=== PATIENT | female | born 1955 | race Caucasian/White ===

== ENCOUNTER 2021-02-08 14:10 | Inpatient (IN) | payer OTHER ==
--- NOTE | 2021-02-08 16:19 | RAD REPORT ---
EXAM DESCRIPTION: US - Extremity Nonvascular Limited - 02/08/2021 3:05 pm CLINICAL HISTORY: umbilical mass Pain and swelling COMPARISON: No comparisons TECHNIQUE: Real-time sonographic evaluation of the area of interest was performed. FINDINGS: There is a rounded sac-like structure in the area of interest umbilical region. The sac-li ke structure appears to contain echogenic material. Most likely, this represents an umbilical hernia containing fat.
[2021-02-08 16:59] LABS: Absolute Lymphocytes (CBC) 2.7 K/uL (0.7-4.9); Basophils % 0.7 % (0-1.3); Hematocrit 39.3 % (36.0-45.0); Lymphocytes % 17.7 % (15.3-44.8); MPV 7.6 fL (7.6-11.3); RBC Red Blood Cell Count 4.52 M/uL (3.86-4.86)
[2021-02-08 17:11] LABS: Potassium 3.7 mmol/L (3.5-5.1)
--- NOTE | 2021-02-08 17:56 | RAD REPORT ---
EXAM DESCRIPTION: CTAbdomen Pelvis W Contrast - 02/08/2021 5:47 pm CLINICAL HISTORY: Abdominal pain. ABD PAIN COMPARISON: No comparisons TECHNIQUE: Biphasic CT imaging of the abdomen and pelvis was performed with 100 ml non-ionic IV cont rast. All CT scans are performed using dose optimization technique as appropriate and may include automated exposure control or mA/KV adjustment according to patient size. FINDINGS: The lung bases are clear.Cholecystectomy. The liver, spleen, pancreas, adrenal glands and kidneys are within normal limits. No bowel obstruction, free air, free fluid or abscess. Sigmoid diverticulosis coli is present without diverticulitis. The appendix is normal. Moderate inflamed fat containing umbilical hernia is present . This may be an incarcerated hernia. No evidence of significant lymphadenopathy. No suspicious bony findings. IMPRESSION: Incarcerated fat containing umbilical hernia suspected. Sigmoid diverticulosis coli without diverticulitis.
[2021-02-08] MEDS ORDERED: DIAZEPAM 10 MG/2 ML INJ SYRINGE ONE (18:04)
[2021-02-08] MEDS ORDERED: PIPERACIL/TAZO 3.375 GM VIAL IV ONE (18:04)
[2021-02-08] MEDS ORDERED: NA CHLORIDE 0.9% 100 ML ONE (18:05)
[2021-02-08] MEDS ORDERED: NA CHLORIDE 0.9% 250 ML ONE (18:08)
[2021-02-08] MEDS ORDERED: FENTANYL CITR 100 MCG/2 ML ONE (18:13)
--- NOTE | 2021-02-08 18:55 | ER ---
Nurse's Notes [facility] Name: Marija Henry Age: 65 yrs Sex: Female : 1955 Arrival Date: 02/08/2021 Time: 14:16 Bed 13 Private MD: Rebecca Hernandes Diagnosis: Incarcerated Hernia Presentation: 02/08 14:24 Chief complaint: Patient states: pain and redness to umbilical area since yesterday. aa5 Coronavirus screen: At this time, the client does not indicate any symptoms associated with coronavirus-19. Ebola Screen: No symptoms or risks identified at this time. Initial Sepsis Screen: Does the patient meet any 2 criteria? No. Patient's initial sepsis screen is negative. Does the patient have a suspected source of infection? No. Patient's initial sepsis screen is negative. Risk Assessment: Do you want to hurt yourself or someone else? Patient reports no desire to harm self or others. Onset of symptoms was February 2021. 14:24 Method Of Arrival: Ambulatory aa5 14:24 Acuity: UDAY 4 aa5 Historical: - Allergies: 14:25 No Known Allergies; aa5 - Home Meds: 14:25 Wellbutrin Oral [Active]; aa5 - PMHx: 14:25 None; aa5 - PSHx: 14:25 Cholecystectomy; Bladder lift; partial hysterectomy; kidney stone; skin cancer removed; aa5 - Immunization history:: Client reports receiving the 2nd dose of the Covid vaccine. - Social history:: Smoking status: Patient reports the use of cigarette tobacco products, smokes one-half pack cigarettes per day. Screenin:37 Abuse screen: Denies threats or abuse. Denies injuries from another. Nutritional jt3 screening: No deficits noted. Tuberculosis screening: No symptoms or risk factors identified. Fall Risk None identified. Assessment: 14:37 General: Appears in no apparent distress. Behavior is calm, cooperative. Pain: jt3 Complains of pain in abdomen Pain does not radiate. Pain currently is 5 out of 10 on a pain scale. Quality of pain is described as burning, Pain began 1 day ago. GI: Reports Pt. reports redness to umbilical area that started yesterday. 2 inch [place] around umbilical area. Area is red, warm, and swollen. Denies fevers. No bleeding or fluid coming out. 19:10 Reassessment: Pt up to use bathroom, states while getting up to walk she can feel the dc2 hernia attempting to come out. Pt denies pain, states she had plenty of pain meds earlier. at side, gown given for pt to change into. Voices no other needs, updated on POC regarding IV antibiotics. Voices understanding . 23:00 Reassessment: Pt swabbed for COVID at this time. dc2 Vital Signs: 14:24 BP 131 / 60; Pulse 90; Resp 18 S; Temp 97.7(TE); Pulse Ox 98% on R/A; Weight 114.76 kg aa5 (R); Height 5 ft. 5 in. (165.10 cm) (R); 18:01 BP 158 / 83; Pulse 83; Resp 17; Pulse Ox 97% on R/A; jt3 14:24 Body Mass Index 42.10 (114.76 kg, 165.10 cm) aa5 ED Course: 14:16 Patient arrived in ED. am2 14:16 Rebecca Hernandes MD is Private Physician. am2 14:24 Arm band placed on. aa5 14:25 Triage completed. aa5 14:28 Kenney Flores, RN is Primary Nurse. jt3 14:29 Juni Celaya PA is PHCP. jr8 14:29 Cammy Shell MD is Attending Physician. jr8 14:37 Patient has correct armband on for positive identification. Bed in low position. Call jt3 light in reach. Side rails up X2. 14:37 No provider procedures requiring assistance completed. jt3 15:05 US Extrmty Nonvasular Limited In Process Unspecified. EDMS 17:00 Inserted saline lock: 20 gauge in left antecubital area, using aseptic technique. Blood jt3 collected. 17:18 PHCP role handed off by Juni Celaya PA [facility] 17:18 Glenn Aparicio PA is PHCP. jmm 17:47 CT Abd/Pelvis - IV Contrast Only In Process Unspecified. EDMS 18:54 Michele Berkowitz DO is Hospitalizing Provider. jmm 19:10 Hospitalizing Provider role handed off by Michele Berkowitz DO [facility] 19:10 Ronny Garcia MD is Hospitalizing Provider. jmm 20:26 Resting quietly. Awaiting bed assignment, Awaiting lab results, Awaiting: Voices no dc2 needs at this time. Call light within reach. Continue to monitor. 21: IV Converted IV to saline lock on antecubital area dc2 21:20 No apparent distress. Resting quietly. Awaiting bed assignment. dc2 22:30 No apparent distress. Appears to be sleeping. Awaiting bed assignment. dc2 02/09 00:02 CBC with Automated Diff Sent. dc2 Administered Medications: 02/08 18:26 Drug: Valium (diazepam) 5 mg Route: IVP; Site: left antecubital; jt3 18:51 Follow up: Response: No adverse reaction; Pain is decreased jt3 18:26 Drug: fentaNYL (PF) 25 mcg Route: IVP; Site: left antecubital; jt3 18:51 Follow up: Response: No adverse reaction; Pain is decreased jt3 19:21 Follow up: Response: Pain is decreased dc2 18:32 Drug: Zosyn (piperacillin-tazobactam) 3.375 grams Route: IVPB; Infused Over: 60 mins; jt3 Site: left antecubital; 19:30 Follow up: IV Status: Completed infusion; IV Intake: 100ml dc2 Intake: 19:30 IV: 100ml; Total: 100ml. dc2 Outcome: 18:55 Decision to Hospitalize by Provider. romy 02/09 00:40 Admitted to Tele accompanied by tech, via stretcher, room 225, with chart, Report dc2 called to FRANCESCO Hernandez Condition: stable 01:13 Patient left the ED. dc2 Signatures: Dispatcher [employer] EDMS Glenn Aparicio PA PA jmm Calderon, Audri, RN RN aa5 Juni Celaya PA PA jr8 Altagracia Mcconnell am2 Kathryn Lyle RN RN dc2 Kenney Flores RN RN jt3
--- NOTE | 2021-02-08 18:56 | EDPHYS ---
Physician Documentation [facility] Name: Marija Henry Age: 65 yrs Sex: Female : 1955 Arrival Date: 02/08/2021 Time: 14:16 Bed 13 Private MD: Rebecca Hernandes ED Physician Cammy Shell HPI: 02/08 14:57 This 65 yrs old Female presents to ER via Ambulatory with complaints of navel jr8 infection. 14:57 This is a 65-year-old female that presented to the emergency room with complaints of jr8 umbilical pain. Patient stated that she has had a cystlike structure to the superior portion of her umbilicus for some time but that now it has become inflamed and tender to palpation and also noted mild erythema surrounding the mass.. Historical: - Allergies: 14:25 No Known Allergies; aa5 - Home Meds: 14:25 Wellbutrin Oral [Active]; aa5 - PMHx: 14:25 None; aa5 - PSHx: 14:25 Cholecystectomy; Bladder lift; partial hysterectomy; kidney stone; skin cancer removed; aa5 - Immunization history:: Client reports receiving the 2nd dose of the Covid vaccine. - Social history:: Smoking status: Patient reports the use of cigarette tobacco products, smokes one-half pack cigarettes per day. ROS: 14:57 Eyes: Negative for injury, pain, redness, and discharge, ENT: Negative for injury, jr8 pain, and discharge, Neck: Negative for injury, pain, and swelling, Cardiovascular: Negative for chest pain, palpitations, and edema, Respiratory: Negative for shortness of breath, cough, wheezing, and pleuritic chest pain, Abdomen/GI: Negative for abdominal pain, nausea, vomiting, diarrhea, and constipation, Back: Negative for injury and pain, MS/Extremity: Negative for injury and deformity, Neuro: Negative for headache, weakness, numbness, tingling, and seizure. 14:57 Skin: Positive for erythema, swelling, of the Umbilical. Exam: 14:57 Constitutional: This is a well developed, well nourished patient who is awake, alert, jr8 and in no acute distress. Cardiovascular: Regular rate and rhythm with a normal S1 and S2. No gallops, murmurs, or rubs. Normal PMI, no JVD. No pulse deficits. Respiratory: Lungs have equal breath sounds bilaterally, clear to auscultation and percussion. No rales, rhonchi or wheezes noted. No increased work of breathing, no retractions or nasal flaring. Skin: Warm, dry with normal turgor. Normal color with no rashes, no lesions, and no evidence of cellulitis. MS/ Extremity: Pulses equal, no cyanosis. Neurovascular intact. Full, normal range of motion. Neuro: Awake and alert, GCS 15, oriented to person, place, time, and situation. Motor strength 5/5 in all extremities. Sensory grossly intact. 14:57 Abdomen/GI: Inspection: abdomen appears normal, Bowel sounds: active, all quadrants, Palpation: soft, in all quadrants, Patient has approximately 2.5 x 2.5 cm solid slightly movable mass to the supra umbilical region. Tender to palpation present with erythema. No drainage noted from region.. Vital Signs: 14:24 BP 131 / 60; Pulse 90; Resp 18 S; Temp 97.7(TE); Pulse Ox 98% on R/A; Weight 114.76 kg aa5 (R); Height 5 ft. 5 in. (165.10 cm) (R); 18:01 BP 158 / 83; Pulse 83; Resp 17; Pulse Ox 97% on R/A; jt3 14:24 Body Mass Index 42.10 (114.76 kg, 165.10 cm) aa5 MDM: 14:29 Patient medically screened. [facility] 14:57 Data reviewed: vital signs, nurses notes, radiologic studies, ultrasound. Data 8 interpreted: Pulse oximetry: on room air is 98 %. Interpretation: normal. Plan:. 16:28 ED course: Ultrasound of the umbilical structure indicates that it may be a jr8 fat-containing hernia. Given the physical exam noted we are doing a CT scan to see if there is incarceration. 18:47 Counseling: I had a detailed discussion with the patient and/or guardian regarding: the [facility] historical points, exam findings, and any diagnostic results supporting the discharge/admit diagnosis. 02/08 16:21 Order name: CBC with Diff; Complete Time: 17:17 8 02/08 16:21 Order name: Basic Metabolic Panel; Complete Time: 17:17 8 02/08 19:57 Order name: COVID-19 SARS RT PCR (Document "Date of Onset" if Symptomatic); Complete jmm Time: 00:09 02/08 14:41 Order name: US Extrmty Nonvasular Limited; Complete Time: 16:20 8 02/08 16:21 Order name: CT Abd/Pelvis - IV Contrast Only; Complete Time: 17:59 8 02/08 20:01 Order name: NPO; Complete Time: 00:02 EDMS Administered Medications: 18:26 Drug: Valium (diazepam) 5 mg Route: IVP; Site: left antecubital; jt3 18:51 Follow up: Response: No adverse reaction; Pain is decreased jt3 18:26 Drug: fentaNYL (PF) 25 mcg Route: IVP; Site: left antecubital; jt3 18:51 Follow up: Response: No adverse reaction; Pain is decreased jt3 19:21 Follow up: Response: Pain is decreased dc2 18:32 Drug: Zosyn (piperacillin-tazobactam) 3.375 grams Route: IVPB; Infused Over: 60 mins; jt3 Site: left antecubital; 19:30 Follow up: IV Status: Completed infusion; IV Intake: 100ml dc2 Disposition: 02/09 09:08 Co-signature as Attending Physician, Cammy Shell MD I agree with the assessment and sp3 plan of care. Disposition Summary: 02/08/21 18:55 Hospitalization [facility] jmm Condition: Stable jmm Problem: new jmm Symptoms: have improved jmm Bed/Room Type: Standard [facility] Hospitalization Status: Observation(02/08/21 19:10) jmm Provider: Ronny Garcia(02/08/21 19:10) jmm Room Assignment: 225(02/09/21 00:24) bb Diagnosis - Incarcerated Hernia jmm Forms: - Medication Reconciliation Form jmm - SBAR form jmm Signatures: Dispatcher [employer] EDMS Glenn Aparicio PA PA jmm Ballard, Brenda, RN RN bb Mira Ventura RN RN aa5 Juni Celaya PA PA jr8 Cammy Shell MD MD sp3 Kenney Flores RN RN jt3 Kathryn Lyle RN dc2 Corrections: (The following items were deleted from the chart) 02/08 19: 18:55 Inpatient Admission romy [place] 18:55 Michele Berkowitz 02/09 00:24 02/08 18:55 romy
[2021-02-08] MEDS: D5 0.45 NS 1,000 ML IV SCH (20:00)
[2021-02-08] MEDS ORDERED: ONDANSETRON 4 MG/2 ML VIAL IV PRN (20:00)
[2021-02-08] MEDS ORDERED: MORPHINE 4 MG/ML SYR IV PRN (20:00)
[2021-02-08] MEDS ORDERED: ACETAMINOPHEN 500 MG TAB PO PRN (20:00)
[2021-02-09 01:56] VITALS: BMI 5879.6
[2021-02-09] MEDS: D5 0.45 NS 1,000 ML IV SCH ×3 (03:12→14:01)
[2021-02-09] MEDS: PIPER TAZO 3.375 GM in NA CHLORIDE 0.9% 100 ML IV SCH ×3 (03:12→20:17)
[2021-02-09] MEDS ORDERED: LIDOCAINE 2% MPF 5 ML VIAL ONE (09:02)
[2021-02-09] MEDS ORDERED: FENTANYL CITR 100 MCG/2 ML ONE (09:02)
[2021-02-09] MEDS ORDERED: ONDANSETRON 4 MG/2 ML VIAL ONE (09:02)
[2021-02-09] MEDS ORDERED: dexAMETHasone 10 MG/ML VIAL ONE ×2 (09:02→09:59)
[2021-02-09] MEDS ORDERED: propofoL 200 MG/20 ML VIAL IV ONE (09:02)
[2021-02-09] MEDS ORDERED: MIDAZOLAM HCL 2 MG/2 ML INJ ONE (09:02)
[2021-02-09] MEDS ORDERED: ROCURONIUM 50 MG/5 ML VIAL IV ONE (09:02)
[2021-02-09] MEDS ORDERED: Ringers Lactate 1,000 ML IV ONE (09:19)
[2021-02-09] MEDS ORDERED: BUPIVACAINE 0.25% PF 30 ML VIAL ONE (09:59)
--- NOTE | 2021-02-09 11:10 | P.OP ---
Scraper Hand: Leslye DAVIS Preoperative diagnosis: Incarcerated Umbilical Hernia Postoperative diagnosis: same Primary procedure: Laparoscopic Repair Incarcerated Umbilical Hernia Anesthesia: General Estimated blood loss: min Specimen: Hernia sac and contents Findings: as above Complications: None Transferred to: Recovery Room Condition: Good
[2021-02-09] MEDS ORDERED: HYDROMORPHONE HCL 1 MG/ML INJ IV PRN (11:15)
[2021-02-09] MEDS ORDERED: HYDROCODONE/APAP 7.5/325 MG TAB PO PRN (11:15)
[2021-02-09] MEDS ORDERED: ONDANSETRON 4 MG/2 ML VIAL IV PRN (11:15)
[2021-02-09] MEDS ORDERED: GLYCOPYRROLATE 0.2 MG/ML SYR ONE (11:26)
[2021-02-09] MEDS ORDERED: NEOSTIGMINE 1 MG/ML -5 ML ONE (11:29)
[2021-02-09] MEDS ORDERED: KETOROLAC 30 MG/ML INJ ONE (11:36)
--- NOTE | 2021-02-09 12:57 | PREOPHP ---
Date of Admission: 02/08/2021 Chief Complaint: Abdominal pain. History Of Present Illness: The patient is a 65-year-old female comes in to the emergency room with 2-day history of periumbilical pain associated with redness and was attempted to be reduced in the em ergency room and was unsuccessful. She continues to have pain. Denies any nausea, vomiting, diarrhe a, or constipation. No blood in her stool. No dysuria or hematuria. No sore throat, runny nose, co ugh, headaches, or dizziness. No chest pain. No fever or chills. Review of Systems: Otherwise unremarkable. The area of the umbilicus is red and tender. Past Medical History: Negative. Past Surgical History: Cholecystectomy, bladder lift, partial hysterectomy, kidney stones, skin canc er. Allergies: NONE. Social History: The patient does smoke, is on Wellbutrin, trying to quit. Does not drink. Family History: Significant for high blood pressure. Physical Examination: Vital Signs: Stable. She is afebrile. General: She is awake, alert, and oriented x3. Head and Neck: Cranial nerves 2 through 12 are grossly within normal limits. No neck masses. No JV D. Throat clear. Neck is supple. Chest: Clear. Heart: S1 and S2. Abdomen: Soft and nondistended. Positive bowel sounds. Positive periumbilical redness with tender approximately 3 x 3 cm mass, nonreducible. Extremities: Adequately perfused. Nontender. Neuro: Nonfocal. Laboratory Data: White count is 15,000 with a left shift. Chemistry reviewed unremarkable. CT of t he abdomen and pelvis reviewed with the radiologist. Essentially, the patient has incarcerated umbil ical hernia containing fat. Assessment: Incarcerated umbilical hernia. Plan: Admit n.p.o., IV fluid, IV antibiotic, to the OR for laparoscopic assisted repair of incarcera yrn umbilical hernia. The patient understands the risks, benefits, and alternatives and agrees to pr ocedure. /MODL Voice ID: [id number]
--- NOTE | 2021-02-09 16:27 | OP ---
Date of Procedure: 02/09/2021 Surgeon: Ronny Garcia MD Diesel Powerplant Mechanic: RYAN Simmons. Preoperative Diagnosis: Incarcerated umbilical hernia. Postoperative Diagnosis: Incarcerated umbilical hernia. Procedure: Laparoscopic repair of incarcerated umbilical hernia. Estimated Blood Loss: Minimal. Specimen: Hernia sac and contents. Findings: Incarcerated omentum. Anesthesia: General. Complications: None. Disposition: The patient tolerated the procedure in stable condition and taken to Recovery in good g eneral condition. Procedure In Detail: The patient was brought to the OR and placed in supine position. General anest hesia begun. The patient was prepped and draped in usual sterile fashion. Marcaine 0.5% was infiltr ated locally. A 15-blade was used to make a 1 cm left upper quadrant incision. Subcutaneous tissues were divided. Fascia was identified and divided. A #1 Vicryl stay suture was placed. Peritoneal c avity entered with sharp and blunt dissection. A 12 mm trocar was placed into the peritoneal cavity under direct vision and then, a 12 mm trocar was placed into the peritoneal cavity under direct visio n and a 5 mm trocar placed in the left lower quadrant. Laparoscopy revealed incarcerated omentum int o the small umbilical hernia. The omentum was divided with LigaSure and then marked 3 cm incision on the hernia on the umbilicus. Subcutaneous tissue divided. Hernia sac and contents were identified. They were incarcerated and they were sent to Pathology as specimen. Wound irrigated. Bleeding con trolled with cautery and then approximately 1.5 cm defect remained. Ventralex small placed in the pe ritoneal cavity. A #1 PDS [id number] suture was used to close the defect. Wound irrigated. Bl eeding controlled with cautery and then 3-0 chromic used to approximate the subcutaneous tissue and c lose the skin. Pneumoperitoneum reestablished and the mesh had complete coverage. ProTack was used to secure the mesh to the peritoneal surface and then all trocars were removed under direct vision. Stay sutures were tied to each other to approximate the fascial defect. Subcutaneous wounds were irr igated. Bleeding controlled with cautery. A 3-0 chromic used to reapproximate the subcutaneous tiss ue and close the skin. Sterile dressing applied. The patient was awakened and taken to the Recovery in good general condition. The patient did have abdominal block by Anesthesia for postop pain contr ol. /LUIS FELIPE Voice ID: [id number] Report ID: [id number]
[2021-02-10] MEDS: PIPER TAZO 3.375 GM in NA CHLORIDE 0.9% 100 ML IV SCH (03:20)
[2021-02-10 05:53] LABS: Absolute Lymphocytes (CBC) 1.1 K/uL (0.7-4.9); Basophils % 0.3 % (0-1.3); Hematocrit 35.6 % (36.0-45.0); MPV 7.5 fL (7.6-11.3); RBC Red Blood Cell Count 4.14 M/uL (3.86-4.86)
[2021-02-10] MEDS: D5 0.45 NS 1,000 ML IV SCH (05:55)
[2021-02-10 06:30] LABS: Blood Morphology Comment NOT SEEN (NOT SEEN); Platelet Estimate ADEQ
[2021-02-10 09:53] VITALS: BP 144/77; TEMP 98.4
[2021-02-10 10:20] VITALS: O2SAT 93
--- NOTE | 2021-02-10 21:16 | DS ---
Date of Discharge: 02/10/2021 Admitting Diagnoses: Incarcerated umbilical hernia. Discharge Diagnosis: Incarcerated umbilical hernia. Procedure: Laparoscopic repair of incarcerated umbilical hernia. Hospital Course: The patient is a 65-year-old female, who underwent the aforementioned procedure. P ostoperatively she is tolerating diet, ambulating, pain controlled on p.o. pain medication, afebrile therefore patient will be discharged to home. Disposition: Home. Condition: Stable. Discharge Instructions: Resume home medications and diet. Activity as tolerated. No heavy lifting. Remove outer dressing in a.m. shower. Keep Steri-Strips on at all times. Abdominal binder is orde red Tylenol No. 3, one tablet p.o. q.4 p.r.n. pain, Augmentin 875 p.o. b.i.d. probiotics and yogurt a s well. /MODL Voice ID: [id number] Report ID: [id number]
== END 2021-02-10 10:00 | disposition home or self-care (01) | DRG 355 ==
LOC: ER 14:10 → ERHOLD 20:06 → 2ND 02-09 00:36
PROVIDERS: ADMIT Surgery; ATTEND Surgery
PROC: 0WQF4ZZ Repair Abdominal Wall, Percutaneous Endoscopic Approach (ICD-10-PCS; principal; 2021-02-09 11:00)
DX: K42.0 Umbilical hernia with obstruction, without gangrene (principal); F17.210 Nicotine dependence, cigarettes, uncomplicated; Z79.899 Other long term (current) drug therapy; Z90.49 Acquired absence of other specified parts of digestive tract; Z90.711 Acquired absence of uterus with remaining cervical stump; Z85.828 Personal history of other malignant neoplasm of skin; Z20.822 Contact with and (suspected) exposure to COVID-19
CPT/HCPCS: 36415; 74177; 76882; 80048; 85025; 88302; 94010; 96365; 96375; 99285; J1100; J2250; J2405; J2543; J2704; J2710; J3010; J3360; J7050; J7120; J7799; Q9967; U0003

== ENCOUNTER 2022-11-24 01:45 | Emergency (ER) | payer OTHER ==
--- OUTSIDE RECORDS SUMMARY | 2022-11-24 01:50 | XMS REPORT | Continuity of Care Document ---
:1955 Author Organization [facility] t Address [address] [place] [address] [place] [id number] Care Team Providers Name Role Phone HernandesRebecca Primary Care Physician Juanjose Callahan Attending Clinician Unavailable Rebecca Hernandes Attending Clinician Unavailable Doctor Unassigned, [place] Attending Clinician Unavailable Team, [facility] Attending Clinician UnavailLORY Aiken Attending Clinician Unavailable Lory Peres MD Attending Clinician JOSE JAUREGUI Attending Clinician Unavailable JOSE JAUREGUI Attending Clinician Unavailable SHANEKA HOWARD Attending Clinician Unavailable SOPHIA TOVAR Attending Clinician Unavailable Sophia Tovar DO Attending Clinician MARIANNA HADDAD Attending Clinician Unavailable SOPHIA TOVAR Admitting Clinician Unavailable Payers Payer Name Policy Type Policy Number Effective Date Expiration Date S ource [employer] MEDICARE [id number] 2019 Common Sp [place] 00:00:00 - [facility] HUMANA MEDICARE [id number] 2019 Common Sp [place] 00:00:00 - [facility] HU[employer]NA MEDICARE [id number] 2019 Common Sp [place] [id number] Common Sp [place] 00:00:00 - [facility] HUMANA MEDICARE [id number] 2019 Common Sp [place] 00:00:00 - [facility] [id number] 2019 Common Sp [place] 00:00:00 - [facility] MEDICARE [id number] 2019 Common Sp [place] 00:00:00 - [facility] HUMANA MEDICARE C1 [id number] 2019 Common Sp [place] 00:00:00 - [facility] HUMANA MEDICARE C1 [id number] 2019 Common Sp [place] 00:00:00 - [facility] Problems Condition Condition Condition Status Onset Resolution Last Treating Co mments Source Name Details Category Date Date Treatment Clinician Date Pain Pain Disease Active Univers pelvic pelvic 10-29 ity of 00:00: [place] [facility] Branch Localized, Localized, Disease Active U nivers primary primary 10-27 ity of oste[place] it[place] [facility] shoulder shoulder Branch region region Pain in Pain in Disease Active Univers limb limb 10-27 ity of 00:00: [place] [facility] Branch Shoulder Shoulder Disease Active Unive rs joint pain joint pain 10-27 it y of 00:00: [place] [facility] Branch Tobacco Tobacco Disease Active Univers user user 7 ity of 00:00: [place] [facility] Branch Varicose Varicose Disease Active Unive rs veins of veins of 10-27 [place]y of both lower both [place] extremitie 00 Me dical s s Branch BMI BMI Disease Active Univers 40.0-44.9, 40.0-44.9, 7- it y of adult adult 00:00: [place] [facility] Vaginal Vaginal Disease Active Univers irritation irritation - it y of 00:00: [place] 00 [facility] Recurrent Recurrent Disease Active Uni vers candidiasi candidiasi 10-24 it y of s of s of 00:00: [place] vagina vagina 00 [facility] 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 10-24 ity of of female of [place] 00 [facility] Postmenopa Postmenopa Disease Active 2020-04 U nivers usal usal 0- ity of atrophic atrophic 00:00: [place] vaginitis vaginitis 00 [facility] [id number] Leukocytos Problem Co mmon is, Spirit unspecifie - CHI d type [facility] [id number] History of Problem Co mmon skin Spirit cancer in - CHI adulthood [facility] [id number] Gallstones Problem Co mmon Spirit - CHI [facility] [id number] Depression Problem Co mmon with Spirit anxiety - CHI [facility] [id number] Pain of Problem Commo n right Spirit great toe - CHI [facility] [id number] Varicose Problem Commo n veins of Spirit both legs - [facility] with edema [facility] [id number] Primary Problem Comm on osteoarthr Spirit itis of - CHI left [facility] [id number] Asthma, Problem Commo n mild Spirit intermitte - CHI nt, [facility] [id number] Cigarette Problem Comm on nicotine Spirit dependence - [facility] [id number] [place] Problem C ommon [id number] racic Spirit bursitis - CHI of right [facility] [id number] Acute pain Problem Com mon of right Spirit shoulder [facility] [id number] Primary Problem Comm on osteoarthr Spirit itis of - CHI right [facility] Allergies, Adverse Reactions, Alerts Allergy Allergy Status Severity Reaction(s) Onset Inactive Treating Comm ents Source Name Type Date Date Clinician LATEX DRUG Active High Unknown-Cmnt 2020-04 Univ ers INGREDI 05-10 ity of 00:00: [address] Latex Propensi Active Unknown - 2020-04 It turns Uni vers ty to See comments 2-07 skin ity of adverse 00:00: 'raw' per [place] reaction 00 pt Medical s Branch No Known DA Active U 2018- [facility] Allergie 6-20 [place] 00:00: d 00 [facility] Latex Latex Active Unknown [facility] Spirit - [facility] Social History Social Habit Start Date Stop Date Quantity Comments Source History of Tobacco Current Smoker Co mmon Spirit - Use [facility] Sex Assigned At Common Sp garrett - [facility] Exposure to 2021-12-21 2021-12-31 Not sure [place] [facility]-CoV-2 (event) 00:00:00 09:25:00 [facility] Alcohol intake 2021-12-31 2021-12-31 Ex-drinker [facility] 00:00:00 00:00:00 (finding) [facility] Cigarettes smoked 2021-10-13 2021-10-13 Univers ity of current (pack per 00:00:00 00:00:00 ) - Reported Branch Tobacco use and 2021-10-13 2021-10-13 Smokeless Universit y of exposure 00:00:00 00:00:00 tobacco non-user [facility] Comment 2021-10-13 2021-10-13 trying to quit Unive rsity of 00:00:00 00:00:00 [facility] Smoking Status Start Date Stop Date Source Current Smoker 2022-08-11 00:00:00 [facility] Spiri t - [facility] Medications Ordered Filled Start Stop Current Ordering Indication Dosage Frequency Signature Comments Components Source Medication Medication Date Date Medication? Clinician (SIG) Name Name clobetasoL 2021-04 Yes Apply to Uni vers 0.05 % 0-04 area(s) ity of ointment 00:00: daily. [place] [facility] clobetasoL 2021-04 Yes Apply to Uni vers 0.05 % 0-04 area(s) ity of ointment 00:00: daily. [place] [facility] clobetasoL 2021-04 Yes Apply to Uni vers 0.05 % 0-04 area(s) ity of ointment 00:00: daily. [place] [facility] Branch clobetasoL 2021-04 Yes Apply to Uni vers 0.05 % 0-04 area(s) ity of ointment 00:00: daily. [place] [facility] clobetasoL 2021-04 Yes Apply to Uni vers 0.05 % 0-04 area(s) ity of ointment 00:00: daily. [address] Branch valACYclovi 2021-0 Yes [id number] 1g Take 1 Univers r (VALTREX) 9-30 tablet by ity of 1 gram 00:00: mouth in [place] tablet 00 the Medical morning Branch and 1 tablet in the evening. valACYclovi 2021-0 Yes [id number] 1g Take 1 Univers r (VALTREX) 9-30 tablet by ity of 1 gram 00:00: mouth in [place] tablet 00 the Medical morning Branch and 1 tablet in the evening. valACYclovi 0 Yes [id number] 1g Take 1 Univers r (VALTREX) 9-30 tablet by ity of 1 gram 00:00: mouth in [place] tablet 00 the Medical morning Branch and 1 tablet in the evening. valACYclovi 0 Yes [id number] 1g Take 1 Univers r (VALTREX) 9-30 tablet by ity of 1 gram 00:00: mouth in [place] tablet 00 the Medical morning Branch and 1 tablet in the evening. valACYclovi 0 Yes [id number] 1g Take 1 Univers r (VALTREX) 9-30 tablet by ity of 1 gram 00:00: mouth in [place] tablet 00 the Medical morning Branch and 1 tablet in the evening. valACYclovi 0 Yes [id number] 1g Take 1 Univers r (VALTREX) 9-30 tablet by ity of 1 gram 00:00: mouth in [place] tablet 00 the Medical morning Branch and 1 tablet in the evening. valACYclovi 0 Yes [id number] 1g Take 1 Univers r (VALTREX) 9-30 tablet by ity of 1 gram 00:00: mouth in [place] tablet 00 the Medical morning Branch and 1 tablet in the evening. valACYclovi 2021-0 Yes [id number] 1g Take 1 Univers r (VALTREX) 9-30 tablet by ity of 1 gram 00:00: mouth in [place] tablet 00 the Medical morning Branch and 1 tablet in the evening. estradioL 0 Yes [id number] 1g Insert 1 g Univers 0.01 % (0.1 8-26 into ity of mg/gram) 00:00: vagina [place] vaginal 00 weekly. Medical cream Insert Branch every night for 2 weeks and then 3 times a week M/W/F estradioL 2021-0 Yes [id number] 1g Insert 1 g Univers 0.01 % (0.1 8-26 into ity of mg/gram) 00:00: vagina [place] vaginal 00 weekly. Medical cream Insert Branch every night for 2 weeks and then 3 times a week M/W/F estradioL 2021-0 Yes [id number] 1g Insert 1 g Univers 0.01 % (0.1 8-26 into ity of mg/gram) 00:00: vagina [place] vaginal 00 weekly. Medical cream Insert Branch every night for 2 weeks and then 3 times a week M/W/F estradioL 2021-0 Yes [id number] 1g Insert 1 g Univers 0.01 % (0.1 8-26 into ity of mg/gram) 00:00: vagina [place] vaginal 00 weekly. Medical cream Insert Branch every night for 2 weeks and then 3 times a week M/W/F estradioL 2021-0 Yes [id number] 1g Insert 1 g Univers 0.01 % (0.1 8-26 into ity of mg/gram) 00:00: vagina [place] vaginal 00 weekly. Medical cream Insert Branch every night for 2 weeks and then 3 times a week M/W/F estradioL 2021-0 Yes [id number] 1g Insert 1 g Univers 0.01 % (0.1 8-26 into ity of mg/gram) 00:00: vagina [place] vaginal 00 weekly. Medical cream Insert Branch every night for 2 weeks and then 3 times a week M/W/F estradioL 2021-0 Yes [id number] 1g Insert 1 g Univers 0.01 % (0.1 8-26 into ity of mg/gram) 00:00: vagina [place] vaginal 00 weekly. Medical cream Insert Branch every night for 2 weeks and then 3 times a week M/W/F estradioL 2021-0 Yes [id number] 1g Insert 1 g Univers 0.01 % (0.1 8-26 into ity of mg/gram) 00:00: vagina [place] vaginal 00 weekly. Medical cream Insert Branch every night for 2 weeks and then 3 times a week M/W/F estradioL 2021-0 Yes [id number] 1g Insert 1 g Univers 0.01 % (0.1 8-26 into ity of mg/gram) 00:00: vagina [place] vaginal 00 weekly. Medical cream Insert Branch every night for 2 weeks and then 3 times a week M/W/F glycerin-mi 2021- No [id number] 1{appli Insert 1 Univers n 10-27 cator} Applicator ity of oil-polycar 00:00: 00:00 into [facility] 00 :00 vagina Medical (REPLENS) every 3 Branch Gel (three) days. clobetasoL 2021- No [id number] Apply to Univers 0.05 % 10-27 area(s) 2 ity of ointment 00:00: 00:00 (two) [place] 00 :00 times Medical daily. Branch Clobetasol Yes [id number] Apply to Univers Propionate- 7-13 area(s) ity o f Emolnt 0.05 00:00: [place]. [place] % [place] 00 Medical Branch Clobetasol Yes [id number] Apply to Univers Propionate- 7-13 area(s) ity o f Emolnt 0.05 00:00: [place]. [place] % Cre[place] 00 Medical Branch Clobetasol Yes [id number] Apply to Univers Propionate- 7-13 area(s) ity o f Emolnt 0.05 00:00: [place]. [place] % Cre[place] 00 Medical Branch Clobetasol 2021- No [id number] Apply to Univers Propionate- 7-13 10-04 area(s) ity of Emolnt 0.05 00:00: 00:00 daily. [place] as % Crea 00 :00 Medical Branch fluconazole 2021- No [id number] 200mg Take 1 Univers 200 mg 10-13 tablet by ity of tablet 00:00: 00:00 mouth in [place] 00 :00 the Medical morning. Branch permethrin Yes APPLY TO Uni vers 5 % cream -27 THE ity of 00:00: AFFECTED 00 AREA AND Medical LEAVE ON Branch FOR 8 TO 14 HOURS BEFORE WASHING OFF DAILY FOR 7 DAYS permethrin Yes APPLY TO Uni vers 5 % cream -27 THE ity of 00:00: AFFECTED 00 AREA AND Medical LEAVE ON Branch FOR 8 TO 14 HOURS BEFORE WASHING OFF DAILY FOR 7 DAYS permethrin 2022-0 Yes APPLY TO Uni vers 5 % cream 4-27 THE ity of 00:00: AFFECTED [place] 00 AREA AND Medical LEAVE ON Branch FOR 8 TO 14 HOURS BEFORE WASHING OFF DAILY FOR 7 DAYS permethrin 2022-0 Yes APPLY TO Uni vers 5 % cream 4-27 THE ity of 00:00: AFFECTED [place] 00 AREA AND Medical LEAVE ON Branch FOR 8 TO 14 HOURS BEFORE WASHING OFF DAILY FOR 7 DAYS permethrin 2022-0 Yes APPLY TO Uni vers 5 % cream 4-27 THE ity of 00:00: AFFECTED [place] 00 AREA AND Medical LEAVE ON Branch FOR 8 TO 14 HOURS BEFORE WASHING OFF DAILY FOR 7 DAYS permethrin 2022-0 Yes APPLY TO Uni vers 5 % cream 4-27 THE ity of 00:00: AFFECTED 00 AREA AND Medical LEAVE ON Branch FOR 8 TO 14 HOURS BEFORE WASHING OFF DAILY FOR 7 DAYS permethrin 2022-0 Yes APPLY TO Uni vers 5 % cream 4-27 THE ity of 00:00: AFFECTED 00 AREA AND Medical LEAVE ON Branch FOR 8 TO 14 HOURS BEFORE WASHING OFF DAILY FOR 7 DAYS permethrin 2022-0 Yes APPLY TO Uni vers 5 % cream 4-27 THE ity of 00:00: AFFECTED [place] 00 AREA AND Medical LEAVE ON Branch FOR 8 TO 14 HOURS BEFORE WASHING OFF DAILY FOR 7 DAYS permethrin 2-0 Yes APPLY TO Uni vers 5 % cream 4-27 THE ity of 00:00: AFFECTED 00 AREA AND Medical LEAVE ON Branch FOR 8 TO 14 HOURS BEFORE WASHING OFF DAILY FOR 7 DAYS Cipro 500 Cipro 500 2021- No 1{table BID Cipro 500 MG MG 06-14 t} MG 00:00: 00:00 00 :00 Cipro 500 Cipro 500 2021-0 202- No 1{table BID Cipro 500 MG MG 06-14 t} MG 00:00: 00:00 00 :00 Fluconazole Fluconazole 2021-0 2021- No 1{table Fluconazol 150 MG 150 MG 06-1415 t} e 150 MG 00:00: 00:00 00 :00 Kenalog Kenalog 2020-1 No 40mg Common (Triamcinol (Triamcinol 2-21 S pirit one) one) 00:00: - CHI 00 [facility] Bupivicaine Bupivicaine 2020-04 No Common [place] Toulon 2-21 Spirit 00:00: - CHI 00 [facility] Su Kenalog 2020-04 No 40mg Common (Triamcinol (Triamcinol 2-21 S pirit one) one) 00:00: - CHI 00 [facility] Bupivicaine Bupivicaine 2020-04 No Common [place] Toulon 2-21 Spirit 00:00: - CHI 00 [facility] Su Kenalog 2020-04 No 40mg Common (Triamcinol (Triamcinol 2-21 S pirit one) one) 00:00: - CHI 00 [facility] Bupivicaine Bupivicaine 2020-04 No Common [place] Toulon 2-21 Spirit 00:00: - CHI 00 [facility] Su Blue 2020-04 No 40mg Common (Triamcinol (Triamcinol 2-21 S pirit one) one) 00:00: - CHI 00 [facility] Bupivicaine Bupivicaine 2020-04 No 2.5mg Common [place] Toulon 2-21 Spirit 00:00: - CHI 00 [facility] Su Blue 2020-04 No 40mg Common (Triamcinol (Triamcinol 2-21 S pirit one) one) 00:00: - CHI 00 [facility] Bupivicaine Bupivicaine 2020-04 No 2.5mg Common [place] Toulon 2-21 Spirit 00:00: - CHI 00 [facility] Su Kenalog 2020-04 No 40mg Common (Triamcinol (Triamcinol 2-21 S pirit one) one) 00:00: - CHI 00 [facility] Bupivicaine Bupivicaine 2020-04 No 2.5mg Common [place] Toulon 2-21 Spirit 00:00: - CHI 00 [facility] Su Kenalog 2020-04 No 40mg Common (Triamcinol (Triamcinol 2-21 S pirit one) one) 00:00: - CHI 00 [facility] Bupivicaine Bupivicaine 2020-04 No 2.5mg Common [place] Toulon 2-21 Spirit 00:00: - CHI 00 [facility] Kenalog Kenalog 2020-04 No 40mg Common (Triamcinol (Triamcinol 2-21 S pirit one) one) 00:00: - CHI 00 [facility] Bupivicaine Bupivicaine 2020-04 No 2.5mg Common [place] Toulon 2-21 Spirit 00:00: - CHI 00 [facility] Kenalog Kenalog 2020-04 No 40mg Common (Triamcinol (Triamcinol 2-21 S pirit one) one) 00:00: - CHI 00 [facility] Bupivicaine Bupivicaine 2020-04 No 2.5mg Common [place] Toulon 2-21 Spirit 00:00: [facility] No 40mg Common (Triamcinol (Triamcinol 2-21 S pirit one) one) 00:00: - CHI [facility] Bupivicaine Bupivicaine 2020-04 No 2.5mg Common [place] Toulon 2-21 Spirit 00:00: - CHI [facility] buPROPion 2020-04 Yes Univers SR 100 mg 0-19 ity of SR tablet 00:00: [address] buPROPion 2020-04 Yes Univers SR 100 mg 0-19 ity of SR tablet 00:00: [place] [facility] buPROPion 2020-04 Yes Univers SR 100 mg 0-19 ity of SR tablet 00:00: [address] buPROPion 2020-04 Yes Univers SR 100 mg 0-19 ity of SR tablet 00:00: [place] [facility] buPROPion 2020-04 Yes Univers SR 100 mg 0-19 ity of SR tablet 00:00: [place] [facility] buPROPion 2020-04 Yes Univers SR 100 mg 0-19 ity of SR tablet 00:00: [place] [facility] buPROPion 2020-04 Yes Univers SR 100 mg 0-19 ity of SR tablet 00:00: [place] [facility] buPROPion 2020-04 Yes Univers SR 100 mg 0-19 ity of SR tablet 00:00: [address] buPROPion 2020-04 Yes Univers SR 100 mg 0-19 ity of SR tablet 00:00: [place] [address] [place] [address] Kenalog Kenalog 2020-0 No 40mg Common (Triamcinol (Triamcinol 7-22 S pirit one) one) 00:00: - CHI 00 [facility] Bupivicaine Bupivicaine 2020-0 No Common [place] Toulon 7-22 Spirit 00:00: - CHI 00 [facility] Kenalog Kenalog 2020-0 No 40mg Common (Triamcinol (Triamcinol 7-22 S pirit one) one) 00:00: - CHI 00 [facility] Bupivicaine Bupivicaine 2020-0 No Common [place] Toulon 7-22 Spirit 00:00: - CHI 00 [facility] Kenalog Kenalog 2020-0 No 40mg Common (Triamcinol (Triamcinol 7-22 S pirit one) one) 00:00: - CHI 00 [facility] Bupivicaine Bupivicaine 2020-0 No Common [place] Toulon 7-22 Spirit 00:00: - CHI 00 [facility] Kenalog Kenalog 2020-0 No 40mg Common (Triamcinol (Triamcinol 7-22 S pirit one) one) 00:00: - CHI 00 [facility] Bupivicaine Bupivicaine 2020-0 No 2.5mg Common [place] Toulon 7-22 Spirit 00:00: - CHI 00 [facility] Kenalog Kenalog 2020-0 No 40mg Common (Triamcinol (Triamcinol 7-22 S pirit one) one) 00:00: - CHI 00 [facility] Bupivicaine Bupivicaine 2020-0 No 2.5mg Common [place] Toulon 7-22 Spirit 00:00: - CHI 00 [facility] Kenalog Kenalog 2020-0 No 40mg Common (Triamcinol (Triamcinol 7-22 S pirit one) one) 00:00: - CHI 00 [facility] Bupivicaine Bupivicaine 2020-0 No 2.5mg Common [place] Toulon 7-22 Spirit 00:00: - CHI 00 [facility] Kenalog Kenalog 2020-0 No 40mg Common (Triamcinol (Triamcinol 7-22 S pirit one) one) 00:00: - CHI 00 [facility] Bupivicaine Bupivicaine 1-0 No 2.5mg Common [place] Toulon 7-22 Spirit 00:00: - CHI 00 [facility] Kenalog Kenalog 2020-0 No 40mg Common (Triamcinol (Triamcinol 7-22 S pirit one) one) 00:00: - CHI 00 [facility] Bupivicaine Bupivicaine 1-0 No 2.5mg Common [place] Toulon 7-22 Spirit 00:00: - CHI 00 [facility] Kenalog Kenalog 2020-0 No 40mg Common (Triamcinol (Triamcinol 7-22 S pirit one) one) 00:00: - CHI 00 [facility] Bupivicaine Bupivicaine 1-0 No 2.5mg Common [place] Toulon 7-22 Spirit 00:00: - CHI 00 [facility] Kenalog Kenalog 2020-0 No 40mg Common (Triamcinol (Triamcinol 7-22 S pirit one) one) 00:00: - CHI 00 [facility] Bupivicaine Bupivicaine 2020-0 No 2.5mg Common [place] Toulon 7-22 Spirit 00:00: - CHI 00 [facility] Keflex 500 Keflex 500 2020-0 No 1{capsu BID Keflex 500 MG MG 3-09 le} MG 00:00: 00 Keflex 500 Keflex 500 2020-0 No 1{capsu BID Keflex 500 MG MG 3-09 le} MG 00:00: 00 Keflex 500 Keflex 500 2020-0 No 1{capsu BID Keflex 500 MG MG 3-09 le} MG 00:00: 00 Keflex 500 Keflex 500 2020-0 No 1{capsu BID Keflex 500 MG MG 3-09 le} MG 00:00: 00 Keflex 500 Keflex 500 1-0 No 1{capsu BID Keflex 500 MG MG 3-09 le} MG 00:00: 00 Keflex 500 Keflex 500 1-0 No 1{capsu BID Keflex 500 MG MG 3-09 le} MG 00:00: 00 Keflex 500 Keflex 500 1-0 No 1{capsu BID Keflex 500 MG MG 3 le} MG 00:00: 00 Keflex 500 Keflex 500 2021-0 No 1{capsu BID Keflex 500 MG MG 3- le} MG 00:00: 00 Keflex 500 Keflex 500 2021-0 No 1{capsu BID Keflex 500 MG MG 3- le} MG 00:00: 00 Keflex 500 Keflex 500 2021-0 No 1{capsu BID Keflex 500 MG MG 3 le} MG 00:00: 00 Keflex 500 Keflex 500 2021-0 No 1{capsu BID Keflex 500 MG MG 3 le} MG 00:00: 00 Keflex 500 Keflex 500 1-0 No 1{capsu BID Keflex 500 MG MG 3 le} MG 00:00: 00 Keflex 500 Keflex 500 1-0 No 1{capsu BID Keflex 500 MG MG 3 le} MG 00:00: 00 Keflex 500 Keflex 500 1-0 No 1{capsu BID Keflex 500 MG MG 06-09 le} MG 00:00: 00 Keflex 500 Keflex 500 2021-0 No 1{capsu BID Keflex 500 MG MG 3 le} MG 00:00: 00 Keflex 500 Keflex 500 1-0 No 1{capsu BID Keflex 500 MG MG 06-09 le} MG 00:00: 00 Keflex 500 Keflex 500 1-0 No 1{capsu BID Keflex 500 MG MG 3- le} MG 00:00: 00 Keflex 500 Keflex 500 1-0 No 1{capsu BID Keflex 500 MG MG 3 le} MG 00:00: 00 predniSONE predniSONE 2019- No predniSONE 10 MG 10 MG 1-30 10 MG 00:00: 00 predniSONE predniSONE 2019- No predniSONE 10 MG 10 MG 1-30 10 MG 00:00: 00 predniSONE predniSONE 2019- No predniSONE 10 MG 10 MG 1-30 10 MG 00:00: 00 predniSONE predniSONE 2019- No predniSONE 10 MG 10 MG 1-30 10 MG 00:00: 00 predniSONE predniSONE 2019- No predniSONE 10 MG 10 MG 1-30 10 MG 00:00: 00 predniSONE predniSONE 2019- No predniSONE 10 MG 10 MG 1-30 10 MG 00:00: 00 predniSONE predniSONE 2019- No predniSONE 10 MG 10 MG 1-30 10 MG 00:00: 00 predniSONE predniSONE 2019- No predniSONE 10 MG 10 MG 1-30 10 MG 00:00: 00 predniSONE predniSONE 2019- No predniSONE 10 MG 10 MG 1-30 10 MG 00:00: 00 predniSONE predniSONE 2019- No predniSONE 10 MG 10 MG 1-30 10 MG 00:00: 00 predniSONE predniSONE 2019- No predniSONE 10 MG 10 MG 1-30 10 MG 00:00: 00 predniSONE predniSONE 2019- No predniSONE 10 MG 10 MG 1-30 10 MG 00:00: 00 predniSONE predniSONE 2019- No predniSONE 10 MG 10 MG 1-30 10 MG 00:00: 00 predniSONE predniSONE 2019- No predniSONE 10 MG 10 MG 1-30 10 MG 00:00: 00 predniSONE predniSONE 2019- No predniSONE 10 MG 10 MG 1-30 10 MG 00:00: 00 predniSONE predniSONE 2019- No predniSONE 10 MG 10 MG 1-30 10 MG 00:00: 00 predniSONE predniSONE 2019- No predniSONE 10 MG 10 MG 1-30 10 MG 00:00: 00 predniSONE predniSONE 2019- No predniSONE 10 MG 10 MG 1-30 10 MG 00:00: 00 tiZANidine tiZANidine 2019-04 No tiZANidine HCl 2 MG HCl 2 MG 1-19 HCl 2 MG 00:00: 00 tiZANidine tiZANidine 2019-04 No tiZANidine HCl 2 MG HCl 2 MG 1-19 HCl 2 MG 00:00: 00 tiZANidine tiZANidine 2019-04 No tiZANidine HCl 2 MG HCl 2 MG 1-19 HCl 2 MG 00:00: 00 tiZANidine tiZANidine 2019-04 No tiZANidine HCl 2 MG HCl 2 MG 1-19 HCl 2 MG 00:00: 00 tiZANidine tiZANidine 2019-04 No tiZANidine HCl 2 MG HCl 2 MG 1-19 HCl 2 MG 00:00: 00 tiZANidine tiZANidine 2019-04 No tiZANidine HCl 2 MG HCl 2 MG 1-19 HCl 2 MG 00:00: 00 tiZANidine tiZANidine 2019-04 No tiZANidine HCl 2 MG HCl 2 MG 1-19 HCl 2 MG 00:00: 00 tiZANidine tiZANidine 2019-04 No tiZANidine HCl 2 MG HCl 2 MG 1-19 HCl 2 MG 00:00: 00 tiZANidine tiZANidine 2019- No tiZANidine HCl 2 MG HCl 2 MG 1-19 HCl 2 MG 00:00: 00 tiZANidine tiZANidine 2019- No tiZANidine HCl 2 MG HCl 2 MG 1-19 HCl 2 MG 00:00: 00 tiZANidine tiZANidine 2019- No tiZANidine HCl 2 MG HCl 2 MG 1-19 HCl 2 MG 00:00: 00 tiZANidine tiZANidine 2019- No tiZANidine HCl 2 MG HCl 2 MG 1-19 HCl 2 MG 00:00: 00 tiZANidine tiZANidine 2019- No tiZANidine HCl 2 MG HCl 2 MG 1-19 HCl 2 MG 00:00: 00 tiZANidine tiZANidine 2019- No tiZANidine HCl 2 MG HCl 2 MG 1-19 HCl 2 MG 00:00: 00 tiZANidine tiZANidine 2019- No tiZANidine HCl 2 MG HCl 2 MG 1-19 HCl 2 MG 00:00: 00 tiZANidine tiZANidine 2019-04 No tiZANidine HCl 2 MG HCl 2 MG 1-19 HCl 2 MG 00:00: 00 tiZANidine tiZANidine 2019- No tiZANidine HCl 2 MG HCl 2 MG 1-19 HCl 2 MG 00:00: 00 tiZANidine tiZANidine 2019- No tiZANidine HCl 2 MG HCl 2 MG 1-19 HCl 2 MG 00:00: 00 Bupivicaine Bupivicaine 2019- No 5mg Common [place] T[place]on 0-05 Spirit 00:00: - CHI [facility] Kenalog Kenalog 2019- No 40mg Common (Triamcinol (Triamcinol 0-05 S pirit one) one) 00:00: - CHI [facility] Bupivicaine Bupivicaine 2019- No 5mg Common [place] Toulon 0-05 Spirit 00:00: - CHI [facility] Kenalog Kenalog 2019- No 40mg Common (Triamcinol (Triamcinol 0-05 S pirit one) one) 00:00: - [facility] Bupivicaine Bupivicaine 2020-1 No 5mg Common [place] 0-05 Spirit 00:00: - [facility] 00 [facility] Kenalog Kenalog 2020-1 No 40mg Common (Triamcinol (Triamcinol 0-05 S pirit one) one) 00:00: - [facility] 00 [facility] Bupivicaine Bupivicaine 2020-1 No 5mg Common [place] 0-05 Spirit 00:00: - [facility] 00 [facility] Kenalog Kenalog 2020-1 No 40mg Common (Triamcinol (Triamcinol 0-05 S pirit one) one) 00:00: - [facility] 00 [facility] Bupivicaine Bupivicaine 2020-1 No 5mg Common [place] 0-05 Spirit 00:00: - [facility] 00 [facility] Kenalog Kenalog 2020-1 No 40mg Common (Triamcinol (Triamcinol 0-05 S pirit one) one) 00:00: - [facility] 00 [facility] Bupivicaine Bupivicaine 2020-1 No 5mg Common [place] 0-05 Spirit 00:00: - [facility] 00 [facility] Kenalog Kenalog 2020-1 No 40mg Common (Triamcinol (Triamcinol 0-05 S pirit one) one) 00:00: - [facility] 00 [facility] Bupivicaine Bupivicaine 2020-1 No 5mg Common [place] 0-05 Spirit 00:00: - [facility] 00 [facility] Kenalog Kenalog 2020-1 No 40mg Common (Triamcinol (Triamcinol 0-05 S pirit one) one) 00:00: - [facility] 00 [facility] Bupivicaine Bupivicaine 2020-1 No 5mg Common [place] 0-05 Spirit 00:00: - [facility] 00 [facility] Kenalog Kenalog 2020-1 No 40mg Common (Triamcinol (Triamcinol 0-05 S pirit one) one) 00:00: - [facility] 00 [facility] Bupivicaine Bupivicaine 2020-1 No 5mg Common [place] 0-05 Spirit 00:00: - [facility] 00 [facility] Kenalog Kenalog 2020-1 No 40mg Common (Triamcinol (Triamcinol 0-05 S pirit one) one) 00:00: - [facility] 00 [facility] Bupivicaine Bupivicaine 2019-1 No 5mg Common [place] 0-05 Spirit 00:00: - [facility] 00 [facility] Kenalog Kenalog 2020-1 No 40mg Common (Triamcinol (Triamcinol 0-05 S pirit one) one) 00:00: - [facility] 00 [facility] Kenalog Kenalog 2020-0 No 40mg Common (Triamcinol (Triamcinol 8-10 S pirit one) one) 00:00: - [facility] 00 [facility] Kenalog Kenalog 2020-0 No 40mg Common (Triamcinol (Triamcinol 8-10 S pirit one) one) 00:00: - [facility] 00 [facility] Kenalog Kenalog 2020-0 No 40mg Common (Triamcinol (Triamcinol 8-10 S pirit one) one) 00:00: - [facility] 00 [facility] Kenalog Kenalog 2020-0 No 40mg Common (Triamcinol (Triamcinol 8-10 S pirit one) one) 00:00: - [facility] 00 [facility] Kenalog Kenalog 2020-0 No 40mg Common (Triamcinol (Triamcinol 8-10 S pirit one) one) 00:00: - [facility] 00 [facility] Kenalog Kenalog 2020-0 No 40mg Common (Triamcinol (Triamcinol 8-10 S pirit one) one) 00:00: - [facility] 00 [facility] Kenalog Kenalog 2020-0 No 40mg Common (Triamcinol (Triamcinol 8-10 S pirit one) one) 00:00: - [facility] 00 [facility] Kenalog Kenalog 2020-0 No 40mg Common (Triamcinol (Triamcinol 8-10 S pirit one) one) 00:00: - [facility] 00 [facility] Kenalog Kenalog 2020-0 No 40mg Common (Triamcinol (Triamcinol 8-10 S pirit one) one) 00:00: - [facility] 00 [facility] Kenalog Kenalog 2020-0 No 40mg Common (Triamcinol (Triamcinol 8-10 S pirit one) one) 00:00: - [facility] 00 [facility] Tizanidine Tizanidine 2019- No Na Hernandes 1 capsule Common HCl HCl 8-01 08-20 as needed Spirit 00:00: 00:00 - [facility] 00 :00 [facility] PredniSONE PredniSONE 2019- No Na Hernandes 2 tablets Common 8 08-20 dailyx 5 Spirit 00:00: 00:00 days then - [facility] 00 :[address] daily x 5 [facility] tiZANidine tiZANidine No 1{capsu tiZANidine HCl 2 MG HCl 2 MG le_as_n HCl 2 MG eeded} Nystop Nystop No Nystop buPROPion buPROPion No buPROPion HCl ER (SR) HCl ER (SR) HCl ER 100 MG 100 MG (SR) 100 MG Prevnar 13 Prevnar 13 No Prevnar 13 Nitrofurant Nitrofurant No Nitrofuran oin oin toin Macrocrysta Macrocrysta Macrocryst l l al Xyzal 5 MG Xyzal 5 MG No 1{table QD Xyzal 5 MG t_in_th e_eveni ng} Macrobid Macrobid No QD Macrobid 100 MG 100 MG 100 MG valACYclovi valACYclovi No 1{table BID valACYclov r HCl 1 GM r HCl 1 GM t} ir HCl 1 GM Sulfamethox Sulfamethox No Sulfametho azole-Trime azole-Trime xazole-Tri thoprim thoprim methoprim Clobetasol Clobetasol No Clobetasol Propionate Propionate Propionate Amoxicillin Amoxicillin No Amoxicilli -Pot -Pot n-Pot Clavulanate Clavulanate Clavulanat e Ciprofloxac Ciprofloxac No Ciprofloxa in HCl in HCl chrissy HCl Trimethopri Trimethopri No Trimethopr m m im Nitrofurant Nitrofurant No Nitrofuran oin Monohyd oin Monohyd toin Macro Macro Monohyd Macro tiZANidine tiZANidine No 1{capsu tiZANidine HCl 2 MG HCl 2 MG le_as_n HCl 2 MG eeded} Nystop Nystop No Nystop buPROPion buPROPion No buPROPion HCl ER (SR) HCl ER (SR) HCl ER 100 MG 100 MG (SR) 100 MG Prevnar 13 Prevnar 13 No Prevnar 13 Nitrofurant Nitrofurant No Nitrofuran oin oin toin Macrocrysta Macrocrysta Macrocryst l l al Xyzal 5 MG Xyzal 5 MG No 1{table QD Xyzal 5 MG t_in_ e_eveni ng} Macrobid Macrobid No QD Macrobid 100 MG 100 MG 100 MG valACYclovi valACYclovi No 1{table BID valACYclov r HCl 1 GM r HCl 1 GM t} ir HCl 1 GM Sulfamethox Sulfamethox No Sulfametho azole-Trime azole-Trime xazole-Tri thoprim thoprim methoprim Clobetasol Clobetasol No Clobetasol Propionate Propionate Propionate Amoxicillin Amoxicillin No Amoxicilli -Pot -Pot n-Pot Clavulanate Clavulanate Clavulanat e Ciprofloxac Ciprofloxac No Ciprofloxa in HCl in HCl chrissy HCl Trimethopri Trimethopri No Trimethopr m m im Nitrofurant Nitrofurant No Nitrofuran oin Monohyd oin Monohyd toin Macro Macro Monohyd Macro Prevnar 13 Prevnar 13 No Prevnar 13 Xyzal 5 MG Xyzal 5 MG No 1{table QD Xyzal 5 MG t_in_ e_eveni ng} Trimethopri Trimethopri No Trimethopr m m im Ciprofloxac Ciprofloxac No Ciprofloxa in HCl in HCl chrissy HCl Nitrofurant Nitrofurant No Nitrofuran oin Monohyd oin Monohyd toin Macro Macro Monohyd Macro Clobetasol Clobetasol No Clobetasol Propionate Propionate Propionate Macrobid Macrobid No QD Macrobid 100 MG 100 MG 100 MG Amoxicillin Amoxicillin No Amoxicilli -Pot -Pot n-Pot Clavulanate Clavulanate Clavulanat e Nystop Nystop No Nystop valACYclovi valACYclovi No 1{table BID valACYclov r HCl 1 GM r HCl 1 GM t} ir HCl 1 GM Nitrofurant Nitrofurant No Nitrofuran oin oin toin Macrocrysta Macrocrysta Macrocryst l l al buPROPion buPROPion No buPROPion HCl ER (SR) HCl ER (SR) HCl ER 100 MG 100 MG (SR) 100 MG tiZANidine tiZANidine No 1{capsu tiZANidine HCl 2 MG HCl 2 MG le_as_n HCl 2 MG eeded} Sulfamethox Sulfamethox No Sulfametho azole-Trime azole-Trime xazole-Tri thoprim thoprim methoprim Prevnar 13 Prevnar 13 No Prevnar 13 Xyzal 5 MG Xyzal 5 MG No 1{table QD Xyzal 5 MG t_in_ e_eveni ng} Trimethopri Trimethopri No Trimethopr m m im Ciprofloxac Ciprofloxac No Ciprofloxa in HCl in HCl chrissy HCl Nitrofurant Nitrofurant No Nitrofuran oin Monohyd oin Monohyd toin Macro Macro Monohyd Macro Clobetasol Clobetasol No Clobetasol Propionate Propionate Propionate Macrobid Macrobid No QD Macrobid 100 MG 100 MG 100 MG Amoxicillin Amoxicillin No Amoxicilli -Pot -Pot n-Pot Clavulanate Clavulanate Clavulanat e Nystop Nystop No Nystop valACYclovi valACYclovi No 1{table BID valACYclov r HCl 1 GM r HCl 1 GM t} ir HCl 1 GM Nitrofurant Nitrofurant No Nitrofuran oin oin toin Macrocrysta Macrocrysta Macrocryst l l al buPROPion buPROPion No buPROPion HCl ER (SR) HCl ER (SR) HCl ER 100 MG 100 MG (SR) 100 MG tiZANidine tiZANidine No 1{capsu tiZANidine HCl 2 MG HCl 2 MG le_as_n HCl 2 MG eeded} Sulfamethox Sulfamethox No Sulfametho azole-Trime azole-Trime xazole-Tri thoprim thoprim methoprim tiZANidine tiZANidine No 1{capsu tiZANidine HCl 2 MG HCl 2 MG le_as_n HCl 2 MG eeded} Xyzal 5 MG Xyzal 5 MG No 1{table QD Xyzal 5 MG t_in_th e_eveni ng} Nitrofurant Nitrofurant No Nitrofuran oin Monohyd oin Monohyd toin Macro Macro Monohyd Macro Sulfamethox Sulfamethox No Sulfametho azole-Trime azole-Trime xazole-Tri thoprim thoprim methoprim valACYclovi valACYclovi No 1{table BID valACYclov r HCl 1 GM r HCl 1 GM t} ir HCl 1 GM Clobetasol Clobetasol No Clobetasol Propionate Propionate Propionate Macrobid Macrobid No QD Macrobid 100 MG 100 MG 100 MG Prevnar 13 Prevnar 13 No Prevnar 13 Trimethopri Trimethopri No Trimethopr m m im Ciprofloxac Ciprofloxac No Ciprofloxa in HCl in HCl chrissy HCl Nitrofurant Nitrofurant No Nitrofuran oin oin toin Macrocrysta Macrocrysta Macrocryst l l al Nystop Nystop No Nystop buPROPion buPROPion No buPROPion HCl ER (SR) HCl ER (SR) HCl ER 100 MG 100 MG (SR) 100 MG Amoxicillin Amoxicillin No Amoxicilli -Pot -Pot n-Pot Clavulanate Clavulanate Clavulanat e tiZANidine tiZANidine No 1{capsu tiZANidine HCl 2 MG HCl 2 MG le_as_n HCl 2 MG eeded} Xyzal 5 MG Xyzal 5 MG No 1{table QD Xyzal 5 MG t_in_th e_eveni ng} Nitrofurant Nitrofurant No Nitrofuran oin Monohyd oin Monohyd toin Macro Macro Monohyd Macro Sulfamethox Sulfamethox No Sulfametho azole-Trime azole-Trime xazole-Tri thoprim thoprim methoprim valACYclovi valACYclovi No 1{table BID valACYclov r HCl 1 GM r HCl 1 GM t} ir HCl 1 GM Clobetasol Clobetasol No Clobetasol Propionate Propionate Propionate Macrobid Macrobid No QD Macrobid 100 MG 100 MG 100 MG Prevnar 13 Prevnar 13 No Prevnar 13 Trimethopri Trimethopri No Trimethopr m m im Ciprofloxac Ciprofloxac No Ciprofloxa in HCl in HCl chrissy HCl Nitrofurant Nitrofurant No Nitrofuran oin oin toin Macrocrysta Macrocrysta Macrocryst l l al Nystop Nystop No Nystop buPROPion buPROPion No buPROPion HCl ER (SR) HCl ER (SR) HCl ER 100 MG 100 MG (SR) 100 MG Amoxicillin Amoxicillin No Amoxicilli -Pot -Pot n-Pot Clavulanate Clavulanate Clavulanat e tiZANidine tiZANidine No 1{capsu tiZANidine HCl 2 MG HCl 2 MG le_as_n HCl 2 MG eeded} Xyzal 5 MG Xyzal 5 MG No 1{table QD Xyzal 5 MG t_in_th e_eveni ng} Nitrofurant Nitrofurant No Nitrofuran oin Monohyd oin Monohyd toin Macro Macro Monohyd Macro Sulfamethox Sulfamethox No Sulfametho azole-Trime azole-Trime xazole-Tri thoprim thoprim methoprim valACYclovi valACYclovi No 1{table BID valACYclov r HCl 1 GM r HCl 1 GM t} ir HCl 1 GM Clobetasol Clobetasol No Clobetasol Propionate Propionate Propionate Macrobid Macrobid No QD Macrobid 100 MG 100 MG 100 MG Prevnar 13 Prevnar 13 No Prevnar 13 Trimethopri Trimethopri No Trimethopr m m im Ciprofloxac Ciprofloxac No Ciprofloxa in HCl in HCl chrissy HCl Nitrofurant Nitrofurant No Nitrofuran oin oin toin Macrocrysta Macrocrysta Macrocryst l l al Nystop Nystop No Nystop buPROPion buPROPion No buPROPion HCl ER (SR) HCl ER (SR) HCl ER 100 MG 100 MG (SR) 100 MG Amoxicillin Amoxicillin No Amoxicilli -Pot -Pot n-Pot Clavulanate Clavulanate Clavulanat e Amoxicillin Amoxicillin No Amoxicilli n Macrobid Macrobid No QD Macrobid 100 MG 100 MG 100 MG Nystop Nystop No Nystop valACYclovi valACYclovi No 1{table BID valACYclov r HCl 1 GM r HCl 1 GM t} ir HCl 1 GM Clobetasol Clobetasol No Clobetasol Propionate Propionate Propionate Ciprofloxac Ciprofloxac No Ciprofloxa in HCl in HCl chrissy HCl Prevnar 13 Prevnar 13 No Prevnar 13 Trimethopri Trimethopri No Trimethopr m m im Sulfamethox Sulfamethox No Sulfametho azole-Trime azole-Trime xazole-Tri thoprim thoprim methoprim Nitrofurant Nitrofurant No Nitrofuran oin Monohyd oin Monohyd toin Macro Macro Monohyd Macro Nitrofurant Nitrofurant No Nitrofuran oin oin toin Macrocrysta Macrocrysta Macrocryst l l al tiZANidine tiZANidine No 1{capsu tiZANidine HCl 2 MG HCl 2 MG le_as_n HCl 2 MG eeded} Amoxicillin Amoxicillin No Amoxicilli -Pot -Pot n-Pot Clavulanate Clavulanate Clavulanat e Xyzal 5 MG Xyzal 5 MG No 1{table QD Xyzal 5 MG t_in_th e_eveni ng} buPROPion buPROPion No buPROPion HCl ER (SR) HCl ER (SR) HCl ER 100 MG 100 MG (SR) 100 MG Tylenol # 3 Tylenol # 3 No Tylenol # 3 Clobetasol Clobetasol No Clobetasol Propionate Propionate Propionate Nystop Nystop No Nystop Xyzal 5 MG Xyzal 5 MG No 1{table QD Xyzal 5 MG t_in_ e_eveni ng} Ciprofloxac Ciprofloxac No Ciprofloxa in HCl in HCl chrissy HCl Nitrofurant Nitrofurant No Nitrofuran oin Monohyd oin Monohyd toin Macro Macro Monohyd Macro Amoxicillin Amoxicillin No Amoxicilli n Sulfamethox Sulfamethox No Sulfametho azole-Trime azole-Trime xazole-Tri thoprim thoprim methoprim Trimethopri Trimethopri No Trimethopr m m im Prevnar 13 Prevnar 13 No Prevnar 13 Amoxicillin Amoxicillin No Amoxicilli -Pot -Pot n-Pot Clavulanate Clavulanate Clavulanat e tiZANidine tiZANidine No 1{capsu tiZANidine HCl 2 MG HCl 2 MG le_as_n HCl 2 MG eeded} Nitrofurant Nitrofurant No Nitrofuran oin oin toin Macrocrysta Macrocrysta Macrocryst l l al buPROPion buPROPion No buPROPion HCl ER (SR) HCl ER (SR) HCl ER 100 MG 100 MG (SR) 100 MG valACYclovi valACYclovi No 1{table BID valACYclov r HCl 1 GM r HCl 1 GM t} ir HCl 1 GM Macrobid Macrobid No QD Macrobid 100 MG 100 MG 100 MG Tylenol # 3 Tylenol # 3 No Tylenol # 3 valACYclovi valACYclovi No 1{table BID valACYclov r HCl 1 GM r HCl 1 GM t} ir HCl 1 GM Wellbutrin Wellbutrin No 1{table QD Wellbutrin SR 200 MG SR 200 MG t_in_th SR 200 MG e_morni ng} Trimethopri Trimethopri No Trimethopr m m im tiZANidine tiZANidine No 1{capsu tiZANidine HCl 2 MG HCl 2 MG le_as_n HCl 2 MG eeded} Sulfamethox Sulfamethox No Sulfametho azole-Trime azole-Trime xazole-Tri thoprim thoprim methoprim Ciprofloxac Ciprofloxac No Ciprofloxa in HCl in HCl chrissy HCl Amoxicillin Amoxicillin No Amoxicilli -Pot -Pot n-Pot Clavulanate Clavulanate Clavulanat e Clobetasol Clobetasol No Clobetasol Propionate Propionate Propionate Prevnar 13 Prevnar 13 No Prevnar 13 Amoxicillin Amoxicillin No Amoxicilli n Nystop Nystop No Nystop Nitrofurant Nitrofurant No Nitrofuran oin oin toin Macrocrysta Macrocrysta Macrocryst l l al Tylenol # 3 Tylenol # 3 No Tylenol # 3 buPROPion buPROPion No buPROPion HCl ER (SR) HCl ER (SR) HCl ER 100 MG 100 MG (SR) 100 MG Macrobid Macrobid No QD Macrobid 100 MG 100 MG 100 MG Xyzal 5 MG Xyzal 5 MG No 1{table QD Xyzal 5 MG t_in_th e_eveni ng} Nitrofurant Nitrofurant No Nitrofuran oin Monohyd oin Monohyd toin Macro Macro Monohyd Macro Sulfamethox Sulfamethox No Sulfametho azole-Trime azole-Trime xazole-Tri thoprim thoprim methoprim valACYclovi valACYclovi No 1{table BID valACYclov r HCl 1 GM r HCl 1 GM t} ir HCl 1 GM Amoxicillin Amoxicillin No Amoxicilli -Pot -Pot n-Pot Clavulanate Clavulanate Clavulanat e Amoxicillin Amoxicillin No Amoxicilli n Trimethopri Trimethopri No Trimethopr m m im Nystop Nystop No Nystop Macrobid Macrobid No QD Macrobid 100 MG 100 MG 100 MG Clobetasol Clobetasol No Clobetasol Propionate Propionate Propionate Ciprofloxac Ciprofloxac No Ciprofloxa in HCl in HCl chrissy HCl Prevnar 13 Prevnar 13 No Prev 13 buPROPion buPROPion No buPROPion HCl ER (SR) HCl ER (SR) HCl ER 100 MG 100 MG (SR) 100 MG Nitrofurant Nitrofurant No Nitrofuran oin Monohyd oin Monohyd toin Macro Macro Monohyd Macro tiZANidine tiZANidine No 1{capsu tiZANidine HCl 2 MG HCl 2 MG le_as_n HCl 2 MG eeded} Nitrofurant Nitrofurant No Nitrofuran oin oin toin Macrocrysta Macrocrysta Macrocryst l l al Xyzal 5 MG Xyzal 5 MG No 1{table QD Xyzal 5 MG t_in_th e_eveni ng} Tylenol # 3 Tylenol # 3 No Tylenol # 3 Wellbutrin Wellbutrin No 1{table QD Wellbutrin SR 200 MG SR 200 MG t_in_th SR 200 MG e_morni ng} Trimethopri Trimethopri No Trimethopr m m im Ciprofloxac Ciprofloxac No Ciprofloxa in HCl in HCl chrissy HCl Sulfamethox Sulfamethox No Sulfametho azole-Trime azole-Trime xazole-Tri thoprim thoprim methoprim Clobetasol Clobetasol No Clobetasol Propionate Propionate Propionate Triamcinolo Triamcinolo No 1{appli Triamcinol ne ne cation} one Acetonide Acetonide Acetonide 0.1 % 0.1 % 0.1 % Wellbutrin Wellbutrin No 1{table QD Wellbutrin SR 200 MG SR 200 MG t_in_th SR 200 MG e_morni ng} Permethrin Permethrin No QD Permethrin 5 % 5 % 5 % Amoxicillin Amoxicillin No Amoxicilli n Xyzal 5 MG Xyzal 5 MG No 1{table QD Xyzal 5 MG t_in_th e_eveni ng} Prevnar 13 Prevnar 13 No Prevnar 13 valACYclovi valACYclovi No 1{table BID valACYclov r HCl 1 GM r HCl 1 GM t} ir HCl 1 GM tiZANidine tiZANidine No 1{capsu tiZANidine HCl 2 MG HCl 2 MG le_as_n HCl 2 MG eeded} Macrobid Macrobid No QD Macrobid 100 MG 100 MG 100 MG Tylenol # 3 Tylenol # 3 No Tylenol # 3 Nitrofurant Nitrofurant No Nitrofuran oin oin toin Macrocrysta Macrocrysta Macrocryst l l al Amoxicillin Amoxicillin No Amoxicilli -Pot -Pot n-Pot Clavulanate Clavulanate Clavulanat e buPROPion buPROPion No buPROPion HCl ER (SR) HCl ER (SR) HCl ER 100 MG 100 MG (SR) 100 MG Nitrofurant Nitrofurant No Nitrofuran oin Monohyd oin Monohyd toin Macro Macro Monohyd Macro Nystop Nystop No Nystop Trimethopri Trimethopri No Trimethopr m m im Ciprofloxac Ciprofloxac No Ciprofloxa in HCl in HCl chrissy HCl Sulfamethox Sulfamethox No Sulfametho azole-Trime azole-Trime xazole-Tri thoprim thoprim methoprim Clobetasol Clobetasol No Clobetasol Propionate Propionate Propionate Triamcinolo Triamcinolo No 1{appli Triamcinol ne ne cation} one Acetonide Acetonide Acetonide 0.1 % 0.1 % 0.1 % Wellbutrin Wellbutrin No 1{table QD Wellbutrin SR 200 MG SR 200 MG t_in_th SR 200 MG e_morni ng} Permethrin Permethrin No QD Permethrin 5 % 5 % 5 % Amoxicillin Amoxicillin No Amoxicilli n Xyzal 5 MG Xyzal 5 MG No 1{table QD Xyzal 5 MG t_in_th e_eveni ng} Prevnar 13 Prevnar 13 No Prevnar 13 valACYclovi valACYclovi No 1{table BID valACYclov r HCl 1 GM r HCl 1 GM t} ir HCl 1 GM tiZANidine tiZANidine No 1{capsu tiZANidine HCl 2 MG HCl 2 MG le_as_n HCl 2 MG eeded} Macrobid Macrobid No QD Macrobid 100 MG 100 MG 100 MG Tylenol # 3 Tylenol # 3 No Tylenol # 3 Nitrofurant Nitrofurant No Nitrofuran oin oin toin Macrocrysta Macrocrysta Macrocryst l l al Amoxicillin Amoxicillin No Amoxicilli -Pot -Pot n-Pot Clavulanate Clavulanate Clavulanat e buPROPion buPROPion No buPROPion HCl ER (SR) HCl ER (SR) HCl ER 100 MG 100 MG (SR) 100 MG Nitrofurant Nitrofurant No Nitrofuran oin Monohyd oin Monohyd toin Macro Macro Monohyd Macro Nystop Nystop No Nystop Trimethopri Trimethopri No Trimethopr m m im Ciprofloxac Ciprofloxac No Ciprofloxa in HCl in HCl chrissy HCl Sulfamethox Sulfamethox No Sulfametho azole-Trime azole-Trime xazole-Tri thoprim thoprim methoprim Clobetasol Clobetasol No Clobetasol Propionate Propionate Propionate Triamcinolo Triamcinolo No 1{appli Triamcinol ne ne cation} one Acetonide Acetonide Acetonide 0.1 % 0.1 % 0.1 % Wellbutrin Wellbutrin No 1{table QD Wellbutrin SR 200 MG SR 200 MG t_in_th SR 200 MG e_morni ng} Permethrin Permethrin No QD Permethrin 5 % 5 % 5 % Amoxicillin Amoxicillin No Amoxicilli n Xyzal 5 MG Xyzal 5 MG No 1{table QD Xyzal 5 MG t_in_th e_eveni ng} Prevnar 13 Prevnar 13 No Prevnar 13 valACYclovi valACYclovi No 1{table BID valACYclov r HCl 1 GM r HCl 1 GM t} ir HCl 1 GM tiZANidine tiZANidine No 1{capsu tiZANidine HCl 2 MG HCl 2 MG le_as_n HCl 2 MG eeded} Macrobid Macrobid No QD Macrobid 100 MG 100 MG 100 MG Tylenol # 3 Tylenol # 3 No Tylenol # 3 Nitrofurant Nitrofurant No Nitrofuran oin oin toin Macrocrysta Macrocrysta Macrocryst l l al Amoxicillin Amoxicillin No Amoxicilli -Pot -Pot n-Pot Clavulanate Clavulanate Clavulanat e buPROPion buPROPion No buPROPion HCl ER (SR) HCl ER (SR) HCl ER 100 MG 100 MG (SR) 100 MG Nitrofurant Nitrofurant No Nitrofuran oin Monohyd oin Monohyd toin Macro Macro Monohyd Macro Nystop Nystop No Nystop Trimethopri Trimethopri No Trimethopr m m im Ciprofloxac Ciprofloxac No Ciprofloxa in HCl in HCl chrissy HCl Sulfamethox Sulfamethox No Sulfametho azole-Trime azole-Trime xazole-Tri thoprim thoprim methoprim Clobetasol Clobetasol No Clobetasol Propionate Propionate Propionate Triamcinolo Triamcinolo No 1{appli Triamcinol ne ne cation} one Acetonide Acetonide Acetonide 0.1 % 0.1 % 0.1 % Wellbutrin Wellbutrin No 1{table QD Wellbutrin SR 200 MG SR 200 MG t_in_th SR 200 MG e_morni ng} Permethrin Permethrin No QD Permethrin 5 % 5 % 5 % Amoxicillin Amoxicillin No Amoxicilli n Xyzal 5 MG Xyzal 5 MG No 1{table QD Xyzal 5 MG t_in_ e_eveni ng} Prevnar 13 Prevnar 13 No Prevnar 13 valACYclovi valACYclovi No 1{table BID valACYclov r HCl 1 GM r HCl 1 GM t} ir HCl 1 GM tiZANidine tiZANidine No 1{capsu tiZANidine HCl 2 MG HCl 2 MG le_as_n HCl 2 MG eeded} Macrobid Macrobid No QD Macrobid 100 MG 100 MG 100 MG Tylenol # 3 Tylenol # 3 No Tylenol # 3 Nitrofurant Nitrofurant No Nitrofuran oin oin toin Macrocrysta Macrocrysta Macrocryst l l al Amoxicillin Amoxicillin No Amoxicilli -Pot -Pot n-Pot Clavulanate Clavulanate Clavulanat e buPROPion buPROPion No buPROPion HCl ER (SR) HCl ER (SR) HCl ER 100 MG 100 MG (SR) 100 MG Nitrofurant Nitrofurant No Nitrofuran oin Monohyd oin Monohyd toin Macro Macro Monohyd Macro Nystop Nystop No Nystop Amoxicillin Amoxicillin No Amoxicilli -Pot -Pot n-Pot Clavulanate Clavulanate Clavulanat e Macrobid Macrobid No QD Macrobid 100 MG 100 MG 100 MG Sulfamethox Sulfamethox No Sulfametho azole-Trime azole-Trime xazole-Tri thoprim thoprim methoprim Xyzal 5 MG Xyzal 5 MG No 1{table QD Xyzal 5 MG t_in_th e_eveni ng} Amoxicillin Amoxicillin No Amoxicilli n Benzonatate Benzonatate No 1{capsu TID Benzonatat 200 MG 200 MG le} e 200 MG Nitrofurant Nitrofurant No Nitrofuran oin Monohyd oin Monohyd toin Macro Macro Monohyd Macro Nitrofurant Nitrofurant No Nitrofuran oin oin toin Macrocrysta Macrocrysta Macrocryst l l al buPROPion buPROPion No buPROPion HCl ER (SR) HCl ER (SR) HCl ER 100 MG 100 MG (SR) 100 MG Trimethopri Trimethopri No Trimethopr m m im Clobetasol Clobetasol No Clobetasol Propionate Propionate Propionate Nystop Nystop No Nystop Wellbutrin Wellbutrin No 1{table QD Wellbutrin SR 200 MG SR 200 MG t_in_th SR 200 MG e_morni ng} tiZANidine tiZANidine No 1{capsu tiZANidine HCl 2 MG HCl 2 MG le_as_n HCl 2 MG eeded} Prevnar 13 Prevnar 13 No Prevnar 13 Permethrin Permethrin No QD Permethrin 5 % 5 % 5 % valACYclovi valACYclovi No 1{table BID valACYclov r HCl 1 GM r HCl 1 GM t} ir HCl 1 GM Triamcinolo Triamcinolo No 1{appli Triamcinol ne ne cation} one Acetonide Acetonide Acetonide 0.1 % 0.1 % 0.1 % Tylenol # 3 Tylenol # 3 No Tylenol # 3 Ciprofloxac Ciprofloxac No Ciprofloxa in HCl in HCl chrissy HCl Amoxicillin Amoxicillin No Amoxicilli -Pot -Pot n-Pot Clavulanate Clavulanate Clavulanat e Macrobid Macrobid No QD Macrobid 100 MG 100 MG 100 MG Sulfamethox Sulfamethox No Sulfametho azole-Trime azole-Trime xazole-Tri thoprim thoprim methoprim Xyzal 5 MG Xyzal 5 MG No 1{table QD Xyzal 5 MG t_in_ e_eveni ng} Amoxicillin Amoxicillin No Amoxicilli n Benzonatate Benzonatate No 1{capsu TID Benzonatat 200 MG 200 MG le} e 200 MG Nitrofurant Nitrofurant No Nitrofuran oin Monohyd oin Monohyd toin Macro Macro Monohyd Macro Nitrofurant Nitrofurant No Nitrofuran oin oin toin Macrocrysta Macrocrysta Macrocryst l l al buPROPion buPROPion No buPROPion HCl ER (SR) HCl ER (SR) HCl ER 100 MG 100 MG (SR) 100 MG Trimethopri Trimethopri No Trimethopr m m im Clobetasol Clobetasol No Clobetasol Propionate Propionate Propionate Nystop Nystop No Nystop Wellbutrin Wellbutrin No 1{table QD Wellbutrin SR 200 MG SR 200 MG t_in_ SR 200 MG e_morni ng} tiZANidine tiZANidine No 1{capsu tiZANidine HCl 2 MG HCl 2 MG le_as_n HCl 2 MG eeded} Prevnar 13 Prevnar 13 No Prevnar 13 Permethrin Permethrin No QD Permethrin 5 % 5 % 5 % valACYclovi valACYclovi No 1{table BID valACYclov r HCl 1 GM r HCl 1 GM t} ir HCl 1 GM Triamcinolo Triamcinolo No 1{appli Triamcinol ne ne cation} one Acetonide Acetonide Acetonide 0.1 % 0.1 % 0.1 % Tylenol # 3 Tylenol # 3 No Tylenol # 3 Ciprofloxac Ciprofloxac No Ciprofloxa in HCl in HCl chrissy HCl tiZANidine tiZANidine No 1{capsu tiZANidine HCl 2 MG HCl 2 MG le_as_n HCl 2 MG eeded} Nystop Nystop No Nystop buPROPion buPROPion No buPROPion HCl ER (SR) HCl ER (SR) HCl ER 100 MG 100 MG (SR) 100 MG Prevnar 13 Prevnar 13 No Prevnar 13 Nitrofurant Nitrofurant No Nitrofuran oin oin toin Macrocrysta Macrocrysta Macrocryst l l al Xyzal 5 MG Xyzal 5 MG No 1{table QD Xyzal 5 MG t_in_th e_eveni ng} Macrobid Macrobid No QD Macrobid 100 MG 100 MG 100 MG valACYclovi valACYclovi No 1{table BID valACYclov r HCl 1 GM r HCl 1 GM t} ir HCl 1 GM Sulfamethox Sulfamethox No Sulfametho azole-Trime azole-Trime xazole-Tri thoprim thoprim methoprim Clobetasol Clobetasol No Clobetasol Propionate Propionate Propionate Amoxicillin Amoxicillin No Amoxicilli -Pot -Pot n-Pot Clavulanate Clavulanate Clavulanat e Ciprofloxac Ciprofloxac No Ciprofloxa in HCl in HCl chrissy HCl Trimethopri Trimethopri No Trimethopr m m im Nitrofurant Nitrofurant No Nitrofuran oin Monohyd oin Monohyd toin Macro Macro Monohyd Macro Immunizations Ordered Filled Immunization Date Status Comments Sourc e Immunization Name Name SARS-COV-2 COVID-19 2021-01-22 Completed Unive rsity of PFIZER VACCINE 00:00:00 [facility] SARS-COV-2 COVID-19 2021-01-22 Completed Unive rsity of PFIZER VACCINE 00:00:00 [facility] SARS-COV-2 COVID-19 2021-01-22 Completed Unive rsity of PFIZER VACCINE 00:00:00 [facility] SARS-COV-2 COVID-19 2021-01-22 Completed Unive rsity of PFIZER VACCINE 00:00:00 [facility] SARS-COV-2 COVID-19 2021-01-22 Completed Unive rsity of PFIZER VACCINE 00:00:00 [facility] SARS-COV-2 COVID-19 2021-01-22 Completed Unive rsity of PFIZER VACCINE 00:00:00 [facility] SARS-COV-2 COVID-19 2021-01-22 Completed Unive rsity of PFIZER VACCINE 00:00:00 [facility] SARS-COV-2 COVID-19 2021-01-22 Completed Unive rsity of PFIZER VACCINE 00:00:00 [facility] SARS-COV-2 COVID-19 2021-01-22 Completed Unive rsity of PFIZER VACCINE 00:00:00 [facility] SARS-COV-2 COVID-19 2020-12-31 Completed Unive rsity of PFIZER VACCINE 00:00:00 [facility] SARS-COV-2 COVID-19 2020-12-31 Completed Unive rsity of PFIZER VACCINE 00:00:00 [facility] SARS-COV-2 COVID-19 2020-12-31 Completed Unive rsity of PFIZER VACCINE 00:00:00 [facility] SARS-COV-2 COVID-19 2020-12-31 Completed Unive rsity of PFIZER VACCINE 00:00:00 [facility] SARS-COV-2 COVID-19 2020-12-31 Completed Unive rsity of PFIZER VACCINE 00:00:00 [facility] SARS-COV-2 COVID-19 2020-12-31 Completed Unive rsity of PFIZER VACCINE 00:00:00 [facility] SARS-COV-2 COVID-19 2020-12-31 Completed Unive rsity of PFIZER VACCINE 00:00:00 [facility] SARS-COV-2 COVID-19 2020-12-31 Completed Unive rsity of PFIZER VACCINE 00:00:00 [facility] SARS-COV-2 COVID-19 2020-12-31 Completed Unive rsity of PFIZER VACCINE 00:00:00 [facility] Bupivicaine [place]on Bupivicaine [place]on 2020-10-22 [facility]pleted [facility] 11:48[facility]00 [facility] Kenalog Kenalog 2020-10-22 Completed [facility] - (Triamcinolone) (Triamcinolone) 11:48:00 [facility] Bupivicaine [place] Bupivicaine [place] 2020-10-22 Completed [facility] 11:48:00 [facility] Kenalog Kenalog 2020-10-22 Completed [facility] - (Triamcinolone) (Triamcinolone) 11:48:00 [facility] Bupivicaine [place] Bupivicaine [place] 2020-10-22 Completed [facility] - 11:48:00 [facility] Kenalog Kenalog 2020-10-22 Completed [facility] - (Triamcinolone) (Triamcinolone) 11:48:00 [facility] Bupivicaine [place] Bupivicaine [place] 2020-10-22 Completed [facility] - 11:48:00 [facility] Kenalog Kenalog 2020-10-22 Completed [facility] - (Triamcinolone) (Triamcinolone) 11:48:00 [facility] Bupivicaine [place] Bupivicaine [place] 2020-10-22 Completed [facility] - 11:48:00 [facility] Kenalog Kenalog 2020-10-22 Completed [facility] - (Triamcinolone) (Triamcinolone) 11:48:00 [facility] Bupivicaine [place] Bupivicaine [place] 2020-01-06 Completed [facility] - 09:31:00 [facility] Bupivicaine [place] Bupivicaine [place] 2020-01-06 Completed [facility] - 09:31:00 [facility] Bupivicaine [place] Bupivicaine [place] 2020-01-06 Completed [facility] - 09:31:00 [facility] Bupivicaine [place] Bupivicaine [place] 2020-01-06 Completed [facility] - 09:31:00 [facility] Bupivicaine [place] Bupivicaine [place] 2020-01-06 Completed [facility] - 09:31:00 [facility] Kenalog Kenalog 2020-01-06 Completed [facility] - (Triamcinolone) (Triamcinolone) 09:30:00 [facility] Kenalog Kenalog 2020-01-06 Completed [facility] - (Triamcinolone) (Triamcinolone) 09:30:00 [facility] Kenalog Kenalog 2020-01-06 Completed [facility] - (Triamcinolone) (Triamcinolone) 09:30:00 [facility] Kenalog Kenalog 2020-01-06 Completed [facility] - (Triamcinolone) (Triamcinolone) 09:30:00 [facility] Kenalog Kenalog 2020-01-06 Completed [facility] - (Triamcinolone) (Triamcinolone) 09:30:00 [facility] Kenalog Kenalog 2019-11-11 Completed [facility] - (Triamcinolone) (Triamcinolone) 17:06:00 [facility] Su Meltonalog 2019-11-11 Completed [facility] - (Triamcinolone) (Triamcinolone) 17:06:00 [facility] Su Meltonalog 2019-11-11 Completed [facility] (Triamcinolone) (Triamcinolone) 17:06:00 [facility] Su Meltonalog 2019-11-11 Completed [facility] - (Triamcinolone) (Triamcinolone) 17:06:00 [facility] Su Meltonalog 2019-11-11 Completed [facility] - (Triamcinolone) (Triamcinolone) 17:06:00 [facility] Vital Signs Vital Name Observation Time Observation Value Comments Source Systolic blood 2021-12-31 14:29:00 138 mm[Hg] Univer sity of pressure [facility] Diastolic blood 2021-12-31 14:29:00 81 mm[Hg] Unive rsity of [facility] Heart rate 2021-12-31 14:29:00 86 /min Universi ty of [facility] Body temperature 2021-12-31 14:29:00 37.17 Abril [facility] ersity of [facility] Respiratory rate 2021-12-31 14:29:00 18 /min Univ ersity [facility] Body height 2021-12-31 14:29:00 165.1 cm Universi ty [facility] Body weight 2021-12-31 14:29:00 114.76 kg Universi ty [facility] BMI 2021-12-31 14:29:00 42.10 kg/m2 Universi ty [facility] Systolic blood 2021-11-26 13:36:00 142 mm[Hg] Univer sity of pressure [facility] Diastolic blood 2021-11-26 13:36:00 84 mm[Hg] Unive rsity of pressure [facility] Heart rate 2021-11-26 13:36:00 86 /min Universi ty of [facility] Body height 2021-11-26 13:36:00 165.1 cm Universi ty [facility] Body weight 2021-11-26 13:36:00 114.306 kg Universi ty of [facility] BMI 2021-11-26 13:36:00 41.93 kg/m2 [facility] [place] [facility] Oxygen saturation in 2021-11-26 13:36:00 95 /min University Arterial blood by [facility] Pulse oximetry Branch height 2021-10-06 11:40:00 65.00 [in_i] [facility] weight 2021-10-06 11:40:00 250 [lb_av] [facility] temperature 2021-10-06 11:40:00 98.0 [degF] [facility] bmi 2021-10-06 11:40:00 41.6 kg/m2 [facility] height 2021-07-13 10:00:00 65.00 [in_i] [facility] weight 2021-07-13 10:00:00 252.8 [lb_av] [facility] temperature 2021-07-13 10:00:00 97.7 [degF] [facility] bmi 2021-07-13 10:00:00 42.06 kg/m2 [facility] oximetry 2021-07-13 10:00:00 96 % [facility] respiratory rate 2021-07-13 10:00:00 18 /min Comm on [facility] blood pressure 2021-07-13 10:00:00 128 mm[Hg] [facility] [place] systolic [facility] blood pressure 2021-07-13 10:00:00 80 mm[Hg] [facility] diastolic [facility] height 2021-06-10 13:00:00 65.00 [in_i] [facility] weight 2021-06-10 13:00:00 252.2 [lb_av] [facility] temperature 2021-06-10 13:00:00 97.3 [degF] [facility] bmi 2021-06-10 13:00:00 41.96 kg/m2 [facility] oximetry 2021-06-10 13:00:00 97 % [facility] respiratory rate 2021-06-10 13:00:00 18 /min Comm on [facility] blood pressure 2021-06-10 13:00:00 132 mm[Hg] Common [facility] - systolic [facility] blood pressure 2021-06-10 13:00:00 80 mm[Hg] [facility] - diastolic [facility] height 2021-02-18 09:00:00 65.00 [in_i] [facility] weight 2021-02-18 09:00:00 256 [lb_av] Common [facility] temperature 2021-02-18 09:00:00 97.3 [degF] Common [facility] bmi 2021-02-18 09:00:00 42.6 kg/m2 [facility] blood pressure 2021-02-18 09:00:00 126 mm[Hg] [facility] - systolic [facility] blood pressure 2021-02-18 09:00:00 84 mm[Hg] [facility] - diastolic [facility] height 2021-02-08 10:20:00 65.00 [in_i] Common [facility] weight 2021-02-08 10:20:00 253.0 [lb_av] Common [facility] temperature 2021-02-08 10:20:00 98.0 [degF] Common [facility] bmi 2021-02-08 10:20:00 42.1 kg/m2 Common [facility] oximetry 2021-02-08 10:20:00 79 % Common [facility] respiratory rate 2021-02-08 10:20:00 16 /min Comm on [facility] blood pressure 2021-02-08 10:20:00 192 mm[Hg] Common [facility] - systolic [facility] blood pressure 2021-02-08 10:20:00 87 mm[Hg] Common [facility] - diastolic [facility] height 2020-10-22 09:30:00 65.00 [in_i] [facility] weight 2020-10-22 09:30:00 254.3 [lb_av] [facility] bmi 2020-10-22 09:30:00 42.31 kg/m2 Common [facility]irit - [facility] blood pressure 2020-10-22 09:30:00 164 mm[Hg] Common [facility] - systolic [facility] blood pressure 2020-10-22 09:30:00 88 mm[Hg] Common [facility] - diastolic [facility] Procedures Procedure Date / Time Performed Performing Clinician [facility] e REFERRAL- 2022-07-05 05:01:00 Doctor Unassigned, No [facility] [place] REQUEST/RESPONSE Name [facility] DISCLOSURE AND 2021-12-31 05:01:00 Doctor Unassigned, No [facility] [place] CONSENT, MEDICAL AND Name Medical [facility] SURGICAL PROCEDURES EXTERNAL MAMMOGRAM 2020-07-24 15:39:00 Doctor Unassigned, No Uni versity of [facility] EXTERNAL FIT DNA 2020-07-22 21:15:00 Doctor Unassigned, No Unive rsity of [facility] Encounters Start End Encounter Admission Attending Care Care Encounter Source Date/Time Date/Time Type Type Clinicians Facility Department ID 2022-09-05 Outpatient Callahan, STLMLC STLC [id number] Common 16:44:00 Avnee [id number] [facility] 2022-07-07 Outpatient Acllahan, STLMLC STLC [id number] Common 15:31:00 Avnee [id number] [facility] 2021-10-06 Outpatient Hernandes, Na STLMLC STLMLC [id number] 2 Common 11:14:01 [facility] 2021-06-10 Outpatient Hernandes, Na STLMLC STLMLC [id number] 2 Common 13:07:01 [facility] 2021-06-08 Outpatient Hernandes, Na STLMLC STLC [id number] 2 Common 11:25:01 [facility] 2021-04-28 Outpatient Hernandes, Na STLMLC STLMLC [id number] 2 Common 13:53:21 [id number] [facility] 2021-04-28 Outpatient Hernandes, Na STLMLC STLMLC [id number] 2 Common 13:29:08 [id number] [facility] 2021-04-28 Outpatient Hernandes, Na STLMLC STLMLC [id number] 2 Common 12:37:42 [id number] [facility] 2021-04-28 Outpatient Hernandes, Na STLMLC STLMLC [id number] 2 Common 12:37:27 [id number] [facility] 2021-04-28 Outpatient Hernandes, Na STLMLC STLMLC [id number] 2 Common 12:22:12 [id number] [facility] 2021-04-28 Outpatient Hernandes, Na STLMLC STLMLC [id number] 2 Common 12:15:13 [id number] [facility] 2021-04-28 Outpatient Hernandes, Na STLMLC STLMLC [id number] 2 Common 12:13:59 [id number] [facility] 2021-04-28 Outpatient Hernandes, Na STLMLC STLMLC [id number] 2 Common 11:48:08 [id number] [facility] 2021-04-28 Outpatient Hernandes, Na STLMLC STLMLC [id number] 2 Common 11:47:05 [id number] [facility] 2021-04-28 Outpatient Hernandes, Na STLMLC STLMLC [id number] 2 Common 11:46:30 [id number] [facility] 2021-04-28 Outpatient Hernandes, Na STLMLC STLMLC [id number] 2 Common 11:42:00 [id number] [facility] 2021-04-28 Outpatient STLMLC STLMLC [id number] Common 11:20:46 [id number] [facility] 2022-07-05 2022-07-05 Chichi DAVIDSON [id number] Univers 00:00:00 00:00:00 Only Unassigned, [place]A [id number] ity of [place] [facility] [id number] Amari as [phone] [facility] 009 [place] 2022-05-19 2022-05-19 Telephone Team, [facility] LETY 1.2.840.114 [id number] Univers 00:00:00 00:00:00 Health NYA [id number] it y of [facility] [id number] [place] [phone] [facility] 082 [place] 2022-02-08 2022-02-08 Outpatient R ADUM, [facility] [id number] Univers 10:00:00 10:00:00 LORY itpierre [facility] 2022-02-01 2022-02-01 Telephone Team, [facility] LETY 1.2.840.114 [id number] Univers 00:00:00 00:00:00 Health NYA [id number] it y of [facility] [id number] [place] [id number] [place] [id number] [place] 2022-01-10 2022-01-10 Telephone Adum, [facility] [id number] Univers 00:00:00 00:00:00 Lory Tubbs [place] [id number] ity of [id number] [phone] Dc dic[address] 2022-01-03 2022-01-03 Telephone Adum, [facility] [id number] Univers 00:00:00 00:00:00 Lory Tubbs [place] [id number] ity of [id number] [phone] Dc dic[address] 2021-12-31 2021-12-31 Outpatient R ADUM, [facility] [id number] Univers 09:30:00 11:07:48 LORY cortes [facility] 2021-12-31 2021-12-31 Office Adum, [facility] 1.2.840.114 [id number] Univers 09:30:00 11:07:48 Visit Lory Tubbs DEMETRI [id number] ity of [id number] [phone] Dc dical NAL 134 [facility] 2021-12-31 2021-12-31 Orders Doctor LETY 1.2.840.114 [id number] Univers 00:00:00 00:00:00 Only Unassigned, [place] [id number] [place] [id number] Amari as [phone] [address] 2021-11-26 2021-11-26 [facility] [id number] Univers 08:30:00 09:31:06 LORY ity [facility] 2021-11-26 2021-11-26 Office [facility] 1.2.840.114 [id number] Univers 08:30:00 09:31:06 Visit Lory MOSQUERA [id number] ity of [id number] [phone] [address] 2021-11-26 2021-11-26 Outpatient R [facility] [id number] Univers 08:30:00 09:31:06 LORY itpierre [facility] 2021-10-27 2021-10-27 Outpatient R JOSE JAUREGUI [facility] B [id number] Univers 11:15:00 14:18:05 JOSE JAUREGUI [facility] 2021-10-27 2021-10-27 Office [facility] [id number] [id number] Univers 11:15:00 14:18:05 Visit Jose PUENTES [id number] it y of [id number] [phone] [address] 2021-10-27 2021-10-27 Outpatient R JOSE JAUREGUI [facility] B [id number] Univers 11:15:00 11:15:00 JOSE JAUREGUI [facility] 2021-10-22 2021-10-22 [facility] [id number] Univers 00:00:00 00:00:00 Lory MOSQUERA [id number] ity of [facility] [id number] [id number] [address] 2021-10-13 2021-10-13 Out[facility] [id number] Univers 14:45:00 15:33:02 HODANJOSE EGAN [facility] 2021-10-13 2021-10-13 Office [facility] 1.2.840.114 [id number] [facility] 14:45:00 15:33:02 Visit Alanataya DELORIS [id number] it y [id number] [phone] [address] 2021-10-13 2021-10-13 Outpatient R [facility] [id number] Univers 14:45:00 15:33:02 RICHARDJOSE MAZARIEGOS [facility] 2021-10-08 2021-10-08 [facility] [id number] Univers 00:00:00 00:00:00 Lory MOSQUERA [id number] ity of [facility] [id number] [phone] [address] 2021-10-06 2021-10-06 OFFICE STLMLC STLMLC [id number] Co mmon 00:00:00 00:00:00 VISIT EST Spir it PT LEVEL 3 - [facility] 2021-09-30 2021-09-30 (TEL) STLMLC STLMLC [id number] Co mmon 00:00:00 00:00:00 Spirit [facility] 2021-09-30 2021-09-30 (TEL) STLMLC STLMLC [id number] Co mmon 00:00:00 00:00:00 [facility] 2021-07-26 2021-07-26 (TEL) STLMLC STLMLC [id number] Co mmon 00:00:00 00:00:00 [facility] 2021-07-14 2021-07-14 (TEL) STLMLC STLMLC [id number] Co mmon 00:00:00 00:00:00 [facility] 2021-07-13 2021-07-13 OFFICE STLMLC STLMLC [id number] Co mmon 00:00:00 00:00:00 VISIT EST Spir it PT LEVEL [address] [place] [address] 2021-06-14 2021-06-14 (TEL) STLMLC STLMLC [id number] Co mmon 00:00:00 00:00:00 [facility] 2021-06-10 2021-06-10 OFFICE STLMLC STLMLC [id number] Co mmon 00:00:00 00:00:00 VISIT EST Spir it PT LEVEL 3 [facility] 2021-06-08 2021-06-08 Outpatient R SHANEKA HOWARD [facility] [id number] Univers 15:00:00 15:00:00 ity [facility] 2021-05-31 2021-05-31 (TEL) STLMLC STLMLC [id number] Co mmon 00:00:00 00:00:00 [facility] 2021-04-02 2021-04-03 Emergency [facility] [id number] Univers 22:27:00 00:07:00 [facility] 2021-04-02 2021-04-03 [facility] 1.2.840.114 [id number] Univers 22:27:00 00:07:00 Sophia MOSQUERA [id number] [facility] [id number] [facility] [phone] [place] [address] [place] 2021-03-11 2021-03-11 [facility] 1.2.840.114 [id number] Univers 00:00:00 00:00:00 Lory MOSQUERA [id number] ity of [id number] [phone] Dc dical NAL [address] [place] [address] 2021-03-09 2021-03-09 Office Ad, [facility] 1.2.840.114 [id number] Univers 10:32:16 11:42:20 Visit Lory MOSUQERA [id number] ity of [facility] [id number] [phone] Dc dical [address] 2021-03-09 2021-03-09 Outpatient R ADUM, [facility] [id number] Univers 10:30:00 11:42:20 LORY ity [facility] 2021-03-09 2021-03-09 Outpatient R CATIE, [facility] [id number] Univers 09:30:00 09:30:00 MARIANNA ity [facility] 2021-03-01 2021-03-01 [facility] [id number] Univers 00:00:00 00:00:00 Lory MOSQUERA [id number] ity [facility] [id number] [phone] Dc dical NAL [address] [place] [address] 2021-02-22 2021-02-22 [facility]phone [facility] [id number] Univers 00:00:00 00:00:00 Lory MOSQUERA [id number] ity [id number] [phone] Dc dical NAL [address] [place] [address] 2021-02-18 2021-02-18 OFFICE STLMLC STLMLC [id number] Co mmon 00:00:00 00:00:00 VISIT EST Spir it PT LEVEL 3 - [facility] 2021-02-10 2021-02-10 (TEL) STLMLC STLMLC [id number] Co mmon 00:00:00 00:00:00 Spirit - [facility] 2021-02-08 2021-02-08 OFFICE STLMLC STLMLC [id number] Co mmon 00:00:00 00:00:00 VISIT [facility] LEVEL 2 [facility] 2021-02-08 2021-02-08 (TEL) STLMLC STLMLC [id number] Co mmon 00:00:00 00:00:00 [facility] 2021-02-04 2021-02-04 (TEL) STLMLC STLMLC [id number] Co mmon 00:00:00 00:00:00 [facility] 2021-01-20 2021-01-20 Office Adum, [facility] 1.2.840.114 [id number] Univers 13:08:33 14:37:23 Visit Lory Mosquera [id number] ity of [id number] [phone] Dc dical nal [address] [place] [address] 2021-01-20 2021-01-20 [facility] [id number] Univers 13:00:00 13:00:00 LORY cortes of [facility] 2021-01-20 2021-01-20 Orders Doctor LETY 1.2.840.114 [id number] Univers 00:00:00 00:00:00 Only Unassigned, [place] 350.1.13.10 ity of [place] [facility] [id number] Amari as [phone] [address] 2021-01-19 2021-01-19 [facility]phone [facility] [id number] Univers 00:00:00 00:00:00 Lory Mosquera 350.1.13.10 it[place] of [id number] [phone] Dc dical nal 134 [facility] 2020-12-24 2020-12-24 (TEL) STLMLC STLMLC [id number] Co mmon 00:00:00 00:00:00 [facility] 2020-12-01 2020-12-01 OL DIG E/M STLMLC STLMLC [id number] Common 00:00:00 00:00:00 SVC 5-10 Spiri t [facility] 2020-11-24 2020-11-24 (TEL) STLMLC STLMLC [id number] Co mmon 00:00:00 00:00:00 [facility] 2020-11-04 2020-11-04 (TEL) STLMLC STLMLC [id number] Co mmon 00:00:00 00:00:00 [facility] 2020-10-22 2020-10-22 OFFICE STLMLC STLMLC [id number] Co mmon 00:00:00 00:00:00 VISIT [facility] 4 [facility] 2020-07-29 2020-07-29 Outpatient STLMLC STLMLC [id number] Common 00:00:00 00:00:00 [facility] 2020-07-29 2020-07-29 Outpatient STLMLC STLMLC [id number] Common 00:00:00 00:00:00 [facility] 2020-06-10 2020-06-10 Outpatient STLMLC STLMLC [id number] Common 00:00:00 00:00:00 [facility] 2020-06-09 2020-06-09 Outpatient STLMLC STLMLC [id number] Common 00:00:00 00:00:00 [facility] 2020-04-21 2020-04-21 Outpatient STLMLC STLMLC [id number] Common 00:00:00 00:00:00 [facility] 2020-03-19 2020-03-19 Outpatient STLMLC STLMLC [id number] Common 00:00:00 00:00:00 [facility] 2020-03-18 2020-03-18 Outpatient STLMLC STLMLC [id number] Common 00:00:00 00:00:00 [facility] 2020-03-10 2020-03-10 Outpatient STLMLC STLMLC [id number] Common 00:00:00 00:00:00 [facility] 2020-03-02 2020-03-02 Outpatient STLMLC STLMLC [id number] Common 00:00:00 00:00:00 [facility] 2020-03-02 2020-03-02 Outpatient STLMLC STLMLC [id number] Common 00:00:00 00:00:00 [facility] 2020-02-20 2020-02-20 Outpatient STLMLC STLMLC [id number] Common 00:00:00 00:00:00 [facility] 2020-02-20 2020-02-20 Outpatient STLMLC STLMLC [id number] Common 00:00:00 00:00:00 [facility] 2020-02-04 2020-02-04 Outpatient STLMLC STLMLC [id number] Common 00:00:00 00:00:00 [facility] 2020-01-06 2020-01-06 Outpatient STLMLC STLMLC [id number] Common 00:00:00 00:00:00 [facility] 2019-12-19 2019-12-19 Outpatient STLMLC STLMLC [id number] Common 00:00:00 00:00:00 [facility] 2019-12-02 2019-12-02 [id number] Common 10:05:00 10:05:[address] [facility] 2019-11-11 2019-11-11 [facility] [id number] Common 16:20:00 16:20:[address] [facility] 2019-10-30 2019-10-30 [facility] [id number] Common 09:44:00 09:44:[address] [facility] 2019-10-15 2019-10-15 [facility] [id number] Common 14:39:00 14:39:[address] [facility] 2019-09-04 2019-09-04 [facility] [id number] Common 10:40:00 10:40:[address] [facility] 2019-08-07 2019-08-07 [facility] [id number] Common 14:28:00 14:28:00 t [employer] [address] [facility] 2019-08-07 2019-08-07 Outpatient Gamaliel Yañez [id number] Common 11:20:00 11:20:00 t [place] [employer] [address] [facility] Results Test Description Test Time Test Comments Results Result Comments Source Urine Culture,Comprehensive 2021-06-10 00:00:00 Test Item Value Reference Range Interpretation Comme nts Urine Culture,Comprehensive (test code = 630-4) Final report EXTERNAL FIT [id number] 21:40:00 Test Item Value Reference Range Interpretation Comments SKY (test code = SKY) Please find results in Care Everywhere. Specimen: ?Stool - Rectum structure (body structure) Test Result Negative Comments A negative result indicates a low likelihood that a colorectal cancer (CRC) or an advanced adenoma (adenomatous polyps with more advanced pre-malignant features) is present. The chance that a person with a negative Cologuard test has a colorectal cancer is less than 1 in 1500 (negative predictive value >99.9%) or has an advanced adenoma is less than 5.3% (negative predictive value 94.7%). These data are based on a prospective cross-sectional screening study of 10,000 individuals at average risk for colorectal cancer who were screened with both Cologuard and colonoscopy. (Enmanuel Wang al, N Engl J Med 2014;370(14):4271-8865) The normal value (reference range) for this assay is negative. COLOGUARD RE-SCREENING RECOMMENDATION: Periodic routine colorectal cancer screening is an important part of preventive healthcare for asymptomatic persons at average risk for colorectal cancer. Following a negative Cologuard result, the [place] Cancer Society and U.S. Multi-Society Task Force screening guidelines recommend a Cologuard re-screening interval of 3 years. References: [place] [employer] Society (ACS). Colorectal cancer prevention and early detection. [place], [place]: [place] [employer]; [updated 2015Jul 25]. https://www.cancer.org/ cancer/tjgzo-mqgswr-xfh cer/detection-diagnosis -staging/acs-recommenda tions.html. Accessed December 01, 2017; Chirag MARCIAL, Dimitri HOPKINS, Cristobal KATZ, Colorectal Cancer Screening: Recommendations for Physicians and Patients from the U.S. Multi-Society Task Force on Colorectal Cancer Screening, Am J Gastroenterology 2017; 112:5754-5604. TEST TYPE: Composite algorithmic analysis of stool DNA-biomarkers with hemoglobin immunoassay. ?Quantitative values of individual biomarkers are not reportable and are not associated with individual biomarker result reference ranges. PRECAUTIONS AND LIMITATIONS: Cologuard is intended for colorectal cancer screening of adults of either sex, 45 years or older, who are at average-risk for colorectal cancer (CRC). Cologuard has been approved for use by the U.S. FDA. Cologuard may produce a false negative or false positive result. A negative Cologuard test result does not guarantee the absence of CRC or advanced adenoma (pre-cancer). Patients with a negative Cologuard test result should be advised to continue participating in a colorectal cancer screening program. The screening interval for Cologuard is currently recommended at an interval of every 3 years by the [place] Cancer Society and U.S. Multi-Society Task Force. A false positive result occurs when Cologuard produces a positive result, even though a colonoscopy may not find colorectal cancer or precancerous polyps. The performance of Cologuard has been established in a cross sectional study (i.e., single point in time) of average-risk adults aged 50-84. Cologuard performance in patients ages 45 to 49 years was estimated by sub-group analysis of near-age groups. Cologuard performance data in a 10,000 patient pivotal study using colonoscopy ?as the reference method can be accessed at the following location: www.IMT/resul ts. Additional description of the Cologuard test process, warnings and precautions can be found at www.cologuardtest.com. Rx only. Resulting Agency [employer] (CLIA #:[id number]) Specimen Collected: 07/22/20 16:15 Last Resulted: 07/28/20 16:40 Received From: [facility] Result Received: 01/20/21 13:08 Lab Interpretation Normal (test code = 44891-7) [id number]:08:00 Test Item Value Reference Range Interpretation Comments Radiology Study observation (narrative) (test code = 80416-9) SKY (test code = SKY) Please find results in Care Everywhere. 3D SCR EMERSON BILAT W/CAD 2020-07-27 13:08:00 [facility] Name: KATERINE NEUMANN : 1955 Sex: F [address] [address] RADIOLOGY SERVICES REPORT Name: KATERINE NEUMANN Acct Number: [id number] :1955 Age:64 Sex:F Ord Phys: Hernandes,Rebecca Ly DO Unit Number: [id number] [facility] [address]: Status: REG REF RAD Exam Date: 07/24/20 EXAM DESCRIPTION: EMERSON - 3D SCR EMERSON BILAT W/CAD - 07/27/2020 10:39 am COMPARISON: No comparisons TECHNIQUE: CC and MLO views of each breast were obtained utilizing digital breast 3D tomosynthesis and 2D imaging. Computer-aided detection was utilized. FINDINGS: Scattered fibroglandular densities are seen. Small dystrophic calcifications seen outer right breast. No suspicious finding for developing malignancy is seen. IMPRESSION: 1. No mammographic evidence for malignancy. 2. BI-RAD: 2, benign findings. 3. Annual mammography is the recommendation for the patient. ResultCode: B*A negative x-ray report should not delay biopsy if a dominant or clinically suspicious mass is present. 4.8% of cancers are not identified by x-ray.*A negative report may reinforce clinical impression.*Adenosis and dense breasts may obscure an underlying neoplasm.*False positive reports average 6-10%. Signed By: Ernesto Chance MD Signed AT: 07/27/20 1308 Lab Interpretation Normal (test code = 75012-2) [facility] 15:54:00 Test Item Value Reference Range Interpretation Comments CREATINE KINASE (CK) (test code = 171 Unit/L 26-192 N CK) NT PRO-BRAIN NATRIURETIC [id number] 15:54:00 Test Item Value Reference Range Interpretation Comments NT PRO-BRAIN NATRIURETIC PEPTI 141 PG/ML 0-100 H (test code = PROBNP) - XR CHEST 1 [id number] 15:51:00 Name: KATERINE NEUMANN [place] : 1955 Age/S: 63 / F [id number] [address] Unit #: [id number] Loc: [place] [address] Phys: Donald Williamson MD Acct: [id number] Dis Date: Status: PRE ER PHONE #: [phone] Exam Date: 09/20/2018 1540 FAX #: Reason: SOB EXAMS: CPT: [id number] XR CHEST 1 V 90409 Fluoro Time: DAP (Gy m2): Air Kerma (mGy): EXAM: CHEST ONE VIEW INDICATION: Shortness of breath LOCATION: B2 COMPARISON: None available TECHNIQUE: AP view of the chest FINDINGS: The heart size is normal. The lungs are clear bilaterally. The pulmonary vasculature is normal. No pneumothorax or pleuraleffusion is identified. The osseous structures are normal. IMPRESSION: No acute cardiopulmonary process. at 4883 Reported and signed by: Joleen Collazo M.D. CC: Donald Williamson MD PAGE 1 Signed Report Name: KATERINE NEUMANN [place] : 1955 Age/S: 63 / F [address] [address] Unit #: [id number] Loc: Steve [facility] [address] Phys: Donald Williamson MD Acct: [id number] Dis Date: Status: PRE ER PHONE #: [phone] Exam Date: 019 1540 FAX #: Reason: SOB EXAMS: CPT: [id number] XR CHEST 1 V 19514 Fluoro Time: DAP (Gy m2): Air Kerma (mGy): (Continued) Technologist: Laci Cantu, RT(R)(CT) Trnscb Date/Time: 09/20/2018 (0459)16 Orig Print D/T: S: 09/20/2018 (8934) PAGE 2 Signed ReportCBC W/O [id number] 15:41:00 Test Item Value Reference Range Interpretation Comments WHITE BLOOD CELL (test code = 11.4 K/mm3 3.5-11.0 H WBC) RED BLOOD CELL (test code = RBC) 4.53 M/mm3 4.70-6.10 L HEMOGLOBIN (test code = HGB) 13.0 G/DL 10.4-14.9 N HEMATOCRIT (test code = HCT) 39.8 % 31.5-44.1 N MEAN CELL VOLUME (test code = 87.9 Fl 84.5-98.6 N MCV) MEAN CELL HGB (test code = MCH) 28.7 pg 27.0-34.2 N MEAN CELL HGB CONCETRATION (test 32.7 G/DL 31.5-34.0 N code = MCHC) RED CELL DISTRIBUTION WIDTH (test 14.6 SD 11.5-14.5 H code = RDW) PLATELET COUNT (test code = PLT) 375.0 K/mm3 150-450 N MEAN PLATELET VOLUME (test code = 10.00 fL 7.0-10.5 N MPV) TROPONIN I [id number] 15:40:00 Test Item Value Reference Range Interpretation Comments TROPONIN I RAPID 0.00 ng/mL 0.00-0.08 N - The use o f serial (test code = sampling and te sting TROPIRAP) protocol is a recommended pra ctice- An elevated tro ponin level alone is often not sufficient for diagnosis of my ocardial infarction. URINALYSIS [id number] 15:36:00 Test Item Value Reference Range Interpretation Comments UA GLUCOSE DIPSTICK (test NEGATIVE mg/dL NEG code = DGLUU) UA BILIRUBIN DIPSTICK (test NEGATIVE mg/dL NEG code = BILU) UA KETONE DIPSTICK (test code NEGATIVE mg/dL NEG = KETU) UA SPECIFIC GRAVITY (test 1.020 SG 1.005-1.030 code = SGU) UA BLOOD DIPSTICK (test code NEGATIVE mg/DL NEG = KITTY) UA PH DIPSTICK (test code = 6.5 pH UNITS 5.0-7.0 KAREN) UA PROTEIN DIPSTICK (test NEGATIVE mg/dL NEG code = PROU) UA UROBILINIOGEN DIPSTICK 0.2 mg/dL <2.0 (test code = URO) UA NITRITE DIPSTICK (test NEGATIVE SCREEN NEG code = CHUCHO) UA LEUKOCYTE ESTERASE TRACE Leuk/mcL NEGATIVE A DIPSTICK (test code = LEUU) Urine Specimen Type: Clean CatchCHEMISTRY 8 [id number] 15:34:00 Test Item Value Reference Range Interpretation Comments ISTAT-SODIUM (test code = NAP) mmol/L 135-146 ISTAT-POTASSIUM (test code = KP) mmol/L 3.5-4.9 ISTAT-CHLORIDE (test code = CLP) mmol/L 98-109 ISTAT-CARBON DIOXIDE (test code = mmol/L 24-29 N ISTAT-CO2) ISTAT CALCIUM IONIZED (test code = mmol/L 1.12-1.32 ISTAT-SIRI) ISTAT-GLUCOSE (test code = GLUP) mg/dL 70-105 H ISTAT-BUN (test code = BUNP) mg/dL 8-26 N BEDSIDE CREATININE (test code = mg/dL 0.6-1.3 N CREATBED) GLOMERULAR FILTRATION RATE POC (test 90 45-104 N code = GFRBED) CHEMISTRY 8 [id number] 15:34:00 Test Item Value Reference Range Interpretation Comments ISTAT-SODIUM (test code = NAP) 143 mmol/L 135-146 N ISTAT-POTASSIUM (test code = KP) 3.5 mmol/L 3.5-4.9 N ISTAT-CHLORIDE (test code = CLP) 106 mmol/L 98-109 N ISTAT-CARBON DIOXIDE (test code = 24 mmol/L 24-29 N ISTAT-CO2) ISTAT CALCIUM IONIZED (test code 1.18 mmol/L 1.12-1.32 N = ISTAT-SIRI) ISTAT-GLUCOSE (test code = GLUP) 119 mg/dL 70-105 H ISTAT-BUN (test code = BUNP) 15 mg/dL 8-26 N BEDSIDE CREATININE (test code = 0.7 mg/dL 0.6-1.3 N CREATBED) GLOMERULAR FILTRATION RATE POC 90 45-104 N (test code = GFRBED) Notes Date/Time Note Provider Source 2018-09-20 16:03:00-00:00 [id number] [address] PATIENT NAME: KATERINE NEUMANN ADMIT DATE: 09/20/18 ACCOUNT NO: [id number] ROOM NO: AGE: 63 REPORT TYPE: eELECTROCARDIOGRAM SEX: F ADMITTING PHYSICIAN: ATTENDING PHYSICIAN: Order: [id number] Test Reason : Test Date/Time Stamp: MonSep 20 2018 16:03:13 Blood Pressure : / mmHG Vent. Rate : 077 BPM Atrial Rate : 077 BPM P-R Int : 120 ms QRS Dur : 076 ms QT Int : 398 ms P-R-T Axes : 014 030 070 degree s QTc Int : 450 ms Normal sinus rhythm Normal ECG No previous ECGs available Confirmed by HUSEYIN RODRIGUEZ MD ([id number]) on 019 1:53:53 PM Referred By: Self Referred Confirmed by:HUSEYIN CRANE MD PATIENT NAME: KATERINE NEUMANN 78 2018-09-20 14:49:00-00:00 [facility] ([facility]) EMERGENCY PROVIDER REPORT REPORT#:[id number] REPORT STATUS: Signed DATE:09/20/18 TIME:1449 PATIENT: KATERINE NEUMANN UNIT #: [id number] ROOM/BED: : 54 AGE: 63 SEX: F PCP PHYS: No Primar y or Family Physician SERVICE AUTHOR: Donald Williamson MD * ALL edits or amendments must be made on the [employer]/computer document * HPI-Extremity Prob Lower General Confirmed Patient Yes Patient Type New patient Initial Greet Date/Time 09/20/18 1413 Presentation Chief Complaint Foot problem R, Foot problem L Hx Obtained From Patient Onset Occurred Weeks ago (2) Symptom Duration Since onset Progression since Onset Unchanged Caused by No trauma by history Associated with Reports: Swelling. Denies: Abdominal pain, Chest pain, Difficulty breathing, Fever, Loss of consciousness, Nausea, Vomiting, Weakness. Exacerbated by Nothing Relieved by Nothing Context Similar Sx Previous Yes Free Text HPI Notes Free Text HPI Notes 63 y/o F with PSHx cholecystectomy p/w bilateral foot swelling x2 weeks with associated mild swelling of her hands. There are no exacerbating factors and her sxs are only mildly improved by soaking them in ice water. Of note the pt had similar sxs 1 year ago that resolved by soaking her feet in ice water. Denies fever, chills, abd pain, N/V/D, numbness, tingli ng, CP, SOB, syncope or LOC. Portions of this section were scribed by Bell Parker on 09/20/18 at 1645 Review of Systems ROS Statements All systems rev neg except as marked. Focused Review of Systems Constitutional Denies: Chills, Fever. Musculoskeletal Reports: Extremity swelling, Joint swelling. Den ies: Back pain. Skin Denies: Laceration, Rash. Neurologic Denies: Change LOC, Numbness , Syncope, Tingling, Unable to speak, Vision change. Additional Review of Systems Eyes Denies: Blurred bilat, Visual loss bilat. Ears/Nose/Throat Denies: Ear ringing bilat, Earache bilat, Hearin g loss bilat. Respiratory Denies: Cough, non-productive, Cough, productive , Shortness of breath. Cardiovascular Denies: Chest pain, Syncope. GI Denies: Abdominal pain, Diarrhea, Nausea, Vomiti ng. Female Denies: Dysuria, Hematuria. Portions of this section were scribed by Bell Parker on 09/20/18 at 1542 Past Medical History - Adult Stated Complaint HAND AND FOOT SWELLING X2WKS Allergies Coded Allergies: No Known Allergies (09/20/18) Home Medications Reported Medications No Known Home Medications Review of Nursing Notes Rev avail, and agree Pt reports no significant: Past medical history Past Surgical History: Reports: Cholecystectomy. Smoking status for patients 13 years old or olde r: Unknown,if ever smoked Other Social History Local resident Ambulatory Status Independent Portions of this section were scribed by Bell Parker on 09/20/18 at 1550 Physical Exam Vital Signs Vital Signs First Documented: Result Date Time Pulse Ox 97 09/20 1409 B/P 165/97 09/20 1409 B/P Mean 119 09/20 1409 Temp 98.0 09/20 1409 Pulse 93 09/20 1409 Resp 15 09/20 1409 O2 Delivery Room air 09/20 170 Last Documented: Result Date Time Pulse Ox 98 09/20 1702 B/P 158/82 09/20 170 B/P Mean 107 09/20 170 O2 Delivery Room air 09/20 170 Temp 98.1 09/20 1702 Pulse 89 09/20 1702 Resp 20 09/20 170 Review of Vital Signs Reviewed Focused PE General/Const General/Const Awake, Alert, No acute distress Resp/Chest Respiratory/Chest Atraumatic, Breath sounds NL, Breath sounds = bilat, No respiratory distress, No rales, No rhonchi, No w heezing Cardiovascular Cardiovascular Heart rate NL, Regular rhythm, H eart sounds NL, No gallop, No murmurs, No rubs MS Lower Extrem Lower Ext/Pelvis/MS Full range of motion, No de formity, Neurologic intact, Vascular intact Text/Dict Notes 4+ pitting edema proximal tibia bilaterally MS Ankle/Foot Ankle/Foot Full range of motion, No deformity, Neurologic intact, Vascular intact Skin Skin Atraumatic, Color NL, No rash, Warm, Dry, Intact Neurologic Neurologic Oriented X3, Speech NL Additional PE MS Wrist/Hand Wrist/Hand Full range of motion, No deformity, Neurologic intact, Vascular intact Text/Dict Note Mild swelling to hands bilaterally Portions of this section were scribed by Bell Parker on 09/20/18 at 1550 Interpretation Diagnostics Lab Results Interpretation Results Laboratory Tests 09/20/18 1529: [Embedded Image Not Available] 09/20/18 1528: [Embedded Image Not Available] Laboratory Tests: 09/20 09/20 09/20 1529 1528 1528 Chemistry POC Sodium (135 - 146 mmol/L) 143 POC Potassium (3.5 - 4.9 mmol/L) 3.5 POC Chloride (98 - 109 mmol/L) 106 Carbon Dioxide (24 - 29 mmol/L) 24 POC BUN (8 - 26 mg/dL) 15 POC Creatinine (0.6 - 1.3 mg/dL) 0.7 Estimated GFR (MDRD) (45 - 104) 90 POC Glucose (70 - 105 mg/dL) 119 H Ionized Calcium [place] (1.12 - 1.32 mmol/L) 1.18 Total Creatine Kinase (26 - 192 Unit/L) 171 Rapid Troponin I (0.00 - 0.08 ng/mL) 0.00 NT-Pro-B Natriuret Pep (0 - 100 PG/ML) 141 H Hematology WBC (3.5 - 11.0 K/mm3) 11.4 H RBC (4.70 - 6.10 M/mm3) 4.53 L Hgb (10.4 - 14.9 G/DL) 13.0 Hct (31.5 - 44.1 %) 39.8 MCV (84.5 - 98.6 Fl) 87.9 MCH (27.0 - 34.2 pg) 28.7 MCHC (31.5 - 34.0 G/DL) 32.7 RDW (11.5 - 14.5 SD) 14.6 H Plt Count (150 - 450 K/mm3) 375.0 MPV (7.0 - 10.5 fL) 10.00 Urines Urine pH (5.0 - 7.0 pH UNITS) 6.5 Ur Specific [place] (1.005 - 1.030 SG) 1.020 Urine Protein (NEG mg/dL) NEGATIVE Urine Glucose (UA) (NEG mg/dL) NEGATIVE Urine Ketones (NEG mg/dL) NEGATIVE Urine Blood (NEG mg/DL) NEGATIVE Urine Nitrite (NEG SCREEN) NEGATIVE Urine Bilirubin (NEG mg/dL) NEGATIVE Urine Urobilinogen (<2.0 mg/dL) 0.2 Ur Leukocyte Esterase (NEGATIVE Leuk/mcL) TRACE H Recent Impressions: RADIOLOGY - XR CHEST 1 V 09/20 1535 Report Impression - Status: SIGNED Entered: 09/20/2018 1555 IMPRESSION: No acute cardiopulmonary process. Impression By: Lena - Joleen Collazo M.D. Lab Imaging Statement Laboratory radiographic studies reviewed and con sidered in the medical decision-making. Point of Care Testing Pulse Oximetry Pulse Ox % 97 On: Room air Interpretation Interpreted by me, Pulse oximetr y normal Time 1409 ECG #1 Interpretation ECG Documented in MUSE Yes Date 09/20/18 Time 1604 Interpreted by ED physician NL ECG Interpretation Normal rate, Normal sinus rhythm, No STEMI Rate 77 Portions of this section were scribed by Bell Parker on 09/20/18 at 1645 Re-Evaluation MDM Free Text MDM Notes Additional Text Patient with peripheral swelling of hand and fee t. ED workup neg for CHF or renal disease. Unclear cause for edema [place]; no serious cause found. Reassured and d/c home with PCP f/u. Differential Diagnosis Differential Diagnosis CHF Volume overload Nephr otic syndrome Portions of this section were scribed by Bell Parker on 09/20/18 at 1542 Patient Discharge Departure Vital Signs/Condition Vital Signs First Documented: Result Date Time Pulse Ox 97 09/20 1409 B/P 165/97 09/20 1409 B/P Mean 119 09/20 1409 Temp 98.0 09/20 1409 Pulse 93 09/20 1409 Resp 15 09/20 1409 O2 Delivery Room air 09/20 170 Last Documented: Result Date Time Pulse Ox 98 09/20 170 B/P 158/82 09/20 1702 B/P Mean 107 09/20 1702 O2 Delivery Room air 09/20 170 Temp 98.1 09/20 170 Pulse 89 09/20 1702 Resp 20 09/20 170 All vital signs available at the time of this en try have been reviewed. Condition Stable Clinical Impression Clinical Impression Primary Impression: Peripheral edema Disposition Decision Discharge )( Discharged to Home Yes )( Time 1645 )( Date 09/20/18 Discharge/Care Plan Counseled Regarding Diagnosi s, Lab results, Imaging studies, Need for follow-up, When to return to ED Discharge Note I have spoken with the patie nt and/or caregivers. I have explained the patient's condition, diagnoses and jessica atment plan based on the information available to me at this time. I have answered the patient's and/ or caregiver's questions and addressed any concerns. The patient and/or careg hal have as good an understanding of the patient 's diagnosis, condition and treatment plan as can be expected at this point. The vital signs have bee n stable. The patient's condition is stable and appr opriate for discharge from the emergency department. The patient will pursue further outpatient evalu ation with the primary care physician or other designated or consulting phys ician as outlined in the discharge instructions. The patient and/or caregivers are agreeable to this plan of care and follow-up instructions have been exp lained in detail. The patient and/or caregivers have received these instructio ns in written format and have expressed an understanding of the discharge inst ructions. The patient and/or caregivers are aware that any significant change in condition or worsening of symptoms should prompt an immediate return to [facility] or the closest emergency department or a call to 911. Supervising Physician Note Scribe Statement Bell Parker, 09/20/18 7306, scribing for and in the presence of Dr. Williamson. Signed By: Bell Parker, 09/20/18 0020 Provider Scribed Statement I personally performed the s ervices described in this documentation and reviewed the documentation that was dictated to the scrib e(s) in my presence, and it accurately records my words and actions. Karrie Williamson, 09/23/18 Portions of this section were scribed by Bell Parker on 09/20/18 at 1645 Electronically Signed by Donald Williamson MD on at 1238 RPT #: [id number] END OF REPORT
[2022-11-24] MEDS ORDERED: ONDANSETRON 4 MG/2 ML VIAL ONE (02:20)
[2022-11-24] MEDS ORDERED: MORPHINE 2 MG/ML SYR ONE (02:20)
[2022-11-24] MEDS ORDERED: NA CHLORIDE 0.9% 1,000 ML ONE (02:20)
[2022-11-24 02:42] LABS: Absolute Lymphocytes (CBC) 3.5 K/uL (0.7-4.9); Hematocrit 41.6 % (36.0-45.0); Lymphocytes % 28.6 % (15.3-44.8); MCV 85.3 fL (80-100); Platelets 361 thou/uL (152-406); RBC Red Blood Cell Count 4.87 M/uL (3.86-4.86)
[2022-11-24 02:48] LABS: Albumin 3.2 g/dL (3.4-5.0); Bilirubin Total 0.2 mg/dL (0.2-1.0); Potassium 3.8 mEq/L (3.5-5.1); Protein, Total 7.1 g/dL (6.4-8.2)
[2022-11-24 05:29] LABS: Urine Bacteria 20-50 /HPF (<20); Urine Bilirubin NEGATIVE (Negative); Urine Blood 3+ (OVER) (Negative); Urine Clarity Clear (Clear); Urine Color Light-Yellow (Yellow); Urine Glucose NEGATIVE (Negative); Urine Mucus 4+ /HPF (None Seen); Urine Protein NEGATIVE (Negative); Urine RBC >50 /HPF (None Seen); Urine Urobilinogen Normal (Normal)
[2022-11-24 05:37] LABS: Specific Gravity > 1.035 (1.005-1.030)
--- NOTE | 2022-11-24 05:41 | ER ---
Nurse's Notes [facility] Name: Marija Henry Age: 67 yrs Sex: Female : 1955 Arrival Date: 11/24/2022 Time: 01:45 Bed 5 Private MD: Diagnosis: UTI/ Urinary tract infection, site not specified Presentation: 11/24 01:59 Chief complaint: Patient states: LLQ stabbing pain that started 3 days ago and has as6 increasingly gotten worse. Coronavirus screen: At this time, the client does not indicate any symptoms associated with coronavirus-19. Ebola Screen: No symptoms or risks identified at this time. Initial Sepsis Screen: Does the patient meet any 2 criteria? No. Patient's initial sepsis screen is negative. Does the patient have a suspected source of infection? No. Patient's initial sepsis screen is negative. Risk Assessment: Do you want to hurt yourself or someone else? Patient reports no desire to harm self or others. Onset of symptoms was November 21, 2022. 01:59 Method Of Arrival: Ambulatory as6 01:59 Acuity: UDAY 3 as6 Triage Assessment: 02:00 General: Appears uncomfortable, Behavior is calm, cooperative. Pain: Complains of pain as6 in left lower quadrant Quality of pain is described as stabbing. GI: Reports lower abdominal pain, nausea. Historical: - Allergies: 02:00 latex; as6 - Home Meds: 02:00 None [Active]; as6 - PMHx: 02:00 None; as6 - PSHx: 02:00 Bladder lift; Cholecystectomy; hernia repair; kidney stone; partial hysterectomy; skin as6 cancer removed; - Immunization history:: Client reports receiving the 2nd dose of the Covid vaccine, pfizer Pneumococcal vaccine is not up to date, Flu vaccine is not up to date. - Social history:: Smoking status: Patient reports the use of cigarette tobacco products, smokes one pack cigarettes per day. - Family history:: not pertinent. - Hospitalizations: : No recent hospitalization is reported. Screenin:50 [facility] ED Fall Risk Assessment (Adult) History of falling in the last 3 months, vc1 including since admission No falls in past 3 months (0 pts) Confusion or Disorientation No (0 pts) Intoxicated or Sedated No (0 pts) Impaired Gait No (0 pts) Mobility Assist Device Used No (0 pt) Altered Elimination No (0 pt) Score/Fall Risk Level 0 - 2 = Low Risk Oriented to surroundings, Maintained a safe environment, Educated pt \T\ family on fall prevention, incl call for assistance when getting out of bed. Abuse screen: Denies threats or abuse. Nutritional screening: No deficits noted. Tuberculosis screening: No symptoms or risk factors identified. Assessment: 03:00 Reassessment: Patient and/or family updated on plan of care and expected duration. Pain vc1 level reassessed. Patient is alert, oriented x 3, equal unlabored respirations, skin warm/dry/pink. Patient states symptoms have improved. 03:55 Reassessment: No changes from previously documented assessment. Patient and/or family vc1 updated on plan of care and expected duration. Pain level reassessed. Patient is alert, oriented x 3, equal unlabored respirations, skin warm/dry/pink. Patient states feeling better. Patient states symptoms have improved. 05:45 Reassessment: Patient and/or family updated on plan of care and expected duration. Pain vc1 level reassessed. Patient is alert, oriented x 3, equal unlabored respirations, skin warm/dry/pink. Patient states feeling better. Patient states symptoms have improved. Vital Signs: 02:01 BP 188 / 102; Pulse 82; Resp 20 S; Temp 97.9(O); Pulse Ox 96% on R/A; Weight 113.4 kg as6 (R); Height 5 ft. 6 in. (R); Pain 8/10; 03:00 BP 160 / 76; Pulse 70; Resp 20; Pulse Ox 92% on R/A; vc1 03:56 BP 163 / 86; Pulse 72; Pulse Ox 94% on R/A; vc1 05:45 BP 144 / 72; Pulse 78; Resp 18; Pulse Ox 98% ; vc1 02:01 Body Mass Index 40.35 (113.40 kg, 167.64 cm) as6 02:01 Pain Scale: Adult as6 ED Course: 01:46 Patient arrived in ED. ag3 01:48 Sukhwinder Shea MD is Attending Physician. rn 01:56 Daniel Roy RN is Primary Nurse. rv 02:00 Triage completed. as6 02:01 Arm band placed on. as6 02:01 Patient has correct armband on for positive identification. Bed in low position. Call vc1 light in reach. Pulse ox on. NIBP on. 02:14 Inserted saline lock: 20 gauge in left forearm, using aseptic technique. Blood rv1 collected. 02:29 CBC with Diff Sent. rv1 02:29 CMP Sent. rv1 02:29 Lipase Sent. rv1 03:38 CT Abd/Pelvis - IV Contrast Only In Process Unspecified. EDMS 06:12 No provider procedures requiring assistance completed. IV discontinued, intact, vc1 bleeding controlled, No redness/swelling at site. Pressure dressing applied. Administered Medications: 02:16 Drug: NS 0.9% IV 1000 ml Route: IV; Rate: 1 bolus; Site: left forearm; vc1 03:16 Follow up: IV Status: Completed infusion; IV Intake: 1000ml vc1 02:16 Drug: Ondansetron IVP 4 mg Route: IVP; Site: left forearm; vc1 05:50 Follow up: Response: No adverse reaction; Marked relief of symptoms vc1 02:16 Drug: morphine IVP or IV 2 mg Route: IVP; Infused Over: 4 mins; Site: left forearm; vc1 05:50 Follow up: Response: No adverse reaction; Marked relief of symptoms vc1 05:45 Drug: Rocephin IV 1 grams Route: IV; Rate: calculated rate; Site: left antecubital; vc1 Medication: 03:51 VIS not applicable for this client. vc1 Intake: 03:16 IV: 1000ml; Total: 1000ml. vc1 Outcome: 05:41 Discharge ordered by . rn 06:12 Discharged to home ambulatory. vc1 06:12 Condition: good 06:12 Discharge instructions given to patient, Instructed on discharge instructions, follow up and referral plans. medication usage, Demonstrated understanding of instructions, follow-up care, medications, Prescriptions given X 3. 06:12 Patient left the ED. vc1 Signatures: Dispatcher [employer] EDMS Sukhwinder Shea MD MD rn Vicente, Ronaldo RN RN Nika Bunch ag3 Gennaro Alvarado RN RN as6 Irma Barakat RN RN vc1 Elina Sánchez rv1 Corrections: (The following items were deleted from the chart) 02:29 02:14 Inserted saline lock: 22 gauge in left forearm, using aseptic technique. Blood rv1 collected. rv1
--- NOTE | 2022-11-24 05:41 | EDPHYS ---
Physician Documentation [facility] Name: Marija Henry Age: 67 yrs Sex: Female : 1955 Arrival Date: 11/24/2022 Time: 01:45 Bed 5 Private MD: ED Physician Sukhwinder Shea HPI: 11/24 01:58 This 67 yrs old Female presents to ER via Unassigned with complaints of Abdominal Pain. rn 01:58 The patient presents with abdominal pain in the left lower quadrant. Onset: The rn symptoms/episode began/occurred 3 day(s) ago. The symptoms do not radiate. Associated signs and symptoms: Pertinent positives: nausea, Pertinent negatives: anorexia, blood in stools, chest pain, constipation, diarrhea, fever, hematuria, shortness of breath, vomiting, vomiting blood. The symptoms are described as sharp, stabbing. Modifying factors: The symptoms are alleviated by nothing, the symptoms are aggravated by touching the area. Severity of pain: At its worst the pain was moderate in the emergency department the pain is unchanged. The patient has not experienced similar symptoms in the past. The patient has not recently seen a physician. Pt reports LLQ abd pain, began 3 days ago, no fever, no trauma, has had kidney stones before but this feels different and not as bad. No vomiting/diarrhea. NO hx of diverticulitis. No headache/congestion/sore throat/cough/chest pain.. Historical: - Allergies: 02:00 latex; as6 - Home Meds: 02:00 None [Active]; as6 - PMHx: 02:00 None; as6 - PSHx: 02:00 Bladder lift; Cholecystectomy; hernia repair; kidney stone; partial hysterectomy; skin as6 cancer removed; - Immunization history:: Client reports receiving the 2nd dose of the Covid vaccine, pfizer Pneumococcal vaccine is not up to date, Flu vaccine is not up to date. - Social history:: Smoking status: Patient reports the use of cigarette tobacco products, smokes one pack cigarettes per day. - Family history:: not pertinent. - Hospitalizations: : No recent hospitalization is reported. ROS: 01:58 Constitutional: Negative for fever, chills, and weight loss, Cardiovascular: Negative rn for chest pain, palpitations, and edema, Respiratory: Negative for shortness of breath, cough, wheezing, and pleuritic chest pain, Abdomen/GI: + LLQ abd pain Back: Negative for injury and pain, : Negative for injury, bleeding, discharge, and swelling, MS/Extremity: Negative for injury and deformity, Skin: Negative for injury, rash, and discoloration, Neuro: Negative for headache, weakness, numbness, tingling, and seizure. Exam: 01:58 Constitutional: This is a well developed, well nourished patient who is awake, alert, rn appears uncomfortable, but ambulatory to room without assistance. Head/Face: Normocephalic, atraumatic. Cardiovascular: Regular rate and rhythm. No pulse deficits. Respiratory: No increased work of breathing, no retractions or nasal flaring. Abdomen/GI: soft, + mild LLQ tenderness, no rebound, no pulsatile masses, no distension Skin: Warm, dry MS/ Extremity: Pulses equal, no cyanosis. Neuro: Awake and alert, GCS 15 Vital Signs: 02:01 BP 188 / 102; Pulse 82; Resp 20 S; Temp 97.9(O); Pulse Ox 96% on R/A; Weight 113.4 kg as6 (R); Height 5 ft. 6 in. (R); Pain 8/10; 03:00 BP 160 / 76; Pulse 70; Resp 20; Pulse Ox 92% on R/A; vc1 03:56 BP 163 / 86; Pulse 72; Pulse Ox 94% on R/A; vc1 05:45 BP 144 / 72; Pulse 78; Resp 18; Pulse Ox 98% ; vc1 02:01 Body Mass Index 40.35 (113.40 kg, 167.64 cm) as6 02:01 Pain Scale: Adult as6 MDM: 01:48 Patient medically screened. rn 05:38 Differential diagnosis: diverticulitis, non-specific abd pain, Pyelonephritis, rn Ureterolithiasis, urinary tract infection. Data reviewed: vital signs, nurses notes, radiologic studies, CT scan, and as a result, I will discharge patient. Counseling: I had a detailed discussion with the patient and/or guardian regarding the historical points, exam findings, and any diagnostic results supporting the discharge/admit diagnosis, lab results, radiology results, the need for outpatient follow up, to return to the emergency department if symptoms worsen or persist or if there are any questions or concerns that arise at home. Response to treatment: the patient's symptoms have markedly improved after treatment, and as a result, I will discharge patient. Special discussion: Based on the patient's Hx, exam, and Dx evaluation, there is no indication for emergent surgery or inpatient Tx. It is understood by the patient/guardian that if the Sx's persist or worsen they need to return immediately for re-evaluation. I discussed with the patient/guardian in detail that at this point there is no indication for admission to the hospital. It is understood, however, that if the symptoms persist or worsen the patient needs to return immediately for re-evaluation. Based on the history and exam findings, there is no indication for further emergent testing or inpatient evaluation. I discussed with the patient/guardian the need to see the primary care provider for further evaluation of the symptoms. ED course: NO acute findings on imaging, elevated WBC and UTI on UA, will given abx and return precautions. . 11/24 01:58 Order name: CBC with Diff; Complete Time: 02:59 rn 11/24 01:58 Order name: CMP; Complete Time: 02:59 rn 11/24 01:58 Order name: Lipase; Complete Time: 02:59 rn 11/24 01:58 Order name: Urinalysis w/ reflexes; Complete Time: 05:38 rn 11/24 01:58 Order name: CT Abd/Pelvis - IV Contrast Only rn 11/24 01:58 Order name: IV Saline Lock; Complete Time: 02:29 rn 11/24 01:58 Order name: Labs collected and sent; Complete Time: 02:29 rn Administered Medications: 02:16 Drug: NS 0.9% IV 1000 ml Route: IV; Rate: 1 bolus; Site: left forearm; vc1 03:16 Follow up: IV Status: Completed infusion; IV Intake: 1000ml vc1 02:16 Drug: Ondansetron IVP 4 mg Route: IVP; Site: left forearm; vc1 05:50 Follow up: Response: No adverse reaction; Marked relief of symptoms vc1 02:16 Drug: morphine IVP or IV 2 mg Route: IVP; Infused Over: 4 mins; Site: left forearm; vc1 05:50 Follow up: Response: No adverse reaction; Marked relief of symptoms vc1 05:45 Drug: Rocephin IV 1 grams Route: IV; Rate: calculated rate; Site: left antecubital; vc1 Disposition Summary: 11/24/22 05:41 Discharge Ordered Location: Home rn Problem: new rn Symptoms: have improved rn Condition: Stable rn Diagnosis - UTI/ Urinary tract infection, site not specified rn Followup: rn - With: Private Physician - When: As needed - Reason: Recheck today's complaints, Re-evaluation by your physician Discharge Instructions: - Discharge Summary Sheet rn - Urinary Tract Infection, Adult rn Forms: - Medication Reconciliation Form rn - Thank You Letter rn - 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 - Prescription Opioid Use rn - Patient Portal Instructions rn - Leadership Thank You Letter rn Prescriptions: - ondansetron 4 mg Oral Tablet,disintegrating - take 1 tablet by ORAL route every 8 hours As needed; 10 tablet; Refills: 0, rn Product Selection Permitted - Tramadol 50 mg Oral Tablet - take 1 tablet by ORAL route every 8 hours as needed; 12 tablet; Refills: 0, rn Product Selection Permitted - cefpodoxime 100 mg Oral Tablet - take 2 tablets by ORAL route every 12 hours for 10 days take with food; 40 rn tablet; Refills: 0, Product Selection Permitted Signatures: Dispatcher [employer] EDSukhwinder Graves MD MD rn Slawson, Ashby RN RN as6 Irma Barakat RN RN vc1
[2022-11-24] MEDS ORDERED: CEFTRIAXONE 1000 MG/VIAL ONE (05:53)
[2022-11-24 06:36] VITALS: TEMP 97.9
[2022-11-24 06:39] VITALS: BP 144/72; O2SAT 98
--- NOTE | 2022-11-24 10:22 | RAD REPORT ---
EXAM DESCRIPTION: CT Abdomen and Pelvis With Intravenous Contrast CLINICAL HISTORY: The patient is 67 years old and is Female; LLQ abd pain TECHNIQUE: Axial computed tomography images of the abdomen and pelvis with intravenous contrast. S agittal and coronal reformatted images were created and reviewed. This CT exam was performed using one or more of the following dose reduction techniques: automated exposure control, adjustment of t he mA and/or kV according to patient size, and/or use of iterative reconstruction technique. COMPARISON: No relevant prior studies available. FINDINGS: Lung bases: Unremarkable. No mass. No consolidation. ABDOMEN: Liver: 4.3 cm cyst in the left liver. Hepatomegaly. Gallbladder and bile ducts: Gallbladder is surgically absent. No ductal dilation. Pancreas: Unremarkable. No mass. No ductal dilation. Spleen: Nonspecific 1.7 cm low-density lesion in the spleen. Adrenals: Unremarkable. No mass. Kidneys and ureters: There are a couple small stones measuring up to 3 mm in the left renal pelvi s. No evidence of obstructing stone. Simple cyst in left kidney. No follow-up imaging is recommended. Stomach and bowel: Sigmoid diverticulosis. No evidence of diverticulitis. Scattered colonic diverticula. No obstruction. PELVIS: Appendix: The appendix is normal. Bladder: Unremarkable. Reproductive: Uterus is not seen. ABDOMEN and PELVIS: Intraperitoneal space: Unremarkable. No free air. No significant fluid collection. Bones/joints: Disc space narrowing with degenerative endplate changes at L4-5. No acute fracture. No dislocation. Soft tissues: Suggestion of prior periumbilical hernia repair. Vasculature: Unremarkable. No abdominal aortic aneurysm. Lymph nodes: Unremarkable. No enlarged lymph nodes. IMPRESSION: No acute finding in the abdomen/pelvis. Electronically signed by: Tone Echols MD 11/24/2022 4:18 AM CDT Due to temporary technical issues with the PACS/Fluency reporting system, reports are being signed by the in house radiologist without review as a courtesy to ensure prompt reporting. The interpreting r adiologist is fully responsible for the content of the report.
== END 2022-11-24 06:12 | disposition home or self-care (01) ==
LOC: ER 01:45
DX: N39.0 Urinary tract infection, site not specified (principal); F17.210 Nicotine dependence, cigarettes, uncomplicated; Z91.040 Latex allergy status
CPT/HCPCS: 85025; 81001; 36415; 83690; 80053; 74177; 99284; Q9967; J2270; J2405; J7030; J0696

== ENCOUNTER 2022-11-28 08:35 | Emergency (ER) | payer OTHER ==
--- OUTSIDE RECORDS SUMMARY | 2022-11-28 08:42 | XMS REPORT | Continuity of Care Document ---
:1955 Author Organization [facility] t Address [address] [place] [address] [place] [id number] Care Team Providers Name Role Phone HernandesRebecca Primary Care Physician Juanjose Callahan Attending Clinician Unavailable Rebecca Hernandes Attending Clinician Unavailable Doctor Unassigned, [place] Attending Clinician Unavailable Team, [facility] Attending Clinician UnavailLORY Aiken Attending Clinician Unavailable Lory Peres MD Attending Clinician JOSE JAUREGUI Attending Clinician Unavailable OJSE JAUREGUI Attending Clinician Unavailable SHANEKA HOWARD Attending Clinician Unavailable SOPHIA TOVAR Attending Clinician Unavailable Sophia Tovar DO Attending Clinician MARIANNA HADDAD Attending Clinician Unavailable SOPHIA TOVAR Admitting Clinician Unavailable Payers Payer Name Policy Type Policy Number Effective Date Expiration Date S ource [employer] MEDICARE [id number] 2019 Common Sp [place] 00:00:00 - [facility] HU[employer] MEDICARE [id number] 2019 Common Sp [place] 00:00:00 - [facility] [employer] MEDICARE [id number] 2019 Common Sp [place] 00:00:00 - [facility] [id number] 2019 Common Sp garrett 00:00:00 - [facility] [employer] MEDICARE [id number] 2019 Common Sp [place] 00:00:00 - [facility] [id number] 2019 Common Sp [place] 00:00:00 - [facility] MEDICARE [id number] 2019 Common Sp garrett 00:00:00 - [facility] HU[employer]NA MEDICARE C1 [id number] 2019 Common Sp gar[place] 00:00:00 - [facility] HU[employer]NA MEDICARE C1 [id number] 2019 Common Sp garrett 00:00:00 - [facility] Problems Condition Condition Condition Status Onset Resolution Last Treating Co mments Source Name Details Category Date Date Treatment Clinician Date Pain Pain Disease Active Univers pelvic pelvic 10-29 ity of 00:00: [place] [facility] Branch Localized, Localized, Disease Active U nivers primary primary 10-27 ity of osteoarth[place] it[place] [facility] shoulder shoulder Branch region region Pain in Pain in Disease Active Univers limb limb 10-27 ity of 00:00: [place] [facility] Branch Shoulder Shoulder Disease Active Unive rs joint pain joint pain 10-27 it y of 00:00: [place] [facility] Branch Tobacco Tobacco Disease Active Univers user user 7 ity of 00:00: [place] 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 10-24 ity of of female of [place] 00 [facility] Postmenopa Postmenopa Disease Active 2020-04 U nivers usal usal 0- ity of atrophic atrophic 00:00: [place] vaginitis vaginitis 00 [facility] [id number] Leukocytos Problem Co mmon is, Spirit unspecifie - CHI d type [facility] [id number] History of Problem Co mmon skin Spirit cancer in - CHI adulthood [facility] [id number] Gallstones Problem Co mmon Spirit - CH[facility] [id number] Depression Problem Co mmon with Spirit anxiety - [facility] [id number] Pain of Problem Commo n right Spirit great toe - [facility] [id number] Varicose Problem Commo n veins of Spirit both legs - [facility] with edema [facility] [id number] Primary Problem Comm on osteoarthr Spirit itis of - CHI left [facility] [id number] Asthma, Problem Commo n mild Spirit intermitte - CHI nt, [facility] [id number] Cigarette Problem Comm on nicotine Spirit dependence - [facility] [id number] [place] Problem C ommon [id number] racic Spirit bursitis - CHI of right [facility] [id number] Acute pain Problem Com mon of right Spirit shoulder [facility] [id number] Primary Problem Comm on osteoarthr Spirit itis of - CHI right [facility] Allergies, Adverse Reactions, Alerts Allergy Allergy Status Severity Reaction(s) Onset Inactive Treating Comm ents Source Name Type Date Date Clinician LATEX DRUG Active High Unknown-Cmnt 2020-04 Univ ers INGREDI 05-10 ity of 00:00: [address] Latex Propensi Active Unknown - 2020-04 It turns Uni vers ty to See comments 2-07 skin ity of adverse 00:00: 'raw' per [place] reaction 00 pt Medical s Branch No Known DA Active U 2018- [facility] Allergie 6-20 [place] 00:00: d 00 [facility] Latex Latex Active Unknown [facility] Spirit - [facility] Social History Social Habit Start Date Stop Date Quantity Comments Source History of Tobacco Current Smoker Co mmon Spirit - Use [facility] Sex Assigned At Common Sp garrett - [facility] Exposure to 2021-12-21 2021-12-31 Not sure [facility]-CoV-2 (event) 00:00:00 09:25:00 [facility] Alcohol intake 2021-12-31 2021-12-31 Ex-drinker [facility] 00:00:00 00:00:00 (finding) [facility] Cigarettes smoked 2021-10-13 2021-10-13 Univers ity of current (pack per 00:00:00 00:00:00 ) - Reported Branch Tobacco use and 2021-10-13 2021-10-13 Smokeless Universit y of exposure 00:00:00 00:00:00 tobacco non-user [facility] Comment 2021-10-13 2021-10-13 trying to quit Unive rsity of 00:00:00 00:00:00 [facility] Smoking Status Start Date Stop Date Source Current Smoker 2022-08-11 00:00:00 [facility] Spiri t - [facility] Medications Ordered Filled Start Stop Current Ordering Indication Dosage Frequency Signature Comments Components Source Medication Medication Date Date Medication? Clinician (SIG) Name Name clobetasoL 2021-04 Yes Apply to Uni vers 0.05 % 0-04 area(s) ity of ointment 00:00: daily. [place] [facility] clobetasoL 2021-04 Yes Apply to Uni vers 0.05 % 0-04 area(s) ity of ointment 00:00: daily. [place] [facility] clobetasoL 2021-04 Yes Apply to Uni vers 0.05 % 0-04 area(s) ity of ointment 00:00: daily. [place] [facility] Branch clobetasoL 2021-04 Yes Apply to Uni vers 0.05 % 0-04 area(s) ity of ointment 00:00: daily. [place] [facility] clobetasoL 2021-04 Yes Apply to Uni vers 0.05 % 0-04 area(s) ity of ointment 00:00: daily. [address] Branch valACYclovi 2021-0 Yes [id number] 1g Take 1 Univers r (VALTREX) 9-30 tablet by ity of 1 gram 00:00: mouth in [place] tablet 00 the Medical morning Branch and 1 tablet in the evening. valACYclovi 2021-0 Yes [id number] 1g Take 1 Univers r (VALTREX) 9-30 tablet by ity of 1 gram 00:00: mouth in [place] tablet 00 the Medical morning Branch and 1 tablet in the evening. valACYclovi 0 Yes [id number] 1g Take 1 Univers r (VALTREX) 9-30 tablet by ity of 1 gram 00:00: mouth in [place] tablet 00 the Medical morning Branch and 1 tablet in the evening. valACYclovi 0 Yes [id number] 1g Take 1 Univers r (VALTREX) 9-30 tablet by ity of 1 gram 00:00: mouth in [place] tablet 00 the Medical morning Branch and 1 tablet in the evening. valACYclovi 0 Yes [id number] 1g Take 1 Univers r (VALTREX) 9-30 tablet by ity of 1 gram 00:00: mouth in [place] tablet 00 the Medical morning Branch and 1 tablet in the evening. valACYclovi 0 Yes [id number] 1g Take 1 Univers r (VALTREX) 9-30 tablet by ity of 1 gram 00:00: mouth in [place] tablet 00 the Medical morning Branch and 1 tablet in the evening. valACYclovi 0 Yes [id number] 1g Take 1 Univers r (VALTREX) 9-30 tablet by ity of 1 gram 00:00: mouth in [place] tablet 00 the Medical morning Branch and 1 tablet in the evening. valACYclovi 2021-0 Yes [id number] 1g Take 1 Univers r (VALTREX) 9-30 tablet by ity of 1 gram 00:00: mouth in [place] tablet 00 the Medical morning Branch and 1 tablet in the evening. estradioL 0 Yes [id number] 1g Insert 1 g Univers 0.01 % (0.1 8-26 into ity of mg/gram) 00:00: vagina [place] vaginal 00 weekly. Medical cream Insert Branch every night for 2 weeks and then 3 times a week M/W/F estradioL 2021-0 Yes [id number] 1g Insert 1 g Univers 0.01 % (0.1 8-26 into ity of mg/gram) 00:00: vagina [place] vaginal 00 weekly. Medical cream Insert Branch every night for 2 weeks and then 3 times a week M/W/F estradioL 2021-0 Yes [id number] 1g Insert 1 g Univers 0.01 % (0.1 8-26 into ity of mg/gram) 00:00: vagina [place] vaginal 00 weekly. Medical cream Insert Branch every night for 2 weeks and then 3 times a week M/W/F estradioL 2021-0 Yes [id number] 1g Insert 1 g Univers 0.01 % (0.1 8-26 into ity of mg/gram) 00:00: vagina [place] vaginal 00 weekly. Medical cream Insert Branch every night for 2 weeks and then 3 times a week M/W/F estradioL 2021-0 Yes [id number] 1g Insert 1 g Univers 0.01 % (0.1 8-26 into ity of mg/gram) 00:00: vagina [place] vaginal 00 weekly. Medical cream Insert Branch every night for 2 weeks and then 3 times a week M/W/F estradioL 2021-0 Yes [id number] 1g Insert 1 g Univers 0.01 % (0.1 8-26 into ity of mg/gram) 00:00: vagina [place] vaginal 00 weekly. Medical cream Insert Branch every night for 2 weeks and then 3 times a week M/W/F estradioL 2021-0 Yes [id number] 1g Insert 1 g Univers 0.01 % (0.1 8-26 into ity of mg/gram) 00:00: vagina [place] vaginal 00 weekly. Medical cream Insert Branch every night for 2 weeks and then 3 times a week M/W/F estradioL 2021-0 Yes [id number] 1g Insert 1 g Univers 0.01 % (0.1 8-26 into ity of mg/gram) 00:00: vagina [place] vaginal 00 weekly. Medical cream Insert Branch every night for 2 weeks and then 3 times a week M/W/F estradioL 2021-0 Yes [id number] 1g Insert 1 g Univers 0.01 % (0.1 8-26 into ity of mg/gram) 00:00: vagina [place] vaginal 00 weekly. Medical cream Insert Branch every night for 2 weeks and then 3 times a week M/W/F glycerin-mi 2021- No [id number] 1{appli Insert 1 Univers n 10-27 cator} Applicator ity of oil-polycar 00:00: 00:00 into [place] [facility] 00 :00 vagina Medical (REPLENS) every 3 Branch Gel (three) days. clobetasoL 2021- No [id number] Apply to Univers 0.05 % 10-27 area(s) 2 ity of ointment 00:00: 00:00 (two) [place] 00 :00 times Medical daily. Branch Clobetasol Yes [id number] Apply to Univers Propionate- 7-13 area(s) ity o f Emolnt 0.05 00:00: [place]. [place] % [place] 00 Medical Branch Clobetasol Yes [id number] Apply to Univers Propionate- 7-13 area(s) ity o f Emolnt 0.05 00:00: [place]. [place] % Crea 00 Medical Branch Clobetasol Yes [id number] Apply to Univers Propionate- 7-13 area(s) ity o f Emolnt 0.05 00:00: [place]. [place] % Crea 00 Medical Branch Clobetasol 2021- No [id number] Apply to Univers Propionate- 7-13 10-04 area(s) ity of Emolnt 0.05 00:00: 00:00 daily. [place] as % Crea 00 :00 Medical Branch fluconazole 2021- No [id number] 200mg Take 1 Univers 200 mg 10-13 [...] pirit one) one) 00:00: - CHI 00 [facility] Bupivicaine Bupivicaine 2020-04 No Common [place] 2-21 Spirit 00:00: - CHI 00 [facility] Su Kenalog 2020-04 No 40mg Common (Triamcinol (Triamcinol 2-21 S pirit one) one) 00:00: - CHI 00 [facility] Bupivicaine Bupivicaine 2020-04 No Common [place] 2-21 Spirit 00:00: - CHI 00 [facility] Su Kenalog 2020-04 No 40mg Common (Triamcinol (Triamcinol 2-21 S pirit one) one) 00:00: - CHI 00 [facility] Bupivicaine Bupivicaine 2020-04 No Common [place] 2-21 Spirit 00:00: - CHI 00 [facility] Su Blue 2020-04 No 40mg Common (Triamcinol (Triamcinol 2-21 S pirit one) one) 00:00: - CHI 00 [facility] Bupivicaine Bupivicaine 2020-04 No 2.5mg Common [place] 2-21 Spirit 00:00: - CHI 00 [facility] Su Blue 2020-04 No 40mg Common (Triamcinol (Triamcinol 2-21 S pirit one) one) 00:00: - CHI 00 [facility] Bupivicaine Bupivicaine 2020-04 No 2.5mg Common [place] 2-21 Spirit 00:00: - CHI 00 [facility] Su Kenalog 2020-04 No 40mg Common (Triamcinol (Triamcinol 2-21 S pirit one) one) 00:00: - CHI 00 [facility] Bupivicaine Bupivicaine 2020-04 No 2.5mg Common [place] 2-21 Spirit 00:00: - CHI 00 [facility] Su Kenalog 2020-04 No 40mg Common (Triamcinol (Triamcinol 2-21 S pirit one) one) 00:00: - CHI 00 [facility] Bupivicaine Bupivicaine 2020-04 No 2.5mg Common [place] 2-21 Spirit 00:00: - CHI 00 [facility] Kenalog Kenalog 2020-04 No 40mg Common (Triamcinol (Triamcinol 2-21 S pirit one) one) 00:00: - CHI 00 [facility] Bupivicaine Bupivicaine 2020-04 No 2.5mg Common [place] 2-21 Spirit 00:00: - CHI 00 [facility] Kenalog Kenalog 2020-04 No 40mg Common (Triamcinol (Triamcinol 2-21 S pirit one) one) 00:00: - CHI 00 [facility] Bupivicaine Bupivicaine 2020-04 No 2.5mg Common [place] 2-21 Spirit [facility] No 40mg Common (Triamcinol (Triamcinol 2-21 S pirit one) one) 00:00: - [facility] Bupivicaine Bupivicaine 2020-04 No 2.5mg Common [place] 2-21 Spirit 00:00: - CH[facility] buPROPion 2020-04 Yes Univers SR 100 mg 0-19 ity of SR tablet 00:00: [address] buPROPion 2020-04 Yes Univers SR 100 mg 0-19 ity of SR tablet 00:00: [place] [facility] buPROPion 2020-04 Yes Univers SR 100 mg 0-19 ity of SR tablet 00:00: [address] buPROPion 2020-04 Yes Univers SR 100 mg 0-19 ity of SR tablet 00:00: [place] [facility] buPROPion 2020-04 Yes Univers SR 100 mg 0-19 ity of SR tablet 00:00: [place] [facility] buPROPion 2020-04 Yes Univers SR 100 mg 0-19 ity of SR tablet 00:00: [place] [facility] buPROPion 2020-04 Yes Univers SR 100 mg 0-19 ity of SR tablet 00:00: [place] [facility] buPROPion 2020-04 Yes Univers SR 100 mg 0-19 ity of SR tablet 00:00: [address] buPROPion 2020-04 Yes Univers SR 100 mg 0-19 ity of SR tablet 00:00: [place] [address] [place] [address] Kenalog Kenalog 2020-0 No 40mg Common (Triamcinol (Triamcinol 7-22 S pirit one) one) 00:00: - CHI 00 [facility] Bupivicaine Bupivicaine 2020-0 No Common [place] 7-22 Spirit 00:00: - CHI 00 [facility] Kenalog Kenalog 2020-0 No 40mg Common (Triamcinol (Triamcinol 7-22 S pirit one) one) 00:00: - CHI 00 [facility] Bupivicaine Bupivicaine 2020-0 No Common [place] 7-22 Spirit 00:00: - CHI 00 [facility] Kenalog Kenalog 2020-0 No 40mg Common (Triamcinol (Triamcinol 7-22 S pirit one) one) 00:00: - CHI 00 [facility] Bupivicaine Bupivicaine 2020-0 No Common [place] 7-22 Spirit 00:00: - CHI 00 [facility] Kenalog Kenalog 2020-0 No 40mg Common (Triamcinol (Triamcinol 7-22 S pirit one) one) 00:00: - CHI 00 [facility] Bupivicaine Bupivicaine 2020-0 No 2.5mg Common [place] 7-22 Spirit 00:00: - CHI 00 [facility] Kenalog Kenalog 2020-0 No 40mg Common (Triamcinol (Triamcinol 7-22 S pirit one) one) 00:00: - CHI 00 [facility] Bupivicaine Bupivicaine 2020-0 No 2.5mg Common [place] 7-22 Spirit 00:00: - CHI 00 [facility] Kenalog Kenalog 2020-0 No 40mg Common (Triamcinol (Triamcinol 7-22 S pirit one) one) 00:00: - CHI 00 [facility] Bupivicaine Bupivicaine 2020-0 No 2.5mg Common [place] 7-22 Spirit 00:00: - CHI 00 [facility] Kenalog Kenalog 2020-0 No 40mg Common (Triamcinol (Triamcinol 7-22 S pirit one) one) 00:00: - CHI 00 [facility] Bupivicaine Bupivicaine 1-0 No 2.5mg Common [place] 7-22 Spirit 00:00: - CHI 00 [facility] Kenalog Kenalog 2020-0 No 40mg Common (Triamcinol (Triamcinol 7-22 S pirit one) one) 00:00: - CHI 00 [facility] Bupivicaine Bupivicaine 1-0 No 2.5mg Common [place] 7-22 Spirit 00:00: - CHI 00 [facility] Kenalog Kenalog 2020-0 No 40mg Common (Triamcinol (Triamcinol 7-22 S pirit one) one) 00:00: - CHI 00 [facility] Bupivicaine Bupivicaine 1-0 No 2.5mg Common [place] 7-22 Spirit 00:00: - CHI 00 [facility] Kenalog Kenalog 2020-0 No 40mg Common (Triamcinol (Triamcinol 7-22 S pirit one) one) 00:00: - CHI 00 [facility] Bupivicaine Bupivicaine 2020-0 No 2.5mg Common [place] 7-22 Spirit 00:00: - CHI 00 [facility] Keflex 500 Keflex 500 2020-0 No 1{capsu [...] 00 Bupivicaine Bupivicaine 2019- No 5mg Common [place] 0-05 Spirit 00:00: - CHI [facility] Kenalog Kenalog 2019- No 40mg Common (Triamcinol (Triamcinol 0-05 S pirit one) one) 00:00: - CHI [facility] Bupivicaine Bupivicaine 2019- No 5mg Common [place] 0-05 Spirit 00:00: - CHI [facility] Kenalog Kenalog 2019- No 40mg Common (Triamcinol (Triamcinol 0-05 S pirit one) one) 00:00: - CHI [facility] Bupivicaine Bupivicaine 2020-1 No 5mg Common [place] 0-05 Spirit 00:00: - CHI 00 [facility] Kenalog Kenalog 2020-1 No 40mg Common (Triamcinol (Triamcinol 0-05 S pirit one) one) 00:00: - CHI 00 [facility] Bupivicaine Bupivicaine 2020-1 No 5mg Common [place] 0-05 Spirit 00:00: - CHI 00 [facility] Kenalog Kenalog 2020-1 No 40mg Common (Triamcinol (Triamcinol 0-05 S pirit one) one) 00:00: - CHI 00 [facility] Bupivicaine Bupivicaine 2020-1 No 5mg Common [place] 0-05 Spirit 00:00: - CHI 00 [facility] Kenalog Kenalog 2020-1 No 40mg Common (Triamcinol (Triamcinol 0-05 S pirit one) one) 00:00: - CHI 00 [facility] Bupivicaine Bupivicaine 2020-1 No 5mg Common [place] 0-05 Spirit 00:00: - CHI 00 [facility] Kenalog Kenalog 2020-1 No 40mg Common (Triamcinol (Triamcinol 0-05 S pirit one) one) 00:00: - CHI 00 [facility] Bupivicaine Bupivicaine 2020-1 No 5mg Common [place] 0-05 Spirit 00:00: - CHI 00 [facility] Kenalog Kenalog 2020-1 No 40mg Common (Triamcinol (Triamcinol 0-05 S pirit one) one) 00:00: - CHI 00 [facility] Bupivicaine Bupivicaine 2020-1 No 5mg Common [place] 0-05 Spirit 00:00: - CHI 00 [facility] Kenalog Kenalog 2020-1 No 40mg Common (Triamcinol (Triamcinol 0-05 S pirit one) one) 00:00: - CHI 00 [facility] Bupivicaine Bupivicaine 2020-1 No 5mg Common [place] 0-05 Spirit 00:00: - CHI 00 [facility] Kenalog Kenalog 2020-1 No 40mg Common (Triamcinol (Triamcinol 0-05 S pirit one) one) 00:00: - CHI 00 [facility] Bupivicaine Bupivicaine 2019-1 No 5mg Common [place] 0-05 Spirit 00:00: - CHI 00 [facility] Kenalog Kenalog 2020-1 No 40mg Common (Triamcinol (Triamcinol 0-05 S pirit one) one) 00:00: - CHI 00 [facility] Kenalog Kenalog 2020-0 No 40mg Common (Triamcinol (Triamcinol 8-10 S pirit one) one) 00:00: - CHI 00 [facility] Kenalog Kenalog 2020-0 No 40mg Common (Triamcinol (Triamcinol 8-10 S pirit one) one) 00:00: - CHI 00 [facility] Kenalog Kenalog 2020-0 No 40mg Common (Triamcinol (Triamcinol 8-10 S pirit one) one) 00:00: - CHI 00 [facility] Kenalog Kenalog 2020-0 No 40mg Common (Triamcinol (Triamcinol 8-10 S pirit one) one) 00:00: - CHI 00 [facility] Kenalog Kenalog 2020-0 No 40mg Common (Triamcinol (Triamcinol 8-10 S pirit one) one) 00:00: - CHI 00 [facility] Kenalog Kenalog 2020-0 No 40mg Common (Triamcinol (Triamcinol 8-10 S pirit one) one) 00:00: - CHI 00 [facility] Kenalog Kenalog 2020-0 No 40mg Common (Triamcinol (Triamcinol 8-10 S pirit one) one) 00:00: - CHI 00 [facility] Kenalog Kenalog 2020-0 No 40mg Common (Triamcinol (Triamcinol 8-10 S pirit one) one) 00:00: - CHI 00 [facility] Kenalog Kenalog 2020-0 No 40mg Common (Triamcinol (Triamcinol 8-10 S pirit one) one) 00:00: - CHI 00 [facility] Kenalog Kenalog 2020-0 No 40mg Common (Triamcinol (Triamcinol 8-10 S pirit one) one) 00:00: - CHI 00 [facility] Tizanidine Tizanidine 2019- No Na Hernandes 1 capsule Common HCl HCl 8-01 08-20 as needed Spirit 00:00: 00:00 - CHI 00 :00 [facility] PredniSONE PredniSONE 2019- No Na Hernandes 2 tablets Common 8 08-20 dailyx 5 Spirit 00:00: 00:00 days then - CHI 00 :[address] daily x 5 [facility] tiZANidine tiZANidine No 1{capsu tiZANidine HCl 2 [...] Completed Unive rsity of PFIZER VACCINE 00:00:00 [facility] SARS-COV-2 COVID-19 2021-01-22 Completed Unive rsity of PFIZER VACCINE 00:00:00 [facility] SARS-COV-2 COVID-19 2021-01-22 Completed Unive rsity of PFIZER VACCINE 00:00:00 [facility] SARS-COV-2 COVID-19 2021-01-22 Completed Unive rsity of PFIZER VACCINE 00:00:00 [facility] SARS-COV-2 COVID-19 2021-01-22 Completed Unive rsity of PFIZER VACCINE 00:00:00 [facility] SARS-COV-2 COVID-19 2021-01-22 Completed Unive rsity of PFIZER VACCINE 00:00:00 [facility] SARS-COV-2 COVID-19 2021-01-22 Completed Unive rsity of PFIZER VACCINE 00:00:00 [facility] SARS-COV-2 COVID-19 2021-01-22 Completed Unive rsity of PFIZER VACCINE 00:00:00 [facility] SARS-COV-2 COVID-19 2021-01-22 Completed Unive rsity of PFIZER VACCINE 00:00:00 [facility] SARS-COV-2 COVID-19 2020-12-31 Completed Unive rsity of PFIZER VACCINE 00:00:00 [facility] SARS-COV-2 COVID-19 2020-12-31 Completed Unive rsity of PFIZER VACCINE 00:00:00 [facility] SARS-COV-2 COVID-19 2020-12-31 Completed Unive rsity of PFIZER VACCINE 00:00:00 [facility] SARS-COV-2 COVID-19 2020-12-31 Completed Unive rsity of PFIZER VACCINE 00:00:00 [facility] SARS-COV-2 COVID-19 2020-12-31 Completed Unive rsity of PFIZER VACCINE 00:00:00 [facility] SARS-COV-2 COVID-19 2020-12-31 Completed Unive rsity of PFIZER VACCINE 00:00:00 [facility] SARS-COV-2 COVID-19 2020-12-31 Completed Unive rsity of PFIZER VACCINE 00:00:00 [facility] SARS-COV-2 COVID-19 2020-12-31 Completed Unive rsity of PFIZER VACCINE 00:00:00 [facility] SARS-COV-2 COVID-19 2020-12-31 Completed Unive rsity of PFIZER VACCINE 00:00:00 [facility] Bupivicaine [place] Bupivicaine [place] 2020-10-22 [facility]pleted [facility] 11:48:00 [facility] Kenalog Kenalog 2020-10-22 Completed [facility] - (Triamcinolone) (Triamcinolone) 11:48:00 [facility] Bupivicaine [place] Bupivicaine [place] 2020-10-22 Completed [facility] - 11:48:00 [facility] Kenalog Kenalog 2020-10-22 Completed [facility] (Triamcinolone) (Triamcinolone) 11:48:00 [facility] Bupivicaine [place] Bupivicaine [place] 2020-10-22 Completed [facility] - 11:48:00 [facility] Kenalog Kenalog 2020-10-22 Completed [facility] - (Triamcinolone) (Triamcinolone) 11:48:00 [facility] Bupivicaine [place] Bupivicaine [place] 2020-10-22 Completed [facility] - 11:48:00 [facility] Kenalog Kenalog 2020-10-22 Completed [facility] - (Triamcinolone) (Triamcinolone) 11:48:00 [facility] Bupivicaine [place] Bupivicaine [place] 2020-10-22 Completed [facility] - 11:48:00 [facility] Kenalog Kenalog 2020-10-22 Completed [facility] - (Triamcinolone) (Triamcinolone) 11:48:00 [facility] Bupivicaine [place] Bupivicaine [place] 2020-01-06 Completed [facility] - 09:31:00 [facility] Bupivicaine [place] Bupivicaine [place] 2020-01-06 Completed [facility] - 09:31:00 [facility] Bupivicaine [place] Bupivicaine [place] 2020-01-06 Completed [facility] - 09:31:00 [facility] Bupivicaine [place] Bupivicaine [place] 2020-01-06 Completed [facility] - 09:31:00 [facility] Bupivicaine [place] Bupivicaine [place] 2020-01-06 Completed [facility] - 09:31:00 [facility] Kenalog Kenalog 2020-01-06 Completed [facility] - (Triamcinolone) (Triamcinolone) 09:30:00 [facility] Kenalog Kenalog 2020-01-06 Completed [facility] (Triamcinolone) (Triamcinolone) 09:30:00 [facility] Kenalog Kenalog 2020-01-06 Completed [facility] (Triamcinolone) (Triamcinolone) 09:30:00 [facility] Kenalog Kenalog 2020-01-06 Completed [facility] (Triamcinolone) (Triamcinolone) 09:30:00 [facility] Kenalog Kenalog 2020-01-06 Completed [facility] (Triamcinolone) (Triamcinolone) 09:30:00 [facility] Kenalog Kenalog 2019-11-11 Completed [facility] (Triamcinolone) (Triamcinolone) 17:06:00 [facility] Su Meltonalog 2019-11-11 Completed [facility] (Triamcinolone) (Triamcinolone) 17:06:00 [facility] Su Meltonalog 2019-11-11 Completed [facility] (Triamcinolone) (Triamcinolone) 17:06:00 [facility] Su Meltonalog 2019-11-11 Completed [facility] (Triamcinolone) (Triamcinolone) 17:06:00 [facility] Su Meltonalog 2019-11-11 Completed [facility] (Triamcinolone) (Triamcinolone) 17:06:00 [facility] Vital Signs Vital Name Observation Time Observation Value Comments Source Systolic blood 2021-12-31 14:29:00 138 mm[Hg] Univer sity of pressure [facility] Diastolic blood 2021-12-31 14:29:00 81 mm[Hg] Unive rsity of [facility] Heart rate 2021-12-31 14:29:00 86 /min [facility]i ty [facility] Body temperature 2021-12-31 14:29:00 37.17 Abril [facility] ersity of [facility] Respiratory rate 2021-12-31 14:29:00 18 /min Univ ersity [facility] Body height 2021-12-31 14:29:00 165.1 cm Universi ty [facility] Body weight 2021-12-31 14:29:00 114.76 kg Universi ty [facility] BMI 2021-12-31 14:29:00 42.10 kg/m2 Universi ty [facility] Systolic blood 2021-11-26 13:36:00 142 mm[Hg] Univer sity of pressure [facility] Diastolic blood 2021-11-26 13:36:00 84 mm[Hg] Unive rsity of pressure [facility] Heart rate 2021-11-26 13:36:00 86 /min [facility] Body height 2021-11-26 13:36:00 165.1 cm Universi ty [facility] Body weight 2021-11-26 13:36:00 114.306 kg [facility] BMI 2021-11-26 13:36:00 41.93 kg/m2 [facility] Oxygen saturation in 2021-11-26 13:36:00 95 /min University Arterial blood by [facility] Pulse oximetry Branch height 2021-10-06 11:40:00 65.00 [in_i] [facility] weight 2021-10-06 11:40:00 250 [lb_av] [facility] temperature 2021-10-06 11:40:00 98.0 [degF] [facility] bmi 2021-10-06 11:40:00 41.6 kg/m2 [facility] height 2021-07-13 10:00:00 65.00 [in_i] [facility] weight 2021-07-13 10:00:00 252.8 [lb_av] [facility] temperature 2021-07-13 10:00:00 97.7 [degF] [facility] bmi 2021-07-13 10:00:00 42.06 kg/m2 [facility] oximetry 2021-07-13 10:00:00 96 % [facility] respiratory rate 2021-07-13 10:00:00 18 /min Comm on [facility] blood pressure 2021-07-13 10:00:00 128 mm[Hg] [facility] - systolic [facility] blood pressure 2021-07-13 10:00:00 80 mm[Hg] [facility] diastolic [facility] height 2021-06-10 13:00:00 65.00 [in_i] [facility] weight 2021-06-10 13:00:00 252.2 [lb_av] [facility] temperature 2021-06-10 13:00:00 97.3 [degF] [facility] bmi 2021-06-10 13:00:00 41.96 kg/m2 [facility] oximetry 2021-06-10 13:00:00 97 % [facility] respiratory rate 2021-06-10 13:00:00 18 /min Comm on [facility] blood pressure 2021-06-10 13:00:00 132 mm[Hg] [facility] - systolic [facility] blood pressure 2021-06-10 13:00:00 80 mm[Hg] [facility] - diastolic [facility] height 2021-02-18 09:00:00 65.00 [in_i] [facility] weight 2021-02-18 09:00:00 256 [lb_av] [facility] temperature 2021-02-18 09:00:00 97.3 [degF] [facility] bmi 2021-02-18 09:00:00 42.6 kg/m2 [facility] blood pressure 2021-02-18 09:00:00 126 mm[Hg] [facility] - systolic [facility] blood pressure 2021-02-18 09:00:00 84 mm[Hg] [facility] - diastolic [facility] height 2021-02-08 10:20:00 65.00 [in_i] Common [facility] weight 2021-02-08 10:20:00 253.0 [lb_av] Common [facility] temperature 2021-02-08 10:20:00 98.0 [degF] Common [facility] bmi 2021-02-08 10:20:00 42.1 kg/m2 Common [facility] oximetry 2021-02-08 10:20:00 79 % [facility] respiratory rate 2021-02-08 10:20:00 16 /min Comm on [facility] blood pressure 2021-02-08 10:20:00 192 mm[Hg] Common [facility] - systolic [facility] blood pressure 2021-02-08 10:20:00 87 mm[Hg] Common [facility] - diastolic [facility] height 2020-10-22 09:30:00 65.00 [in_i] [facility] weight 2020-10-22 09:30:00 254.3 [lb_av] [facility] bmi 2020-10-22 09:30:00 42.31 kg/m2 [facility] - [facility] blood pressure 2020-10-22 09:30:00 164 mm[Hg] [facility] - systolic [facility] blood pressure 2020-10-22 09:30:00 88 mm[Hg] [facility] - diastolic [facility] Procedures Procedure Date / Time Performed Performing Clinician [facility] e REFERRAL- 2022-07-05 05:01:00 Doctor Unassigned, No [facility] [place] REQUEST/RESPONSE Name Medical [facility] DISCLOSURE AND 2021-12-31 05:01:00 Doctor Unassigned, No [facility] [place] CONSENT, MEDICAL AND Name Medical [facility] SURGICAL PROCEDURES EXTERNAL MAMMOGRAM 2020-07-24 15:39:00 Doctor Unassigned, No Uni versity of [facility] EXTERNAL FIT DNA 2020-07-22 21:15:00 Doctor Unassigned, No Unive rsity of [facility] Encounters Start End Encounter Admission Attending Care Care Encounter Source Date/Time Date/Time Type Type Clinicians Facility Department ID 2022-09-05 Outpatient Callahan, STLMLC STLC [id number] Common 16:44:00 Avnee [id number] [facility] 2022-07-07 Outpatient Callahan, STLMLC STLC [id number] Common 15:31:00 Avnee [id number] [facility] 2021-10-06 Outpatient Hernandes, Na STLMLC STLMLC [id number] Common 11:14:01 [facility] 2021-06-10 Outpatient Hernandes, Na STLMLC STLMLC [id number] 2 Common 13:07:01 [facility] 2021-06-08 Outpatient Hernandes, Na STLMLC STLC [id number] 2 Common 11:25:01 [facility] 2021-04-28 Outpatient Hernandes, Na STLMLC STLMLC [id number] 2 Common 13:53:21 [id number] [facility] 2021-04-28 Outpatient Hernandes, Na STLMLC STLMLC [id number] Common 13:29:08 [id number] [facility] 2021-04-28 Outpatient Hernandes, Na STLMLC STLMLC [id number] 2 Common 12:37:42 [id number] [facility] 2021-04-28 Outpatient Hernandes, Na STLMLC STLMLC [id number] Common 12:37:27 [id number] [facility] 2021-04-28 Outpatient Hernandes, Na STLMLC STLMLC [id number] 2 Common 12:22:12 [id number] [facility] 2021-04-28 Outpatient Hernandes, Na STLMLC STLMLC [id number] 2 Common 12:15:13 [id number] [facility] 2021-04-28 Outpatient Hernandes, Na STLMLC STLMLC [id number] 2 Common 12:13:59 [id number] [facility] 2021-04-28 Outpatient Hernandes, Na STLMLC STLMLC [id number] 2 Common 11:48:08 [id number] [facility] 2021-04-28 Outpatient Hernandes, Na STLMLC STLMLC [id number] 2 Common 11:47:05 [id number] [facility] 2021-04-28 Outpatient Hernandes, Na STLMLC STLMLC [id number] 2 Common 11:46:30 [id number] [facility] 2021-04-28 Outpatient Hernandes, Na STLMLC STLMLC [id number] 2 Common 11:42:00 [id number] [facility] 2021-04-28 Outpatient STLMLC STLMLC [id number] Common 11:20:46 [id number] [facility] 2022-07-05 2022-07-05 Chichi DAVIDSON [id number] Univers 00:00:00 00:00:00 Only Unassigned, NYA [id number] ity of [facility] [id number] Amari as [phone] [facility] 00[address] [place] 2022-05-19 2022-05-19 Telephone Team, [facility] LETY 1.2.840.114 [id number] Univers 00:00:00 00:00:00 Health NYA [id number] it y of [facility] [id number] [place] [phone] [facility] 082 [place] 2022-02-08 2022-02-08 Outpatient R ADUM, [facility] [id number] Univers 10:00:00 10:00:00 LORY itpierre [facility] 2022-02-01 2022-02-01 Telephone Team, [facility] LETY 1.2.840.114 [id number] Univers 00:00:00 00:00:00 Health NYA [id number] it y of [facility] [id number] [place] [phone] [place] [id number] [place] 2022-01-10 2022-01-10 Telephone Adum, [facility] [id number] Univers 00:00:00 00:00:00 Lory Tubbs [place] [id number] ity [id number] [phone] Co dic[address] 2022-01-03 2022-01-03 Telephone Adum, [facility] [id number] Univers 00:00:00 00:00:00 Lory Tubbs [place] [id number] ity [id number] [phone] Co dic[address] 2021-12-31 2021-12-31 Outpatient R ADUM, [facility] [id number] Univers 09:30:00 11:07:48 LORY cortes [facility] 2021-12-31 2021-12-31 Office Adum, [facility] 1.2.840.114 [id number] Univers 09:30:00 11:07:48 Visit Lory Tubbs DEM[place] [id number] ity [id number] [phone] Co dical NAL 134 [facility] 2021-12-31 2021-12-31 Orders Doctor LETY 1.2.840.114 [id number] Univers 00:00:00 00:00:00 Only Unassigned, [place] [id number] [facility] [id number] Amari as [phone] [address] 2021-11-26 2021-11-26 [facility] [id number] Univers 08:30:00 09:31:06 LORY ity [facility] 2021-11-26 2021-11-26 Office [facility] 1.2.840.114 [id number] Univers 08:30:00 09:31:06 Visit Lory MOSQUERA [id number] it[id number] [id number] [address] 2021-11-26 2021-11-26 Outpatient R [facility] [id number] Univers 08:30:00 09:31:06 LORY itpierre [facility] 2021-10-27 2021-10-27 Outpatient R JOSE JAUREGUI [facility] B [id number] Univers 11:15:00 14:18:05 JOSE JAUREGUI [facility] 2021-10-27 2021-10-27 Office [facility] 1.2.840.114 [id number] Univers 11:15:00 14:18:05 Visit Jose PUENTES [id number] it y of [id number] [id number] [address] 2021-10-27 2021-10-27 Outpatient R JOSE JAUREGUI [facility] B [id number] Univers 11:15:00 11:15:00 JOSE JAUREGUI [facility] 2021-10-22 2021-10-22 [facility] [id number] Univers 00:00:00 00:00:00 Lory MOSQUERA [id number] ity of [facility] [id number] [phone] [address] 2021-10-13 2021-10-13 Out[facility] [id number] Univers 14:45:00 15:33:02 HODANJOSE EGAN [facility] 2021-10-13 2021-10-13 Office [facility] 1.2.840.114 [id number] [facility] 14:45:00 15:33:02 Visit Alanataya DELORIS [id number] it y [id number] [id number] [address] 2021-10-13 2021-10-13 Outpatient R [facility] [id number] Univers 14:45:00 15:33:02 RICHARDJOSE MAZARIEGOS [facility] 2021-10-08 2021-10-08 [facility]phone [facility] [id number] Univers 00:00:00 00:00:00 Lory MOSQUERA [id number] ity of [facility] [id number] [phone] [address] 2021-10-06 2021-10-06 OFFICE STLMLC STLMLC [id number] Co mmon 00:00:00 00:00:00 VISIT EST Spir it PT LEVEL 3 - [facility] 2021-09-30 2021-09-30 (TEL) STLMLC STLMLC [id number] Co mmon 00:00:00 00:00:00 Spirit [facility] 2021-09-30 2021-09-30 (TEL) STLMLC STLMLC [id number] Co mmon 00:00:00 00:00:00 [facility] 2021-07-26 2021-07-26 (TEL) STLMLC STLMLC [id number] Co mmon 00:00:00 00:00:00 [facility] 2021-07-14 2021-07-14 (TEL) STLMLC STLMLC [id number] Co mmon 00:00:00 00:00:00 [facility] 2021-07-13 2021-07-13 OFFICE STLMLC STLMLC [id number] Co mmon 00:00:00 00:00:00 VISIT EST Spir it PT LEVEL [address] [place] [address] 2021-06-14 2021-06-14 (TEL) STLMLC STLMLC [id number] Co mmon 00:00:00 00:00:00 [facility] 2021-06-10 2021-06-10 OFFICE STLMLC STLMLC [id number] Co mmon 00:00:00 00:00:00 VISIT EST Spir it PT LEVEL 3 [facility] 2021-06-08 2021-06-08 Outpatient R SHANEKA HOWARD [facility] [id number] Univers 15:00:00 15:00:00 ity [facility] 2021-05-31 2021-05-31 (TEL) STLMLC STLMLC [id number] Co mmon 00:00:00 00:00:00 [facility] 2021-04-02 2021-04-03 Emergency X [facility] ERT [id number] Univers 22:27:00 00:07:00 [facility] 2021-04-02 2021-04-03 [facility] 1.2.840.114 [id number] Univers 22:27:00 00:07:00 Sophia MOSQUREA [id number] sophia [facility] [id number] [facility] [phone] [place] [address] [place] 2021-03-11 2021-03-11 [facility] 1.2.840.114 [id number] Univers 00:00:00 00:00:00 Lory MOSQUERA [id number] ity of [id number] [phone] Co dical NAL [address] [place] [address] 2021-03-09 2021-03-09 Office Ad, [facility] 1.2.840.114 [id number] Univers 10:32:16 11:42:20 Visit Lory MOSQUERA [id number] ity of [facility] [id number] [phone] Co dical [address] 2021-03-09 2021-03-09 Outpatient R ADUM, [facility] [id number] Univers 10:30:00 11:42:20 LORY ity [facility] 2021-03-09 2021-03-09 Outpatient R CATIE, [facility] [id number] Univers 09:30:00 09:30:00 MARIANNA ity [facility] 2021-03-01 2021-03-01 [facility]phone [facility] [id number] Univers 00:00:00 00:00:00 Lory MOSQUERA [id number] ity of [facility] [id number] [phone] Co dical NAL [address] [place] [address] 2021-02-22 2021-02-22 [facility]phone [facility] [id number] Univers 00:00:00 00:00:00 Lory MOSQUERA 350.1.13.10 ity of [id number] [phone] Co dical NAL [address] [place] [address] 2021-02-18 2021-02-18 OFFICE STLMLC STLMLC [id number] Co mmon 00:00:00 00:00:00 VISIT EST Spir it PT LEVEL 3 - [facility] 2021-02-10 2021-02-10 (TEL) STLMLC STLMLC [id number] Co mmon 00:00:00 00:00:00 Spirit - [facility] 2021-02-08 2021-02-08 OFFICE STLMLC STLMLC [id number] Co mmon 00:00:00 00:00:00 VISIT [facility] LEVEL 2 [facility] 2021-02-08 2021-02-08 (TEL) STLMLC STLMLC [id number] Co mmon 00:00:00 00:00:00 [facility] 2021-02-04 2021-02-04 (TEL) STLMLC STLMLC [id number] Co mmon 00:00:00 00:00:00 [facility] 2021-01-20 2021-01-20 Office Adum, [facility] 1.2.840.114 [id number] Univers 13:08:33 14:37:23 Visit Lory Mosquera 350.1.13.10 ity of [id number] [phone] Co dical nal [address] [place] [address] 2021-01-20 2021-01-20 [facility] [id number] Univers 13:00:00 13:00:00 LORY cortes of [facility] 2021-01-20 2021-01-20 Orders Doctor LETY 1.2.840.114 [id number] Univers 00:00:00 00:00:00 Only Unassigned, [place] 350.1.13.10 ity of [place] [facility] [id number] Amari as [id number] [address] 2021-01-19 2021-01-19 [facility]phone [facility] [id number] Univers 00:00:00 00:00:00 Lory Mosquera 350.1.13.10 ity of [id number] [phone] Co dical nal 134 [facility] 2020-12-24 2020-12-24 (TEL) STLMLC STLMLC [id number] Co mmon 00:00:00 00:00:00 [facility] 2020-12-01 2020-12-01 OL DIG E/M STLMLC STLMLC [id number] Common 00:00:00 00:00:00 SVC 5-[address] [facility] 2020-11-24 2020-11-24 (TEL) STLMLC STLMLC [id number] Co mmon 00:00:00 00:00:00 [facility] 2020-11-04 2020-11-04 (TEL) STLMLC STLMLC [id number] Co mmon 00:00:00 00:00:00 [facility] 2020-10-22 2020-10-22 OFFICE STLMLC STLMLC [id number] Co mmon 00:00:00 00:00:00 VISIT [facility] 4 [facility] 2020-07-29 2020-07-29 Outpatient STLMLC STLMLC [id number] Common 00:00:00 00:00:00 [facility] 2020-07-29 2020-07-29 Outpatient STLMLC STLMLC [id number] Common 00:00:00 00:00:00 [facility] 2020-06-10 2020-06-10 Outpatient STLMLC STLMLC [id number] Common 00:00:00 00:00:00 [facility] 2020-06-09 2020-06-09 Outpatient STLMLC STLMLC [id number] Common 00:00:00 00:00:00 [facility] 2020-04-21 2020-04-21 Outpatient STLMLC STLMLC [id number] Common 00:00:00 00:00:00 [facility] 2020-03-19 2020-03-19 Outpatient STLMLC STLMLC [id number] Common 00:00:00 00:00:00 [facility] 2020-03-18 2020-03-18 Outpatient STLMLC STLMLC [id number] Common 00:00:00 00:00:00 [facility] 2020-03-10 2020-03-10 Outpatient STLMLC STLMLC [id number] Common 00:00:00 00:00:00 [facility] 2020-03-02 2020-03-02 Outpatient STLMLC STLMLC [id number] Common 00:00:00 00:00:00 [facility] 2020-03-02 2020-03-02 Outpatient STLMLC STLMLC [id number] Common 00:00:00 00:00:00 [facility] 2020-02-20 2020-02-20 Outpatient STLMLC STLMLC [id number] Common 00:00:00 00:00:00 [facility] 2020-02-20 2020-02-20 Outpatient STLMLC STLMLC [id number] Common 00:00:00 00:00:00 [facility] 2020-02-04 2020-02-04 Outpatient STLMLC STLMLC [id number] Common 00:00:00 00:00:00 [facility] 2020-01-06 2020-01-06 Outpatient STLMLC STLMLC [id number] Common 00:00:00 00:00:00 [facility] 2019-12-19 2019-12-19 Outpatient STLMLC STLMLC [id number] Common 00:00:00 00:00:00 [facility] 2019-12-02 2019-12-02 Out[facility] [id number] Common 10:05:00 10:05:[address] [facility] 2019-11-11 2019-11-11 Outpatient [facility] [id number] Common 16:20:00 16:20:[address] [facility] 2019-10-30 2019-10-30 Outpatient [facility] [id number] Common 09:44:00 09:44:[address] [facility] 2019-10-15 2019-10-15 Outpatient [facility] [id number] Common 14:39:00 14:39:[address] [facility] 2019-09-04 2019-09-04 [facility] [id number] Common 10:40:00 10:40:[address] [facility] 2019-08-07 2019-08-07 [facility] [id number] Common 14:28:00 14:28:[address] [facility] 2019-08-07 2019-08-07 Outpatient Gamaliel Yañez [id number] Common 11:20:00 11:20:00 t [place] [employer] Spir it Drive [facility] Results Test Description Test Time Test Comments Results Result Comments Source Urine Culture,Comprehensive 2021-06-10 00:00:00 Test Item Value Reference Range Interpretation Comme nts Urine Culture,Comprehensive (test code = 630-4) Final report EXTERNAL FIT [id number] 21:40:00 Test Item Value Reference Range Interpretation [...] (Enmanuel Wang al, N Engl J Med 2014;370(14):4916-0811) The normal value (reference range) for this assay is negative. COLOGUARD RE-SCREENING RECOMMENDATION: Periodic routine colorectal cancer screening is an important part of preventive healthcare for asymptomatic persons at average risk for colorectal cancer. Following a negative Cologuard result, the [place] [employer] and U.S. Multi-Society Task Force screening guidelines recommend a Cologuard re-screening interval of 3 years. References: [place] [employer] (ACS). Colorectal cancer prevention and early detection. [place], [place]: [place] [employer]; [updated 2015Jul 25]. https://www.cancer.org/ cancer/agrhj-siwyeu-qfa cer/detection-diagnosis -staging/acs-recommenda tions.html. Accessed December 01, 2017; Chirag MARCIAL, Dimitri HOPKINS, Cristobal KATZ, Colorectal Cancer Screening: Recommendations for Physicians and Patients from the U.S. Multi-Society Task Force on Colorectal Cancer Screening, Am J Gastroenterology 2017; 112:1476-9029. TEST TYPE: Composite algorithmic analysis of stool [...] interval of every 3 years by the [employer] [employer] and U.S. Multi-Society Task Force. [...] can be accessed at the following location: [email or web address] ts. Additional description of the Cologuard test process, warnings and precautions can be found at [email or web address].com. Rx only. Resulting Agency [facility] (CLIA #:[id number]) Specimen Collected: 07/22/20 16:15 Last Resulted: 07/28/20 16:40 Received From: [facility] Result Received: 01/20/21 13:08 Lab Interpretation Normal (test code = 29952-1) [id number] 18:08:00 Test Item Value Reference Range Interpretation Comments Radiology Study observation (narrative) (test code = 19272-3) SKY (test code = SKY) Please find results in Care Everywhere. 3D SCR EMERSON BILAT W/CAD 2020-07-27 13:08:00 [facility] Name: KATERINE NEUMANN : 1955 Sex: F [address] [address] RADIOLOGY SERVICES REPORT Name: KATERINE NEUMANN Acct Number: [id number] :1955 Age:64 Sex:F Ord Phys: Hernandes,Rebecca Ly DO Unit Number: [id number] [address]: Status: REG REF RAD Exam [...] 1308 Lab Interpretation Normal (test code = 91703-7) [facility]09-20 15:54:00 Test Item Value Reference Range Interpretation Comments CREATINE KINASE (CK) (test code = 171 Unit/L 26-192 N CK) NT PRO-BRAIN NATRIURETIC [id number] 15:54:00 Test Item Value Reference Range Interpretation Comments NT PRO-BRAIN NATRIURETIC PEPTI 141 PG/ML 0-100 H (test code = PROBNP) - XR CHEST 1 [id number] 15:51:00 Name: KATERINE NEUMANN Gilbert : 1955 Age/S: 63 / F [id number] Unit #: [id number] Loc: [place] [address] Phys: Donald Williamson MD Acct: [id number] Dis Date: Status: PRE ER PHONE #: [phone] Exam Date: 09/20/2018 1540 FAX #: Reason: SOB EXAMS: CPT: [id number] XR CHEST 1 V 77558 Fluoro Time: DAP (Gy m2): Air Kerma (mGy): EXAM: CHEST ONE VIEW INDICATION: Shortness of breath LOCATION: B2 COMPARISON: None available TECHNIQUE: AP view of the chest FINDINGS: The heart size is normal. The lungs are clear bilaterally. The pulmonary vasculature is normal. No pneumothorax or pleuraleffusion is identified. The osseous structures are normal. IMPRESSION: No acute cardiopulmonary process. at 7076 Reported and signed by: Joleen Collazo M.D. CC: Donald Williamson MD PAGE 1 Signed Report Name: KATERINE NEUMANN Gilbert : 1955 Age/S: 63 / F [id number] Unit #: [id number] Loc: [place] [address] Phys: Donald Williamson MD Acct: [id number] Dis Date: Status: PRE ER PHONE #: [phone] Exam Date: 019 1540 FAX #: Reason: SOB EXAMS: CPT: [id number] XR CHEST 1 V 67420 Fluoro Time: DAP (Gy m2): Air Kerma (mGy): (Continued) Technologist: Laci Cantu, RT(R)(CT) Trnscb Date/Time: 09/20/2018 (6797)16 Orig Print D/T: S: 09/20/2018 (7313) PAGE 2 Signed ReportCBC W/O [id number] 15:41:00 Test Item Value Reference Range Interpretation [...] 10.00 fL 7.0-10.5 N MPV) TROPONIN I [id number] 15:40:00 Test Item Value Reference Range Interpretation Comments TROPONIN I RAPID 0.00 ng/mL 0.00-0.08 N - The use o f serial (test code = sampling and te sting TROPIRAP) protocol is a recommended pra ctice- An elevated tro ponin level alone is often not sufficient for diagnosis of my ocardial infarction. URINALYSIS [id number] 15:36:00 Test Item Value Reference Range Interpretation [...] LEUU) Urine Specimen Type: Clean CatchCHEMISTRY 8 [id number] 15:34:00 Test Item Value Reference Range Interpretation [...] 45-104 N code = GFRBED) CHEMISTRY 8 [id number] 15:34:00 Test Item Value Reference Range Interpretation [...] Notes Date/Time Note Provider Source 2018-09-20 16:03:00-00:00 [id number] [address] PATIENT NAME: KATERINE NEUMANN ADMIT DATE: 09/20/18 ACCOUNT NO: [id number] ROOM NO: AGE: 63 REPORT TYPE: eELECTROCARDIOGRAM SEX: F ADMITTING PHYSICIAN: ATTENDING PHYSICIAN: Order: [id number] Test Reason : Test Date/Time Stamp: MonSep [...] PATIENT NAME: KATERINE NEUMANN 78 2018-09-20 14:49:00-00:00 [facility] EMERGENCY PROVIDER REPORT REPORT#:[id number] REPORT STATUS: Signed DATE:09/20/18 TIME:1449 PATIENT: KATERINE NEUMANN UNIT #: [id number] ROOM/BED: : 54 AGE: 63 SEX: F PCP PHYS: No Primar y or Family Physician SERVICE AUTHOR: Donald Williamson MD * ALL edits or amendments must be made on the [employer]/computer document * HPI-Extremity Prob Lower General Confirmed [...] of this section were scribed by Bell aPrker on 09/20/18 at 1550 Physical Exam Vital [...] - 7.0 pH UNITS) 6.5 Ur Specific [place] (1.005 - 1.030 SG) 1.020 Urine Protein [...] symptoms should prompt an immediate return to [facility] or the closest emergency department or a call to 911. Supervising Physician Note Scribe Statement Bell Parker, 09/20/18 0919, scribing for and in the presence of Dr. Williamson. Signed By: Bell Parker, 09/20/18 0100 Provider Scribed Statement I personally performed the s ervices described in this documentation and reviewed the documentation that was dictated to the scrib e(s) in my presence, and it accurately records my words and actions. Karrie Williamson, 09/23/18 Portions of this section were scribed by Bell Parker on 09/20/18 at 1645 Electronically Signed by Donald Williamson MD on at 1238 RPT #: [id number] END OF REPORT
[2022-11-28] MEDS ORDERED: ONDANSETRON 4 MG (ODT) TAB ONE (09:28)
[2022-11-28] MEDS ORDERED: HYDROMORPHONE HCL 1 MG/ML INJ ONE (09:29)
--- NOTE | 2022-11-28 09:47 | RAD REPORT ---
EXAM DESCRIPTION: CT - Stone Protocol - 11/28/2022 9:18 am CLINICAL HISTORY: left flank pain;Flank pain COMPARISON: Abdomen Pelvis W Contrast dated 11/24/2022; Abdomen Pelvis W Contrast dated 02/08/2021 TECHNIQUE: Thin cut axial CT imaging of the abdomen and pelvis was performed without IV contrast. Mu ltiplanar reformats were generated and reviewed. All CT scans are performed using dose optimization technique as appropriate and may include automated exposure control or mA/KV adjustment according to patient size. FINDINGS: No suspicious findings in the lung bases. The liver shows a stable subcapsular left liver lobe margin 4.6 cm cyst. Adrenal glands, spleen, and pancreas show no suspicious findings. Status post cholecystectomy. Symmetric renal contour, without suspicious parenchymal findings within limits of noncontrast techniq ue. 7 millimeter calculus in the left pelviureteric junction, resulting in mild left hydronephrosis. No dilated bowel loops or bowel wall thickening. Small duodenal diverticulum again seen. Colonic dive rticulosis. Appendix is unremarkable. No free air, free fluid or inflammatory stranding. Diastasis re cti with findings suggesting prior umbilical hernia mesh repair. No hernia, mass or bulky lymphadenop athy. The urinary bladder is without significant finding. No suspicious bony findings. IMPRESSION: 7 millimeter calculus at the left pelviureteric junction, results in mild left hydroneph rosis. Other stable findings as above. The findings were communicated to Sukhwinder Shea on 11/28/2022 at 09:43 hours.
[2022-11-28] MEDS ORDERED: TAMSULOSIN 0.4 MG SR CAP ONE (10:19)
[2022-11-28 10:31] LABS: Absolute Lymphocytes (CBC) 2.7 K/uL (0.7-4.9); Hematocrit 40.5 % (36.0-45.0); Lymphocytes % 19.2 % (15.3-44.8); MCV 85.7 fL (80-100); MPV 7.7 fL (7.6-11.3); Platelets 369 thou/uL (152-406); RBC Red Blood Cell Count 4.72 M/uL (3.86-4.86)
[2022-11-28 10:42] LABS: Albumin 3.6 g/dL (3.4-5.0); Bilirubin Total 0.3 mg/dL (0.2-1.0); Protein, Total 7.8 g/dL (6.4-8.2)
[2022-11-28] MEDS ORDERED: KETOROLAC 30 MG/ML INJ ONE (11:54)
[2022-11-28] MEDS ORDERED: CEFTRIAXONE 1000 MG/VIAL ONE (11:54)
[2022-11-28] MEDS ORDERED: MAGNESIUM SULFATE 1 gm IVPB 1 GM/100 ML BAG IV ONE (11:55)
[2022-11-28] MEDS ORDERED: NA CHLORIDE 0.9% 50 ML ONE (11:55)
--- NOTE | 2022-11-28 12:49 | EDPHYS ---
Physician Documentation [facility] Name: Marija Henry Age: 67 yrs Sex: Female : 1955 Arrival Date: 11/28/2022 Time: 08:35 Bed 7 Private MD: ED Physician Sukhwinder Shea HPI: 11/28 09:15 This 67 yrs old Female presents to ER via Ambulatory with complaints of Low Back Pain, cp Abdominal Pain. 09:15 The patient presents with pain that is acute, with no known mechanism of injury. The cp symptoms are located in the left flank. Associated signs and symptoms: Pertinent positives: nausea, Pertinent negatives: chest pain, constipation, fever, incontinence, numbness, weakness, active vomiting. 09:15 The patient has been recently seen at the [facility] Emergency cp Department, 4 days ago and diagnosed with UTI and kidney stone. Patient reports she is currently taking prescribed antibiotic. Historical: - Allergies: 08:51 latex; iw - PSHx: 08:51 Bladder lift; Cholecystectomy; hernia repair; kidney stone; partial hysterectomy; skin iw cancer removed; - Immunization history:: Adult Immunizations unknown. - Social history:: Smoking status: unknown. ROS: 09:20 Constitutional: Negative for body aches, chills, fever, poor PO intake. cp 09:20 Cardiovascular: Negative for chest pain, edema, palpitations. cp 09:20 Respiratory: Negative for cough, shortness of breath, wheezing. 09:20 Abdomen/GI: Positive for abdominal pain. Vital Signs: 08:49 BP 153 / 77; Pulse 84; Resp 16; Temp 98.4; Pulse Ox 98% ; Weight 111.58 kg; Height 5 iw ft. 5 in. ; Pain 8/10; 11:38 BP 128 / 68; Pulse 64; Resp 18; Pulse Ox 95% on R/A; ph 13:00 BP 124 / 69; Pulse 61; Resp 08; Pulse Ox 98% on 2 lpm NC; ph 13:55 BP 147 / 84; Pulse 73; Resp 16; Pulse Ox 98% on 2 lpm NC; ph 08:49 Body Mass Index 40.94 (111.58 kg, 165.1 cm) iw 08:49 Pain Scale: Adult iw MDM: 08:51 Patient medically screened. cp 11/28 09:00 Order name: CBC with Diff; Complete Time: 11:14 cp 11/28 11:15 Interpretation: Normal except: WBC 13.90; NEUT A 10.3. cp 11/28 09:00 Order name: CMP; Complete Time: 11:14 cp 11/28 11:15 Interpretation: Normal except: CL 111; GFR 68; ALK 170; AST 13; GLOB 4.2; A/G 0.9. cp 11/28 09:00 Order name: Lipase; Complete Time: 11:14 cp 11/28 09:03 Order name: CT Stone Protocol; Complete Time: 09:49 cp 11/28 11:15 Interpretation: Report reviewed. cp 11/28 09:00 Order name: IV Saline Lock; Complete Time: 10:18 cp 11/28 09:00 Order name: Labs collected and sent; Complete Time: 10:18 cp 11/28 12:25 Order name: PO challenge; Complete Time: 12:35 cp Administered Medications: 09:45 Drug: Ondansetron PO 4 mg Route: PO; ph 10:15 Follow up: Response: No adverse reaction ph 10:02 Not Given (Physician Discretion): HYDROmorphone IM 1 mg IM once cp 10:02 Not Given (Physician Discretion): Ondansetron PO 4 mg PO once cp 10:17 Drug: Flomax PO 0.4 mg Route: PO; kc6 10:30 Follow up: Response: No adverse reaction ph 10:18 Drug: HYDROmorphone IVP 1 mg Route: IVP; Site: right antecubital; kc6 10:30 Follow up: Response: No adverse reaction ph 12:15 Drug: Rocephin IV 1 grams Route: IV; Rate: calculated rate; Site: right antecubital; ph 12:45 Follow up: Response: No adverse reaction; IV Status: Completed infusion ph 12:15 Drug: Ketorolac IVP 15 mg Route: IVP; Site: right antecubital; ph 16:27 Follow up: Response: No adverse reaction; Pain is decreased ph 12:15 Drug: Magnesium Sulfate IVPB 1 grams Route: IVPB; Infused Over: 30 mins; Site: right ph antecubital; 13:15 Follow up: Response: No adverse reaction; IV Status: Completed infusion ph Disposition Summary: 11/28/22 12:49 Discharge Ordered Location: Home cp Problem: new cp Symptoms: have improved cp Condition: Stable cp Diagnosis - Calculus of kidney with calculus of ureter - left cp Followup: cp - With: Stoney Goddard MD - When: 2 - 3 days - Reason: Recheck today's complaints Discharge Instructions: - Discharge Summary Sheet cp - Kidney Stones cp - Renal Colic cp Forms: - Medication Reconciliation Form cp - Thank You Letter cp - Antibiotic Education cp - Prescription Opioid Use cp - Patient Portal Instructions cp - Leadership Thank You Letter cp Prescriptions: - acetaminophen-codeine 300-30 mg Oral tablet - take 2 tablet by ORAL route every 8-10 hours as needed for pain; 14 tablet; cp Refills: 0, Product Selection Permitted - Flomax 0.4 mg Oral capsule - take 1 capsule by ORAL route every 24 hours; 7 capsule; Refills: 0, Product cp Selection Permitted - Zofran 4 mg Oral Tablet - take 1 tablet by ORAL route every 12 hours As needed; 20 tablet; Refills: 0, cp Product Selection Permitted Signatures: Dispatcher [employer] Mandy Villalba, RN Diana Plunkett RN RN Frank Estrada, LUDIVINA PA Eri Sargent RN RN kc6
--- NOTE | 2022-11-28 12:49 | ER ---
Nurse's Notes [facility] Name: Marija Henry Age: 67 yrs Sex: Female : 1955 Arrival Date: 11/28/2022 Time: 08:35 Bed 7 Private MD: Diagnosis: Calculus of kidney with calculus of ureter-left Presentation: 11/28 08:49 Chief complaint: Patient states: was seen here , has two kidney stones, went to see her PCP and was sent back to ER, still having pain. Coronavirus screen: At this time, the client does not indicate any symptoms associated with coronavirus-19. Ebola Screen: Patient negative for fever greater than or equal to 101.5 degrees Fahrenheit, and additional compatible Ebola Virus Disease symptoms Patient denies exposure to infectious person. Patient denies travel to an Ebola-affected area in the 21 days before illness onset. No symptoms or risks identified at this time. Initial Sepsis Screen: Does the patient meet any 2 criteria? No. Patient's initial sepsis screen is negative. Does the patient have a suspected source of infection? No. Patient's initial sepsis screen is negative. Risk Assessment: Do you want to hurt yourself or someone else? Patient reports no desire to harm self or others. Onset of symptoms was November 24, 2022. 08:49 Method Of Arrival: Ambulatory 08:49 Acuity: UDAY 3 iw Historical: - Allergies: 08:51 latex; iw - PSHx: 08:51 Bladder lift; Cholecystectomy; hernia repair; kidney stone; partial hysterectomy; skin iw cancer removed; - Immunization history:: Adult Immunizations unknown. - Social history:: Smoking status: unknown. Screenin:32 [facility] ED Fall Risk Assessment (Adult) History of falling in the last 3 months, ph including since admission No falls in past 3 months (0 pts) Confusion or Disorientation No (0 pts) Intoxicated or Sedated No (0 pts) Impaired Gait No (0 pts) Mobility Assist Device Used No (0 pt) Altered Elimination No (0 pt) Score/Fall Risk Level 0 - 2 = Low Risk Oriented to surroundings, Maintained a safe environment, Hourly rounding (assess needs \\T\\ fall precautionary measures) done. Abuse screen: Denies threats or abuse. Denies injuries from another. Nutritional screening: No deficits noted. Tuberculosis screening: No symptoms or risk factors identified. Assessment: 09:27 Reassessment: Pt refusing IV and/or blood draw, states, " I was just here a few days ph ago and had blood work, why do I need it again? I've been on antibiotics since then." ERP notified. General: Appears in no apparent distress. uncomfortable, Behavior is calm, cooperative, appropriate for age. Pain: Complains of pain in posterior aspect of left lateral abdomen, anterior aspect of left lateral abdomen and left lower quadrant. Neuro: Level of Consciousness is awake, alert, obeys commands, Oriented to person, place, time, situation. Cardiovascular: Capillary refill < 3 seconds in bilateral fingers Patient's skin is warm and dry. Respiratory: Airway is patent Respiratory effort is even, unlabored. GI: Abdomen is non-distended. : Reports pain in left flank(s), lower quadrant(s). Derm: Skin is pink, warm \\T\\ dry. 12:00 Reassessment: Patient appears in no apparent distress at this time. Patient and/or ph family updated on plan of care and expected duration. Pain level reassessed. Patient is alert, oriented x 3, equal unlabored respirations, skin warm/dry/pink. 13:45 Reassessment: Patient appears in no apparent distress at this time. Patient and/or ph family updated on plan of care and expected duration. Pain level reassessed. Patient is alert, oriented x 3, equal unlabored respirations, skin warm/dry/pink. Vital Signs: 08:49 BP 153 / 77; Pulse 84; Resp 16; Temp 98.4; Pulse Ox 98% ; Weight 111.58 kg; Height 5 iw ft. 5 in. ; Pain 8/10; 11:38 BP 128 / 68; Pulse 64; Resp 18; Pulse Ox 95% on R/A; ph 13:00 BP 124 / 69; Pulse 61; Resp 08; Pulse Ox 98% on 2 lpm NC; ph 13:55 BP 147 / 84; Pulse 73; Resp 16; Pulse Ox 98% on 2 lpm NC; ph 08:49 Body Mass Index 40.94 (111.58 kg, 165.1 cm) iw 08:49 Pain Scale: Adult iw ED Course: 08:37 Patient arrived in ED. mg5 08:39 Frank Cervantes PA is PHCP. cp 08:39 Sukhwinder Shea MD is Attending Physician. cp 08:51 Triage completed. iw 08:51 Arm band placed on. iw 08:55 Diana Mosley RN is Primary Nurse. ph 09:19 CT Stone Protocol In Process Unspecified. EDMS 09:32 Patient has correct armband on for positive identification. Bed in low position. Call ph light in reach. Side rails up X 1. Pulse ox on. NIBP on. 10:14 Initial lab(s) drawn, by ED staff, sent to lab. Inserted saline lock: 20 gauge in right ph antecubital area, using aseptic technique. Blood collected. 12:48 Stoney Goddard MD is Referral Physician. cp 13:55 No provider procedures requiring assistance completed. IV discontinued, intact, ph bleeding controlled, No redness/swelling at site. Pressure dressing applied. Administered Medications: 09:45 Drug: Ondansetron PO 4 mg Route: PO; ph 10:15 Follow up: Response: No adverse reaction ph 10:02 Not Given (Physician Discretion): HYDROmorphone IM 1 mg IM once cp 10:02 Not Given (Physician Discretion): Ondansetron PO 4 mg PO once cp 10:17 Drug: Flomax PO 0.4 mg Route: PO; kc6 10:30 Follow up: Response: No adverse reaction ph 10:18 Drug: HYDROmorphone IVP 1 mg Route: IVP; Site: right antecubital; kc6 10:30 Follow up: Response: No adverse reaction ph 12:15 Drug: Rocephin IV 1 grams Route: IV; Rate: calculated rate; Site: right antecubital; ph 12:45 Follow up: Response: No adverse reaction; IV Status: Completed infusion ph 12:15 Drug: Ketorolac IVP 15 mg Route: IVP; Site: right antecubital; ph 16:27 Follow up: Response: No adverse reaction; Pain is decreased ph 12:15 Drug: Magnesium Sulfate IVPB 1 grams Route: IVPB; Infused Over: 30 mins; Site: right ph antecubital; 13:15 Follow up: Response: No adverse reaction; IV Status: Completed infusion ph Medication: 09:32 VIS not applicable for this client. ph Outcome: 12:49 Discharge ordered by . cp 13:55 Patient left the ED. ph 13:55 Discharged to home ambulatory. ph 13:55 Condition: good 13:55 Discharge instructions given to patient, Instructed on discharge instructions, follow up and referral plans. medication usage, Demonstrated understanding of instructions, follow-up care, medications, Prescriptions given X 3. Signatures: Dispatcher [employer] Mandy Villalba RN RN iw Hall, Patricia, RN RN Frank Estrada PA PA cp Campbell, Kaitlyn, RN RN kc6 Supriya Morales mg5 Corrections: (The following items were deleted from the chart) 16:25 14:00 BP 147 / 84; Pulse 73bpm; Resp 16bpm; Pulse Ox 98% 2 lpm Nasal Cannula; ph ph
[2022-11-28 14:06] VITALS: BP 128/68; O2SAT 95
[2022-11-28 14:07] VITALS: TEMP 98.4
== END 2022-11-28 13:55 | disposition home or self-care (01) ==
LOC: ER 08:35
DX: N20.2 Calculus of kidney with calculus of ureter (principal); Z87.442 Personal history of urinary calculi; Z91.040 Latex allergy status
CPT/HCPCS: 96365; 96368; 85025; 36415; 83690; 80053; 76377; 74176; 96375; 99284; Q0162; J3475; J1170; J0696

== ENCOUNTER 2022-12-02 10:44 | Emergency (ER) | payer OTHER ==
--- OUTSIDE RECORDS SUMMARY | 2022-12-02 10:50 | XMS REPORT | Continuity of Care Document ---
:1955 Author Organization [facility] t Address [address] [place] [address] [place] [id number] Care Team Providers Name Role Phone HernandesRebecca Primary Care Physician Juanjose Callahan Attending Clinician Unavailable Rebecca Hernandes Attending Clinician Unavailable Doctor Unassigned, Cade Attending Clinician Unavailable Team, [facility] Attending Clinician UnavailLORY Aiken Attending Clinician Unavailable Lory Peres MD Attending Clinician JOSE JAUREGUI Attending Clinician Unavailable JOSE JAUREGUI Attending Clinician Unavailable SHANEKA HOWARD Attending Clinician Unavailable SOPHIA TOVAR Attending Clinician Unavailable Sophia Tovar DO Attending Clinician MARIANNA HADDAD Attending Clinician Unavailable SOPHIA TOVAR Admitting Clinician Unavailable Payers Payer Name Policy Type Policy Number Effective Date Expiration Date S ource [employer] MEDICARE [id number] 2019 [facility] [place] 00:00:00 - [facility] [employer] MEDICARE [id number] 2019 [facility] [place] 00:00:00 - [facility] [employer] MEDICARE [id number] 2019 [id number] 00:00:00 - [facility] [employer] MEDICARE [id number] 2019 [facility] [place] [id number] Common Sp [place] 00:00:00 - [facility] MEDICARE [id number] 2019 Common Sp [place] 00:00:[address] - [facility] HU[employer]NA MEDICARE C1 [id number] 2019 Common Sp [place] 00:00:00 - [facility] [employer] MEDICARE C1 [id number] 2019 Common Sp [place] 00:00:00 - [facility] Problems Condition Condition Condition Status Onset Resolution Last Treating Co mments Source Name Details Category Date Date Treatment Clinician Date Pain Pain Disease Active Univers pelvic pelvic 10-29 ity of 00:00: [place] [facility] Branch Localized, Localized, Disease Active U nivers primary primary 10-27 ity of osteoarth[place] it[place] of [facility] shoulder shoulder Branch region region Pain in Pain in Disease Active Univers limb limb 10-27 ity of 00:00: [place] [facility] Shoulder Shoulder Disease Active Unive rs joint pain joint pain 10-27 it y of 00:00: [place] [facility] Tobacco Tobacco Disease Active Univers user user 7 ity of 00:00: [place] [facility] Varicose Varicose Disease Active Unive rs veins of veins of 10-27 ity of both lower both lower [place] extrem[place] extremitie 00 Me dical s s Branch BMI BMI Disease Active Univers 40.0-44.9, 40.0-44.9, 7- it y of adult adult 00:00: [place] [facility] Vaginal Vaginal Disease Active Univers irritation irritation - it y of 00:00: [place] 00 [facility] Recurrent Recurrent Disease Active Uni vers candidiasi candidiasi 10-24 it y of s of s of 00:00: [place] vagina vagina 00 [facility] 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 10-24 ity of of female of female [place] 00 [facility] Postmenopa Postmenopa Disease Active 2020-04 U nivers usal usal 0- ity of atrophic atrophic 00:00: [place] vaginitis vaginitis 00 [facility] [id number] Leukocytos Problem Co mmon is, Spirit unspecifie - CHI d type [facility] [id number] History of Problem Co mmon skin Spirit cancer in - CHI adulthood [facility] [id number] Gallstones Problem Co mmon Spirit - CHI [facility] [id number] Depression Problem Co mmon with Spirit anxiety - CHI [facility] [id number] Pain of Problem Commo n right Spirit great toe - CHI [facility] [id number] Varicose Problem Commo n veins of Spirit both legs - [facility] with edema [facility] [id number] Primary Problem Comm on osteoarthr Spirit itis of - CHI left [facility] [id number] Asthma, Problem Commo n mild Spirit intermitte - CHI nt, [facility] [id number] Cigarette Problem Comm on nicotine Spirit dependence - [facility] [id number] [place] Problem C ommon [id number] racic Spirit bursitis - CHI of right [facility] [id number] Acute pain Problem Com mon of right Spirit shoulder [facility] [id number] Primary Problem Comm on osteoarthr Spirit itis of - CHI right [facility] Allergies, Adverse Reactions, Alerts Allergy Allergy Status Severity Reaction(s) Onset Inactive Treating Comm ents Source Name Type Date Date Clinician LATEX DRUG Active High Unknown-Cmnt 2020-04 Univ ers INGREDI 05-10 ity of 00:00: [address] Latex Propensi Active Unknown - 2020-04 It turns Uni vers ty to See comments 2-07 skin ity of adverse 00:00: 'raw' per [place] reaction 00 pt Medical s Branch No Known DA Active U 2018- [facility] Allergie 6-20 [place] 00:00: d 00 [facility] Latex Latex Active Unknown [facility] - [facility] Social History Social Habit Start Date Stop Date Quantity Comments Source History of Tobacco Current Smoker Co mmon Spirit - Use [facility] Sex Assigned At Common Sp gar[place] - [facility] Exposure to 2021-12-21 2021-12-31 Not sure [facility]-CoV-2 (event) 00:00:00 09:25:00 [facility] Alcohol intake 2021-12-31 2021-12-31 Ex-drinker [facility] 00:00:00 00:00:00 (finding) [facility] Cigarettes smoked 2021-10-13 2021-10-13 Univers ity of current (pack per 00:00:00 00:00:00 ) - Reported Branch Tobacco use and 2021-10-13 2021-10-13 Smokeless Universit y of exposure 00:00:00 00:00:00 tobacco non-user [facility] 2021-10-13 2021-10-13 trying to quit Unive rsity of 00:00:00 00:00:00 [facility] Smoking Status Start Date Stop Date Source Current Smoker 2022-08-11 00:00:00 [facility] Sp[facility] t - [facility] Medications Ordered Filled Start Stop Current Ordering Indication Dosage Frequency Signature Comments Components Source Medication Medication Date Date Medication? Clinician (SIG) Name Name clobetasoL 2021-04 Yes Apply to Uni vers 0.05 % 0-04 area(s) ity of ointment 00:00: daily. [place] [facility] clobetasoL 2021-04 Yes Apply to Uni vers 0.05 % 0-04 area(s) ity of ointment 00:00: daily. [place] [facility] clobetasoL 2021-04 Yes Apply to Uni vers 0.05 % 0-04 area(s) ity of ointment 00:00: daily. [place] [facility] clobetasoL 2021-04 Yes Apply to Uni vers 0.05 % 0-04 area(s) ity of ointment 00:00: daily. [place] [facility] clobetasoL 2021-04 Yes Apply to Uni vers 0.05 % 0-04 area(s) ity of ointment 00:00: daily. [address] Branch valACYclovi 2021-0 Yes [id number] 1g Take 1 Univers r (VALTREX) 9-30 tablet by ity of 1 gram 00:00: mouth in [place] tablet 00 the Medical morning Branch and 1 tablet in the evening. valACYclovi 2021-0 Yes [id number] 1g Take 1 Univers r (VALTREX) 9-30 tablet by ity of 1 gram 00:00: mouth in [place] tablet 00 the Medical morning Branch and 1 tablet in the evening. valACYclovi 0 Yes [id number] 1g Take 1 Univers r (VALTREX) 9-30 tablet by ity of 1 gram 00:00: mouth in [place] tablet 00 the Medical morning Branch and 1 tablet in the evening. valACYclovi 0 Yes [id number] 1g Take 1 Univers r (VALTREX) 9-30 tablet by ity of 1 gram 00:00: mouth in [place] tablet 00 the Medical morning Branch and 1 tablet in the evening. valACYclovi 0 Yes [id number] 1g Take 1 Univers r (VALTREX) 9-30 tablet by ity of 1 gram 00:00: mouth in [place] tablet 00 the Medical morning Branch and 1 tablet in the evening. valACYclovi 0 Yes [id number] 1g Take 1 Univers r (VALTREX) 9-30 tablet by ity of 1 gram 00:00: mouth in [place] tablet 00 the Medical morning Branch and 1 tablet in the evening. valACYclovi 0 Yes [id number] 1g Take 1 Univers r (VALTREX) 9-30 tablet by ity of 1 gram 00:00: mouth in [place] tablet 00 the Medical morning Branch and 1 tablet in the evening. valACYclovi 2021-0 Yes [id number] 1g Take 1 Univers r (VALTREX) 9-30 tablet by ity of 1 gram 00:00: mouth in [place] tablet 00 the Medical morning Branch and 1 tablet in the evening. estradioL 0 Yes [id number] 1g Insert 1 g Univers 0.01 % (0.1 8-26 into ity of mg/gram) 00:00: vagina [place] vaginal 00 weekly. Medical cream Insert Branch every night for 2 weeks and then 3 times a week M/W/F estradioL 2021-0 Yes [id number] 1g Insert 1 g Univers 0.01 % (0.1 8-26 into ity of mg/gram) 00:00: vagina [place] vaginal 00 weekly. Medical cream Insert Branch every night for 2 weeks and then 3 times a week M/W/F estradioL 2021-0 Yes [id number] 1g Insert 1 g Univers 0.01 % (0.1 8-26 into ity of mg/gram) 00:00: vagina [place] vaginal 00 weekly. Medical cream Insert Branch every night for 2 weeks and then 3 times a week M/W/F estradioL 2021-0 Yes [id number] 1g Insert 1 g Univers 0.01 % (0.1 8-26 into ity of mg/gram) 00:00: vagina [place] vaginal 00 weekly. Medical cream Insert Branch every night for 2 weeks and then 3 times a week M/W/F estradioL 2021-0 Yes [id number] 1g Insert 1 g Univers 0.01 % (0.1 8-26 into ity of mg/gram) 00:00: vagina [place] vaginal 00 weekly. Medical cream Insert Branch every night for 2 weeks and then 3 times a week M/W/F estradioL 2021-0 Yes [id number] 1g Insert 1 g Univers 0.01 % (0.1 8-26 into ity of mg/gram) 00:00: vagina [place] vaginal 00 weekly. Medical cream Insert Branch every night for 2 weeks and then 3 times a week M/W/F estradioL 2021-0 Yes [id number] 1g Insert 1 g Univers 0.01 % (0.1 8-26 into ity of mg/gram) 00:00: vagina [place] vaginal 00 weekly. Medical cream Insert Branch every night for 2 weeks and then 3 times a week M/W/F estradioL 2021-0 Yes [id number] 1g Insert 1 g Univers 0.01 % (0.1 8-26 into ity of mg/gram) 00:00: vagina [place] vaginal 00 weekly. Medical cream Insert Branch every night for 2 weeks and then 3 times a week M/W/F estradioL 2021-0 Yes [id number] 1g Insert 1 g Univers 0.01 % (0.1 8-26 into ity of mg/gram) 00:00: vagina [place] vaginal 00 weekly. Medical cream Insert Branch every night for 2 weeks and then 3 times a week M/W/F glycerin-mi 2021- No [id number] 1{appli Insert 1 Univers n 10-27 cator} Applicator ity of oil-polycar 00:00: 00:00 into [facility] 00 :00 vagina Medical (REPLENS) every 3 Branch Gel (three) days. clobetasoL 2021- No [id number] Apply to Univers 0.05 % 10-27 area(s) 2 ity of ointment 00:00: 00:00 (two) [place] 00 :00 times Medical daily. Branch Clobetasol Yes [id number] Apply to Univers Propionate- 7-13 area(s) ity o f Emolnt 0.05 00:00: [place]. [place] % [place] 00 Medical Branch Clobetasol Yes [id number] Apply to Univers Propionate- 7-13 area(s) ity o f Emolnt 0.05 00:00: [place]. [place] % Crea 00 Medical Branch Clobetasol Yes [id number] Apply to Univers Propionate- 7-13 area(s) ity o f Emolnt 0.05 00:00: [place]. [place] % Crea 00 Medical Branch Clobetasol 2021- No [id number] Apply to Univers Propionate- 7-13 10-04 area(s) ity of Emolnt 0.05 00:00: 00:00 daily. [place] as % Crea 00 :00 Medical Branch fluconazole 2021- No [id number] 200mg Take 1 Univers 200 mg 10-13 [...] pirit one) one) 00:00: - [facility]I 00 [facility] Bupivicaine Bupivicaine 2020-04 No Common Stuttgart Stuttgart 2-21 Spirit 00:00: - CHI 00 [facility] Su Kenalog 2020-04 No 40mg Common (Triamcinol (Triamcinol 2-21 S pirit one) one) 00:00: - CHI 00 [facility] Bupivicaine Bupivicaine 2020-04 No Common Stuttgart Stuttgart 2-21 Spirit 00:00: - CHI 00 [facility] Su Kenalog 2020-04 No 40mg Common (Triamcinol (Triamcinol 2-21 S pirit one) one) 00:00: - CHI 00 [facility] Bupivicaine Bupivicaine 2020-04 No Common Stuttgart Stuttgart 2-21 Spirit 00:00: - [facility]I 00 [facility] Su Blue 2020-04 No 40mg Common (Triamcinol (Triamcinol 2-21 S pirit one) one) 00:00: - CHI 00 [facility] Bupivicaine Bupivicaine 2020-04 No 2.5mg Common Stuttgart Stuttgart 2-21 Spirit 00:00: - CHI 00 [facility] Su Blue 2020-04 No 40mg Common (Triamcinol (Triamcinol 2-21 S pirit one) one) 00:00: - CHI 00 [facility] Bupivicaine Bupivicaine 2020-04 No 2.5mg Common Stuttgart Stuttgart 2-21 Spirit 00:00: - CHI 00 [facility] Su Kenalog 2020-04 No 40mg Common (Triamcinol (Triamcinol 2-21 S pirit one) one) 00:00: - CHI 00 [facility] Bupivicaine Bupivicaine 2020-04 No 2.5mg Common Stuttgart Stuttgart 2-21 Spirit 00:00: - CHI 00 [facility] Su Kenalog 2020-04 No 40mg Common (Triamcinol (Triamcinol 2-21 S pirit one) one) 00:00: - CHI 00 [facility] Bupivicaine Bupivicaine 2020-04 No 2.5mg Common Stuttgart Stuttgart 2-21 Spirit 00:00: - CHI 00 [facility] Kenalog Kenalog 2020-04 No 40mg Common (Triamcinol (Triamcinol 2-21 S pirit one) one) 00:00: - CHI 00 [facility] Bupivicaine Bupivicaine 2020-04 No 2.5mg Common Stuttgart Stuttgart 2-21 Spirit 00:00: - CHI 00 [facility] Kenalog Kenalog 2020-04 No 40mg Common (Triamcinol (Triamcinol 2-21 S pirit one) one) 00:00: - CHI 00 [facility] Bupivicaine Bupivicaine 2020-04 No 2.5mg Common Stuttgart Stuttgart 2-21 Spirit [facility] No 40mg Common (Triamcinol (Triamcinol 2-21 S pirit one) one) 00:00: - [facility] Bupivicaine Bupivicaine 2020-04 No 2.5mg Common Stuttgart Stuttgart 2-21 Spirit 00:00: - [facility] buPROPion 2020-04 Yes Univers SR 100 mg 0-19 ity of SR tablet 00:00: [address] buPROPion 2020-04 Yes Univers SR 100 mg 0-19 ity of SR tablet 00:00: [place] [facility] buPROPion 2020-04 Yes Univers SR 100 mg 0-19 ity of SR tablet 00:00: [address] buPROPion 2020-04 Yes Univers SR 100 mg 0-19 ity of SR tablet 00:00: [place] [facility] buPROPion 2020-04 Yes Univers SR 100 mg 0-19 ity of SR tablet 00:00: [place] [facility] buPROPion 2020-04 Yes Univers SR 100 mg 0-19 ity of SR tablet 00:00: [place] [facility] buPROPion 2020-04 Yes Univers SR 100 mg 0-19 ity of SR tablet 00:00: [place] [facility] buPROPion 2020-04 Yes Univers SR 100 mg 0-19 ity of SR tablet 00:00: [address] buPROPion 2020-04 Yes Univers SR 100 mg 0-19 ity of SR tablet 00:00: [place] [address] [place] [address] Kenalog Kenalog 2020-0 No 40mg Common (Triamcinol (Triamcinol 7-22 S pirit one) one) 00:00: - [facility] 00 [facility] Bupivicaine Bupivicaine 2020-0 No Common Stuttgart Stuttgart 7-22 Spirit 00:00: - [facility] 00 [facility] Kenalog Kenalog 2020-0 No 40mg Common (Triamcinol (Triamcinol 7-22 S pirit one) one) 00:00: - [facility]I 00 [facility] Bupivicaine Bupivicaine 2020-0 No Common Stuttgart Stuttgart 7-22 Spirit 00:00: - [facility] 00 [facility] Kenalog Kenalog 2020-0 No 40mg Common (Triamcinol (Triamcinol 7-22 S pirit one) one) 00:00: - [facility] 00 [facility] Bupivicaine Bupivicaine 2020-0 No Common Stuttgart Stuttgart 7-22 Spirit 00:00: - [facility]I 00 [facility] Kenalog Kenalog 2020-0 No 40mg Common (Triamcinol (Triamcinol 7-22 S pirit one) one) 00:00: - [facility]I 00 [facility] Bupivicaine Bupivicaine 2020-0 No 2.5mg Common Stuttgart Stuttgart 7-22 Spirit 00:00: - [facility]I 00 [facility] Kenalog Kenalog 2020-0 No 40mg Common (Triamcinol (Triamcinol 7-22 S pirit one) one) 00:00: - [facility]I 00 [facility] Bupivicaine Bupivicaine 2020-0 No 2.5mg Common Stuttgart Stuttgart 7-22 Spirit 00:00: - [facility]I 00 [facility] Kenalog Kenalog 2020-0 No 40mg Common (Triamcinol (Triamcinol 7-22 S pirit one) one) 00:00: - CHI 00 [facility] Bupivicaine Bupivicaine 2020-0 No 2.5mg Common Stuttgart Stuttgart 7-22 Spirit 00:00: - [facility]I 00 [facility] Kenalog Kenalog 2020-0 No 40mg Common (Triamcinol (Triamcinol 7-22 S pirit one) one) 00:00: - CHI 00 [facility] Bupivicaine Bupivicaine 1-0 No 2.5mg Common Stuttgart Stuttgart 7-22 Spirit 00:00: - [facility]I 00 [facility] Kenalog Kenalog 2020-0 No 40mg Common (Triamcinol (Triamcinol 7-22 S pirit one) one) 00:00: - CHI 00 [facility] Bupivicaine Bupivicaine 1-0 No 2.5mg Common Stuttgart Stuttgart 7-22 Spirit 00:00: - CHI 00 [facility] Kenalog Kenalog 2020-0 No 40mg Common (Triamcinol (Triamcinol 7-22 S pirit one) one) 00:00: - CHI 00 [facility] Bupivicaine Bupivicaine 1-0 No 2.5mg Common Stuttgart Stuttgart 7-22 Spirit 00:00: - CHI 00 [facility] Kenalog Kenalog 2020-0 No 40mg Common (Triamcinol (Triamcinol 7-22 S pirit one) one) 00:00: - CHI 00 [facility] Bupivicaine Bupivicaine 2020-0 No 2.5mg Common Stuttgart Stuttgart 7-22 Spirit 00:00: - CHI 00 [facility] Keflex 500 Keflex 500 2020-0 No [...] 00 Bupivicaine Bupivicaine 2019- No 5mg Common Stuttgart Stuttgart 0-05 Spirit 00:00: - CHI [facility] Kenalog Kenalog 2019- No 40mg Common (Triamcinol (Triamcinol 0-05 S pirit one) one) 00:00: - CHI [facility] Bupivicaine Bupivicaine 2019- No 5mg Common Stuttgart Stuttgart 0-05 Spirit 00:00: - CHI [facility] Kenalog Kenalog 2019- No 40mg Common (Triamcinol (Triamcinol 0-05 S pirit one) one) 00:00: - CHI [facility] Bupivicaine Bupivicaine 2020-1 No 5mg Common Stuttgart Stuttgart 0-05 Spirit 00:00: - CHI 00 [facility] Kenalog Kenalog 2020-1 No 40mg Common (Triamcinol (Triamcinol 0-05 S pirit one) one) 00:00: - CHI 00 [facility] Bupivicaine Bupivicaine 2020-1 No 5mg Common Stuttgart Stuttgart 0-05 Spirit 00:00: - CHI 00 [facility] Kenalog Kenalog 2020-1 No 40mg Common (Triamcinol (Triamcinol 0-05 S pirit one) one) 00:00: - [facility]I 00 [facility] Bupivicaine Bupivicaine 2020-1 No 5mg Common Stuttgart Stuttgart 0-05 Spirit 00:00: - [facility] 00 [facility] Kenalog Kenalog 2020-1 No 40mg Common (Triamcinol (Triamcinol 0-05 S pirit one) one) 00:00: - CHI 00 [facility] Bupivicaine Bupivicaine 2020-1 No 5mg Common Stuttgart Stuttgart 0-05 Spirit 00:00: - [facility]I 00 [facility] Kenalog Kenalog 2020-1 No 40mg Common (Triamcinol (Triamcinol 0-05 S pirit one) one) 00:00: - CHI 00 [facility] Bupivicaine Bupivicaine 2020-1 No 5mg Common Stuttgart Stuttgart 0-05 Spirit 00:00: - CHI 00 [facility] Kenalog Kenalog 2020-1 No 40mg Common (Triamcinol (Triamcinol 0-05 S pirit one) one) 00:00: - CHI 00 [facility] Bupivicaine Bupivicaine 2020-1 No 5mg Common Stuttgart Stuttgart 0-05 Spirit 00:00: - CHI 00 [facility] Kenalog Kenalog 2020-1 No 40mg Common (Triamcinol (Triamcinol 0-05 S pirit one) one) 00:00: - CHI 00 [facility] Bupivicaine Bupivicaine 2020-1 No 5mg Common Stuttgart Stuttgart 0-05 Spirit 00:00: - CHI 00 [facility] Kenalog Kenalog 2020-1 No 40mg Common (Triamcinol (Triamcinol 0-05 S pirit one) one) 00:00: - CHI 00 [facility] Bupivicaine Bupivicaine 2019-1 No 5mg Common Stuttgart Stuttgart 0-05 Spirit 00:00: - CHI 00 [facility] Kenalog Kenalog 2020-1 No 40mg Common (Triamcinol (Triamcinol 0-05 S pirit one) one) 00:00: - CHI 00 [facility] Kenalog Kenalog 2020-0 No 40mg Common (Triamcinol (Triamcinol 8-10 S pirit one) one) 00:00: - CHI 00 [facility] Kenalog Kenalog 2020-0 No 40mg Common (Triamcinol (Triamcinol 8-10 S pirit one) one) 00:00: - CHI 00 [facility] Kenalog Kenalog 2020-0 No 40mg Common (Triamcinol (Triamcinol 8-10 S pirit one) one) 00:00: - [facility]I 00 [facility] Kenalog Kenalog 2020-0 No 40mg Common (Triamcinol (Triamcinol 8-10 S pirit one) one) 00:00: - [facility]I 00 [facility] Kenalog Kenalog 2020-0 No 40mg Common (Triamcinol (Triamcinol 8-10 S pirit one) one) 00:00: - [facility] 00 [facility] Kenalog Kenalog 2020-0 No 40mg Common (Triamcinol (Triamcinol 8-10 S pirit one) one) 00:00: - [facility]I 00 [facility] Kenalog Kenalog 2020-0 No 40mg Common (Triamcinol (Triamcinol 8-10 S pirit one) one) 00:00: - CHI 00 [facility] Kenalog Kenalog 2020-0 No 40mg Common (Triamcinol (Triamcinol 8-10 S pirit one) one) 00:00: - [facility]I 00 [facility] Kenalog Kenalog 2020-0 No 40mg Common (Triamcinol (Triamcinol 8-10 S pirit one) one) 00:00: - [facility]I 00 [facility] Kenalog Kenalog 2020-0 No 40mg Common (Triamcinol (Triamcinol 8-10 S pirit one) one) 00:00: - CHI 00 [facility] Tizanidine Tizanidine 2019- No Na Hernandes 1 capsule Common HCl HCl 8-01 08-20 as needed Spirit 00:00: 00:00 - CHI 00 :00 [facility] PredniSONE PredniSONE 2019- No Na Hernandes 2 tablets Common 8 08-20 dailyx 5 Spirit 00:00: 00:00 days then - CHI 00 :[address] daily x 5 [facility] tiZANidine tiZANidine No 1{capsu tiZANidine HCl [...] Completed Unive rsity of PFIZER VACCINE 00:00:00 [facility] SARS-COV-2 COVID-19 2021-01-22 Completed Unive rsity of PFIZER VACCINE 00:00:00 [facility] SARS-COV-2 COVID-19 2021-01-22 Completed Unive rsity of PFIZER VACCINE 00:00:00 [facility] SARS-COV-2 COVID-19 2021-01-22 Completed Unive rsity of PFIZER VACCINE 00:00:00 [facility] SARS-COV-2 COVID-19 2021-01-22 Completed Unive rsity of PFIZER VACCINE 00:00:00 [facility] SARS-COV-2 COVID-19 2021-01-22 Completed Unive rsity of PFIZER VACCINE 00:00:00 [facility] SARS-COV-2 COVID-19 2021-01-22 Completed Unive rsity of PFIZER VACCINE 00:00:00 [facility] SARS-COV-2 COVID-19 2021-01-22 Completed Unive rsity of PFIZER VACCINE 00:00:00 [facility] SARS-COV-2 COVID-19 2021-01-22 Completed Unive rsity of PFIZER VACCINE 00:00:00 [facility] SARS-COV-2 COVID-19 2020-12-31 Completed Unive rsity of PFIZER VACCINE 00:00:00 [facility] SARS-COV-2 COVID-19 2020-12-31 Completed Unive rsity of PFIZER VACCINE 00:00:00 [facility] SARS-COV-2 COVID-19 2020-12-31 Completed Unive rsity of PFIZER VACCINE 00:00:00 [facility] SARS-COV-2 COVID-19 2020-12-31 Completed Unive rsity of PFIZER VACCINE 00:00:00 [facility] SARS-COV-2 COVID-19 2020-12-31 Completed Unive rsity of PFIZER VACCINE 00:00:00 [facility] SARS-COV-2 COVID-19 2020-12-31 Completed Unive rsity of PFIZER VACCINE 00:00:00 [facility] SARS-COV-2 COVID-19 2020-12-31 Completed Unive rsity of PFIZER VACCINE 00:00:00 [facility] SARS-COV-2 COVID-19 2020-12-31 Completed Unive rsity of PFIZER VACCINE 00:00:00 [facility] SARS-COV-2 COVID-19 2020-12-31 Completed Unive rsity of PFIZER VACCINE 00:00:00 [facility] Bupivicaine Stuttgart Bupivicaine Stuttgart 2020-10-22 [facility] 11:[facility]00 [facility] Kenalog Kenalog 2020-10-22 Completed [facility] - (Triamcinolone) (Triamcinolone) 11:48:00 [facility] Bupivicaine Stuttgart Bupivicaine Stuttgart 2020-10-22 Completed [facility] - 11:48:00 [facility] Kenalog Kenalog 2020-10-22 Completed [facility] - (Triamcinolone) (Triamcinolone) 11:48:00 [facility] Bupivicaine Stuttgart Bupivicaine Stuttgart 2020-10-22 Completed [facility] - 11:48:00 [facility] Kenalog Kenalog 2020-10-22 Completed [facility] - (Triamcinolone) (Triamcinolone) 11:48:00 [facility] Bupivicaine Stuttgart Bupivicaine Stuttgart 2020-10-22 Completed [facility] - 11:48:00 [facility] Kenalog Kenalog 2020-10-22 Completed [facility] - (Triamcinolone) (Triamcinolone) 11:48:00 [facility] Bupivicaine Stuttgart Bupivicaine Stuttgart 2020-10-22 Completed [facility] - 11:48:00 [facility] Kenalog Kenalog 2020-10-22 Completed [facility] - (Triamcinolone) (Triamcinolone) 11:48:00 [facility] Bupivicaine Stuttgart Bupivicaine Stuttgart 2020-01-06 Completed [facility] - 09:31:00 [facility] Bupivicaine Stuttgart Bupivicaine Stuttgart 2020-01-06 Completed [facility] - 09:31:00 [facility] Bupivicaine Stuttgart Bupivicaine Stuttgart 2020-01-06 Completed [facility] - 09:31:00 [facility] Bupivicaine Stuttgart Bupivicaine Stuttgart 2020-01-06 Completed [facility] - 09:31:00 [facility] Bupivicaine Stuttgart Bupivicaine Stuttgart 2020-01-06 Completed [facility] - 09:31:00 [facility] Kenalog Kenalog 2020-01-06 Completed [facility] (Triamcinolone) (Triamcinolone) 09:30:00 [facility] Kenalog Kenalog 2020-01-06 Completed [facility] - (Triamcinolone) (Triamcinolone) 09:30:00 [facility] Kenalog Kenalog 2020-01-06 Completed [facility] (Triamcinolone) (Triamcinolone) 09:30:00 [facility] Kenalog Kenalog 2020-01-06 Completed [facility] (Triamcinolone) (Triamcinolone) 09:30:00 [facility] Kenalog Kenalog 2020-01-06 Completed [facility] (Triamcinolone) (Triamcinolone) 09:30:00 [facility] Kenalog Kenalog 2019-11-11 Completed [facility] (Triamcinolone) (Triamcinolone) 17:06:00 [facility] Su Meltonalog 2019-11-11 Completed [facility] (Triamcinolone) (Triamcinolone) 17:06:00 [facility] Su Meltonalog 2019-11-11 Completed [facility] (Triamcinolone) (Triamcinolone) 17:06:00 [facility] Su Meltonalog 2019-11-11 Completed [facility] (Triamcinolone) (Triamcinolone) 17:06:00 [facility] Su Meltonalog 2019-11-11 Completed [facility] (Triamcinolone) (Triamcinolone) 17:06:00 [facility] Vital Signs Vital Name Observation Time Observation Value Comments Source Systolic blood 2021-12-31 14:29:00 138 mm[Hg] Univer sity of pressure [facility] Diastolic blood 2021-12-31 14:29:00 81 mm[Hg] Unive rsity of [facility] Heart rate 2021-12-31 14:29:00 86 /min Universi ty of [facility] Body temperature 2021-12-31 14:29:00 37.17 Abril [facility] ersity of [facility] Respiratory rate 2021-12-31 14:29:00 18 /min Univ ersity [facility] Body height 2021-12-31 14:29:00 165.1 cm Universi ty [facility] Body weight 2021-12-31 14:29:00 114.76 kg Universi ty [facility] BMI 2021-12-31 14:29:00 42.10 kg/m2 Universi ty [facility] Systolic blood 2021-11-26 13:36:00 142 mm[Hg] Univer sity of pressure [facility] Diastolic blood 2021-11-26 13:36:00 84 mm[Hg] Unive rsity of pressure [facility] Heart rate 2021-11-26 13:36:00 86 /min Universi ty of [facility] Body height 2021-11-26 13:36:00 165.1 cm Universi ty [facility] Body weight 2021-11-26 13:36:00 114.306 kg Universi ty of [facility] BMI 2021-11-26 13:36:00 41.93 kg/m2 Universi ty [facility] [place] [facility] Oxygen saturation in 2021-11-26 13:36:00 95 /min University Arterial blood by [facility] P[facility] oximetry Branch height 2021-10-06 11:40:00 65.00 [in_i] [facility] weight 2021-10-06 11:40:00 250 [lb_av] [facility] temperature 2021-10-06 11:40:00 98.0 [degF] [facility] bmi 2021-10-06 11:40:00 41.6 kg/m2 [facility] height 2021-07-13 10:00:00 65.00 [in_i] [facility] weight 2021-07-13 10:00:00 252.8 [lb_av] [facility] temperature 2021-07-13 10:00:00 97.7 [degF] [facility] bmi 2021-07-13 10:00:00 42.06 kg/m2 [facility] oximetry 2021-07-13 10:00:00 96 % [facility] respiratory rate 2021-07-13 10:00:00 18 /min Comm on [facility] blood pressure 2021-07-13 10:00:00 128 mm[Hg] [facility] - systolic [facility] blood pressure 2021-07-13 10:00:00 80 mm[Hg] [facility] diastolic [facility] height 2021-06-10 13:00:00 65.00 [in_i] [facility] weight 2021-06-10 13:00:00 252.2 [lb_av] [facility] temperature 2021-06-10 13:00:00 97.3 [degF] [facility] bmi 2021-06-10 13:00:00 41.96 kg/m2 [facility] oximetry 2021-06-10 13:00:00 97 % Common [facility] respiratory rate 2021-06-10 13:00:00 18 /min Comm on [facility] blood pressure 2021-06-10 13:00:00 132 mm[Hg] Common [facility] - systolic [facility] blood pressure 2021-06-10 13:00:00 80 mm[Hg] [facility] - diastolic [facility] height 2021-02-18 09:00:00 65.00 [in_i] [facility] weight 2021-02-18 09:00:00 256 [lb_av] Common [facility] temperature 2021-02-18 09:00:00 97.3 [degF] Common [facility] bmi 2021-02-18 09:00:00 42.6 kg/m2 [facility] blood pressure 2021-02-18 09:00:00 126 mm[Hg] [facility] - systolic [facility] blood pressure 2021-02-18 09:00:00 84 mm[Hg] [facility] - diastolic [facility] height 2021-02-08 10:20:00 65.00 [in_i] Common [facility] weight 2021-02-08 10:20:00 253.0 [lb_av] Common [facility] temperature 2021-02-08 10:20:00 98.0 [degF] Common [facility] bmi 2021-02-08 10:20:00 42.1 kg/m2 Common [facility] oximetry 2021-02-08 10:20:00 79 % Common [facility] respiratory rate 2021-02-08 10:20:00 16 /min Comm on [facility] blood pressure 2021-02-08 10:20:00 192 mm[Hg] Common [facility] - systolic [facility] blood pressure 2021-02-08 10:20:00 87 mm[Hg] Common [facility] - diastolic [facility] height 2020-10-22 09:30:00 65.00 [in_i] Common [facility] weight 2020-10-22 09:30:00 254.3 [lb_av] [facility] - [facility] bmi 2020-10-22 09:30:00 42.31 kg/m2 [facility] - [facility] blood pressure 2020-10-22 09:30:00 164 mm[Hg] Common [facility] - systolic [facility] blood pressure 2020-10-22 09:30:00 88 mm[Hg] Common [facility] - diastolic [facility] Procedures Procedure Date / Time Performed Performing Clinician [facility] e REFERRAL- 2022-07-05 05:01:00 Doctor Unassigned, No [facility] [place] REQUEST/RESPONSE Name Medical [facility] DISCLOSURE AND 2021-12-31 05:01:00 Doctor Unassigned, No [facility] [place] CONSENT, MEDICAL AND Name Medical [facility] SURGICAL PROCEDURES EXTERNAL MAMMOGRAM 2020-07-24 15:39:00 Doctor Unassigned, No Uni versity of [facility] EXTERNAL FIT DNA 2020-07-22 21:15:00 Doctor Unassigned, No Unive rsity of [facility] Encounters Start End Encounter Admission Attending Care Care Encounter Source Date/Time Date/Time Type Type Clinicians Facility Department ID 2022-12-01 [facility] [id number] Common 08:55:00 Avnee [id number] [facility] 2022-09-05 Outpatient Callahan, STLMLC STLC [id number] Common 16:44:00 Avnee 58031 [facility] 2022-07-07 Outpatient Callahan, STLMLC STLMLC [id number] Common 15:31:00 Avnee [id number] [facility] 2021-10-06 Outpatient Rebecca Hernandes STSPENCERLC STLC [id number] 2 Common 11:14:01 [facility] 2021-06-10 Outpatient Rebecca Hernandes STLC STLC [id number] 2 Common 13:07:01 [facility] 2021-06-08 Outpatient Hernandes, Na STLMLC STLMLC [id number] 2 Common 11:25:01 [facility] 2021-04-28 Outpatient Hernandes, Na STLMLC STLMLC [id number] 2 Common 13:53:21 [id number] [facility] 2021-04-28 Outpatient Hernandes, Na STLMLC STLMLC [id number] 2 Common 13:29:08 [id number] [facility] 2021-04-28 Outpatient Hernandes, Na STLMLC STLMLC [id number] 2 Common 12:37:42 64922 [facility] 2021-04-28 Outpatient Hernandes, Na STLMLC STLMLC [id number] 2 Common 12:37:27 [id number] [facility] 2021-04-28 Outpatient Hernandes, Na STLMLC STLMLC [id number] 2 Common 12:22:12 10617 [facility] 2021-04-28 Outpatient Hernandes, Na STLMLC STLMLC [id number] 2 Common 12:15:13 [id number] [facility] 2021-04-28 Outpatient Hernandes, Na STLMLC STLMLC [id number] 2 Common 12:13:59 23080 [facility] 2021-04-28 Outpatient Hernandes, Na STLMLC STLMLC [id number] 2 Common 11:48:08 [id number] [facility] 2021-04-28 Outpatient Hernnades, Na STLMLC STLMLC [id number] 2 Common 11:47:05 12924 [facility] 2021-04-28 Outpatient Hernandes, Na STLMLC STLMLC [id number] 2 Common 11:46:30 [id number] [facility] 2021-04-28 Outpatient Hernandes, Na STLMLC STLMLC [id number] 2 Common 11:42:00 [id number] [facility] 2021-04-28 Outpatient STLMLC STLMLC [id number] Common 11:20:46 [id number] [facility] 2022-07-05 2022-07-05 Orders Doctor LETY [id number] Univers 00:00:00 00:00:00 Only Unassigned, NYA [id number] ity of [facility] [id number] Amari as [phone] [facility] [address] [place] 2022-05-19 2022-05-19 Telephone Team, [facility] LETY [id number] Univers 00:00:00 00:00:00 Health NYA [id number] it y of [facility] [id number] [place] [id number] [facility] [address] [place] 2022-02-08 2022-02-08 Outpatient R ADUM, [facility] [id number] Univers 10:00:00 10:00:00 LORY itpierre of [facility] 2022-02-01 2022-02-01 Telephone Team, [facility] LETY [id number] Univers 00:00:00 00:00:00 Health NYA [id number] it y of [facility] [id number] [place] [phone] [address] 2022-01-10 2022-01-10 Telephone Adum, [facility] [id number] Univers 00:00:00 00:00:00 Lory L [place] [id number] ity [facility] [id number] [id number] Mn dical [address] 2022-01-03 2022-01-03 Telephone Adum, [facility] [id number] Univers 00:00:00 00:00:00 Lory L [place] [id number] ity [facility] [id number] [phone] Mn dicil NAL [address] [place] [address] 2021-12-31 2021-12-31 Outpatient R ADUM, [facility] [id number] Univers 09:30:00 11:07:48 LORY cortes of [facility] 2021-12-31 2021-12-31 Office Adum, [facility] [id number] Univers 09:30:00 11:07:48 Visit Lory MOSQUERA [id number] ity [facility] [id number] [phone] [address] 2021-12-31 2021-12-31 Orders Doctor LETY [id number] [id number] Univers 00:00:00 00:00:00 Only Unassigned, NYA [id number] ity of [place] [facility] [id number] Amari as [id number] [address] 2021-11-26 2021-11-26 Outpatient R AD, [facility] [id number] Univers 08:30:00 09:31:06 LORY cortes [facility] 2021-11-26 2021-11-26 Office Ad, [facility] [id number] Univers 08:30:00 09:31:06 Visit Lory Tubbs DEMETRI [id number] ity [id number] [phone] [address] 2021-11-26 2021-11-26 Outpatient R AD, [facility] [id number] Univers 08:30:00 09:31:06 LORY cortes [facility] 2021-10-27 2021-10-27 Outpatient R JOSE JAUREGUI [facility] B [id number] Univers 11:15:00 14:18:05 JOSE JAUREGUIpierre [facility] 2021-10-27 2021-10-27 Office [facility] [id number] Univers 11:15:00 14:18:05 Visit Jose DELORIS [id number] it y of [id number] [id number] [address] 2021-10-27 2021-10-27 Outpatient R JOSE JAUREGUI [facility] B [id number] Univers 11:15:00 11:15:00 TAMMIJOSE GOTTI [facility] 2021-10-22 2021-10-22 Telephone Ad, [facility] [id number] Univers 00:00:00 00:00:00 Lory MOSQUERA [id number] [place]y [id number] [id number] [address] 2021-10-13 2021-10-13 Outpatient R JOSE JAUREGUI [facility] B [id number] Univers 14:45:00 15:33:02 JOSE JAUREGUI [facility] 2021-10-13 2021-10-13 Office [facility] [id number] Univers 14:45:00 15:33:02 Visit Jose PUENTES [id number] it y [id number] [id number] [address] 2021-10-13 2021-10-13 Outpatient R JOSE JAUREGUI [facility] B [id number] Univers 14:45:00 15:33:02 HODANJOSE EGAN [facility] 2021-10-08 2021-10-08 Telephone Ad, [facility] [id number] Univers 00:00:00 00:00:00 Lory MOSQUERA [id number] it[id number] [id number] Mn dical [address] 2021-10-06 2021-10-06 OFFICE STLMLC STLMLC [id number] Co mmon 00:00:00 00:00:00 VISIT EST Spir it PT LEVEL 3 - [facility] 2021-09-30 2021-09-30 (TEL) STLMLC STLMLC [id number] Co mmon 00:00:00 00:00:00 [facility] 2021-09-30 2021-09-30 (TEL) STLMLC STLMLC [id number] Co mmon 00:00:00 00:00:00 [facility] 2021-07-26 2021-07-26 (TEL) STLMLC STLMLC [id number] Co mmon 00:00:00 00:00:00 [facility] 2021-07-14 2021-07-14 (TEL) STLMLC STLMLC [id number] Co mmon 00:00:00 00:00:00 [facility] 2021-07-13 2021-07-13 OFFICE STLMLC STLMLC [id number] Co mmon 00:00:00 00:00:00 VISIT EST Spir it PT LEVEL 3 [facility] 2021-06-14 2021-06-14 (TEL) STLMLC STLMLC [id number] Co mmon 00:00:00 00:00:00 [facility] 2021-06-10 2021-06-10 OFFICE STLMLC STLMLC [id number] Co mmon 00:00:00 00:00:00 VISIT EST Spir it PT LEVEL 3 [facility] 2021-06-08 2021-06-08 Outpatient SHANEKA FREED [facility] [id number] Univers 15:00:00 [facility]:00[facility] 2021-05-31 2021-05-31 (TEL) STLC STLMLC [id number] Co mmon 00:00:00 00:00:00 [facility] 2021-04-02 2021-04-03 Emergency X LA [facility] ERT [id number] Univers 22:27:00 00:07:00 SOPHIA cortes [facility] 2021-04-02 2021-04-03 [facility] [id number] Univers 22:27:00 00:07:00 Sophia MOSQUERA [id number] [facility] [id number] [facility] [id number] [place] [address] [place] 2021-03-11 2021-03-11 Refill Adum, [facility] [id number] Univers 00:00:00 00:00:00 Lory MOSQUERA [id number] ity of [id number] [id number] Mn dical NAL [address] [place] [address] 2021-03-09 2021-03-09 Office Ad, [facility] [id number] Univers 10:32:16 11:42:20 Visit Lory MOSQUERA [id number] ity of [place] [id number] Mn dical NAL [address] [place] [address] 2021-03-09 2021-03-09 [facility] [id number] Univers 10:30:00 11:42:20 LORY ity [facility] 2021-03-09 2021-03-09 Outpatient R CATIE [facility] [id number] Univers 09:30:00 09:30:00 MARIANNA ity [facility] 2021-03-01 2021-03-01 [facility] [id number] Univers 00:00:00 00:00:00 Lory MOSQUERA [id number] ity of [id number] [phone] Mn dical NAL [address] [place] [address] 2021-02-22 2021-02-22 Telephone Ad, [facility] [id number] Univers 00:00:00 00:00:00 Lory MOSQUERA 350.1.13.10 ity of [id number] [id number] Mn dical NAL [address] [place] [address] 2021-02-18 2021-02-18 [facility] [id number] Co mmon 00:00:00 00:00:00 VISIT EST Spir it PT LEVEL 3 - [facility] 2021-02-10 2021-02-10 (TEL) STLMLC STLMLC [id number] Co mmon 00:00:00 00:00:00 Spirit [facility] 2021-02-08 2021-02-08 OFFICE STLMLC STLMLC [id number] Co mmon 00:00:00 00:00:00 VISIT [facility] LEVEL 2 [facility] 2021-02-08 2021-02-08 (TEL) STLMLC STLMLC [id number] Co mmon 00:00:00 00:00:00 [facility] 2021-02-04 2021-02-04 (TEL) STLMLC STLMLC [id number] Co mmon 00:00:00 00:00:00 [facility] 2021-01-20 2021-01-20 Office Adum, [facility] [id number] Univers 13:08:33 14:37:23 Visit Lory Mosquera 350.1.13.10 it[place] of [place] [id number] [address] 2021-01-20 2021-01-20 Outpatient R AD, [facility] [id number] Univers 13:00:00 13:00:00 LORY cortes [facility] 2021-01-20 2021-01-20 Orders Doctor LETY [id number] [id number] Univers 00:00:00 00:00:00 Only Unassigned, NYA 350.1.13.10 ity of [place] [facility] [id number] Amari as [phone] [address] 2021-01-19 2021-01-19 Telephone Adum, [facility] [id number] Univers 00:00:00 00:00:00 Lory Mosquera 350.1.13.10 it[place] of [place] [phone] Mn dical nal [address] [place] [address] 2020-12-24 2020-12-24 (TEL) STLMLC STLMLC [id number] Co mmon 00:00:00 00:00:00 [facility] 2020-12-01 2020-12-01 OL DIG E/M STLMLC STLMLC [id number] Common 00:00:00 00:00:00 SVC 5-10 Spiri t [facility] 2020-11-24 2020-11-24 (TEL) STLMLC STLMLC [id number] Co mmon 00:00:00 00:00:00 [facility] 2020-11-04 2020-11-04 (TEL) STLMLC STLMLC [id number] Co mmon 00:00:00 00:00:00 [facility] 2020-10-22 2020-10-22 OFFICE STLMLC STLMLC [id number] Co mmon 00:00:00 00:00:00 VISIT [facility] 4 [facility] 2020-07-29 2020-07-29 Outpatient STLMLC STLMLC [id number] Common 00:00:00 00:00:00 [facility] 2020-07-29 2020-07-29 Outpatient STLMLC STLMLC [id number] Common 00:00:00 00:00:00 [facility] 2020-06-10 2020-06-10 Outpatient STLMLC STLMLC [id number] Common 00:00:00 00:00:00 [facility] 2020-06-09 2020-06-09 Outpatient STLMLC STLMLC [id number] Common 00:00:00 00:00:00 [facility] 2020-04-21 2020-04-21 Outpatient STLMLC STLMLC [id number] Common 00:00:00 00:00:00 [facility] 2020-03-19 2020-03-19 Outpatient STLMLC STLMLC [id number] Common 00:00:00 00:00:00 [facility] 2020-03-18 2020-03-18 Outpatient STLMLC STLMLC [id number] Common 00:00:00 00:00:00 [facility] 2020-03-10 2020-03-10 Outpatient STLMLC STLMLC [id number] Common 00:00:00 00:00:00 [facility] 2020-03-02 2020-03-02 Outpatient STLMLC STLMLC [id number] Common 00:00:00 00:00:00 [facility] 2020-03-02 2020-03-02 Outpatient STLMLC STLMLC [id number] Common 00:00:00 00:00:00 [facility] 2020-02-20 2020-02-20 Outpatient STLMLC STLMLC [id number] Common 00:00:00 00:00:00 [facility] 2020-02-20 2020-02-20 Outpatient STLMLC STLMLC [id number] Common 00:00:00 00:00:00 [facility] 2020-02-04 2020-02-04 Outpatient STLMLC STLMLC [id number] Common 00:00:00 00:00:00 [facility] 2020-01-06 2020-01-06 Outpatient STLMLC STLMLC [id number] Common 00:00:00 00:00:00 [facility] 2019-12-19 2019-12-19 Outpatient STLMLC STLMLC [id number] Common 00:00:00 00:00:00 [facility] 2019-12-02 2019-12-02 Out[facility] [id number] Common 10:05:00 10:05:[address] [place] [address] [place] [address] Sp[address] Drive [facility] 2019-11-11 2019-11-11 Outpatient [facility] [id number] Common 16:20:00 16:20:00 [place] [address] Sp[address] [facility] 2019-10-30 2019-10-30 Outpatient [facility] [id number] Common 09:44:00 09:44:00 [place] [address] Sp[address] [facility] 2019-10-15 2019-10-15 Outpatient [facility] [id number] Common 14:39:00 14:39:00 t [place] [address] Sp[address] [facility] 2019-09-04 2019-09-04 Outpatient [facility] [id number] Common 10:40:00 10:40:00 [place] [address] Sp[address] [facility] 2019-08-07 2019-08-07 Outpatient Gamaliel Yañez [id number] Common 14:28:00 14:28:00 [place] [address] Spir [address] [facility] 2019-08-07 2019-08-07 Outpatient Gamaliel Yañez [id number] Common 11:20:00 11:20:00 [place] [address] Spir [address] Drive [facility] Results Test Description Test Time Test Comments Results Result Comments Source Urine Culture,Comprehensive 2021-06-10 00:00:00 Test Item Value Reference Range Interpretation Comme nts Urine Culture,Comprehensive (test code = 630-4) Final report EXTERNAL FIT [id number] 21:40:00 Test Item Value Reference Range Interpretation [...] (Enmanuel Wang al, N Engl J Med 2014;370(14):4629-1070) The normal value (reference range) for this assay is negative. COLOGUARD RE-SCREENING RECOMMENDATION: Periodic routine colorectal cancer screening is an important part of preventive healthcare for asymptomatic persons at average risk for colorectal cancer. Following a negative Cologuard result, the [place] [employer] and U.S. Multi-Society Task Force screening guidelines recommend a Cologuard re-screening interval of 3 years. References: [place] [employer] (ACS). Colorectal cancer prevention and early detection. [place], [place]: [place]; [updated 2015Jul 25]. https://www.cancer.org/ cancer/nwftb-lxedrv-cur cer/detection-diagnosis -staging/acs-recommenda tions.html. Accessed December 01, 2017; Chirag DK, Dimitri CR, Cristobal OchoaK, Colorectal Cancer Screening: Recommendations for Physicians and Patients from the U.S. Multi-Society Task Force on Colorectal Cancer Screening, Am J Gastroenterology 2017; 112:8401-6704. TEST TYPE: Composite algorithmic analysis of stool [...] interval of every 3 years by the [place] [employer] and U.S. Multi-Society Task Force. [...] can be accessed at the following location: www.[employer]/resul ts. Additional description of the Cologuard test process, warnings and precautions can be found at www.cologuardtest.com. Rx only. Resulting Agency Modern [facility] (CLIA #:[id number]) Specimen Collected: 07/22/20 16:15 Last Resulted: 07/28/20 16:40 Received From: [facility] Result Received: 01/20/21 13:08 Lab Interpretation Normal (test code = 76073-0) [id number] 18:08:00 Test Item Value Reference Range Interpretation Comments Radiology Study observation (narrative) (test code = 31375-1) SKY (test code = SKY) Please find results in Care Everywhere. 3D SCR EMERSON BILAT W/CAD 2020-07-27 13:08:00 [facility] Name: KATERINE NEUMANN : 1955 Sex: F [place] [address] RADIOLOGY SERVICES REPORT Name: KATERINE NEUMANN Acct Number: [id number] :1955 Age:64 Sex:F Ord Phys: Rebecca Hernandes DO Unit Number: [id number] [facility] [facility] [address]: Status: REG REF RAD Exam [...] 1308 Lab Interpretation Normal (test code = 81925-1) [facility]2018-09-20 15:54:00 Test Item Value Reference Range Interpretation Comments CREATINE KINASE (CK) (test code = 171 Unit/L 26-192 N CK) NT PRO-BRAIN NATRIURETIC [id number] 15:54:00 Test Item Value Reference Range Interpretation Comments NT PRO-BRAIN NATRIURETIC PEPTI 141 PG/ML 0-100 H (test code = PROBNP) - XR CHEST 1 [id number] 15:51:00 Name: KATERINE NEUMANN : 1955 Age/S: 63 / F [address] [place] [address] Unit #: [id number] Loc: [place] [address] Phys: Donald Williamson MD Acct: [id number] Dis Date: Status: PRE ER PHONE #:[phone] Exam Date: 09/20/2018 1540 FAX #: Reason: SOB EXAMS: CPT: [id number] XR CHEST 1 V 28571Ceayya Time: DAP (Gy m2): Air Kerma (mGy): EXAM: CHEST ONE VIEW INDICATION: Shortness of breath LOCATION: B2 COMPARISON: None available TECHNIQUE: AP view of the chest FINDINGS: The heart size is normal. The lungs are clear bilaterally. The pulmonary vasculature is normal. No pneumothorax or pleural effusion is identified. The osseous structures are normal. IMPRESSION: No acute cardiopulmonary process. at 5757 Reported and signedby: Joleen Collazo M.D. CC: Donald Williamson MD PAGE 1 Signed Report [facility]: 1955 Age/S: 63 / F [address] [place] [address] Unit #: [id number] Loc: [place] [address] Phys: Donald Williamson MD Acct: [id number] Dis Date: Status: PRE ER PHONE #: [phone] Exam Date: 09/20/2018 1540 FAX #: Reason: SOB EXAMS: CPT: [id number] XR CHEST 1 V 24887 Fluoro Time: DAP (Gy m2): Air Kerma (mGy): (Continued) Technologist: Laci Cantu, RT(R)(CT) Trnscb Date/Time: 09/20/2018 (5515) 16 Orig Print D/T: S: 09/20/2018 (6084) PAGE 2 Signed ReportCBC W/O [id number] 15:41:00 Test Item Value Reference Range Interpretation [...] 10.00 fL 7.0-10.5 N MPV) TROPONIN I [id number] 15:40:00 Test Item Value Reference Range Interpretation Comments TROPONIN I RAPID 0.00 ng/mL 0.00-0.08 N - The use o f serial (test code = sampling and te sting TROPIRAP) protocol is a recommended pra ctice- An elevated tro ponin level alone is often not sufficient for diagnosis of my ocardial infarction. URINALYSIS [id number] 15:36:00 Test Item Value Reference Range Interpretation [...] LEUU) Urine Specimen Type: Clean CatchCHEMISTRY 8 [id number] 15:34:00 Test Item Value Reference Range Interpretation [...] 45-104 N code = GFRBED) CHEMISTRY 8 [id number] 15:34:00 Test Item Value Reference Range Interpretation [...] Notes Date/Time Note Provider Source 2018-09-20 16:03:00-00:00 [id number] [address] PATIENT NAME: KATERINE NEUMANN ADMIT DATE: 09/20/18 ACCOUNT NO: [id number] ROOM NO: AGE: 63 REPORT TYPE: eELECTROCARDIOGRAM SEX: F ADMITTING PHYSICIAN: ATTENDING PHYSICIAN: Order: [id number] Test Reason : Test Date/Time Stamp: MonSep [...] PATIENT NAME: KATERINE NEUMANN 78 2018-09-20 14:49:00-00:00 [facility] ([facility]) EMERGENCY PROVIDER REPORT REPORT#:[id number] REPORT STATUS: Signed DATE:09/20/18 TIME:1449 PATIENT: KATERINE NEUMANN UNIT #: [id number] ROOM/BED: : 54 AGE: 63 SEX: F PCP PHYS: No Primar y or Family Physician SERVICE AUTHOR: Donald Williamson MD * ALL edits or amendments must be made on the el [email or web address]/computer document * HPI-Extremity Prob Lower General Confirmed [...] 09/20 1409 O2 Delivery Room air 09/20 1702 Last Documented: Result Date Time Pulse Ox 98 09/20 1702 B/P 158/82 09/20 1702 B/P Mean 107 09/20 1702 O2 Delivery Room air 09/20 1702 Temp 98.1 09/20 1701 Pulse 89 09/20 170 Resp 20 09/20 170 Review of Vital [...] - 7.0 pH UNITS) 6.5 Ur Specific [place] (1.005 - 1.030 SG) 1.020 Urine Protein [...] 09/20 1409 O2 Delivery Room air 09/20 1702 Last Documented: Result Date Time Pulse Ox 98 09/20 1702 B/P 158/82 09/20 1702 B/P Mean 107 [...] symptoms should prompt an immediate return to [facility] or the closest emergency department or a call to 911. Supervising Physician Note Scribe Statement Bell Parker, 09/20/18 1450, scribing for and in the presence of Dr. Williamson. Signed By: Bell Parker, 09/20/18 1450 Provider Scribed Statement I personally performed the s ervices described in this documentation and reviewed the documentation that was dictated to the scrib e(s) in my presence, and it accurately records my words and actions. Karrie Williamson, 09/23/18 Portions of this section were scribed by Bell Parker on 09/20/18 at 1645 Electronically Signed by Donald Williamson MD on at 1238 RPT #: [id number] END OF REPORT
[2022-12-02 12:01] LABS: Urine Bacteria None Seen /HPF (<20); Urine Bilirubin NEGATIVE (Negative); Urine Blood 2+ (Negative); Urine Clarity Turbid (Clear); Urine Color Yellow (Yellow); Urine Glucose NEGATIVE (Negative); Urine Mucus Slight /HPF (None Seen); Urine Protein TRACE (Negative); Urine RBC >50 /HPF (None Seen); Urine Urobilinogen Normal (Normal); Urine pH 5.5 (5.0-7.0)
[2022-12-02 12:07] LABS: Absolute Lymphocytes (CBC) 2.1 K/uL (0.7-4.9); Hematocrit 38.7 % (36.0-45.0); Lymphocytes % 14.5 % (15.3-44.8); MCV 85.6 fL (80-100); MPV 7.5 fL (7.6-11.3); Platelets 339 thou/uL (152-406); RBC Red Blood Cell Count 4.52 M/uL (3.86-4.86)
--- NOTE | 2022-12-02 12:09 | RAD REPORT ---
EXAM DESCRIPTION: CT - Abdomen Pelvis Wo Contrast - 12/02/2022 11:43 am CLINICAL HISTORY: KIDNEY STONES COMPARISON: Stone Protocol dated 11/28/2022; Abdomen Pelvis W Contrast dated 11/24/2022; Abdomen P edson W Contrast dated 02/08/2021 TECHNIQUE: Thin cut axial CT imaging of the abdomen and pelvis was performed without IV contrast. Mu ltiplanar reformats were generated and reviewed. All CT scans are performed using dose optimization technique as appropriate and may include automated exposure control or mA/KV adjustment according to patient size. FINDINGS: No suspicious findings in the lung bases. The liver, spleen, adrenal glands, and pancreas show no suspicious findings. Gallbladder was surgical ly removed. Symmetric renal contour, without suspicious parenchymal findings within limits of noncontrast techniq ue. 6 millimeter calculus again seen along the proximal left ureter, with mild left hydronephrosis. No dilated bowel loops or bowel wall thickening. Colonic diverticulosis. No free air, free fluid or i nflammatory stranding. No suspicious mass or bulky lymphadenopathy. Sequelae of prior ventral hernia repair. The urinary bladder is without significant finding. No suspicious bony findings. IMPRESSION: Stable 6 millimeter left proximal ureter calculus with mild left hydronephrosis. No other acute abdominal process.
[2022-12-02 12:24] LABS: Albumin 3.2 g/dL (3.4-5.0); Bilirubin Total 0.3 mg/dL (0.2-1.0); Potassium 3.9 mEq/L (3.5-5.1)
[2022-12-02] MEDS ORDERED: CEFTRIAXONE 1000 MG/VIAL ONE (13:58)
--- NOTE | 2022-12-02 14:54 | EDPHYS ---
Physician Documentation [facility] Name: Marija Henry Age: 67 yrs Sex: Female : 1955 Arrival Date: 12/02/2022 Time: 10:44 Bed 6 Private MD: ED Physician Cammy Shell HPI: 12/02 11:36 This 67 yrs old Female presents to ER via Ambulatory with complaints of Low Back Pain - sp3 kidney stone. 11:37 67-year-old female with no significant past medical history but recently diagnosed with sp3 UTI on November 28 and kidney stone on December 01 7 mm at the left UPJ that presents again to the ED today for continued left-sided flank pain. She states that the pain is continued and she does not feel like the stone is moving. She denies fever, dysuria, gross hematuria, cloudy urine, lower abdominal pain, chest pain, shortness of breath, rash, neuro symptoms, syncope, or any other signs or symptoms on ROS at this time. Patient states she took 2 codeine tablets this morning and she mildly feels better but wants to get rechecked out for position of the stone. She is currently on antibiotics from 11/28.. Historical: - Allergies: 11:30 latex; iw - PSHx: 11:30 Bladder lift; Cholecystectomy; hernia repair; kidney stone; partial hysterectomy; skin iw cancer removed; - Immunization history:: Client reports receiving the 2nd dose of the Covid vaccine. - Social history:: Smoking status: Patient denies any tobacco usage or history of. ROS: 11:38 Constitutional: Negative for fever, chills, and weight loss, Eyes: Negative for injury, sp3 pain, redness, and discharge, Neck: Negative for injury, pain, and swelling, Cardiovascular: Negative for chest pain, palpitations, and edema, Respiratory: Negative for shortness of breath, cough, wheezing, and pleuritic chest pain, MS/Extremity: Negative for injury and deformity, Skin: Negative for injury, rash, and discoloration, Neuro: Negative for headache, weakness, numbness, tingling, and seizure, Psych: Negative for depression, anxiety, suicide ideation, homicidal ideation, and hallucinations, Allergy/Immunology: Negative for hives, rash, and allergies, Endocrine: Negative for neck swelling, polydipsia, polyuria, polyphagia, and marked weight changes, Hematologic/Lymphatic: Negative for swollen nodes, abnormal bleeding, and unusual bruising. 11:38 All other systems are negative. Exam: 11:39 Constitutional: This is a well developed, well nourished patient who is awake, alert, sp3 and in no acute distress. Head/Face: Normocephalic, atraumatic. Eyes: Pupils equal round and reactive to light, extra-ocular motions intact. Lids and lashes normal. Conjunctiva and sclera are non-icteric and not injected. Cornea within normal limits. Periorbital areas with no swelling, redness, or edema. ENT: Nares patent. No nasal discharge, no septal abnormalities noted. External auditory canals are clear. Oropharynx with no redness, swelling, or masses, exudates, or evidence of obstruction, uvula midline. Mucous membranes moist. Neck: Trachea midline, no thyromegaly or masses palpated, and no cervical lymphadenopathy. Supple, full range of motion without nuchal rigidity, or vertebral point tenderness. No Meningismus. Chest/axilla: Normal chest wall appearance and motion. Nontender with no deformity. No lesions are appreciated. Cardiovascular: Regular rate and rhythm with a normal S1 and S2. No gallops, murmurs, or rubs. Normal PMI, no JVD. No pulse deficits. Respiratory: Lungs have equal breath sounds bilaterally, clear to auscultation and percussion. No rales, rhonchi or wheezes noted. No increased work of breathing, no retractions or nasal flaring. Skin: Warm, dry with normal turgor. Normal color with no rashes, no lesions, and no evidence of cellulitis. MS/ Extremity: Pulses equal, no cyanosis. Neurovascular intact. Full, normal range of motion. Neuro: Awake and alert, GCS 15, oriented to person, place, time, and situation. Cranial nerves II-XII grossly intact. Motor strength 5/5 in all extremities. Sensory grossly intact. Cerebellar exam normal. Normal gait. 11:39 Abdomen/GI: Patient has left flank pain. Abdomen is mildly tender on the left side however there are no peritoneal signs, rebound or guarding.. Vital Signs: 11:30 BP 144 / 83; Pulse 74; Resp 16; Temp 98.2; Pulse Ox 97% on R/A; Weight 113.4 kg; Height iw 5 ft. 6 in. ; Pain 5/10; 14:59 BP 158 / 72; Pulse 82; Resp 16; Pulse Ox 99% ; ko1 11:30 Body Mass Index 40.35 (113.40 kg, 167.64 cm) iw 11:30 Pain Scale: Adult iw MDM: 11:26 Patient medically screened. sp3 11:40 Data reviewed: vital signs, nurses notes, old medical records, lab test result(s), sp3 radiologic studies. ED course: 67-year-old female with recent UTI and kidney stone now presents again for continued symptoms. I am concerned about possible infection on the left hydronephrosis side which may warrant admission if her symptoms continue as they are. We will obtain CT scan of the abdomen and pelvis again to demonstrate position and resolution. Laboratory values and UA are pending and we will add antibiotics and/or other intervention as indicated.. 14:52 ED course: Discussed with transfer center and urologist Dr. Gray who is graciously sp3 excepted this patient. We will be admitting to the hospitalist at [facility] with intervention as deemed necessary by urology. Ketorolac will be given as well prior to transfer per their request. Urine cultures were also try to be obtained and sent with patient.. 12/02 11:31 Order name: CBC with Diff; Complete Time: 12:14 sp3 12/02 11:31 Order name: CMP; Complete Time: 12:24 sp3 12/02 11:31 Order name: Lipase; Complete Time: 12:24 sp3 12/02 11:31 Order name: Urinalysis w/ reflexes; Complete Time: 12:14 sp3 12/02 11:34 Order name: CT Abd/Pelvis - Without Contrast; Complete Time: 12:14 sp3 12/02 11:31 Order name: IV Saline Lock; Complete Time: 12:01 sp3 12/02 11:31 Order name: Labs collected and sent; Complete Time: 12:01 sp3 Administered Medications: 13:48 Drug: Rocephin - Rocephin (cefTRIAXone) IVPB 1 grams Route: IVPB; Infused Over: 30 ko1 mins; Site: right antecubital; 14:00 Follow up: IV Status: Completed infusion iw 14:47 Not Given (Patient Refused): HYDROmorphone IVP 1 mg IVP once me1 14:48 Not Given (Patient Refused): Ondansetron IVP 4 mg IVP once; over 2 minutes me1 14:56 Drug: Ketorolac IVP 15 mg Route: IVP; Site: right antecubital; me1 16:56 Follow up: Response: No adverse reaction iw Disposition Summary: 12/02/22 14:53 Transfer Ordered Transfer Location: [facility] sp3 Reason: Higher level of care sp3 Condition: Stable sp3 Problem: new sp3 Symptoms: have worsened sp3 Accepting Physician: Dr. Gray(12/02/22 16:56) iw Diagnosis - Ureterolithiasis, hydronephrosis, flank pain, UTI, infected kidney stone sp3 Forms: - Medication Reconciliation Form sp3 - SBAR form sp3 Signatures: Dispatcher [employer] Mandy Villalba RN RN iw Cammy Shell MD MD sp3 Shonna Mojica RN RN ko1 Hannah Power RN RN me1 Corrections: (The following items were deleted from the chart) 16:56 14:53 Dr. Gray sp3 iw
--- NOTE | 2022-12-02 14:54 | ER ---
Nurse's Notes [facility] Name: Marija Henry Age: 67 yrs Sex: Female : 1955 Arrival Date: 12/02/2022 Time: 10:44 Bed 6 Private MD: Diagnosis: Ureterolithiasis, hydronephrosis, flank pain, UTI, infected kidney stone Presentation: 12/02 11:29 Chief complaint: Patient states: hx of kidney stones, was seen here recently, is due iw for follow up with Dr. Goddard but can;t get in til February, is here because she is out of pain medicine and still hurting . she took her last dose of T3 this morning. Coronavirus screen: At this time, the client does not indicate any symptoms associated with coronavirus-19. Ebola Screen: Patient negative for fever greater than or equal to 101.5 degrees Fahrenheit, and additional compatible Ebola Virus Disease symptoms Patient denies exposure to infectious person. Patient denies travel to an Ebola-affected area in the 21 days before illness onset. No symptoms or risks identified at this time. 11:29 Acuity: UDAY 3 iw 11:29 Method Of Arrival: Ambulatory iw 11:30 Onset of symptoms was November 23, 2022. iw 11:31 Initial Sepsis Screen: Does the patient meet any 2 criteria? No. Patient's initial iw sepsis screen is negative. Does the patient have a suspected source of infection? No. Patient's initial sepsis screen is negative. Risk Assessment: Do you want to hurt yourself or someone else? Patient reports no desire to harm self or others. Historical: - Allergies: 11:30 latex; iw - PSHx: 11:30 Bladder lift; Cholecystectomy; hernia repair; kidney stone; partial hysterectomy; skin iw cancer removed; - Immunization history:: Client reports receiving the 2nd dose of the Covid vaccine. - Social history:: Smoking status: Patient denies any tobacco usage or history of. Screenin:38 [facility] ED Fall Risk Assessment (Adult) Score/Fall Risk Level 0 - 2 = Low Risk. Abuse iw screen: Denies threats or abuse. Denies injuries from another. Nutritional screening: No deficits noted. Tuberculosis screening: No symptoms or risk factors identified. Assessment: 11:36 General: Appears in no apparent distress. Behavior is calm, cooperative. Pain: Pain: iw Complains of pain in left low back and left mid back Pain currently is 5 out of 10 on a pain scale. 11:37 Neuro: Level of Consciousness is awake, alert, obeys commands, Oriented to person, iw place, time, situation, Moves all extremities. Full function. Cardiovascular: Patient's skin is warm and dry. Respiratory: Respiratory effort is even, unlabored, Respiratory pattern is regular. : Reports pain in left flank(s). Derm: Skin is intact, is healthy with good turgor. Musculoskeletal: Range of motion: intact in all extremities. Vital Signs: 11:30 BP 144 / 83; Pulse 74; Resp 16; Temp 98.2; Pulse Ox 97% on R/A; Weight 113.4 kg; Height iw 5 ft. 6 in. ; Pain 5/10; 14:59 BP 158 / 72; Pulse 82; Resp 16; Pulse Ox 99% ; ko1 11:30 Body Mass Index 40.35 (113.40 kg, 167.64 cm) iw 11:30 Pain Scale: Adult iw ED Course: 10:47 Patient arrived in ED. im 10:47 Cammy Shell MD is Attending Physician. sp3 11:30 Triage completed. iw 11:30 Arm band placed on. iw 11:38 No provider procedures requiring assistance completed. iw 11:44 CT Abd/Pelvis - Without Contrast In Process Unspecified. EDMS 11:57 Mandy Franco, RN is Primary Nurse. iw 12:23 called and left message for patient's urologist Dr. Goddard to call Dr. Shell back. eb 13:[address] Tavera's office/ answering service will attempt to call eb Dr. Goddard. 13:25 initiated a transfer with Rg Esquivel Rn from the [facility]. eb 14:05 Rg from the [facility] [place] called said the urologist is with a patient eb and will call back. 14:59 Patient has correct armband on for positive identification. Bed in low position. Call ko1 light in reach. Side rails up X2. Provided Education on: na. Client placed on continuous cardiac and pulse oximetry monitoring. NIBP monitoring applied. playground monitor on. Door closed. Noise minimized. Lights dimmed. Warm blanket given. 14:59 Inserted saline lock: 20 gauge in right antecubital area, using aseptic technique. ko1 15:04 connected the hospitalist operations professional for [facility] with Dr. Shell for patient eb transfer consultation. 15:07 administrative approval given by Rg Esquivel Rn/ patient has been accepted to [facility] room 1654/ Dr. Ibarra has accepted the patient in transfer/ report to be called to [phone]. 16:55 Patient transferred, IV remains in place. iw Administered Medications: 13:48 Drug: Rocephin - Rocephin (cefTRIAXone) IVPB 1 grams Route: IVPB; Infused Over: 30 ko1 mins; Site: right antecubital; 14:00 Follow up: IV Status: Completed infusion iw 14:47 Not Given (Patient Refused): HYDROmorphone IVP 1 mg IVP once me1 14:48 Not Given (Patient Refused): Ondansetron IVP 4 mg IVP once; over 2 minutes me1 14:56 Drug: Ketorolac IVP 15 mg Route: IVP; Site: right antecubital; me1 16:56 Follow up: Response: No adverse reaction iw Medication: 14:59 VIS not applicable for this client. ko1 Outcome: 14:53 ER care complete, transfer ordered by . sp3 16:55 Transferred by ground EMS Transfer form completed. X-rays sent w/ patient. iw 16:55 Transferred city. to [facility]. iw 16:55 Condition: good 16:55 Instructed on the need for transfer. 16:56 Patient left the ED. iw Signatures: Dispatcher [employer] Mandy Villalba RN RN Gabrielle Licona Setul, MD MD sp3 Shonna Mojica RN RN ko1 Lesia Krishna Michelle, RN RN me1 Corrections: (The following items were deleted from the chart) 11:32 11:29 Chief complaint: Patient states: hx of kidney stones, was seen here recently, is iw due for follow up with Dr. Goddard but can;t get in til February, is here because she is out of pain medicine and still hurting iw 11:38 11:36 Pain: iw
[2022-12-02] MEDS ORDERED: KETOROLAC 30 MG/ML INJ ONE (15:06)
[2022-12-02 17:28] VITALS: TEMP 98.2
[2022-12-02 17:29] VITALS: BP 158/72; O2SAT 99
== END 2022-12-02 16:56 | disposition short-term general hospital (02) ==
LOC: ER 10:44
DX: N20.2 Calculus of kidney with calculus of ureter (principal); Z87.442 Personal history of urinary calculi; N39.0 Urinary tract infection, site not specified; N13.30 Unspecified hydronephrosis; Z91.040 Latex allergy status
CPT/HCPCS: 85025; 81001; 36415; 83690; 80053; 74176; 96375; 96374; 99285; J0696

== ENCOUNTER 2022-12-26 09:13 | Inpatient (IN) | payer OTHER ==
--- OUTSIDE RECORDS SUMMARY | 2022-12-26 09:22 | XMS REPORT | Continuity of Care Document ---
:1955 Author Organization [facility] t Address [address] [facility] [address] [place] [address] Care Team Providers Name Role Phone Rebecca Hernandes Primary Care Physician Dave Shell Attending Clinician Unavailable JANNIE RUST Attending Clinician Unavailable Juanjose Callahan Attending Clinician Unavailable Rebecca Hernandes Attending Clinician Unavailable AMINA SHAVER Attending Clinician Unavailable Anaya Ibarra MD Attending Clinician Batool Garcia MD Attending Clinician Amina Shaver MD Attending Clinician [phone] Tania Lyon MD, [place] Attending Clinician [phone] Jannie Rust MD Attending Clinician Doctor Unassigned, [place] Attending Clinician Unavailable Team, [facility] Maintenance Attending Clinician UnavailLORY Aiken Attending Clinician Unavailable Lory Peres MD Attending Clinician ZOEY JAUREGUI Attending Clinician Unavailable ZOEY JAUREGUI Attending Clinician Unavailable SHANEKA HOWARD Attending Clinician Unavailable SOPHIA TOVAR Attending Clinician Unavailable Sophia Tovar DO Attending Clinician MARIANNA HADDAD Attending Clinician Unavailable JANNIE RUST Admitting Clinician Unavailable BATOOL GARCIA Admitting Clinician Unavailable SOPHIA TOVAR Admitting Clinician Unavailable Payers Payer Name Policy Type Policy Number Effective Date Expiration Date S jessica [employer] MEDICARE [id number] 2019 ADV 00:00:00 HU[employer]NA MEDICARE C1 [id number] 2019 Common Sp [place] 00:00:[address] - [facility] HUMANA MEDICARE C1 [id number] 2019 Common [facility] [place] 00:00:00 - [facility] HUMANA MEDICARE C1 [id number] 2019 Common Sp [place] 00:00:00 - [facility] MEDICARE [id number] 2019 Common Sp [place] 00:00:00 - [facility] MEDICARE [id number] 2019 Common Sp [place] 00:00:00 - [facility] HUMANA MEDICARE C1 [id number] 2019 Common Sp [place] 00:00:00 - [facility] MEDICARE [id number] 2019 Common Sp [place] 00:00:00 - [facility] MEDICARE [id number] 2019 Common Sp [place] 00:00:00 - [facility] MEDICARE C1 [id number] 2019 Common Sp [place] 00:00:00 - [facility] Problems Condition Condition Condition Status Onset Resolution Last Treating Co mments Source Name Details Category Date Date Treatment Clinician Date Left Left Disease Active [facility] ureteral ureteral 12-03 [facility] stone stone 00:00: Medical 00 Center Pyelonephr Pyelonephr Disease Active [facility]is 12[facility]02 [facility] Pain Pain Disease Active Univers pelvic pelvic 10-29 ity of 00:00: [place] [facility] Localized, Localized, Disease Active U nivers primary primary 10-27 ity of osteoarth[place] it[place] of 00 [facility] shoulder shoulder Branch region region Pain in Pain in Disease Active Univers limb limb 10-27 ity of 00:00: [place] [facility] Shoulder Shoulder Disease Active Unive rs joint pain joint pain 10-27 it y of 00:00: [place] [facility] Tobacco Tobacco Disease Active Univers user user 10-27 ity of 00:00: [place] [facility] Varicose Varicose Disease Active Unive rs veins of veins of 10-27 ity of both lower both lower [place] extrem[place] extremitie 00 Me dical s s Branch BMI BMI Disease Active Univers 40.0-44.9, 40.0-44.9, 10-27 it y of adult adult 00:00: [place] 00 Medical Branch Vaginal Vaginal Disease Active Univers irritation irritation 10-24 it y of 00:00: [place] 00 [facility] Recurrent Recurrent Disease Active Uni vers candidiasi candidiasi 10-24 it y of s of s of 00:00: [place] vagina vagina 00 [facility] 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 10-24 ity of of female of female 00:[place] genital[place] 00 [facility] Postmenopa Postmenopa Disease Active 2020-04 U nivers usal usal 0-22 ity of atrophic atrophic 00:00: [place] vaginitis vaginitis 00 [facility] [id number] Leukocytos Problem Co mmon is, Spirit unspecifie - CHI d type [facility] [id number] History of Problem Co mmon skin Spirit cancer in - CHI adulthood [facility] [id number] Gallstones Problem Co mmon Spirit - CHI [facility] [id number] Depression Problem Co mmon with Spirit anxiety - CHI [facility] [id number] Pain of Problem Commo n right Spirit great toe - CHI [facility] [id number] Varicose Problem Commo n veins of Spirit both legs - CHI with edema [facility] [id number] Primary Problem Comm on osteoarthr Spirit itis of - CHI left [facility] [id number] Asthma, Problem Commo n mild Spirit intermitte - CHI nt, [facility] [id number] Cigarette Problem Comm on nicotine Spirit dependence - CHI without [facility] complicati [facility] [id number] [place] Problem C ommon [id number] racic Spirit bursitis - CHI of right [facility] [id number] Acute pain Problem Com mon of right Spirit shoulder - CHI [facility] [id number] Primary Problem Comm on osteoarthr Spirit itis of - CHI right [facility] Allergies, Adverse Reactions, Alerts Allergy Allergy Status Severity Reaction(s) Onset Inactive Treating Comm ents Source Name Type Date Date Clinician LATEX DRUG Active High Unknown-Cmnt 2020-04 Univ ers INGREDI 2 ity of 00:00: [place] 00 Medical [place] Latex Propensi Active Unknown - 2020-04 It turns Uni vers ty to See comments 05-10 skin ity of adverse 00:00: 'raw' per [place] reaction 00 pt Medical s Branch No Known DA Active U [facility] Allergie 09-20 [place] 00:00: d 00 [facility] NO KNOWN Allergy Active [facility] Latex Latex Active Unknown Common Spirit - CHI [facility] Social History Social Habit Start Date Stop Date Quantity Comments Source History of tobacco Cigarette Smoker [facility] use [facility] Alcohol intake 2022-12-06 2022-12-06 Ex-drinker [facility] es 00:00:00 00:00:00 (finding) [facility] Cigarettes smoked 2022-12-02 2022-12-02 [facility] current (pack per 00:00:00 00:00:00 Medical Center day) - Reported Exposure to 2021-12-21 2021-12-31 Not sure University of SARS-CoV-2 (event) 00:00:00 09:25:00 [facility] Tobacco use and 2021-10-13 2021-10-13 Smokeless Universit y of exposure 00:00:00 00:00:00 tobacco non-user [facility] Tobacco Comment 2021-10-13 2021-10-13 trying to quit Unive rsity of 00:00:00 00:00:00 [facility] Sex [birth year] At [birth year] EMILY Dianas 00:00:00 00:00:00 Medical Center Smoking Status Start Date Stop Date Source Smokes tobacco daily 2022-12-02 00:00:00 [facility] Medications Ordered Filled Start Stop Current Ordering Indication Dosage Frequency Signature Comments Components Source Medication Medication Date Date Medication? Clinician (SIG) Name Name tamsulosin 2022- Yes .4mg QD Take [address] (FLOMAX) 12-05 capsule [facility] 0.4 mg Cap 00:00: 23:59 (0.4 mg Med ical 24 hr 00 :00 total) by Center capsule mouth daily for 60 days. tamsulosin 2022- Yes .4mg QD Take [address] (FLOMAX) 12-05 capsule [facility] 0.4 mg Cap 00:00: 23:59 (0.4 mg Med ical 24 hr 00 :00 total) by Center capsule mouth daily for 60 days. oxybutynin 2023- Yes 5mg [id number] Take [address] (DITROPAN) 12-04 [id number] tablet (5 [facility] 5 MG tablet 00:00: 23:59 3D mg total) Medical 00 :00 by mouth 3 Center (three) times daily. benzocaine- 2023- Yes 1{lozen Place [address] menthoL 12-04 ge} lozenge [facility]ukes (CHLORASEPT 00:00: 23:59 inside Med ical IC) 6-10 mg 00 :00 cheek Center lozenge every 2 (two) hours as needed. oxybutynin 2023- Yes 5mg Q.[id number] Take [address] (DITROPAN) 12-04 [id number] tablet (5 [facility] 5 MG tablet 00:00: 23:59 3D mg total) Medical 00 :00 by mouth 3 Center (three) times daily. benzocaine- 2023- Yes 1{lozen Place [address] menthoL 12-04 ge} lozenge [facility] (CHLORASEPT 00:00: 23:59 inside Med ical IC) 6-10 mg 00 :00 cheek Center lozenge every 2 (two) hours as needed. traMADoL 2022-0 2022- No 50mg Take [address] (ULTRAM) 50 12-04 tablet (50 L ukes mg tablet 00:00: 23:59 mg total) Me dical 00 :00 by mouth Center every 6 (six) hours as needed for up to 10 days. Max Daily Amount: 200 mg traMADoL 2022-0 2022- No 50mg Take [address] (ULTRAM) 50 12-04 tablet (50 L ukes mg tablet 00:00: 23:59 mg total) Me dical 00 :00 by mouth Center every 6 (six) hours as needed for up to 10 days. Max Daily Amount: 200 mg sulfamethox 2022-0 2022- No 160mg{t Q.5D Take [address] azole-trime 12-04 rimetho tablet Melita kes thoprim 00:00: 23:59 prim} (160 mg of Me dical (BACTRIM 00 :00 trimethopr Cente r DS) 800-160 im total) mg per by mouth 2 tablet (two) times daily for 5 days. sulfamethox 2022-0 2022- No 160mg{t Q.5D Take [address] azole-trime 12-04 rimetho tablet Melita kes thoprim 00:00: 23:59 prim} (160 mg of Me dical (BACTRIM 00 :00 trimethopr Cente r DS) 800-160 im total) mg per by mouth 2 tablet (two) times daily for 5 days. phenazopyri 2022-0 2022- No 200mg Take [address] dine 12-04- tablets [facility]ukes (PYRIDIUM) 00:00: 23:59 (200 mg Med ical 100 MG 00 :00 total) by Center tablet mouth 3 (three) times daily as needed for Pain for up to 3 days. phenazopyri 2022-0 2022- No 200mg Take [address] dine 12-04 tablets [facility] (PYRIDIUM) 00:00: 23:59 (200 mg Med ical 100 MG 00 :00 total) by Center tablet mouth 3 (three) times daily as needed for Pain for up to 3 days. clobetasoL 2021-04 Yes Apply to Uni vers 0.05 % 0-04 area(s) ity of ointment 00:00: daily. [place] [facility] clobetasoL 2021-04 Yes Apply to Uni vers 0.05 % 0-04 area(s) ity of ointment 00:00: daily. [place] [facility] clobetasoL 2021-04 Yes Apply to Uni vers 0.05 % 0-04 area(s) ity of ointment 00:00: daily. [place] [facility] clobetasoL 2021-04 Yes Apply to Uni vers 0.05 % 0-04 area(s) ity of ointment 00:00: daily. [place] [facility] clobetasoL 2021-04 Yes Apply to Uni vers 0.05 % 0-04 area(s) ity of ointment 00:00: daily. [place] [facility] valACYclovi Yes [id number] 1g Take 1 Univers r (VALTREX) 9-30 tablet by ity of 1 gram 00:00: mouth in [place] tablet 00 the Medical morning Branch and 1 tablet in the evening. valACYclovi Yes [id number] 1g Take 1 Univers r (VALTREX) 9-30 tablet by ity of 1 gram 00:00: mouth in [place] tablet 00 the Medical morning Branch and 1 tablet in the evening. valACYclovi Yes [id number] 1g Take 1 Univers r (VALTREX) 9-30 tablet by ity of 1 gram 00:00: mouth in [place] tablet 00 the Medical morning Branch and 1 tablet in the evening. valACYclovi Yes [id number] 1g Take 1 Univers r (VALTREX) 9-30 tablet by ity of 1 gram 00:00: mouth in [place] tablet 00 the Medical morning Branch and 1 tablet in the evening. valACYclovi 0 Yes [id number] 1g Take 1 Univers r (VALTREX) 9-30 tablet by ity of 1 gram 00:00: mouth in [place] tablet 00 the Medical morning Branch and 1 tablet in the evening. valACYclovi 0 Yes [id number] 1g Take 1 Univers r (VALTREX) 9-30 tablet by ity of 1 gram 00:00: mouth in [place] tablet 00 the Medical morning Branch and 1 tablet in the evening. valACYclovi 2-0 Yes [id number] 1g Take 1 Univers r (VALTREX) 9-30 tablet by ity of 1 gram 00:00: mouth in [place] tablet 00 the Medical morning Branch and 1 tablet in the evening. valACYclovi 2021-0 Yes [id number] 1g Take 1 Univers r (VALTREX) 9-30 tablet by ity of 1 gram 00:00: mouth in [place] tablet 00 the Medical morning Branch and 1 tablet in the evening. estradioL 2021-0 Yes [id number] 1g Insert 1 g Univers 0.01 % (0.1 8-26 into ity of mg/gram) 00:00: vagina [place] vaginal 00 weekly. Medical cream Insert Branch every night for 2 weeks and then 3 times a week M/W/F estradioL 2021-0 Yes [id number] 1g Insert 1 g Univers 0.01 % (0.1 8-26 into ity of mg/gram) 00:00: vagina [place] vaginal 00 weekly. Medical cream Insert Branch every night for 2 weeks and then 3 times a week M/W/F estradioL 2021-0 Yes [id number] 1g Insert 1 g Univers 0.01 % (0.1 8-26 into ity of mg/gram) 00:00: vagina [place] vaginal 00 weekly. Medical cream Insert Branch every night for 2 weeks and then 3 times a week M/W/F estradioL 2021-0 Yes [id number] 1g Insert 1 g Univers 0.01 % (0.1 8-26 into ity of mg/gram) 00:00: vagina [place] vaginal 00 weekly. Medical cream Insert Branch every night for 2 weeks and then 3 times a week M/W/F estradioL 2-0 Yes [id number] 1g Insert 1 g Univers 0.01 % (0.1 8-26 into ity of mg/gram) 00:00: vagina [place] vaginal 00 weekly. Medical cream Insert Branch every night for 2 weeks and then 3 times a week M/W/F estradioL 2022-0 Yes [id number] 1g Insert 1 g Univers 0.01 % (0.1 8-26 into ity of mg/gram) 00:00: vagina [place] vaginal 00 weekly. Medical cream Insert Branch every night for 2 weeks and then 3 times a week M/W/F estradioL 2021-0 Yes [id number] 1g Insert 1 g Univers 0.01 % (0.1 8-26 into ity of mg/gram) 00:00: vagina [place] vaginal 00 weekly. Medical cream Insert Branch every night for 2 weeks and then 3 times a week M/W/F estradioL 2021-0 Yes [id number] 1g Insert 1 g Univers 0.01 % (0.1 8-26 into ity of mg/gram) 00:00: vagina [place] vaginal 00 weekly. Medical cream Insert Branch every night for 2 weeks and then 3 times a week M/W/F estradioL 2021-0 Yes [id number] 1g Insert 1 g Univers 0.01 % (0.1 8-26 into ity of mg/gram) 00:00: vagina [place] vaginal 00 weekly. Medical cream Insert Branch every night for 2 weeks and then 3 times a week M/W/F glycerin-mi 2021- No [id number] 1{appli Insert 1 Univers n 10-27 cator} Applicator ity of oil-polycar 00:00: 00:00 into [place] bophil 00 :00 vagina Medical (REPLENS) every 3 Branch Gel (three) days. clobetasoL 2021- No [id number] Apply to Univers 0.05 % 10-27 area(s) 2 ity of ointment 00:00: 00:00 (two) [place] 00 :00 times Medical daily. Branch Clobetasol Yes [id number] Apply to Univers Propionate- 7-13 area(s) ity o f Emolnt 0.05 00:00: daily. [place] % [place] [facility] Clobetasol Yes [id number] Apply to Univers Propionate- 7-13 area(s) ity o f Emolnt 0.05 00:00: daily. [place] % [place] [facility] Clobetasol Yes [id number] Apply to Univers Propionate- 7-13 area(s) ity o f Emolnt 0.05 00:00: daily. [place] % [place] [facility] Clobetasol 2021- No [id number] Apply to Univers Propionate- 7-13 10-04 area(s) ity of Emolnt 0.05 00:00: 00:00 daily. [place] as % [place] 00 :00 Medical Branch fluconazole 2021- No [id number] 200mg Take 1 Univers 200 mg 10-13 tablet by ity of tablet 00:00: 00:00 mouth in [place] 00 :00 the Medical morning. Branch permethrin Yes APPLY TO Uni vers 5 % cream 4-27 THE ity of 00:00: AFFECTED [place] 00 AREA AND Medical LEAVE ON Branch FOR 8 TO 14 HOURS BEFORE WASHING OFF DAILY FOR 7 DAYS permethrin 2021-0 Yes APPLY TO Uni vers 5 % cream 4-27 THE ity of 00:00: AFFECTED [place] 00 AREA AND Medical LEAVE ON Branch FOR 8 TO 14 HOURS BEFORE WASHING OFF DAILY FOR 7 DAYS permethrin 2021-0 Yes APPLY TO Uni vers 5 % cream 4-27 THE ity of 00:00: AFFECTED [place] 00 AREA AND Medical LEAVE ON Branch FOR 8 TO 14 HOURS BEFORE WASHING OFF DAILY FOR 7 DAYS permethrin 2021-0 Yes APPLY TO Uni vers 5 % cream 4-27 THE ity of 00:00: AFFECTED [place] 00 AREA AND Medical LEAVE ON Branch FOR 8 TO 14 HOURS BEFORE WASHING OFF DAILY FOR 7 DAYS permethrin 2021-0 Yes APPLY TO Uni vers 5 % cream 4-27 THE ity of 00:00: AFFECTED [place] 00 AREA AND Medical LEAVE ON Branch FOR 8 TO 14 HOURS BEFORE WASHING OFF DAILY FOR 7 DAYS permethrin 2021-0 Yes APPLY TO Uni vers 5 % cream 4-27 THE ity of 00:00: AFFECTED [place] 00 AREA AND Medical LEAVE ON Branch FOR 8 TO 14 HOURS BEFORE WASHING OFF DAILY FOR 7 DAYS permethrin 2021-0 Yes APPLY TO Uni vers 5 % cream 4-27 THE ity of 00:00: AFFECTED [place] 00 AREA AND Medical LEAVE ON Branch FOR 8 TO 14 HOURS BEFORE WASHING OFF DAILY FOR 7 DAYS permethrin 2021-0 Yes APPLY TO Uni vers 5 % cream 4-27 THE ity of 00:00: AFFECTED [place] 00 AREA AND Medical LEAVE ON Branch FOR 8 TO 14 HOURS BEFORE WASHING OFF DAILY FOR 7 DAYS permethrin 2021-0 Yes APPLY TO Uni vers 5 % cream 4-27 THE ity of 00:00: AFFECTED [place] 00 AREA AND Medical LEAVE ON Branch FOR 8 TO 14 HOURS BEFORE WASHING OFF DAILY FOR 7 DAYS Cipro 500 Cipro 500 2021- No 1{table BID Cipro 500 MG MG 06-14 t} MG 00:00: 00:00 00 :00 Cipro 500 Cipro 500 2021- No 1{table BID Cipro 500 MG MG 06-14 t} MG 00:00: 00:00 00 :00 Fluconazole Fluconazole 2021- No 1{table Fluconazol 150 MG 150 MG 06-14 t} e 150 MG 00:00: 00:00 00 :00 Kenalog Geronimoalog 2020-04 No 40mg Common (Triamcinol (Triamcinol 2-21 S pirit one) one) 00:00: - CHI 00 [facility] Bupivicaine Bupivicaine 2020-04 No Common Tyrone Tyrone 2-21 Spirit 00:00: - CHI 00 [facility] Su Blue 2020-04 No 40mg Common (Triamcinol (Triamcinol 2-21 S pirit one) one) 00:00: - CHI 00 [facility] Bupivicaine Bupivicaine 2020-04 No Common Tyrone Tyrone 2-21 Spirit 00:00: - CHI 00 [facility] uS Blue 2020-04 No 40mg Common (Triamcinol (Triamcinol 2-21 S pirit one) one) 00:00: - CHI 00 [facility] Bupivicaine Bupivicaine 2020-04 No Common Tyrone Tyrone 2-21 Spirit 00:00: - CHI 00 [facility] Su Meltonalog 2020-04 No 40mg Common (Triamcinol (Triamcinol 2-21 S pirit one) one) 00:00: - CHI 00 [facility] Bupivicaine Bupivicaine 2020-04 No 2.5mg Common Tyrone Tyrone 2-21 Spirit 00:00: - CHI 00 [facility] Su Meltonalog 2020-04 No 40mg Common (Triamcinol (Triamcinol 2-21 S pirit one) one) 00:00: - CHI 00 [facility] Bupivicaine Bupivicaine 2020-04 No 2.5mg Common Tyrone Tyrone 2-21 Spirit 00:00: - CHI 00 [facility] Su Kenalog 2020-04 No 40mg Common (Triamcinol (Triamcinol 2-21 S pirit one) one) 00:00: - CHI 00 [facility] Bupivicaine Bupivicaine 2020-04 No 2.5mg Common Tyrone Tyrone 2-21 Spirit 00:00: - CHI [facility] Su Kenalog 2020-04 No 40mg Common (Triamcinol (Triamcinol 2-21 S pirit one) one) 00:00: - CHI 00 [facility] Bupivicaine Bupivicaine 2020-04 No 2.5mg Common Tyrone Tyrone 2-21 Spirit 00:00: - CHI [facility] Su Kenalog 2020-04 No 40mg Common (Triamcinol (Triamcinol 2-21 S pirit one) one) 00:00: - CHI 00 [facility] Bupivicaine Bupivicaine 2020-04 No 2.5mg Common Tyrone Tyrone 2-21 Spirit 00:00: - CHI 00 [facility] Su Kenalog 2020-04 No 40mg Common (Triamcinol (Triamcinol 2-21 S pirit one) one) 00:00: - CHI 00 [facility] Bupivicaine Bupivicaine 2020-04 No 2.5mg Common Tyrone Tyrone 2-21 Spirit 00:00: - CHI [facility] Su Kenalog 2020-04 No 40mg Common (Triamcinol (Triamcinol 2-21 S pirit one) one) 00:00: - CHI [facility] Bupivicaine Bupivicaine 2020-04 No 2.5mg Common Tyrone Tyrone 2-21 Spirit 00:00: - CHI [facility] buPROPion 2020-04 Yes Univers SR 100 mg 0-19 ity of SR tablet 00:00: [address] buPROPion 2020-04 Yes Univers SR 100 mg 0-19 ity of SR tablet 00:00: [address] buPROPion 2020-04 Yes Univers SR 100 mg 0-19 ity of SR tablet 00:00: [place] [facility] buPROPion 2020-04 Yes Univers SR 100 mg 0-19 ity of SR tablet 00:00: [place] [facility] buPROPion 2020-1 Yes Univers SR 100 mg 0-19 ity of SR tablet 00:00: [place] [facility] buPROPion 1 Yes Univers SR 100 mg 0-19 ity of SR tablet 00:00: [place] [facility] buPROPion 2020-1 Yes Univers SR 100 mg 0-19 ity of SR tablet 00:00: [place] [facility] buPROPion 1 Yes Univers SR 100 mg 0-19 ity of SR tablet 00:00: [place] [facility] buPROPion 2020-04 Yes Univers SR 100 mg 0-19 ity of SR tablet 00:00: [place] [facility] Kenalog Kenalog 0 No 40mg Common (Triamcinol (Triamcinol 7-22 S pirit one) one) 00:00: - CHI [facility] Bupivicaine Bupivicaine 2020-0 No Common Tyrone Tyrone 7-22 Spirit 00:00: - CHI [facility] Kenalog Kenalog 2020-0 No 40mg Common (Triamcinol (Triamcinol 7-22 S pirit one) one) 00:00: - CHI [facility] Bupivicaine Bupivicaine 2020-0 No Common Tyrone Tyrone 7-22 Spirit 00:00: - CHI [facility] Kenalog Kenalog 2020-0 No 40mg Common (Triamcinol (Triamcinol 7-22 S pirit one) one) 00:00: - CHI 00 [facility] Bupivicaine Bupivicaine 2020-0 No Common Tyrone Tyrone 7-22 Spirit 00:00: - CHI [facility] Kenalog Kenalog 2020-0 No 40mg Common (Triamcinol (Triamcinol 7-22 S pirit one) one) 00:00: - CHI [facility] Bupivicaine Bupivicaine 1-0 No 2.5mg Common Tyrone Tyrone 7-22 Spirit 00:00: - CHI [facility] Kenalog Kenalog 2020-0 No 40mg Common (Triamcinol (Triamcinol 7-22 S pirit one) one) 00:00: - CHI 00 [facility] Bupivicaine Bupivicaine 2020-0 No 2.5mg Common Tyrone Tyrone 7-22 Spirit 00:00: - CHI 00 [facility] Kenalog Kenalog 2020-0 No 40mg Common (Triamcinol (Triamcinol 7-22 S pirit one) one) 00:00: - CHI 00 [facility] Bupivicaine Bupivicaine 2020-0 No 2.5mg Common Tyrone Tyrone 7-22 Spirit 00:00: - CHI 00 [facility] Kenalog Kenalog 2020-0 No 40mg Common (Triamcinol (Triamcinol 7-22 S pirit one) one) 00:00: - CHI 00 [facility] Bupivicaine Bupivicaine 2020-0 No 2.5mg Common Tyrone Tyrone 7-22 Spirit 00:00: - CHI 00 [facility] Kenalog Kenalog 2020-0 No 40mg Common (Triamcinol (Triamcinol 7-22 S pirit one) one) 00:00: - CHI 00 [facility] Bupivicaine Bupivicaine 2020-0 No 2.5mg Common Tyrone Tyrone 7-22 Spirit 00:00: - CHI 00 [facility] Kenalog Kenalog 2020-0 No 40mg Common (Triamcinol (Triamcinol 7-22 S pirit one) one) 00:00: - CHI 00 [facility] Bupivicaine Bupivicaine 2020-0 No 2.5mg Common Tyrone Tyrone 7-22 Spirit 00:00: - CHI 00 [facility] Kenalog Kenalog 2020-0 No 40mg Common (Triamcinol (Triamcinol 7-22 S pirit one) one) 00:00: - CHI 00 [facility] Bupivicaine Bupivicaine 2020-0 No 2.5mg Common Tyrone Tyrone 7-22 Spirit 00:00: - CHI 00 [facility] Keflex 500 Keflex 500 [...] MG MG 3-09 le} MG 00:00: 00 predniSONE predniSONE 2019-1 No predniSONE 10 MG 10 MG 1-30 10 MG 00:00: 00 predniSONE predniSONE 2019-1 No predniSONE 10 MG 10 MG 1-30 10 MG 00:00: 00 predniSONE predniSONE 2019-1 No predniSONE 10 MG 10 MG 1-30 10 MG 00:00: 00 predniSONE predniSONE 2019-1 No predniSONE 10 MG 10 MG 1-30 10 MG 00:00: 00 predniSONE predniSONE 2019-1 No predniSONE 10 MG 10 MG 1-30 10 MG 00:00: 00 predniSONE predniSONE 2019-1 No predniSONE 10 MG 10 MG 1-30 10 MG 00:00: 00 predniSONE predniSONE 2019-1 No predniSONE 10 MG 10 MG 1-30 10 MG 00:00: 00 predniSONE predniSONE 2019-1 No predniSONE 10 MG 10 MG 1-30 10 MG 00:00: 00 predniSONE predniSONE 2019-1 No predniSONE 10 MG 10 MG 1-30 10 MG 00:00: 00 predniSONE predniSONE 2019-1 No predniSONE 10 MG 10 MG 1-30 10 MG 00:00: 00 predniSONE predniSONE 2019-1 No predniSONE 10 MG 10 MG 1-30 10 MG 00:00: 00 predniSONE predniSONE 2019-1 No predniSONE 10 MG 10 MG 1-30 10 MG 00:00: 00 predniSONE predniSONE 2019-1 No predniSONE 10 MG 10 MG 1-30 10 MG 00:00: 00 predniSONE predniSONE 2019-1 No predniSONE 10 MG 10 MG 1-30 10 MG 00:00: 00 predniSONE predniSONE 2019-1 No predniSONE 10 MG 10 MG 1-30 10 MG 00:00: 00 predniSONE predniSONE 2019-1 No predniSONE 10 MG 10 MG 1-30 10 MG 00:00: 00 predniSONE predniSONE 2019-1 No predniSONE 10 MG 10 MG 1-30 10 MG 00:00: 00 predniSONE predniSONE 2019-1 No predniSONE 10 MG 10 MG 1-30 10 MG 00:00: 00 tiZANidine tiZANidine 2019- No [...] HCl 2 MG 00:00: 00 tiZANidine tiZANidine 2019-1 No tiZANidine HCl 2 MG HCl 2 [...] HCl 2 MG 00:00: 00 Bupivicaine Bupivicaine 2020-1 No 5mg Common Tyrone Tyrone 0-05 Spirit 00:00: - [facility] 00 [facility] Kenalog Kenalog 2020-1 No 40mg Common (Triamcinol (Triamcinol 0-05 S pirit one) one) 00:00: - [facility]I 00 [facility] Bupivicaine Bupivicaine 2020-1 No 5mg Common Tyrone Tyrone 0-05 Spirit 00:00: - [facility] 00 [facility] Kenalog Kenalog 2019-1 No 40mg Common (Triamcinol (Triamcinol 0-05 S pirit one) one) 00:00: - CHI 00 [facility] Bupivicaine Bupivicaine 2019-1 No 5mg Common Tyrone Tyrone 0-05 Spirit 00:00: - [facility] 00 [facility] Kenalog Kenalog 2020-1 No 40mg Common (Triamcinol (Triamcinol 0-05 S pirit one) one) 00:00: - CHI 00 [facility] Bupivicaine Bupivicaine 2020-1 No 5mg Common Tyrone Tyrone 0-05 Spirit 00:00: - [facility] 00 [facility] Kenalog Kenalog 2020-1 No 40mg Common (Triamcinol (Triamcinol 0-05 S pirit one) one) 00:00: - CHI 00 [facility] Bupivicaine Bupivicaine 2020-1 No 5mg Common Tyrone Tyrone 0-05 Spirit 00:00: - [facility]I 00 [facility] Kenalog Kenalog 2020-1 No 40mg Common (Triamcinol (Triamcinol 0-05 S pirit one) one) 00:00: - CHI 00 [facility] Bupivicaine Bupivicaine 2020-1 No 5mg Common Tyrone Tyrone 0-05 Spirit 00:00: - [facility] 00 [facility] Kenalog Kenalog 2020-1 No 40mg Common (Triamcinol (Triamcinol 0-05 S pirit one) one) 00:00: - CHI 00 [facility] Bupivicaine Bupivicaine 2020-1 No 5mg Common Tyrone Tyrone 0-05 Spirit 00:00: - [facility]I 00 [facility] Kenalog Kenalog 2020-1 No 40mg Common (Triamcinol (Triamcinol 0-05 S pirit one) one) 00:00: - CHI 00 [facility] Bupivicaine Bupivicaine 2020-1 No 5mg Common Tyrone Tyrone 0-05 Spirit 00:00: - [facility]I 00 [facility] Kenalog Kenalog 2020-1 No 40mg Common (Triamcinol (Triamcinol 0-05 S pirit one) one) 00:00: - CHI 00 [facility] Bupivicaine Bupivicaine 2020-1 No 5mg Common Tyrone Tyrone 0-05 Spirit 00:00: - [facility]I 00 [facility] Kenalog Kenalog 2020-1 No 40mg Common (Triamcinol (Triamcinol 0-05 S pirit one) one) 00:00: - CHI 00 [facility] Bupivicaine Bupivicaine 2020-1 No 5mg Common Tyrone Tyrone 0-05 Spirit 00:00: - [facility]I 00 [facility] Kenalog Kenalog 2020-1 No 40mg Common (Triamcinol (Triamcinol 0-05 S pirit one) one) 00:00: - CHI 00 [facility] Kenalog Kenalog 2020-0 No 40mg Common (Triamcinol (Triamcinol 8-10 S pirit one) one) 00:00: - CHI 00 [facility] Kenalog Kenalog 2020-0 No 40mg Common (Triamcinol (Triamcinol 8-10 S pirit one) one) 00:00: - CHI 00 [facility] Kenalog Kenalog 2020-0 No 40mg Common (Triamcinol (Triamcinol 8-10 S pirit one) one) 00:00: - CHI 00 [facility] Kenalog Kenalog 2020-0 No 40mg Common (Triamcinol (Triamcinol 8-10 S pirit one) one) 00:00: - CHI 00 [facility] Kenalog Kenalog 2020-0 No 40mg Common (Triamcinol (Triamcinol 8-10 S pirit one) one) 00:00: - CHI 00 [facility] Kenalog Kenalog 2020-0 No 40mg Common (Triamcinol (Triamcinol 8-10 S pirit one) one) 00:00: - CHI 00 [facility] Kenalog Kenalog 2020-0 No 40mg Common (Triamcinol (Triamcinol 8-10 S pirit one) one) 00:00: - CHI 00 [facility] Kenalog Kenalog 2020-0 No 40mg Common (Triamcinol (Triamcinol 8-10 S pirit one) one) 00:00: - CHI 00 [facility] Kenalog Kenalog 2020-0 No 40mg Common (Triamcinol (Triamcinol 8-10 S pirit one) one) 00:00: - CHI 00 [facility] Kenalog Kenalog 2020-0 No 40mg Common (Triamcinol (Triamcinol 8-10 S pirit one) one) 00:00: - CHI 00 [facility] Tizanidine Tizanidine 2019-0 2020- No Na Hernandes 1 capsule Common HCl HCl 11-10- as needed Spirit 00:00: 00:00 - CHI 00 :00 [facility] PredniSONE PredniSONE 2019-0 2020- No Na Hernandes 2 tablets Common 11-10- dailyx 5 Spirit 00:00: 00:00 days then - CHI 00 :[address] daily x 5 [facility] tiZANidine tiZANidine No 1{capsu tiZANidine [...] QD Xyzal 5 MG t_in_th e_eveni ng} Trimethopri Trimethopri No Trimethopr m [...] QD Xyzal 5 MG t_in_ e_eveni ng} Nitrofurant Nitrofurant No Nitrofuran oin Monohyd oin Monohyd toin Macro Macro Monohyd Macro Sulfamethox Sulfamethox No Sulfametho azole-Trime azole-Trime xazole-Tri oprim thoprim methoprim valACYclovi valACYclovi No 1{table BID [...] QD Xyzal 5 MG t_in_ e_eveni ng} Nitrofurant Nitrofurant No Nitrofuran oin [...] MG 100 MG 100 MG Prevnar 13 Prev 13 No Prevnar 13 Trimethopri Trimethopri No [...] MG 100 MG 100 MG Prevnar 13 Prev 13 No Prevnar 13 Trimethopri Trimethopri No [...] QD Xyzal 5 MG t_in_ e_eveni ng} buPROPion buPROPion No buPROPion HCl ER (SR) HCl ER (SR) HCl ER 100 MG 100 MG (SR) 100 MG Tylenol # 3 Tylenol # 3 No Tylenol # 3 Clobetasol Clobetasol No Clobetasol Propionate Propionate Propionate Nystop Nystop No Nystop Xyzal 5 MG Xyzal 5 MG No 1{table QD Xyzal 5 MG t_in_th e_eveni ng} Ciprofloxac Ciprofloxac No Ciprofloxa in [...] Prevnar 13 Prevnar 13 No Prevnar 13 buPROPion buPROPion No buPROPion HCl ER [...] e_eveni ng} Prevnar 13 Prevnar 13 No Prev 13 valACYclovi valACYclovi No 1{table BID valACYclov [...] oin Monohyd toin Macro Macro Monohyd Macro Vital Signs Vital Name Observation Time Observation Value Comments Source HEIGHT 2022-12-02 21:24:00 167.6 cm WEIGHT 2022-12-02 21:24:00 114.941 kg HEIGHT 2022-12-02 21:24:00 167.6 cm WEIGHT 2022-12-02 21:24:00 114.941 kg HEIGHT 2022-12-02 21:24:00 167.6 cm WEIGHT 2022-12-02 21:24:00 114.941 kg Systolic blood 2021-12-31 14:29:00 138 mm[Hg] Univer sity of pressure [facility] Diastolic blood 2021-12-31 14:29:00 81 mm[Hg] Unive rsity of pressure [facility] Heart rate 2021-12-31 14:29:00 86 /min [facility] Body temperature 2021-12-31 14:29:00 37.17 Abril Univ ers[facility] of [facility] Respiratory rate 2021-12-31 14:29:00 18 /min Univ ers[facility] Body height 2021-12-31 14:29:00 165.1 cm [facility] Body weight 2021-12-31 14:29:00 114.76 kg [facility] BMI 2021-12-31 14:29:00 42.10 kg/m2 [facility] Systolic blood 2021-11-26 13:36:00 142 mm[Hg] Univer sity of [facility] Diastolic blood 2021-11-26 13:36:00 84 mm[Hg] Unive rsity of pressure [facility] Heart rate 2021-11-26 13:36:00 86 /min [facility] Body height 2021-11-26 13:36:00 165.1 cm [facility] Body weight 2021-11-26 13:36:00 114.306 kg [facility] BMI 2021-11-26 13:36:00 41.93 kg/m2 [facility] Oxygen saturation in 2021-11-26 13:36:00 95 /min [facility] Arterial blood by [facility] Pulse oximetry [facility] 2021-10-06 11:40:00 65.00 [in_i] [facility] weight 2021-10-06 11:40:00 250 [lb_av] [facility] temperature 2021-10-06 11:40:00 98.0 [degF] [facility] bmi 2021-10-06 11:40:00 41.6 kg/m2 [facility] height 2021-07-13 10:00:00 65.00 [in_i] Common [facility] weight 2021-07-13 10:00:00 252.8 [lb_av] Common [facility] temperature 2021-07-13 10:00:00 97.7 [degF] Common [facility] bmi 2021-07-13 10:00:00 42.06 kg/m2 Common [facility] oximetry 2021-07-13 10:00:00 96 % Common [facility] respiratory rate 2021-07-13 10:00:00 18 /min Comm on [facility] blood pressure 2021-07-13 10:00:00 128 mm[Hg] Common [facility] systolic [facility] blood pressure 2021-07-13 10:00:00 80 mm[Hg] Common [facility] - diastolic [facility] height 2021-06-10 13:00:00 65.00 [in_i] Common [facility] weight 2021-06-10 13:00:00 252.2 [lb_av] Common [facility] temperature 2021-06-10 13:00:00 97.3 [degF] Common [facility] bmi 2021-06-10 13:00:00 41.96 kg/m2 [facility] oximetry 2021-06-10 13:00:00 97 % Common [facility] respiratory rate 2021-06-10 13:00:00 18 /min Comm on [facility] blood pressure 2021-06-10 13:00:00 132 mm[Hg] Common [facility] - systolic [facility] blood pressure 2021-06-10 13:00:00 80 mm[Hg] Common [facility] - diastolic [facility] height 2021-02-18 09:00:00 65.00 [in_i] Common [facility] weight 2021-02-18 09:00:00 256 [lb_av] Common [facility] temperature 2021-02-18 09:00:00 97.3 [degF] Common S pirit - [facility] bmi 2021-02-18 09:00:00 42.6 kg/m2 Common S pirit - [facility] blood pressure 2021-02-18 09:00:00 126 mm[Hg] Common [facility] - systolic [facility] blood pressure 2021-02-18 09:00:00 84 mm[Hg] Common [facility] - diastolic [facility] height 2021-02-08 10:20:00 65.00 [in_i] Common [facility] weight 2021-02-08 10:20:00 253.0 [lb_av] [facility] temperature 2021-02-08 10:20:00 98.0 [degF] Common [facility] bmi 2021-02-08 10:20:00 42.1 kg/m2 Common S pirit [facility] oximetry 2021-02-08 10:20:00 79 % [facility] S pirit [facility] respiratory rate 2021-02-08 10:20:00 16 /min Comm on Spirit - [facility] blood pressure 2021-02-08 10:20:00 192 mm[Hg] Common [facility] - systolic [facility] blood pressure 2021-02-08 10:20:00 87 mm[Hg] Common [facility] - diastolic [facility] height 2020-10-22 09:30:00 65.00 [in_i] Common S pirit - [facility] weight 2020-10-22 09:30:00 254.3 [lb_av] Common [facility] - [facility] bmi 2020-10-22 09:30:00 42.31 kg/m2 Common S pirit - [facility] blood pressure 2020-10-22 09:30:00 164 mm[Hg] Common [facility] - systolic [facility] blood pressure 2020-10-22 09:30:00 88 mm[Hg] Common [facility] - diastolic [facility] Systolic blood 2022-12-04 12:52:00 153 mm[Hg] [facility] Diastolic blood 2022-12-04 12:52:00 79 mm[Hg] [facility] Heart rate 2022-12-04 12:48:44 70 /min [facility] Respiratory rate 2022-12-04 12:48:44 18 /min [facility] Oxygen saturation in 2022-12-04 12:48:44 98 /min [facility] Arterial blood by Medical Ce nter Pulse oximetry Body temperature 2022-12-04 12:46:13 36.67 Abril [facility] Body height 2022-12-02 21:24:00 167.6 cm [facility] Body weight 2022-12-02 21:24:00 114.941 kg Bed Scale [facility] BMI 2022-12-02 21:24:00 40.90 kg/m2 [facility] Procedures Procedure Date / Time Performing Clinician Source Performed CBC (HEMOGRAM ONLY) 2022-12-04 03:55:00 Elsie Moody [facility] BASIC METABOLIC PANEL 2022-12-04 03:55:00 Heidy [facility] POCT-GLUCOSE METER 2022-12-03 17:03:00 Amina Shaver [facility] FL FLUORO NON-SPECIFIC 2022-12-03 08:50:00 Jannie Rust [facility] UP TO 1 HOUR Center FUNGUS CULTURE + SMEAR 2022-12-03 08:43:00 Jannie Rust [facility] SURGICALLY OBTAINED 2022-12-03 08:43:00 Jannie Rust [facility] CULTURE + GRAM STAIN Center AFB CULTURE + SMEAR 2022-12-03 08:43:00 Jannie Rust [facility] (NON-SPUTUM) Center SPIN/CONCENTRATION 2022-12-03 08:43:00 Jannie Rust [facility] Center CYSTOSCOPY, WITH 2022-12-03 08:00:00 Jannie Rust [facility] URETERAL STENT Center INSERTION CYSTOSCOPY, WITH 2022-12-03 08:00:00 Jannie Rust [facility] RETROGRADE PYELOGRAM Center CBC (HEMOGRAM ONLY) 2022-12-03 06:42:00 Elsie Moody [facility] BASIC METABOLIC PANEL 2022-12-03 06:42:00 Elsie Moody [facility] REFERRAL- 2022-07-05 05:01:00 Doctor Unassigned, No [facility] [place] REQUEST/RESPONSE Name Medical [place] DISCLOSURE AND 2021-12-31 05:01:00 Doctor Unassigned, No [facility] [place] CONSENT, MEDICAL AND [facility] SURGICAL PROCEDURES EXTERNAL MAMMOGRAM 2020-07-24 15:39:00 Doctor Unassigned, No Uni versity [facility] EXTERNAL FIT DNA 2020-07-22 21:15:00 Doctor Unassigned, No Unive rsity of [facility] Plan of Care Planned Activity Planned Date Details Comments Source Future Scheduled Test 2022-12-02 Influenza Vaccine (#1) [facility] 00:00:00 [code = Influenza Medical Ce nter Vaccine (#1)] Future Scheduled Test 2022-12-02 Influenza Vaccine (#1) [facility] 00:00:00 [code = Influenza Medical Ce nter Vaccine (#1)] Future Scheduled Test 2022-04-[address] [facility] 00:00:00 (12+) [code = [facility] DEPRESSION SCREENING (12+)] Future Scheduled Test 2022-04-03 FALLS RISK SCREENING [facility] 00:00:00 [code = FALLS RISK Medical C enter SCREENING] Future Scheduled Test 2022-04-[address] [facility] 00:00:00 (12+) [code = [facility] DEPRESSION SCREENING (12+)] Future Scheduled Test 2022-04-03 FALLS RISK SCREENING [facility] 00:00:00 [code = FALLS RISK Medical C enter SCREENING] Future Scheduled Test 2021-03-19 COVID-19 VACCINE (3 - [facility] 00:00:00 Booster for Pfizer Medical C enter series) [code = COVID-19 VACCINE (3 - Booster for Pfizer series)] Future Scheduled Test 2021-03-19 COVID-19 VACCINE (3 - [facility] 00:00:00 Booster for Pfizer Medical C enter series) [code = COVID-19 VACCINE (3 - Booster for Pfizer series)] Future Scheduled Test 2020-08-[address] [facility] 00:00:00 WELLNESS (YEAR 2 or Medical Center FIRST YEAR if no IPPE) [code = MEDICARE ANNUAL WELLNESS (YEAR 2 or FIRST YEAR if no IPPE)] Future Scheduled Test 2020-08-[address] [facility] 00:00:00 WELLNESS (YEAR 2 or Medical Center FIRST YEAR if no IPPE) [code = MEDICARE ANNUAL WELLNESS (YEAR 2 or FIRST YEAR if no IPPE)] Future Scheduled Test 2004 SHINGLES VACCINES ([address] [facility] 00:00:00 of 2) [code = SHINGLES Medic al Center VACCINES (1 of 2)] Future Scheduled Test 2004 SHINGLES VACCINES ([address] [facility] 00:00:00 of 2) [code = SHINGLES Medic al Center VACCINES (1 of 2)] Future Scheduled Test 1973 DTAP/TDAP/TD VACCINES [facility] 00:00:00 (1 - Tdap) [code = Medical C enter DTAP/TDAP/TD VACCINES (1 - Tdap)] Future Scheduled Test 1973 DTAP/TDAP/TD VACCINES [facility] 00:00:00 (1 - Tdap) [code = Medical C enter DTAP/TDAP/TD VACCINES (1 - Tdap)] Future Scheduled Test 1972 HEPATITIS C SCREENING [facility] 00:00:00 [code = HEPATITIS C Medical Center SCREENING] Future Scheduled Test 1972 HEPATITIS C SCREENING [facility] 00:00:00 [code = HEPATITIS C Medical Center SCREENING] Future Scheduled Test [address] [facility] 00:00:00 Counseling and Medical Cente r Screening (12+) [code = Tobacco Cessation Counseling and Screening (12+)] Future Scheduled Test [address] [facility] 00:00:00 Counseling and Medical Cente r Screening (12+) [code = Tobacco Cessation Counseling and Screening (12+)] Future Scheduled Test 1960 PNEUMOCOCCAL 65+ YRS [facility] 00:00:00 (1 - PCV) [code = Medical Ce nter PNEUMOCOCCAL 65+ YRS (1 - PCV)] Future Scheduled Test 1960 PNEUMOCOCCAL 65+ YRS [facility] 00:00:00 (1 - PCV) [code = Medical Ce nter PNEUMOCOCCAL 65+ YRS (1 - PCV)] Future Scheduled Test 1954 [facility] malignant neoplasm of Medica l Center breast (procedure) [code = 675991543] Future Scheduled Test [address] [facility] 00:00:00 (combo) [code = CT Medical C enter Colonography (combo)] Future Scheduled Test 1954 [facility] malignant neoplasm of Medica l Center colon (procedure) [code = 908379869] Future Scheduled Test 1954 [facility] malignant neoplasm of Medica l Center colon (procedure) [code = 628184463] Future Scheduled Test 1954 DXA SCAN [code = DXA [facility] 00:00:00 SCAN] [facility] Future Scheduled Test 1954 [facility] malignant neoplasm of Medica l Center colon (procedure) [code = 890299237] Future Scheduled Test 1954 [facility] malignant neoplasm of Medica l Center colon (procedure) [code = 580706130] Future Scheduled Test 1954 Sigmoidoscopy [code = [facility] 00:00:00 [facility]00 malignant neoplasm of Medica l Center breast (procedure) [code = 047133323] Future Scheduled Test [address] [facility] 00:00:00 (combo) [code = CT Medical C enter Colonography (combo)] Future Scheduled Test 1954 [facility]:00 malignant neoplasm of Medica l Center colon (procedure) [code = 163991172] Future Scheduled Test 1954 [facility] [place] colon (procedure) [code = 767540661] Future Scheduled Test 1954 DXA SCAN [code = DXA [facility] 00:00:00 SCAN] [facility] Future Scheduled Test 1954 [facility]00 [facility] [place] colon (procedure) [code = 480326605] Future Scheduled Test 1954 [facility]00 [facility] colon (procedure) [code = 109022782] Future Scheduled Test 1954 Sigmoidoscopy [code = [facility] 00:00:00 Sigmoidoscopy] [facility] Future Appointment 2023-01-12 Jannie Rust MD, [facility] 15:59:[address] [place] [address]; [address] [place] [address] [place] [address] Future Appointment 2023-01-12 Jannie Rust MD, [facility] 15:59:[address] [place] [address]; [address] [place] [address] Future Appointment 2023-01-12 Jannie Rust MD, [facility] 15:59:[address] [place] [address]; [address] [place] [address] Future Appointment 2023-01-12 Jannie Rust MD, [facility] 15:59:[address] [place] [address]; [address] [place] [address] Procedure 2023-01-12 CYSTOURETEROSCOPY, [facility] 15:59:00 WITH LASER LITHOTRIPSY [facility] Procedure 2023-01-12 PROCEDURE W/ C-ARM [facility] 15:59:00 [facility] Encounters Start End Encounter Admission Attending Care Care Encounter Source Date/Time Date/Time Type Type Clinicians Facility Department ID 2022-12-14 Outpatient ELISABETH Shell [id number] Common 08:38:00 [facility] [id number] [facility] 2022-12-09 [facility] [id number] 01:52:16 OLUWAROTIMI 2022-12-02 Inpatient NETTEY, [facility] Surgery [id number] [facility] 16:26:51 OLUWAROTIMI 2022-12-01 Outpatient Callahan, STLMLC STLMLC [id number] Common 08:55:00 Avnee [id number] [facility] 2022-09-05 Outpatient Callahan, STLMLC STLMLC [id number] Common 16:44:00 Avnee [id number] [facility] 2022-07-07 Outpatient Callahan, STLMLC STLMLC [id number] Common 15:31:00 Avnee [id number] [facility] 2021-10-06 Outpatient Hernandes, Na STLMLC STLMLC [id number] Common 11:14:01 [facility] 2021-06-10 Outpatient Hernandes, Na STLMLC STLMLC [id number] Common 13:07:01 [facility] 2021-06-08 Outpatient Hernandes, Na STLMLC STLMLC [id number] Common 11:25:01 [facility] 2021-04-28 Outpatient Hernandes, Na STLMLC STLMLC [id number] Common 13:53:21 [id number] [facility] 2021-04-28 Outpatient Hernandes, Na STLMLC STLMLC [id number] Common 13:29:08 [id number] [facility] 2021-04-28 Outpatient Hernandes, Na STLMLC STLMLC [id number] Common 12:37:42 [id number] [facility] 2021-04-28 Outpatient Hernandes, Na STLMLC STLMLC [id number] Common 12:37:27 [id number] [facility] 2021-04-28 Outpatient Hernandes, Na STLMLC STLMLC [id number] Common 12:22:12 [id number] [facility] 2021-04-28 Outpatient Hernandes, Na STLMLC STLMLC [id number] 2 Common 12:15:13 [id number] [facility] 2021-04-28 Outpatient Hernandes, Na STLMLC STLMLC [id number] 2 Common 12:13:59 [id number] [facility] 2021-04-28 Outpatient Hernandes, Na STLMLC STLMLC [id number] Common 11:48:08 [id number] [facility] 2021-04-28 Outpatient Hernandes, Na STLMLC STLMLC [id number] 2 Common 11:47:05 [id number] [facility] 2021-04-28 Outpatient Hernandes, Na STLMLC STLMLC [id number] 2 Common 11:46:30 [id number] [facility] 2021-04-28 Outpatient Hernandes, Na STLMLC STLMLC [id number] 2 Common 11:42:00 [id number] [facility] 2021-04-28 Outpatient STLMLC STLMLC [id number] Common 11:20:46 [id number] [facility] 2022-12-02 2022-12-04 Outpatient ER SUE [facility] Urology [id number] SLE 18:09:00 16:14:00 AMBROSE 2022-12-02 2022-12-04 [facility] [id number] 18:09[facility]00 16:14:00 [facility]-02 2022-12-04 [facility] [id number] 18:09:00 16:14:00 Encounter [facility] 2022-12-03 2022-12-03 Anesthesia [facility] [id number] 08:00[facility]00 09:13[facility]00 [facility]22-[facility] 2022-12-03 Anesthesia [facility] [id number] 08:00[facility]00 09:13[facility]00 [facility] 2022-12-03 2022-12-03 Surgery Nettey, [facility] [id number] 08:00:00 09:04:00 [facility] 2022-12-03 2022-12-03 Surgery Nettey, [facility] [id number] 08:00:00 09:04:00 [facility] 2022-12-03 2022-12-03 [facility] SLE [id number] [facility] 09:01:26 09:01:26 [facility] 2022-12-02 2022-12-02 [facility] [id number] 00:00:00 00:00:00 [facility] 2022-12-02 2022-12-02 [facility] [id number] [address] [facility] 00[facility]00:00 [facility] 2022-07-05 2022-07-05 Orders Doctor LETY 1Alice2.840.114 [id number] Univers 00:00:00 00:00:00 Only Unassigned, NYA 350.1.13.10 ity [facility] 4.2.7.2.686 [facility] [phone] [facility] [address] 2022-05-19 2022-05-19 Telephone Team, [facility] LETY Cedillo2.840.114 [id number] Univers 00:00:00 00:00:00 Health NYA 350.1.13.[address] [facility] 4.2.7.2.686 [place] [phone] [facility] [address] 2022-02-08 2022-02-08 Outpatient R HANS, [facility] [id number] Univers 10:00:00 10:00:00 LORY cortes [facility] 2022-02-01 2022-02-01 Telephone Team, [facility] LETY Cedillo2.840.114 [id number] Univers 00:00:00 00:00:00 Health NYA 350.1.13.[address] [facility] 4.2.7.2.686 [place] [phone] [facility] [address] [place] 2022-01-10 2022-01-10 Telephone Adum, [facility] 1.2.508.019 [id number] Univers 00:00:00 00:00:00 Lory MOSQUERA 350.1.13.10 ity [facility] [place] [phone] [facility] [address] [facility] 2022-01-03 2022-01-03 Telephone Adum, [facility] 1.2.152.554 [id number] Univers 00:00:00 00:00:00 Lory MOSQUERA 350.1.13.10 ity of [place] [phone] [address] 2021-12-31 2021-12-31 Outpatient R AD, [facility] [id number] Univers 09:30:00 11:07:48 LORY ity [facility] 2021-12-31 2021-12-31 Office Ad, [facility] 1.2.840.114 [id number] Univers 09:30:00 11:07:48 Visit Lory Tubbs DEMETRI 350.1.13.10 ity [facility] 4.2.[place] [phone] [address] 2021-12-31 2021-12-31 Orders Doctor LETY 1.2.840.114 [id number] Univers 00:00:00 00:00:00 Only Unassigned, NYA 350.1.13.10 ity of [facility] 4.2.7.2.686 Amari as [phone] [facility] [address] [place] 2021-11-26 2021-11-26 Outpatient R ADUM, [facility] [id number] Univers 08:30:00 09:31:06 LORY ity [facility] 2021-11-26 2021-11-26 Office Ad, [facility] 1.2.840.114 [id number] Univers 08:30:00 09:31:06 Visit Lory Tubbs DEMETRI 350.1.13.10 ity [facility] 4.2.[place] [phone] Ak dical NAL [address] [place] [address] 2021-11-26 2021-11-26 Outpatient R [facility] [id number] Univers 08:30:00 09:31:06 LORY cortes of [facility] 2021-10-27 2021-10-27 Outpatient R ZOEY JAUREGUI [facility] B [id number] [facility] 11:15:00 14:18:05 TRIZOEY GOTTI [facility] 2021-10-27 2021-10-27 Office [facility] 1.2.840.114 [id number] [facility] 11:15:00 14:18:05 Visit Zoey PUENTES 350.1.13.10 it y of [place] [phone] [address] 2021-10-27 2021-10-27 Outpatient R ZOEY JAUREGUI [facility] B [id number] [facility] 11:15:00 11:15:00 [facility] 2021-10-22 2021-10-22 Telephone [facility] [id number] [id number] Univers 00:00:00 00:00:00 Lory MOSQUERA 350.1.13.10 ity of [place] [phone] Ak dical NAL [address] [place] [address] 2021-10-13 2021-10-13 Outpatient R ZOEY JAUREGUI [facility] B [id number] Univers 14:45:00 15:33:02 TAMMIZOEY GOTTI [facility] 2021-10-13 2021-10-13 Office [facility] 1.2.840.114 [id number] Univers 14:45:00 15:33:02 Visit Zoey PUENTES 350.1.13.10 it y [place] [id number] [address] 2021-10-13 2021-10-13 Outpatient R TAMMIZOEY GOTTI [facility] B [id number] Univers 14:45:00 15:33:02 SHANIA ZOEY ity [facility] 2021-10-08 2021-10-08 Telephone Adum, [facility] [id number] Univers 00:00:00 00:00:00 Lory Suly MOSQUERA 350.1.13.10 ity [facility] 4.2.7.2.686 Amarilorie raza JUVENAL [phone] Ak dical NAL [address] [facility] 2021-10-06 2021-10-06 OFFICE STLMLC STLMLC [id number] Co mmon 00:00:00 00:00:00 VISIT EST Spir it PT LEVEL 3 [facility] 2021-09-30 2021-09-30 (TEL) STLMLC STLMLC [id number] Co mmon 00:00:00 00:00:00 [facility] 2021-09-30 2021-09-30 (TEL) STLMLC STLMLC [id number] Co mmon 00:00:00 00:00:00 [facility] 2021-07-26 2021-07-26 (TEL) STLMLC STLMLC [id number] Co mmon 00:00:00 00:00:00 [facility] 2021-07-14 2021-07-14 (TEL) STLMLC STLMLC [id number] Co mmon 00:00:00 00:00:00 [facility] 2021-07-13 2021-07-13 OFFICE STLMLC STLMLC [id number] Co mmon 00:00:00 00:00:00 VISIT EST Spir it PT LEVEL 3 [facility] 2021-06-14 2021-06-14 (TEL) STLMLC STLMLC [id number] Co mmon 00:00:00 00:00:00 [facility] 2021-06-10 2021-06-10 OFFICE STLMLC STLMLC [id number] Co mmon 00:00:00 00:00:00 VISIT EST Spir it PT LEVEL 3 - [facility] 2021-06-08 2021-06-08 Outpatient R SHANEKA HOWARD [facility] [id number] Univers 15:00:00 15:00:00 ity [facility] 2021-05-31 2021-05-31 (TEL) STLMLC STLMLC [id number] Co mmon 00:00:00 00:00:00 Spirit - [facility] 2021-04-02 2021-04-03 Emergency [facility] [id number] Univers 22:27:00 00:07:00 SOPHIA cortes [facility] 2021-04-02 2021-04-03 [facility] 1.2.840.114 [id number] Univers 22:27:00 00:07:00 Sophia MOSQUERA 350.1.13.10 ity [place] [id number] [address] 2021-03-11 2021-03-11 [facility] 1.2.840.114 [id number] Univers 00:00:00 00:00:00 Lory MOSQUERA 350.1.13.10 ity of [place].2.[place] [phone] Ak dical NAL [address] [place] [address] 2021-03-09 2021-03-09 Office [facility] 1.2.840.114 [id number] Univers 10:32:16 11:42:20 Visit Lory MOSQUERA 350.1.13.10 ity of [place] [phone] Ak dical NAL [address] [place] [address] 2021-03-09 2021-03-09 [facility] [id number] Univers 10:30:00 11:42:20 LORY cortes [facility] 2021-03-09 2021-03-09 Outpatient R CATIE [facility] [id number] Univers 09:30:00 09:30:00 MARIANNA cortes [facility] 2021-03-01 2021-03-01 Telephone Adum, [facility] 1.2.043.212 [id number] Univers 00:00:00 00:00:00 Lory MOSQUERA 350.1.13.10 ity of [place] [id number] Ak dical NAL [address] [facility] 2021-02-22 2021-02-22 Telephone Adum, [facility] [id number] [id number] Univers 00:00:00 00:00:00 Lory MOSQUERA 350.1.13.10 ity of [place] [phone] Ak dical NAL [address] [place] [address] 2021-02-18 2021-02-18 OFFICE STLMLC STLMLC [id number] Co mmon 00:00:00 00:00:00 VISIT EST Spir it PT LEVEL 3 - [facility] 2021-02-10 2021-02-10 (TEL) STLMLC STLMLC [id number] Co mmon 00:00:00 00:00:00 Spirit - [facility] 2021-02-08 2021-02-08 OFFICE STLMLC STLMLC [id number] Co mmon 00:00:00 00:00:00 VISIT Spirit ESTAB PT - CHI LEVEL 2 [facility] 2021-02-08 2021-02-08 (TEL) STLMLC STLMLC [id number] Co mmon 00:00:00 00:00:00 Spirit - [facility] 2021-02-04 2021-02-04 (TEL) STLMLC STLMLC [id number] Co mmon 00:00:00 00:00:00 [facility] 2021-01-20 2021-01-20 Office Ad, [facility] 1.2.840.114 [id number] Univers 13:08:33 14:37:23 Visit Lory Mosquera 350.1.13.10 ity of [place] [phone] Ak dical nal [address] [place] [address] 2021-01-20 2021-01-20 Outpatient R ADUM, [facility] [id number] Univers 13:00:00 13:00:00 LORY ity of [facility] 2021-01-20 2021-01-20 Orders Doctor LETY 1.2.840.114 [id number] Univers 00:00:00 00:00:00 Only Unassigned, NYA 350.1.13.10 ity of [place] [facility] 4.2.7.2.686 Amari as [phone] [address] 2021-01-19 2021-01-19 Telephone Adum, [facility] 1.2.610.469 [id number] Univers 00:00:00 00:00:00 Lory Mosquera 350.1.13.10 ity of [place] 4.2.7.2.686 [place] s essgraciela [phone] Ak dical [address] 2020-12-24 2020-12-24 (TEL) STLMLC STLMLC [id number] Co mmon 00:00:00 00:00:00 [facility] 2020-12-01 2020-12-01 OL DIG E/M STLMLC STLMLC [id number] Common 00:00:00 00:00:00 SVC 5-10 Spiri t [facility] 2020-11-24 2020-11-24 (TEL) STLMLC STLMLC [id number] Co mmon 00:00:00 00:00:00 [facility] 2020-11-04 2020-11-04 (TEL) STLMLC STLMLC [id number] Co mmon 00:00:00 00:00:00 [facility] 2020-10-22 2020-10-22 OFFICE STLMLC STLMLC [id number] Co mmon 00:00:00 00:00:00 VISIT [facility] LEVEL 4 [facility] 2020-07-29 2020-07-29 Outpatient STLMLC STLMLC [id number] Common 00:00:00 00:00:00 [facility] 2020-07-29 2020-07-29 Outpatient STLMLC STLMLC [id number] Common 00:00:00 00:00:00 [facility] 2020-06-10 2020-06-10 Outpatient STLMLC STLMLC [id number] Common 00:00:00 00:00:00 [facility] 2020-06-09 2020-06-09 Outpatient STLMLC STLMLC [id number] Common 00:00:00 00:00:00 [facility] 2020-04-21 2020-04-21 Outpatient STLMLC STLMLC [id number] Common 00:00:00 00:00:00 [facility] 2020-03-19 2020-03-19 Outpatient STLMLC STLMLC [id number] Common 00:00:00 00:00:00 [facility] 2020-03-18 2020-03-18 Outpatient STLMLC STLMLC [id number] Common 00:00:00 00:00:00 [facility] 2020-03-10 2020-03-10 Outpatient STLMLC STLMLC [id number] Common 00:00:00 00:00:00 [facility] 2020-03-02 2020-03-02 Outpatient STLMLC STLMLC [id number] Common 00:00:00 00:00:00 [facility] 2020-03-02 2020-03-02 Outpatient STLMLC STLMLC [id number] Common 00:00:00 00:00:00 [facility] 2020-02-20 2020-02-20 Outpatient STLMLC STLMLC [id number] Common 00:00:00 00:00:00 [facility] 2020-02-20 2020-02-20 Outpatient STLMLC STLMLC [id number] Common 00:00:00 00:00:00 [facility] 2020-02-04 2020-02-04 Outpatient STLMLC STLMLC [id number] Common 00:00:00 00:00:00 [facility] 2020-01-06 2020-01-06 Outpatient STLMLC STLMLC [id number] Common 00:00:00 00:00:00 [facility] 2019-12-19 2019-12-19 Outpatient STLMLC STLMLC [id number] Common 00:00:00 00:00:00 [facility] 2019-12-02 2019-12-02 [facility] [id number] Common 10:05:00 10:05:[address] [facility] 2019-11-11 2019-11-11 [facility] [id number] Common 16:20:00 16:20:00 [address] [place] [address] [facility] 2019-10-30 2019-10-30 [facility] [id number] Common 09:44:00 09:44:00 [address] [place] [address] [facility] 2019-10-15 2019-10-15 [facility] [id number] Common 14:39:00 14:39:00 [address] [place] [address] [facility] 2019-09-04 2019-09-04 [facility] [id number] Common 10:40:00 10:40:00 [address] [place] [facility] 2019-08-07 2019-08-07 [facility] [id number] Common 14:28:00 14:28:00 [address] [place] [address] [facility] 2019-08-07 2019-08-07 [facility] [id number] Common 11:20:00 11:20:00 [address] [place] [facility] Results Test Description Test Time Test Comments Results Result Comments Source Surgically obtained culture + gram stain 2022-12-05 15:15:10 Test Item Value Reference Range Interpretation Comme nts Result (test code = 6463-4) No growth Gram Stain Result (test code = 1123) No organisms seen [facility] + gram [id number] 15:15:10 Test Item Value Reference Range Interpretation Comments Result (test code = 6463-4) No growth Gram Stain Result (test No organisms seen code = 1123) [facility] + GRAM [id number] 15:15:10 Test Item Value Reference Range Interpretation Comments CULTURE (BEAKER) (test code No growth = 1095) GRAM STAIN RESULT (BEAKER) No WBCs (test code = 1123) GRAM STAIN RESULT (BEAKER) No organisms seen (test code = 76271) SPIN/CONCENTRATION [id number] 07:51:27 Test Item Value Reference Range Interpretation Comments Concentration charged (test code = Done 2657) [facility] [id number] 07:51:27 Test Item Value Reference Range Interpretation Comments Concentration charged (test code = Done 265) [facility] [id number] 07:51:27 Test Item Value Reference Range Interpretation Comments CONCENTRATION CHARGED (BEAKER) (test Done code = 2657) BASIC METABOLIC [id number] 04:55:37 Test Item Value Reference Range Interpretation Comments SODIUM (BEAKER) 139 meq/L 136-145 (test code = 381) POTASSIUM 4.2 meq/L 3.5-5.1 (BEAKER) (test code = 379) CHLORIDE (BEAKER) 107 meq/L 98-107 (test code = 382) CO2 (BEAKER) 22 meq/L 22-29 (test code = 355) BLOOD UREA 14 mg/dL 7-21 NITROGEN (BEAKER) (test code = 354) CREATININE 0.80 mg/dL 0.57-1.25 (BEAKER) (test code = 358) GLUCOSE RANDOM 155 mg/dL 70-105 H (BEAKER) (test code = 652) CALCIUM (BEAKER) 9.0 mg/dL 8.4-10.2 (test code = 697) EGFR (BEAKER) 80 Interpretatio n of eGFR (test code = mL/min/1.73 values Stage De scription 1092) sq m Result G1 Suellen l or high >=90 G2 Mildly decreased 60-89 G3a Mildl y to moderately 45-5 9 G3b Moderately to s everely 30-44 G4 Severl y decreased 15-29 G5 Kidney failure <15Reported eGF R is based on the CKD-EPI 1 equation that d oes not use a race coefficientEsti mated GFR is not as accur ate as Creatinine Melissa huey in predicting glom erular filtration rate . Estimated GFR is not appl icable for dialysis patien ts Ice Grinder ID - ARIEL WCBC (HEMOGRAM ONLY)2022-12-04 04:09:37 Test Item Value Reference Range Interpretation Comments WHITE BLOOD CELL COUNT (BEAKER) 13.6 K/ L 3.5-10.5 H (test code = 775) RED BLOOD CELL COUNT (BEAKER) 4.34 M/ L 3.93-5.22 (test code = 761) HEMOGLOBIN (BEAKER) (test code = 11.9 GM/DL 11.2-15.7 410) HEMATOCRIT (BEAKER) (test code = 37.0 % 34.1-44.9 411) MEAN CORPUSCULAR VOLUME (BEAKER) 85 fL 79-95 (test code = 753) MEAN CORPUSCULAR HEMOGLOBIN 27.4 pg 25.6-32.2 (BEAKER) (test code = 751) MEAN CORPUSCULAR HEMOGLOBIN CONC 32.2 GM/DL 32.2-35.5 (BEAKER) (test code = 752) RED CELL DISTRIBUTION WIDTH 13.7 % 11.7-14.4 (BEAKER) (test code = 412) PLATELET COUNT (BEAKER) (test 312 K/CU MM 150-450 code = 756) MEAN PLATELET VOLUME (BEAKER) 9.7 fL 9.4-12.3 (test code = 754) NUCLEATED RED BLOOD CELLS 0 /100 WBC 0-0 (BEAKER) (test code = 413) POC-Glucose [id number] 17:14:32 Test Item Value Reference Range Interpretation Comments POC-Glucose Meter (test 250 mg/dL 70-110 H : TE STED AT [facility] code = 1538) [address] [place] [address], [facility] 30: Ice Grinder/Techni kristel ID = [id number] for Jordyn Hannah Lab Interpretation (test Abnormal code = 69970-8) [facility] [id number] 17:14:32 Test Item Value Reference Range Interpretation Comments POC-Glucose Meter (test 250 mg/dL 70-110 H : TE STED AT [facility] code = 1538) [address] [place] [address], [facility] 30: Ice Grinder/Techni kristel ID = [id number] for Jordyn Hannah Lab Interpretation (test Abnormal code = 74282-1) [facility]-GLUCOSE [id number] 17:14:32 Test Item Value Reference Range Interpretation Comments POC-GLUCOSE METER 250 mg/dL 70-110 H : TESTED A Jennifer [facility] 6720 (BEAKER) (test code = KRISTI [place], 1538) [address]: Ice Grinder/Techni kristel ID = [id number] for Jordyn Hall FLUORO NON-SPECIFIC UP TO 1 [id number] 09:03:53 [facility] : 1955 Sex: FThis is a non- reportable study with no Radiologist dictation. Please refer to your PACS to review images, or Doc Flowsheets for documentation on studies without images. BASIC METABOLIC [id number] 07:25:33 Test Item Value Reference Range Interpretation Comments SODIUM (BEAKER) 141 meq/L 136-145 (test code = 381) POTASSIUM 3.8 meq/L 3.5-5.1 (BEAKER) (test code = 379) CHLORIDE (BEAKER) 108 meq/L 98-107 H (test code = 382) CO2 (BEAKER) 25 meq/L 22-29 (test code = 355) BLOOD UREA 11 mg/dL 7-21 NITROGEN (BEAKER) (test code = 354) CREATININE 0.73 mg/dL 0.57-1.25 (BEAKER) (test code = 358) GLUCOSE RANDOM 108 mg/dL 70-105 H (BEAKER) (test code = 652) CALCIUM (BEAKER) 8.5 mg/dL 8.4-10.2 (test code = 697) EGFR (BEAKER) 90 Interpretatio n of eGFR (test code = mL/min/1.73 values Stage De scription 1092) sq m Result G1 Suellen l or high >=90 G2 Mildly decreased 60-89 G3a Mildl y to moderately 45-5 9 G3b Moderately to s everely 30-44 G4 Severl y decreased 15-29 G5 Kidney failure <15Reported eGF R is based on the CKD-EPI 2020 equation that d oes not use a race coefficientEsti mated GFR is not as accur ate as Creatinine Melissa huey in predicting glom erular filtration rate . Estimated GFR is not appl icable for dialysis patien ts Ice Grinder ID - ADMINCBC (HEMOGRAM ONLY)2022-12-03 06:58:05 Test Item Value Reference Range Interpretation Comments WHITE BLOOD CELL COUNT (BEAKER) 9.2 K/ L 3.5-10.5 (test code = 775) RED BLOOD CELL COUNT (BEAKER) 4.31 M/ L 3.93-5.22 (test code = 761) HEMOGLOBIN (BEAKER) (test code = 12.0 GM/DL 11.2-15.7 410) HEMATOCRIT (BEAKER) (test code = 37.1 % 34.1-44.9 411) MEAN CORPUSCULAR VOLUME (BEAKER) 86 fL 79-95 (test code = 753) MEAN CORPUSCULAR HEMOGLOBIN 27.8 pg 25.6-32.2 (BEAKER) (test code = 751) MEAN CORPUSCULAR HEMOGLOBIN CONC 32.3 GM/DL 32.2-35.5 (BEAKER) (test code = 752) RED CELL DISTRIBUTION WIDTH 14.0 % 11.7-14.4 (BEAKER) (test code = 412) PLATELET COUNT (BEAKER) (test 296 K/CU MM 150-450 code = 756) MEAN PLATELET VOLUME (BEAKER) 9.4 fL 9.4-12.3 (test code = 754) NUCLEATED RED BLOOD CELLS 0 /100 WBC 0-0 (BEAKER) (test code = 413) Urine Culture,[id number] 00:00:00 Test Item Value Reference Range Interpretation Comments Urine Culture,Comprehensive Final report (test code = 630-4) EXTERNAL FIT [id number] 21:40:00 Test Item Value Reference Range Interpretation [...] screened with both Cologuard and colonoscopy. (Enmanuel Lott et al, N Engl J Med 2014;370(14):6844-5140) The normal value (reference range) for this assay is negative. COLOGUARD RE-SCREENING RECOMMENDATION: Periodic routine colorectal cancer screening is an important part of preventive healthcare for asymptomatic persons at average risk for colorectal cancer. Following a negative Cologuard result, the [place] [employer] and U.S. Multi-Society Task Force screening guidelines recommend a Cologuard re-screening interval of 3 years. References: [place] [employer] (ACS). Colorectal cancer prevention and early detection. [place], [place]: [place] [employer]; [updated 2015Jul 25]. https://www.cancer.org/ cancer/iwvwc-ptylli-uas cer/detection-diagnosis -staging/acs-recommenda tions.html. Accessed December 01, 2017; Chirag MARCIAL, Dimitri HOPKINS, Cristobal KATZ, Colorectal Cancer Screening: Recommendations for Physicians and Patients from the U.S. Multi-Society Task Force on Colorectal Cancer Screening, Am J Gastroenterology 2017; 112:3249-5419. TEST TYPE: Composite algorithmic analysis of stool [...] interval of every 3 years by the [place] [employer] and U.S. Multi-Society Task Force. [...] can be accessed at the following location: www.Lee Silber/resul ts. Additional description of the Cologuard test process, warnings and precautions can be found at www.cologuardtest.[employer]. Rx only. Resulting Agency [facility] (CLIA #:[id number]) Specimen Collected: 07/22/20 16:15 Last Resulted: 07/28/20 16:40 Received From: [facility] Result Received: 01/20/21 13:08 Lab Interpretation Normal (test code = 45659-0) [facility] [id number] 18:08:00 Test Item Value Reference Range Interpretation Comments Radiology Study observation (narrative) (test code = 20394-7) SKY (test code = SKY) Please find results in Care Everywhere. 3D SCR EMERSON BILAT W/CAD 2020-07-27 13:08:00 [facility] Name: MARIJA NEUMANN : 1955 Sex: F [place] [address] RADIOLOGY SERVICES REPORT Name: MARIJA NEUMANN Acct Number: [id number] :1955 Age:64 Sex:F Ord Phys: Rebecca Hernandes DO Unit Number: [id number] [facility]ena Care Dr: Status: REG REF RAD Exam [...] 1308 Lab Interpretation Normal (test code = 43193-0) [facility] (CK)2018-09-20 15:54:00 Test Item Value Reference Range Interpretation Comments CREATINE KINASE (CK) (test code = 171 Unit/L 26-192 N CK) NT PRO-BRAIN NATRIURETIC [id number] 15:54:00 Test Item Value Reference Range Interpretation Comments NT PRO-BRAIN NATRIURETIC PEPTI 141 PG/ML 0-100 H (test code = PROBNP) - XR CHEST 1 [id number] 15:51:00 Name: MARIJA NEUMANN [facility] : 1955 Age/S: 63 / F [address] [address] Unit #: [id number] Loc: [place] [address] Phys: Donald Williamson MD Acct: [id number] Dis Date: Status: PRE ER PHONE #: [phone] Exam Date: 09/20/2018 1541 FAX #: Reason: SOB EXAMS: CPT: [id number] XR CHEST 1 V [id number] Time: DAP (Gy m2): Air Kerma (mGy): EXAM: CHEST ONE VIEW INDICATION: Shortness of breath LOCATION: B2 COMPARISON: None available TECHNIQUE: AP view of the chest FINDINGS: The heart size is normal. The lungs are clear bilaterally. The pulmonary vasculature is normal. No pneumothorax or pleural effusion is identified. The osseous structures are normal. IMPRESSION: No acute cardiopulmonary process. at 1551 Reported and signed by: Joleen Collazo M.D. CC: Donald Williamson MD PAGE 1 Signed Report Name[facility]: 1955 Age/S: 63 / F [address] [address] Unit #: [id number] Loc: [place] [address] Phys: Donald Williamson MD Acct: [id number] Dis Date: Status: PRE ER PHONE #: [phone] Exam Date: 09/20/2018 1540 FAX #: Reason: SOB EXAMS: CPT: [id number] XR CHEST 1 V 13499 Fluoro Time: DAP (Gy m2): Air Kerma (mGy): (Continued) Technologist: Laci Cantu, RT(R)(CT) Trnscb Date/Time: 09/20/2018 (837) 16 Orig Print D/T: S: 09/20/2018 (1971) PAGE 2 Signed ReportCBC W/O [id number] 15:41:00 Test Item Value Reference Range Interpretation [...] 10.00 fL 7.0-10.5 N MPV) TROPONIN I [id number] 15:40:00 Test Item Value Reference Range Interpretation Comments TROPONIN I RAPID 0.00 ng/mL 0.00-0.08 N - The use o f serial (test code = sampling and te sting TROPIRAP) protocol is a recommended pra ctice- An elevated tro ponin level alone is often not sufficient for diagnosis of my ocardial infarction. URINALYSIS [id number] 15:36:00 Test Item Value Reference Range Interpretation [...] LEUU) Urine Specimen Type: Clean CatchCHEMISTRY 8 [id number] 15:34:00 Test Item Value Reference Range Interpretation [...] 45-104 N code = GFRBED) CHEMISTRY 8 [id number] 15:34:00 Test Item Value Reference Range Interpretation [...]
[2022-12-26] MEDS ORDERED: MORPHINE 4 MG/ML SYR ONE ×2 (09:40→11:24)
[2022-12-26] MEDS ORDERED: KETOROLAC 30 MG/ML INJ ONE (09:41)
[2022-12-26] MEDS ORDERED: ONDANSETRON 4 MG/2 ML VIAL ONE ×2 (09:41→11:24)
[2022-12-26] MEDS ORDERED: CEFTRIAXONE 1000 MG/VIAL ONE (09:41)
[2022-12-26] MEDS ORDERED: NA CHLORIDE 0.9% 50 ML ONE (09:41)
[2022-12-26] MEDS ORDERED: NA CHLORIDE 0.9% 1,000 ML ONE ×2 (09:41→12:13)
[2022-12-26 09:45] LABS: Absolute Lymphocytes (CBC) 1.1 K/uL (0.7-4.9); Hematocrit 37.2 % (36.0-45.0); Lymphocytes % 7.4 % (15.3-44.8); MCV 86.2 fL (80-100); MPV 7.6 fL (7.6-11.3); Platelets 296 thou/uL (152-406); RBC Red Blood Cell Count 4.32 M/uL (3.86-4.86)
[2022-12-26 10:00] LABS: Albumin 3.3 g/dL (3.4-5.0); Bilirubin Total 0.5 mg/dL (0.2-1.0); Protein, Total 7.2 g/dL (6.4-8.2)
[2022-12-26 10:03] LABS: Specific Gravity 1.011 (1.005-1.030); Urine Bacteria None Seen /HPF (<20); Urine Bilirubin NEGATIVE (Negative); Urine Blood 3+ (Negative); Urine Clarity Extremely Turbid (Clear); Urine Color Yellow (Yellow); Urine Glucose NEGATIVE (Negative); Urine Mucus 2+ /HPF (None Seen); Urine Protein TRACE (Negative); Urine RBC >50 /HPF (None Seen); Urine Urobilinogen Normal (Normal)
--- NOTE | 2022-12-26 10:13 | RAD REPORT ---
EXAM DESCRIPTION: CT - Stone Protocol - 12/26/2022 9:39 am CLINICAL HISTORY: Flank pain. Abd pain;Flank pain COMPARISON: Abdomen Pelvis Wo Contrast dated 12/02/2022; Stone Protocol dated 11/28/2022 TECHNIQUE: Axial images were obtained without oral or IV contrast. Lack of contrast limits solid org an and vascular assessment. The [id number] spans the entirety of the system partially obscuring uppermost abdomen and lung bases. Coronal reformatted images were obtained and reviewed. All CT scans are performed using dose optimization technique as appropriate and may include automated exposure control or mA/KV adjustment according to patient size. FINDINGS: Mild linear subsegmental atelectasis in both lung bases. Cholecystectomy clips. Imaged portions of the liver and spleen show no suspicious findings on non-contrast imaging.4.[address] left lobe liver laterally, benign. The pancreas and adrenal glands are normal. No pathologic lymph adenopathy in the abdomen or pelvis. Left double-J stent is in place. Proximal and distal aspects are expected position. There is mild lef t-sided hydronephrosis present. Small fragmented calculus seen along the course of the stent approxim ately measuring up to 4 mm. No bowel obstruction, free air, free fluid or abscess. Normal appendix noted.Sigmoid diverticulosis c yesenia is present without diverticulitis. Mild lower lumbar degenerative changes. IMPRESSION: Left double-J stent is in place in appropriate positioning. There is mild left hydroneph rosis. 4 mm fragmented stone is likely present along the course of the stent proximally.
--- NOTE | 2022-12-26 12:04 | ER ---
Nurse's Notes [facility] Name: Marija Henry Age: 67 yrs Sex: Female : 1955 Arrival Date: 12/26/2022 Time: 09:13 Bed 20 Private MD: Diagnosis: Pyelonephritis acute;Hydronephrosis with renal and ureteral calculous obstruction-left 4 mm with stent;Fever, unspecified;Elevated white blood cell count Presentation: 12/26 09:18 Chief complaint: Medication(s) given: EMS states: toned out to home for left flank 3 pain, pt states she has a kidney stone on the left side and kidney stent, last measurement of stone was 7mm. Pt took 2 [place] 5/325 at about 0230 today. Coronavirus screen: Vaccine status: Patient reports receiving the 2nd dose of the covid vaccine. Ebola Screen: No symptoms or risks identified at this time. Initial Sepsis Screen: Does the patient meet any 2 criteria? RR > 20 per min. No. Patient's initial sepsis screen is negative. Does the patient have a suspected source of infection? Yes: Dysuria/Frequency/Urgency/UTI. Risk Assessment: Do you want to hurt yourself or someone else? Patient reports no desire to harm self or others. Onset of symptoms was December 26, 2022. 09:18 Method Of Arrival: EMS: [facility] 09:18 Acuity: UDAY 3 [facility] 09:18 Care prior to arrival: Glucose check: 132. [facility] Triage Assessment: 09:19 General: Appears in no apparent distress. uncomfortable, Behavior is cooperative, [facility] appropriate for age. Pain: Complains of pain in left flank Pain currently is 10 out of 10 on a pain scale. Neuro: Level of Consciousness is awake, alert, obeys commands, Oriented to person, place, time, situation. Cardiovascular: Capillary refill < 3 seconds Patient's skin is warm and dry. Respiratory: Airway is patent Respiratory effort is even, unlabored, Respiratory pattern is regular, symmetrical. GI: Abdomen is round non-distended. Derm: Skin is pink, warm \T\ dry. Musculoskeletal: Circulation, motion, and sensation intact. Historical: - Allergies: 09:19 latex; 3 - Home Meds: 09:19 hydrocodone-acetaminophen 5-325 mg oral tablet [Active]; eh3 - PMHx: 09:19 Hypertensive disorder; Diabetes mellitus; Kidney stone; eh3 - PSHx: 09:19 Kidney stent left side; Bladder lift; Cholecystectomy; hernia repair; kidney stone; eh3 partial hysterectomy; skin cancer removed; - Immunization history:: Adult Immunizations up to date, Flu vaccine is not up to date. It has been more than one year since last vaccine. - Social history:: Smoking status: Patient reports the use of cigarette tobacco products, smokes one-half pack cigarettes per day, Patient/guardian denies using alcohol. - Family history:: not pertinent. Screenin:18 [facility] ED Fall Risk Assessment (Adult) Score/Fall Risk Level 0 - 2 = Low Risk. Abuse eh3 screen: Denies threats or abuse. Denies injuries from another. Nutritional screening: No deficits noted. Tuberculosis screening: No symptoms or risk factors identified. Assessment: 09:18 Reassessment: No changes from previously documented assessment. See triage assessment. eh3 10:00 Reassessment: Patient appears in no apparent distress at this time. Patient and/or 3 family updated on plan of care and expected duration. Pain level reassessed. Patient is alert, oriented x 3, equal unlabored respirations, skin warm/dry/pink. 11:00 Reassessment: Patient appears in no apparent distress at this time. Patient and/or 3 family updated on plan of care and expected duration. Pain level reassessed. Patient is alert, oriented x 3, equal unlabored respirations, skin warm/dry/pink. 12:00 Reassessment: Patient appears in no apparent distress at this time. Patient and/or 3 family updated on plan of care and expected duration. Pain level reassessed. Patient is alert, oriented x 3, equal unlabored respirations, skin warm/dry/pink. 13:00 Reassessment: Patient appears in no apparent distress at this time. Patient and/or eh3 family updated on plan of care and expected duration. Pain level reassessed. Patient is alert, oriented x 3, equal unlabored respirations, skin warm/dry/pink. 14:00 Reassessment: Patient appears in no apparent distress at this time. Patient and/or eh3 family updated on plan of care and expected duration. Pain level reassessed. Patient is alert, oriented x 3, equal unlabored respirations, skin warm/dry/pink. 15:00 Reassessment: Patient appears in no apparent distress at this time. Patient and/or 3 family updated on plan of care and expected duration. Pain level reassessed. Patient is alert, oriented x 3, equal unlabored respirations, skin warm/dry/pink. 16:00 Reassessment: Patient appears in no apparent distress at this time. Patient and/or 3 family updated on plan of care and expected duration. Pain level reassessed. Patient is alert, oriented x 3, equal unlabored respirations, skin warm/dry/pink. 17:00 Reassessment: Patient appears in no apparent distress at this time. Patient and/or 3 family updated on plan of care and expected duration. Pain level reassessed. Patient is alert, oriented x 3, equal unlabored respirations, skin warm/dry/pink. 18:00 Reassessment: Patient appears in no apparent distress at this time. Patient and/or 3 family updated on plan of care and expected duration. Pain level reassessed. Patient is alert, oriented x 3, equal unlabored respirations, skin warm/dry/pink. 20:02 Reassessment: Failed attempt to call report to 2nd floor, Damaris's cell phone goes [facility] straight to voicemail. 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 Vital Signs: 09:18 BP 178 / 83; Pulse 53; Resp 22; Temp 99.4(O); Pulse Ox 95% on R/A; Weight 110.68 kg; 3 Height 5 ft. 6 in. ; Pain 10/10; 10:15 BP 145 / 63; Pulse 81; Resp 14; Pulse Ox 95% on R/A; 3 11:00 BP 134 / 64; Pulse 82; Resp 18; Pulse Ox 90% on R/A; 3 12:00 BP 127 / 55; Pulse 73; Resp 20; Pulse Ox 94% on R/A; 3 13:00 BP 133 / 69; Pulse 73; Resp 20; Pulse Ox 95% on R/A; 3 14:00 BP 144 / 74; Pulse 67; Resp 20; Pulse Ox 95% on R/A; 3 15:00 BP 134 / 63; Pulse 71; Resp 20; Pulse Ox 94% on R/A; 3 16:00 BP 141 / 72; Pulse 67; Resp 20; Pulse Ox 95% on R/A; eh3 17:00 BP 109 / 87; Pulse 82; Resp 19; Pulse Ox 95% on R/A; eh3 18:00 BP 143 / 66; Pulse 77; Resp 20; Pulse Ox 95% on R/A; eh3 09:18 Body Mass Index 39.38 (110.68 kg, 167.64 cm) eh3 09:18 Pain Scale: Adult 3 ED Course: 09:17 Patient arrived in ED. eh3 09:18 Frank Ayala MD is Attending Physician. tan 09:18 Patient has correct armband on for positive identification. Placed in gown. Bed in low eh3 position. Call light in reach. Side rails up X2. Provided Education on: Use of call foy. Client placed on continuous cardiac and pulse oximetry monitoring. NIBP monitoring applied. 09:19 Triage completed. eh3 09:19 Arm band placed on. eh3 09:25 Chacha Mosley, RN is Primary Nurse. eh3 09:35 CBC with Diff Sent. bc6 09:35 CMP Sent. bc6 09:35 Lipase Sent. bc6 09:35 Inserted saline lock: 22 gauge in left forearm, using aseptic technique. Blood bc6 collected. 09:39 CT Stone Protocol In Process Unspecified. EDMS 09:49 Urinalysis w/ reflexes Sent. bc6 09:55 IV discontinued, intact, bleeding controlled, Pressure dressing applied, LFA IV eh3 infiltrated. 10:00 Missed attempt(s): 24 gauge in right hand. Bleeding controlled, band aid applied, eh3 catheter tip intact. 10:05 Inserted saline lock: 22 gauge in left antecubital area, using aseptic technique. eh3 12:05 initiated transfer to [facility] [place]. bd 12:17 transfer cancelled by provider. bd 12:50 Liang Bermudez MD is Hospitalizing Provider. tan 12:50 Steven Shields is Hospitalizing Provider. tan 21:00 No provider procedures requiring assistance completed. eh3 Administered Medications: 09:55 Drug: TORadol - Ketorolac IVP 15 mg IVP once Route: IVP; Site: left forearm; eh3 11:00 Follow up: Response: No adverse reaction eh3 10:05 Drug: NS 0.9% IV 1000 ml IV at 1 bolus Per protocol; 1000 mL bolus Route: IV; Rate: 1 eh3 bolus; Site: left antecubital; 13:17 Follow up: IV Status: Completed infusion; IV Intake: 1000ml [facility] 10:05 Drug: Ondansetron IVP 4 mg IVP once; over 2 minutes Route: IVP; Site: left antecubital; [facility] 11:00 Follow up: Response: No adverse reaction [facility] 10:05 Drug: morphine IVP or IV 4 mg IVP once over 4 mins Route: IVP; Infused Over: 4 mins; 3 Site: left antecubital; 11:00 Follow up: Response: No adverse reaction; RASS: Alert and Calm (0) [facility] 10:08 Drug: Rocephin IV 1 grams IV at per protocol once; Given slow IV push per pharmacy [facility] instructions Route: IV; Rate: per protocol; Site: left antecubital; 11:00 Follow up: Response: No adverse reaction; IV Status: Completed infusion; IV Intake: [id number] 11:12 Not Given (Duplicate Order): morphineor iv 4 mg IVP once over 4 mins tan 11:12 Not Given (Duplicate Order): ondansetron 4 mg IVP once; over 2 minutes tan 11:51 Drug: Ondansetron IVP 4 mg IVP once; over 2 minutes Route: IVP; Site: left antecubital; [facility] 13:16 Follow up: Response: No adverse reaction [facility] 11:51 Drug: morphine IVP or IV 4 mg IVP once over 4 mins Route: IVP; Infused Over: 4 mins; 3 Site: left antecubital; 13:16 Follow up: Response: No adverse reaction; RASS: Drowsy (-1) [facility] 12:30 Drug: Ciprofloxacin IVPB 400 mg 200 ml IVPB once over 60 mins Volume: 200 ml; Route: eh3 IVPB; Infused Over: 60 mins; Site: left antecubital; 13:30 Follow up: Response: No adverse reaction; IV Status: Completed infusion; IV Intake: eh3 200ml 12:30 Drug: NS 0.9% IV 1000 ml IV at 125 ml/hr continuous Route: IV; Rate: 125 ml/hr; Site: [facility] left antecubital; 21:00 Follow up: IV Status: Infusion continued upon admission; IV Intake: 700ml [facility] Medication: 21:20 VIS not applicable for this client. 3 Intake: 11:00 IV: 50ml; Total: 50ml. eh3 13:17 IV: 1000ml; Total: 1050ml. eh3 13:30 IV: 200ml; Total: 1250ml. eh3 21:00 IV: 700ml; Total: 1950ml. 3 Outcome: 12:03 ER care complete, transfer ordered by . tan 12:51 Decision to Hospitalize by Provider. tan 21:20 Admitted to Med/surg accompanied by tech, via wheelchair, room 229, Report called to [facility] Damaris 21:20 Condition: stable 21:20 Instructed on the need for admit, 21:37 Patient left the ED. mb9 Signatures: Dispatcher [employer] EDMS Minerva Joseph Corey, MD MD cha Hall, Erin, RN RN 3 Nhi, Judy Maldonado RN RN mb9 Joyce Hawk 6 Corrections: (The following items were deleted from the chart) 09:25 09:18 Chief complaint: EMS states: toned out to home for left flank pain, pt states she eh3 has a kidney stone on the left side and kidney stent, last measurement of stone was 7mm [facility] 09:26 09:18 BP 178 / 83; Pulse 53bpm; Resp 22bpm; Pulse Ox 95% RA; Temp 99.4F Oral; 244.94 eh3 kg; Height 5 ft. 6 in.; BMI: 87.1; Pain 10/10, Adult; 3 10:34 10:05 Inserted saline lock: 22 gauge in left antecubital area, using aseptic technique. 3 Missed attempt(s): 24 gauge in right hand. Bleeding controlled, band aid applied, catheter tip intact. 3
--- NOTE | 2022-12-26 12:04 | EDPHYS ---
Physician Documentation [facility] Name: Marija Henry Age: 67 yrs Sex: Female : 1955 Arrival Date: 12/26/2022 Time: 09:13 Bed 20 Private MD: Frank Da Silva HPI: 12/26 11:57 This 67 yrs old Female presents to ER via EMS with complaints of Possible tan Kidney Stone. 11:57 The patient presents with abdominal pain in the left upper quadrant, in the left lower tan quadrant, abdominal distention in the upper abdomen, in the lower abdomen. Onset: The symptoms/episode began/occurred 1 day(s) ago. The patient presents to the emergency department with nausea, vomiting, abdominal pain, of the posterior aspect of left lateral abdomen, anterior aspect of left lateral abdomen, left upper quadrant and left lower quadrant. Onset: The symptoms/episode began/occurred 1 day(s) ago. Possible causes: left stone. The symptoms are aggravated by nothing. The symptoms are alleviated by nothing. The symptoms radiate to the left flank. The symptoms are described as constant, crampy. Historical: - Allergies: 09:19 latex; eh3 - Home Meds: 09:19 hydrocodone-acetaminophen 5-325 mg oral tablet [Active]; eh3 - PMHx: 09:19 Hypertensive disorder; Diabetes mellitus; Kidney stone; eh3 - PSHx: 09:19 Kidney stent left side; Bladder lift; Cholecystectomy; hernia repair; kidney stone; eh3 partial hysterectomy; skin cancer removed; - Immunization history:: Adult Immunizations up to date, Flu vaccine is not up to date. It has been more than one year since last vaccine. - Social history:: Smoking status: Patient reports the use of cigarette tobacco products, smokes one-half pack cigarettes per day, Patient/guardian denies using alcohol. - Family history:: not pertinent. ROS: 11:57 Eyes: Negative for injury, pain, redness, and discharge, ENT: Negative for injury, tan pain, and discharge, Neck: Negative for injury, pain, and swelling, Cardiovascular: Negative for chest pain, palpitations, and edema, Respiratory: Negative for shortness of breath, cough, wheezing, and pleuritic chest pain, : Negative for injury, bleeding, discharge, and swelling, MS/Extremity: Negative for injury and deformity, Skin: Negative for injury, rash, and discoloration, Neuro: Negative for headache, weakness, numbness, tingling, and seizure, Psych: Negative for depression, anxiety, suicide ideation, homicidal ideation, and hallucinations, Allergy/Immunology: Negative for hives, rash, and allergies, Endocrine: Negative for neck swelling, polydipsia, polyuria, polyphagia, and marked weight changes, Hematologic/Lymphatic: Negative for swollen nodes, abnormal bleeding, and unusual bruising, 11:57 Constitutional: Positive for body aches, fatigue, fever, poor PO intake, 11:57 Abdomen/GI: Positive for abdominal pain, nausea, vomiting, of the posterior aspect of left lateral abdomen, anterior aspect of left lateral abdomen, left upper quadrant and left lower quadrant, Exam: 11:57 Constitutional: This is a well developed, well nourished patient who is awake, alert, tan and in no acute distress. Head/Face: Normocephalic, atraumatic. Eyes: Pupils equal round and reactive to light, extra-ocular motions intact. Lids and lashes normal. Conjunctiva and sclera are non-icteric and not injected. Cornea within normal limits. Periorbital areas with no swelling, redness, or edema. ENT: Nares patent. No nasal discharge, no septal abnormalities noted. Tympanic membranes are normal and external auditory canals are clear. Oropharynx with no redness, swelling, or masses, exudates, or evidence of obstruction, uvula midline. Mucous membranes moist. Neck: Trachea midline, no thyromegaly or masses palpated, and no cervical lymphadenopathy. Supple, full range of motion without nuchal rigidity, or vertebral point tenderness. No Meningismus. Chest/axilla: Normal chest wall appearance and motion. Nontender with no deformity. No lesions are appreciated. Cardiovascular: Regular rate and rhythm with a normal S1 and S2. No gallops, murmurs, or rubs. Normal PMI, no JVD. No pulse deficits. Respiratory: Lungs have equal breath sounds bilaterally, clear to auscultation and percussion. No rales, rhonchi or wheezes noted. No increased work of breathing, no retractions or nasal flaring. Back: No spinal tenderness. No costovertebral tenderness. Full range of motion. Female : Normal external genitalia. Skin: Warm, dry with normal turgor. Normal color with no rashes, no lesions, and no evidence of cellulitis. MS/ Extremity: Pulses equal, no cyanosis. Neurovascular intact. Full, normal range of motion. Neuro: Awake and alert, GCS 15, oriented to person, place, time, and situation. Cranial nerves II-XII grossly intact. Motor strength 5/5 in all extremities. Sensory grossly intact. Cerebellar exam normal. Normal gait. Psych: Awake, alert, with orientation to person, place and time. Behavior, mood, and affect are within normal limits. 11:57 ECG was reviewed by the Attending Physician. 11:57 Abdomen/GI: Inspection: abdomen appears normal, Bowel sounds: normal, active, Palpation: mild abdominal tenderness, moderate abdominal tenderness, in the posterior aspect of left lateral abdomen, anterior aspect of left lateral abdomen, left upper quadrant and left lower quadrant, Liver: no appreciated palpable abnormalities, Hernia: not appreciated, Vital Signs: 09:18 BP 178 / 83; Pulse 53; Resp 22; Temp 99.4(O); Pulse Ox 95% on R/A; Weight 110.68 kg; eh3 Height 5 ft. 6 in. ; Pain 10/10; 10:15 BP 145 / 63; Pulse 81; Resp 14; Pulse Ox 95% on R/A; eh3 11:00 BP 134 / 64; Pulse 82; Resp 18; Pulse Ox 90% on R/A; eh3 12:00 BP 127 / 55; Pulse 73; Resp 20; Pulse Ox 94% on R/A; eh3 13:00 BP 133 / 69; Pulse 73; Resp 20; Pulse Ox 95% on R/A; eh3 14:00 BP 144 / 74; Pulse 67; Resp 20; Pulse Ox 95% on R/A; eh3 15:00 BP 134 / 63; Pulse 71; Resp 20; Pulse Ox 94% on R/A; eh3 16:00 BP 141 / 72; Pulse 67; Resp 20; Pulse Ox 95% on R/A; eh3 17:00 BP 109 / 87; Pulse 82; Resp 19; Pulse Ox 95% on R/A; eh3 18:00 BP 143 / 66; Pulse 77; Resp 20; Pulse Ox 95% on R/A; eh3 09:18 Body Mass Index 39.38 (110.68 kg, 167.64 cm) [facility] 09:18 Pain Scale: Adult eh3 MDM: 09:18 Patient medically screened. [facility] 12:01 Differential diagnosis: Nonspecific abd pain, diverticulitis, gastritis, non-specific tan abd pain, pancreatitis, Pyelonephritis, Ureterolithiasis, urinary tract infection. Data reviewed: vital signs, nurses notes, lab test result(s), radiologic studies, CT scan. Consideration of Admission/Observation Escalation of care including admission/observation considered. I considered the following discharge prescriptions or medication management in the emergency department Medications were administered in the Emergency Department. See MAR. Test considered but Not performed: Ultrasound no abd usg. Care significantly affected by the following chronic conditions: Diabetes, Hypertension, kidney stone. 12/26 09:20 Order name: CBC with Diff; Complete Time: 11:02 [facility] 12/26 09:20 Order name: CMP; Complete Time: 11:02 [facility] 12/26 09:20 Order name: Lipase; Complete Time: 11:02 [facility] 12/26 09:20 Order name: Urinalysis w/ reflexes; Complete Time: 11:02 [facility] 12/26 10:06 Order name: Urine Culture [facility] 12/26 12:14 Order name: Lactate w/ 2H reflex if indic. [facility] 12/26 12:14 Order name: Blood Culture Adult (2) [facility] 12/26 14:47 Order name: Magnesium [facility] 12/26 14:47 Order name: Phosphorus [facility] 12/26 14:47 Order name: Urinalysis w/ reflexes [facility] 12/26 14:47 Order name: Basic Metabolic Panel [facility] 12/26 14:47 Order name: Basic Metabolic Panel [facility] 12/26 14:47 Order name: CBC with Automated Diff [facility] 12/26 14:47 Order name: CBC with Automated Diff [facility] 12/26 14:47 Order name: Lipid Profile [facility] 12/26 14:47 Order name: Lipid Profile [facility] 12/26 14:51 Order name: Hemoglobin A1c [facility] 12/26 17:53 Order name: Glucose, Ancillary Testing [facility] 12/26 09:20 Order name: CT Stone Protocol; Complete Time: 11:02 [facility] 12/26 14:47 Order name: CONS Physician Consult [facility] 12/26 14:47 Order name: 60g Consistent Carbohydrate (ADA 1800/2000) [facility] 12/26 09:20 Order name: IV Saline Lock; Complete Time: 09:35 [facility] 12/26 09:20 Order name: Labs collected and sent; Complete Time: : [facility] 12/26 12:14 Order name: Snehal; Complete Time: 17:21 [facility] EC:57 Rate is 78 beats/min. Rhythm is regular. QRS [place] is Normal. [place] interval is normal. QRS tan interval is normal. QT interval is normal. No Q waves. T waves are Normal. No ST changes noted. Interpreted by me. Reviewed by me. Administered Medications: 09: Drug: TORadol - Ketorolac IVP 15 mg IVP once Route: IVP; Site: left forearm; 3 11:00 Follow up: Response: No adverse reaction [facility] 10:05 Drug: NS 0.9% IV 1000 ml IV at 1 bolus Per protocol; 1000 mL bolus Route: IV; Rate: 1 eh3 bolus; Site: left antecubital; 13:17 Follow up: IV Status: Completed infusion; IV Intake: 1000ml [facility] 10:05 Drug: Ondansetron IVP 4 mg IVP once; over 2 minutes Route: IVP; Site: left antecubital; 3 11:00 Follow up: Response: No adverse reaction [facility] 10:05 Drug: morphine IVP or IV 4 mg IVP once over 4 mins Route: IVP; Infused Over: 4 mins; 3 Site: left antecubital; 11:00 Follow up: Response: No adverse reaction; RASS: Alert and Calm (0) [facility] 10:08 Drug: Rocephin IV 1 grams IV at per protocol once; Given slow IV push per pharmacy 3 instructions Route: IV; Rate: per protocol; Site: left antecubital; 11:00 Follow up: Response: No adverse reaction; IV Status: Completed infusion; IV Intake: [id number] 11:12 Not Given (Duplicate Order): morphineor iv 4 mg IVP once over 4 mins [facility] 11:12 Not Given (Duplicate Order): ondansetron 4 mg IVP once; over 2 minutes [facility] 11:51 Drug: Ondansetron IVP 4 mg IVP once; over 2 minutes Route: IVP; Site: left antecubital; 3 13:16 Follow up: Response: No adverse reaction [facility] 11:51 Drug: morphine IVP or IV 4 mg IVP once over 4 mins Route: IVP; Infused Over: 4 mins; eh3 Site: left antecubital; 13:16 Follow up: Response: No adverse reaction; RASS: Drowsy (-1) eh3 12:30 Drug: Ciprofloxacin IVPB 400 mg 200 ml IVPB once over 60 mins Volume: 200 ml; Route: eh3 IVPB; Infused Over: 60 mins; Site: left antecubital; 13:30 Follow up: Response: No adverse reaction; IV Status: Completed infusion; IV Intake: eh3 200ml 12:30 Drug: NS 0.9% IV 1000 ml IV at 125 ml/hr continuous Route: IV; Rate: 125 ml/hr; Site: eh3 left antecubital; 21:00 Follow up: IV Status: Infusion continued upon admission; IV Intake: 700ml eh3 Disposition Summary: 12/26/22 12:51 Hospitalization Ordered Notes: Hospitalization Status: Inpatient Admission tan Provider: Steven Shields cha Location: Telemetry/MedSurg (Inpatient) tan Condition: Fair(12/26/22 12:51) tan Problem: new(12/26/22 12:51) tan Symptoms: have improved(12/26/22 12:51) tan Bed/Room Type: Standard [facility] Room Assignment: 229(12/26/22 19:55) Diagnosis - Pyelonephritis acute tna - Hydronephrosis with renal and ureteral calculous obstruction - left 4 mm with tan stent(12/26/22 12:51) - Fever, unspecified(12/26/22 12:51) tan - Elevated white blood cell count tan Forms: - Medication Reconciliation Form tan - SBAR form tan - Leadership Thank You Letter tan Signatures: Dispatcher [employer] EDMN Amanda العراقي RN RN mw Anderson, Corey, MD MD cha Hall, Erin, RN RN 3 Corrections: (The following items were deleted from the chart) 12:04 12:03 to [facility] [place] tan tan 12:13 12:03 [facility] tan tan 12:13 12:03 Higher level of care tan tan 12:13 12:03 Fair tan tan 12:13 12:03 new tan tan 12:13 12:03 have improved tan tan 12:13 12:03 UTI/ Urinary tract infection, site not specified tan tan 12:13 12:03 Hydroureter tan tan 12:13 12:03 Hydronephrosis with renal and ureteral calculous obstruction - with stent tan [facility] 12:04 [facility] tan [facility] 12:04 Fever, unspecified [facility] 12:04 Elevated white blood cell count, unspecified [facility] 19:55 12:51 tan mw
[2022-12-26] MEDS ORDERED: CIPROFLOXACIN 400mg IV 400 MG/200 ML BAG IV ONE (12:13)
[2022-12-26] MEDS ORDERED: ACETAMINOPHEN 325 MG TABLET PO PRN (14:41)
[2022-12-26] MEDS ORDERED: ONDANSETRON 4 MG/2 ML VIAL IV PRN (14:43)
--- NOTE | 2022-12-26 14:51 | P.HP ---
Certification for Inpatient Patient admitted to: Inpatient With expected LOS: >2 Midnights Patient will require the following post-hospital care: None Practitioner: I am a practitioner with admitting privileges, knowledge of patient current condition, hospital course, and medical plan of care. Services: Services provided to patient in accordance with Admission requirements found in Title 42 Section 412.3 of the Code of Federal Regulations Patient History Date of Service: 12/26/22 Reason for admission: Left flank pain History of Present Illness: Patient is a 67-year-old female with a past medical history significant for DM 2, kidney stones, hypertension who presents with complaint of left flank pain onset yesterday. Patient rated pain as 10/10 and described pain as sharp in quality. Patient indicated that pain radiates to the left lower quadrant as well as her back. Patient reported associated signs and symptoms of dysuria, urinary frequency, dizziness, diaphoresis and nausea. Patient denies any other signs and symptoms. Symptoms are aggravated or relieved by nothing. Patient decided to present to the hospital due to worsening symptoms. Of note, patient recently had a Left double-J stent placed by her Urologist 1 month ago. Allergies latex Allergy (Mild, Verified 02/09/21 02:26) Hives/Rash Home Medications: NK [No Home Meds] 12/26/22 - Past Medical/Surgical History -: DM 2 -: Obesity -: HTN -: Nicotine dependence -: Umbilical Hernia repair -: Kidney stent left side hernia repair; kidne -: Bladder lift -: Cholecystectomy -: Partial hysterectomy - Family History Father -: Hypertension Mother -: Hypertension - Social History Smoking Status: Current every day smoker Counseled patient to stop smoking for: less than 10 minutes Smoking therapy provided: Yes Patient receptive to therapy: No Alcohol use: No CD- Drugs: No Caffeine use: Yes Place of Residence: Home Review of Systems General: Sweats Eyes: Unremarkable ENT: Unremarkable Respiratory: Unremarkable Cardiovascular: Unremarkable Gastrointestinal: Nausea, Abdominal Pain Genitourinary: Dysuria, Frequency, Other (Left flank pain ) Musculoskeletal: Back Pain Integumentary: Unremarkable Neurological: Other (Dizziness ) Lymphatics: Unremarkable Physical Examination - Physical Exam General: Alert, In no apparent distress, Oriented x3, Cooperative HEENT: Atraumatic, PERRLA, Mucous membr. moist/pink, EOMI, Sclerae nonicteric Neck: Supple, 2+ carotid pulse no bruit, No LAD, Without JVD or thyroid abnormality Respiratory: Clear to auscultation bilaterally, Normal air movement Cardiovascular: No edema, Regular rate/rhythm, Normal S1 S2 Capillary refill: <2 Seconds Gastrointestinal: Normal bowel sounds, Tenderness Musculoskeletal: No tenderness Integumentary: No rashes, No breakdown, No significant lesion Neurological: Normal speech, Normal tone, Normal affect Lymphatics: No axilla or inguinal lymphadenopathy - Studies Laboratory Data (last 24 hrs) 12/26/22 12/26/22 09:30 09:30 WBC 14.70 H Hgb 12.3 Hct 37.2 Plt Count 296 Sodium 140 Potassium 4.0 BUN 18 Creatinine 1.18 H Glucose 137 H Total Bilirubin 0.5 AST 15 ALT 20 Alkaline Phosphatase 146 H Lipase 21 Assessment and Plan - Plan --Left pyelonephritis. Continue antibiotics. Infectious disease MD consulted. We will await further recommendations. Continue IV hydration. --UTI POA. Continue antibiotics. Urine cultures pending. --Acute pain. We will manage pain with current pain medication regimen. --DM2. BS monitoring with sliding scale insulin. --Hypertension. Poorly controlled. Continue home medications and hydralazine as needed. --Class II obesity. Likely related to excess calories intake. Patient counseled on weight reduction, diet, and excise therapy. --Nicotine dependence. Patient counseled on tobacco cessation. Refuses nicotine patch. -- DVT prophylaxis with subQ. Discharge Plan: Home Plan to discharge in: Greater than 2 days - Advance Directives Does patient have a Living Will: No Does patient have a Durable POA for Healthcare: No - Code Status/Comfort Care Code Status Assessed: Yes Physician Review: Patient Assessed, Agree with Above Assessment and Plan Critical Care: No
[2022-12-26] MEDS: ENOXAPARIN 40 MG/0.4 ML SQ SCH (15:00)
[2022-12-26] MEDS: NA CHLORIDE 0.9% 1,000 ML IV SCH (15:00)
[2022-12-26] MEDS ORDERED: ENOXAPARIN 40 MG/0.4 ML SQ ONE (16:01)
[2022-12-26] MEDS: INSULIN REGULAR (HUMAN) 100 UNIT/ML SQ SCH ×2 (16:30→21:00)
[2022-12-26] MEDS: HYDROCODONE/APAP 10/325 TAB PO PRN (17:45)
[2022-12-26 17:49] VITALS: BMI 39.4
[2022-12-26] MEDS ORDERED: HYDROCODONE/APAP 10/325 TAB ONE (17:49)
[2022-12-26] MEDS ORDERED: ACETAMINOPHEN 325 MG TABLET ONE (20:50)
[2022-12-27] MEDS: HYDROCODONE/APAP 10/325 TAB PO PRN ×2 (02:00→20:42)
[2022-12-27 03:16] LABS: Absolute Lymphocytes (CBC) 1.4 K/uL (0.7-4.9); Hematocrit 31.7 % (36.0-45.0); Lymphocytes % 14.8 % (15.3-44.8); MCV 86.6 fL (80-100); MPV 8.2 fL (7.6-11.3); Platelets 225 thou/uL (152-406); RBC Red Blood Cell Count 3.66 M/uL (3.86-4.86)
[2022-12-27] MEDS: NA CHLORIDE 0.9% 1,000 ML IV SCH ×2 (03:29→18:28)
[2022-12-27 03:43] LABS: Potassium 3.8 mEq/L (3.5-5.1)
[2022-12-27] MEDS ORDERED: POTASSIUM CL SA 10 MEQ TAB PO ONE ×2 (04:33→09:00)
[2022-12-27] MEDS: INSULIN REGULAR (HUMAN) 100 UNIT/ML SQ SCH ×4 (07:30→21:00)
--- NOTE | 2022-12-27 07:39 | P.PN ---
Date of Service: 12/27/22 Subjective: Doing okay Abdominal pain slightly more tolerable with pain medication 101.7 temp overnight no acute events overnight ROS: 10 point ROS as noted above, otherwise negative Physical Exam: GEN: Alert, oriented, NAD HEENT: Normal conjunctiva, sclera anicteric CV: Regular rate and rhythm, no edema Pulm: Nonlabored respirations on room air, clear bilaterally ABD: Soft, Left-sided abdominal tenderness, nondistended Neuro: Normal speech, normal affect vitals reviewed Problem List: acute pyelonephritis, left NIDDM2 Hypertension Class II obesity Nicotine dependence acute pyelonephritis, left CT abd (12/26): Left double-J stent is in place. mild left hydronephrosis. 4 mm fragmented stone is likely present along the course of the stent proximally Left stent placed ~few weeks ago by patient's urologist admitting hospitalist spoke to urologist prior to admission, recommended briceño / antibiotics, no need for transfer Urine cx (12/26): pending Blood cx (12/26): pending ID consulted Continue rocephin (12/26-) febrile 101.7 overnight, leukocytosis improved continue IV fluids follow cultures PRN pain medication NIDDM2. sliding scale insulin. Hypertension. Continue home medications and hydralazine as needed. Class II obesity. Likely related to excess calories intake. Patient counseled on weight reduction, diet, and excise therapy. Nicotine dependence. Patient counseled on tobacco cessation. Refuses nicotine patch. VTE: Lovenox Code: Full Dispo: Home, ~2 days Pending further improvement, afebrile > 24 hours, culture results
--- NOTE | 2022-12-27 08:21 | P.CNS ---
Date of Consult: 12/27/22 Reason for Consult: pyelonephritis Chief Complaint: Left flank pain History of Present Illness: Patient is a 67-year-old female with a past medical history of diabetes type 2, hypertension, kidney stones who presented to the ED with complaints of left flank pain, dysuria, dizziness, diaphoresis and nausea. Patient was found to have a left pyelonephritis. Blood and urine cultures obtained. She was started on empiric antibiotic Rocephin. Infectious disease was consulted. Allergies latex Allergy (Mild, Verified 02/09/21 02:26) Hives/Rash Home medications list reviewed: Yes Home Medications: NK [No Home Meds] 12/26/22 - Past Medical/Surgical History Diabetic: Yes -: DM 2 -: Obesity -: HTN -: Nicotine dependence -: Umbilical Hernia repair -: Kidney stent left side hernia repair; kidne -: Bladder lift -: Cholecystectomy -: Partial hysterectomy - Family History Father Medical History: Hypertension Mother Medical History: Hypertension - Social History Smoking Status: Current every day smoker Alcohol use: No CD- Drugs: No Caffeine use: Yes Place of Residence: Home Review of Systems Gastrointestinal: Other (decreased appetite) Genitourinary: Dysuria, Other (left flank/back pain) Physical Examination Temp Pulse Resp BP Pulse Ox 96.7 F L 65 18 129/61 96 12/27/22 04:00 12/27/22 04:00 12/27/22 04:00 12/27/22 04:00 12/27/22 04:00 General: Alert, In no apparent distress, Oriented x3 HEENT: Atraumatic, Normocephalic Neck: Supple, JVD not distended Respiratory: Clear to auscultation bilaterally, Normal air movement (on room air) Cardiovascular: No edema, Normal pulses Gastrointestinal: Normal bowel sounds, Soft and benign Musculoskeletal: No clubbing Integumentary: No rashes Neurological: Normal speech, Normal tone, Normal affect Urinary: Brian catheter (preston colored urine) Laboratory Data -Reviewed Microbiology data - Reviewed Imagings Data: - CT abdomen pelvis 12/26: " Mild linear subsegmental atelectasis in both lung bases. Cholecystectomy clips. Imaged portions of the liver and spleen show no suspicious findings on non- contrast imaging.4.7 cm cyst left lobe liver laterally, benign. The pancreas and adrenal glands are normal. No pathologic lymphadenopathy in the abdomen or pelvis. Left double-J stent is in place. Proximal and distal aspects are expected position. There is mild left-sided hydronephrosis present. Small fragmented calculus seen along the course of the stent approximately measuring up to 4 mm. No bowel obstruction, free air, free fluid or abscess. Normal appendix noted.Sigmoid diverticulosis coli is present without diverticulitis. Mild lower lumbar degenerative changes. " Conclusions/Impression: Problem list Acute pyelonephritis Diabetes mellitus type 2 Hypertension Nicotine dependence Left pyelonephritis -CT abdomen pelvis 12/26: " Left double-J stent is in place in appropriate positioning. There is mild left hydronephrosis. 4 mm fragmented stone is likely present along the course of the stent proximally. " - Left stent placed ~1 month ago by patient's urologist -Urine cultures 12/26: Pending -Blood cultures 12/26: Pending -24-hour Tmax = 101.7 F -Leukocytosis improved (WBC 14.7 -> 9.2) -Currently on Rocephin started 12/26 Recommendations -Continue Rocephin for now. Awaiting final urine and blood culture/sensitivity results. Will adjust antibiotics as appropriate. -Monitor WBC and fever trends. As needed Tylenol -Maintain adequate hydration and nutrition Continue antibiotic therapy for at least 7 days. Case discussed with Evy Beebe
[2022-12-27] MEDS: ENOXAPARIN 40 MG/0.4 ML SQ SCH (08:52)
[2022-12-27] MEDS: CEFTRIAXONE 1,000 MG in NA CHLORIDE 0.9% 50 ML IVPB SCH (08:52)
[2022-12-27] MEDS: ASPIRIN 81 MG CHEWABLE TABLET PO SCH (08:53)
[2022-12-27] MEDS: HYDRALAZINE HCL 20 MG/ML VIAL IV PRN (20:42)
[2022-12-28 02:59] LABS: Absolute Lymphocytes (CBC) 2.2 K/uL (0.7-4.9); Lymphocytes % 23.2 % (15.3-44.8); MCV 85.3 fL (80-100); MPV 8.1 fL (7.6-11.3); Platelets 222 thou/uL (152-406); RBC Red Blood Cell Count 3.52 M/uL (3.86-4.86)
[2022-12-28] MEDS: HYDROCODONE/APAP 10/325 TAB PO PRN ×3 (03:03→18:03)
[2022-12-28 03:21] LABS: Potassium 4.1 mEq/L (3.5-5.1)
[2022-12-28] MEDS: NA CHLORIDE 0.9% 1,000 ML IV SCH (07:00)
--- NOTE | 2022-12-28 07:18 | P.PN ---
Date of Service: 12/28/22 Subjective: Abdominal pain worsened overnight - same location feels pain was tolerable after stent was placed; then ~Monday is when it exacerbated and became much less tolerable no nausea/vomiting, appetite is okay reports bladder pain prior to admission - improved since briceño was placed afebrile ROS: 10 point ROS as noted above, otherwise negative Physical Exam: GEN: Alert, oriented, NAD HEENT: Normal conjunctiva, sclera anicteric CV: Regular rate and rhythm, no edema Pulm: Nonlabored respirations on room air, clear bilaterally ABD: Soft, moderate left-sided abdominal/flank tenderness, nondistended Neuro: Normal speech, normal affect Briceño in place vitals reviewed Problem List: acute pyelonephritis, left NIDDM2 h/o urinary retention Hypertension Class II obesity Nicotine dependence acute pyelonephritis, left h/o urinary retention CT abd (12/26): Left double-J stent is in place. mild left hydronephrosis. 4 mm fragmented stone is likely present along the course of the stent proximally Left stent placed ~few weeks ago by patient's urologist admitting hospitalist spoke to urologist prior to admission, recommended briceño / antibiotics, no need for transfer Urine cx (12/26): Presumptive Esther Albicans Blood cx (12/26): NGTD ID consulted Continue rocephin (12/26-) x14 days consider swap to PO cipro per ID Diflucan added (12/28) afebrile, leukocytosis improved IV fluids dc'd follow cultures PRN pain medication NIDDM2. sliding scale insulin. Hypertension. Continue home medications and hydralazine as needed. Class II obesity. Likely related to excess calories intake. Patient counseled on weight reduction, diet, and excise therapy. Nicotine dependence. Patient counseled on tobacco cessation. Refuses nicotine patch. VTE: Lovenox Code: Full Dispo: Home, ~2 days Pending further improvement, afebrile > 24 hours, culture results
[2022-12-28] MEDS: INSULIN REGULAR (HUMAN) 100 UNIT/ML SQ SCH ×4 (07:30→21:00)
--- NOTE | 2022-12-28 09:05 | P.PN ---
Date of Service: 12/28/22 Chief Complaint: Left flank pain Subjective: Patient seen and examined at bedside. In no apparent distress. + left flank pain + decreased appetite + depression No acute events reported overnight. Physical Examination Temp Pulse Resp BP Pulse Ox 97.4 F 67 18 168/70 H 94 12/28/22 04:00 12/28/22 04:00 12/28/22 04:00 12/28/22 04:00 12/28/22 04:00 General: Alert, In no apparent distress, Oriented x3 HEENT: Atraumatic, Normocephalic Neck: Supple, JVD not distended Respiratory: Clear to auscultation bilaterally, Normal air movement. On room air. Cardiovascular: No edema, Normal pulses Gastrointestinal: Normal bowel sounds, Soft and benign Musculoskeletal: No clubbing Integumentary: No rashes Neurological: Normal speech, Normal tone, Normal affect Urinary: Brian catheter Laboratory Data -Reviewed Microbiology data - Reviewed Imagings Data: - CT abdomen pelvis 12/26: " Mild linear subsegmental atelectasis in both lung bases. Cholecystectomy clips. Imaged portions of the liver and spleen show no suspicious findings on non- contrast imaging.4.7 cm cyst left lobe liver laterally, benign. The pancreas and adrenal glands are normal. No pathologic lymphadenopathy in the abdomen or pelvis. Left double-J stent is in place. Proximal and distal aspects are expected position. There is mild left-sided hydronephrosis present. Small fragmented calculus seen along the course of the stent approximately measuring up to 4 mm. No bowel obstruction, free air, free fluid or abscess. Normal appendix noted.Sigmoid diverticulosis coli is present without diverticulitis. Mild lower lumbar degenerative changes. " Medications list: Reviewed Assessment and plan Problem list Acute pyelonephritis Diabetes mellitus type 2 Hypertension Nicotine dependence Left pyelonephritis -CT abdomen pelvis 12/26: " Left double-J stent is in place in appropriate positioning. There is mild left hydronephrosis. 4 mm fragmented stone is likely present along the course of the stent proximally. " - Left stent placed ~1 month ago by patient's urologist at [facility] -Urine cultures 12/26: 4+ yeast, Esther albicans -Blood cultures 12/26: no growth to date -Afebrile -Leukocytosis resolved -Currently on Rocephin started 12/26 Recommendations - Complicated UTI: Continue antibiotic therapy for 14 days. Consider switch from Rocephin to Ciprofloxacin PO - Urine culture + esther, start on Fluconazole PO x 14 days. -Maintain adequate hydration and nutrition - Follow up with urology as outpatient Case discussed with Evy Beebe
[2022-12-28] MEDS: CEFTRIAXONE 1,000 MG in NA CHLORIDE 0.9% 50 ML IVPB SCH (09:54)
[2022-12-28] MEDS: ENOXAPARIN 40 MG/0.4 ML SQ SCH (09:55)
[2022-12-28] MEDS: ASPIRIN 81 MG CHEWABLE TABLET PO SCH (09:55)
[2022-12-28] MEDS: HYDRALAZINE HCL 20 MG/ML VIAL IV PRN (09:57)
[2022-12-28] MEDS ORDERED: oxyBUTYnin chloride 5 MG TAB PO ONE (21:55)
[2022-12-29] MEDS: HYDROCODONE/APAP 10/325 TAB PO PRN ×4 (00:13→20:42)
[2022-12-29] MEDS: INSULIN REGULAR (HUMAN) 100 UNIT/ML SQ SCH ×4 (07:30→20:43)
--- NOTE | 2022-12-29 07:35 | P.PN ---
Date of Service: 12/29/22 Subjective: Abdominal pain is worse compared to how it was at home prior to admission; same location anxious/tearful at times about situation; frustrated, "feels like nobody in [place] wants to help" no acute events overnight afebrile ROS: 10 point ROS as noted above, otherwise negative Physical Exam: GEN: Alert, oriented, anxious/tearful at times HEENT: Normal conjunctiva, sclera anicteric CV: Regular rate and rhythm, no edema Pulm: Nonlabored respirations on room air, clear bilaterally ABD: Soft, moderate left-sided abdominal/flank tenderness, nondistended Neuro: Normal speech, normal affect Briceño in place vitals reviewed Problem List: acute pyelonephritis, left NIDDM2 nephrolithiasis s/p ureteral stent placement Hypertension Class II obesity Nicotine dependence acute pyelonephritis, left nephrolithiasis s/p ureteral stent placement CT abd (12/26): Left double-J stent is in place. mild left hydronephrosis. 4 mm fragmented stone is likely present along the course of the stent proximally Left stent placed ~few weeks ago by patient's urologist admitting hospitalist spoke to urologist prior to admission, recommended briceño / antibiotics, no need for transfer no history of urinary retention per patient, but reports frequent urination, uncertain if overactive bladder vs incomplete emptying voiding trial, possibly tomorrow consulted Dr. Goddard for further recommendations on pain control/management while patient waits for f/u with her urologist for definitive treatment mostly pain control at this time Urine cx (12/26): Presumptive Esther Albicans Blood cx (12/26): NGTD ID consulted Continue rocephin (12/26-) x14 days consider swap to PO cipro per ID continue Diflucan (12/29-) x14 days afebrile, leukocytosis improved NIDDM2. sliding scale insulin. Hypertension. Continue home medications and hydralazine as needed. Class II obesity. Likely related to excess calories intake. Patient counseled on weight reduction, diet, and excise therapy. Nicotine dependence. Patient counseled on tobacco cessation. Refuses nicotine patch. VTE: Lovenox Code: Full Dispo: Home, ~1-2 days Pending further improvement, afebrile > 24 hours, culture results
--- NOTE | 2022-12-29 08:13 | P.PN ---
Date of Service: 12/29/22 Chief Complaint: Left flank pain Subjective: No acute events reported overnight. In no apparent distress. + continued left flank pain which has been present for 1 month + anxiety Otherwise no worsening complaints at this time. Physical Examination Temp Pulse Resp BP Pulse Ox 97.6 F 94 H 18 137/66 94 12/29/22 06:00 12/29/22 06:00 12/29/22 06:32 12/29/22 06:00 12/29/22 06:32 General: Alert, In no apparent distress, Oriented x3 HEENT: Atraumatic, Normocephalic Neck: Supple, JVD not distended Respiratory: Clear to auscultation bilaterally, Normal air movement. On room air. Cardiovascular: No edema, Normal pulses Gastrointestinal: Normal bowel sounds, Soft and benign Musculoskeletal: No clubbing Integumentary: No rashes Neurological: Normal speech, Normal tone, Normal affect Urinary: Brian catheter Laboratory Data -Reviewed Microbiology data - Reviewed Imagings Data: - CT abdomen pelvis 12/26: " Mild linear subsegmental atelectasis in both lung bases. Cholecystectomy clips. Imaged portions of the liver and spleen show no suspicious findings on non- contrast imaging.4.7 cm cyst left lobe liver laterally, benign. The pancreas and adrenal glands are normal. No pathologic lymphadenopathy in the abdomen or pelvis. Left double-J stent is in place. Proximal and distal aspects are expected position. There is mild left-sided hydronephrosis present. Small fragmented calculus seen along the course of the stent approximately measuring up to 4 mm. No bowel obstruction, free air, free fluid or abscess. Normal appendix noted.Sigmoid diverticulosis coli is present without diverticulitis. Mild lower lumbar degenerative changes. " Medications list: Reviewed Assessment and plan Problem list Acute pyelonephritis Renal calculus Hx urinary retention Diabetes mellitus type 2 Hypertension Anxiety Complicated Urinary Tract Infection Left pyelonephritis -CT abdomen pelvis 12/26: " Left double-J stent is in place in appropriate positioning. There is mild left hydronephrosis. 4 mm fragmented stone is likely present along the course of the stent proximally. " - Left stent placed ~1 month ago by patient's urologist at [facility] -Urine cultures 12/26: 4+ yeast, Esther albicans -Blood cultures 12/26: no growth to date -Afebrile -Leukocytosis resolved -Currently on Rocephin (12/26-) and fluconazole (12/28-) Recommendations - Complicated UTI: Continue antibiotic therapy for 14 days. Consider switch from Rocephin to Ciprofloxacin PO - Urine culture + esther, start on Fluconazole PO x 14 days. -Maintain adequate hydration and nutrition - Follow up with urology as outpatient in 1-2 weeks Case discussed with Evy Beebe
[2022-12-29 08:44] LABS: Absolute Lymphocytes (CBC) 1.3 K/uL (0.7-4.9); Hematocrit 30.3 % (36.0-45.0); Lymphocytes % 13.3 % (15.3-44.8); MCV 85.3 fL (80-100); MPV 7.4 fL (7.6-11.3); Platelets 269 thou/uL (152-406); RBC Red Blood Cell Count 3.55 M/uL (3.86-4.86)
[2022-12-29 08:52] LABS: Albumin 2.5 g/dL (3.4-5.0); Phosphorus 3.4 mg/dL (2.5-4.9); Potassium 3.6 mEq/L (3.5-5.1)
[2022-12-29] MEDS: ENOXAPARIN 40 MG/0.4 ML SQ SCH (09:24)
[2022-12-29] MEDS: CEFTRIAXONE 1,000 MG in NA CHLORIDE 0.9% 50 ML IVPB SCH (09:24)
[2022-12-29] MEDS: FLUCONAZOLE 100 MG TAB PO SCH (09:25)
[2022-12-29] MEDS: ASPIRIN 81 MG CHEWABLE TABLET PO SCH (09:25)
[2022-12-29] MEDS: oxyBUTYnin chloride 5 MG TAB PO SCH (20:42)
[2022-12-29] MEDS ORDERED: POLYETHYL GLY 3350 17 GM/DOSE PO ONE (22:06)
[2022-12-30 03:30] LABS: Albumin 2.5 g/dL (3.4-5.0); Potassium 3.9 mEq/L (3.5-5.1)
--- NOTE | 2022-12-30 07:28 | P.PN ---
Date of Service: 12/30/22 Subjective: doing okay abdominal / flank pain slowly improving no new / worsening problems afebrile ROS: 10 point ROS as noted above, otherwise negative Physical Exam: GEN: Alert, oriented, NAD HEENT: Normal conjunctiva, sclera anicteric CV: Regular rate and rhythm, no edema Pulm: Nonlabored respirations on room air, clear bilaterally ABD: Soft, mild-mod left-sided abdominal/flank tenderness, nondistended Neuro: Normal speech, normal affect Briceño in place vitals reviewed Problem List: acute pyelonephritis, left NIDDM2 nephrolithiasis s/p ureteral stent placement Hypertension Class II obesity Nicotine dependence acute pyelonephritis, left nephrolithiasis s/p ureteral stent placement CT abd (12/26): Left double-J stent is in place. mild left hydronephrosis. 4 mm fragmented stone is likely present along the course of the stent proximally Left stent placed ~few weeks ago by patient's urologist admitting hospitalist spoke to urologist prior to admission, recommended briceño / antibiotics, no need for transfer no history of urinary retention per patient, but reports frequent urination, uncertain if overactive bladder vs incomplete emptying voiding trial, possibly tomorrow consulted Dr. Goddard for further recommendations on pain control/management while patient waits for f/u with her urologist for definitive treatment NPO for potential surgery today to reposition the stent with Dr. Rupesh Goddard to discuss further with patient today Urine cx (12/26): Presumptive Esther Albicans Blood cx (12/26): NGTD ID consulted Continue rocephin (12/26-) x14 days consider swap to PO cipro per ID continue Diflucan (12/29-) x14 days afebrile, leukocytosis improved NIDDM2. sliding scale insulin. Hypertension. Continue home medications and hydralazine as needed. Class II obesity. Likely related to excess calories intake. Patient counseled on weight reduction, diet, and excise therapy. Nicotine dependence. Patient counseled on tobacco cessation. Refuses nicotine patch. VTE: Lovenox Code: Full Dispo: Home, ~1-2 days Pending further improvement, afebrile > 24 hours, culture results
[2022-12-30] MEDS: INSULIN REGULAR (HUMAN) 100 UNIT/ML SQ SCH ×4 (07:30→21:00)
[2022-12-30] MEDS: HYDROCODONE/APAP 10/325 TAB PO PRN (08:43)
[2022-12-30] MEDS: ASPIRIN 81 MG CHEWABLE TABLET PO SCH (08:43)
[2022-12-30] MEDS: CEFTRIAXONE 1,000 MG in NA CHLORIDE 0.9% 50 ML IVPB SCH (08:43)
[2022-12-30] MEDS: FLUCONAZOLE 100 MG TAB PO SCH (08:43)
[2022-12-30] MEDS ORDERED: POTASSIUM CL SA 10 MEQ TAB PO ONE (09:00)
[2022-12-30] MEDS ORDERED: NA CHLORIDE 0.9% 1,000 ML ONE (12:45)
[2022-12-30] MEDS ORDERED: propofoL 200 MG/20 ML VIAL IV ONE (13:28)
[2022-12-30] MEDS ORDERED: FENTANYL CITR 100 MCG/2 ML ONE ×2 (13:28→14:16)
[2022-12-30] MEDS ORDERED: LIDOCAINE 1% MPF 5 ML VIAL ONE (13:28)
[2022-12-30] MEDS ORDERED: dexAMETHasone 10 MG/ML VIAL ONE (13:52)
[2022-12-30] MEDS ORDERED: ONDANSETRON 4 MG/2 ML VIAL ONE (13:52)
[2022-12-30] MEDS ORDERED: GLYCOPYRROLATE 0.2 MG/ML SYR ONE (13:52)
--- NOTE | 2022-12-30 14:18 | P.CNS ---
Date of Consult: 12/30/22 Reason for consultation: Persistent severe pain History of present illness: 67-year-old woman with history of left flank pain that prompted emergency department visit and ultimately transferred to [facility] where she underwent left ureteral stent placement by Dr. Tran about 3 weeks ago. She initially had some improvement in her pain, but several days later, the pain recurred and became eventually progressively more severe. She then presented back to the emergency department on 12/26/2022 where she was seen and eventually admitted. Despite initial determination that the stent was in adequate position and cultures did not reveal any aggressive bacterial infection, she still had persistent severe pain difficult to manage. Past medical history: DM 2, hypertension, recurrent nephroureterolithiasis Past surgical history: Umbilical hernia repair, history of bladder "lift", Cholecystectomy, partial hysterectomy Social history: Active smoker Allergies: Latex Family history: She denies urologic malignancy in her family Examination: Patient at this point reasonably well-appearing and in no acute distress Alert, awake, oriented x3 No dyspnea or sign of respiratory distress No cervical/supraclavicular adenopathy or thyromegaly Abdomen soft, nontender, nondistended Resting reclined in the hospital bed I reviewed the CT scan performed 12/26/2022 with the following findings: Stent migrated distally into the UPJ with an excessive component of the stent within the bladder likely causing the degree of ongoing stent discomfort. [id number] 12/29/2022: WBC 14.7 now 9.8, creatinine 1.18 now 0.66, UA 3+ leukocyte Estrace negative nitrites greater than 50 WBCs per hpf, culture Sether Assessment and recommendation: 67-year-old woman with DM 2, hypertension, and recurrent nephroureterolithiasis presents with a 4 to 7 mm left ureteral calculus with persistent severe flank pain and stent discomfort likely secondary to distal migration of the stent with a coil in the UPJ. -I counseled the patient extensively that we likely could improve her pain by properly repositioning the stent. -Since she has been on antimicrobial therapy with ceftriaxone and fluconazole for several days now, I explained it would not be unreasonable to attempt definitive management of the stone via ureteroscopy with laser lithotripsy, but I cautioned that if signs of purulence were present, we would only exchange the stent. -Risks of the procedure were discussed in detail to include urethral stricture, ureteral stricture, injury to the ureter, infection/sepsis, gross hematuria. Side effects of ongoing stent discomfort were discussed as well as the timeframe for needing the stent, which I explained was dependent on the appearance of health of the ureter given the impacted nature likely of the stone associated with the pain. -She agreed to proceed and was consented accordingly for cystoscopy, left ureteroscopy with laser lithotripsy and stent exchange
--- NOTE | 2022-12-30 14:27 | P.OP ---
Date of Service: 12/30/22 Preoperative diagnosis: Left proximal ureterolithiasis Persistent left flank pain Severe stent discomfort Distally displaced ureteral stent Postoperative diagnoses: As above Principal procedures: Cystoscopy Left retrograde pyelography Left ureteroscopy with laser lithotripsy Left ureteral stent exchange Indication for procedure: 67-year-old woman with DM 2, hypertension, active smoker with history of recurrent nephroureterolithiasis status post history of bladder lift and partial hysterectomy with umbilical hernia repair with obstructive 4 to 7 mm left ureterolithiasis status post left ureteral stent placement aberrantly placed/distally migrated causing persistent pain. Procedure note: The patient was consented in the preoperative holding area before being transferred to the operative suite where general anesthesia was induced. She had been given ceftriaxone and fluconazole as IV antimicrobial therapy on the floor prior to presenting to operative management today. She was placed in the lithotomy position, padded and secured to the table appropriately, and her genitalia was prepped with Hibiclens before being draped in standard fashion. The case was begun using a 22 Arabic rigid cystoscope to traverse the urethra and into the bladder with ease. The bladder was decompressed of fluid and slightly cloudy urine with fibrinous debris observed alongside the stent which was emanating from the left ureteral orifice. Using an alligator grasper, I grasped the coil of the stent and delivered the tip to the meatus leaving the proximal coil within the proximal ureter. I then advanced a sensor wire up the stent and successfully coiled it within the putative upper pole calyx of the left kidney. I then performed a retrograde pyelogram after passing a dual-lumen catheter o the indwelling sensor wire. Left retrograde pyelography: Using a 70: 30 mixture of Omnipaque and saline, contrast was injected via the second lumen of the dual-lumen catheter and did propagate up the distal into the mid and proximal ureter without visible radiopaque calculus or significant obstruction noted. The wire was appropriately within the upper pole of the kidney and appropriately positioned. So I passed a Bentson guidewire via the second lumen of the dual-lumen catheter and coiled alongside the sensor wire within the upper pole of the left kidney. I removed the dual-lumen catheter and passed a flexible ureteroscope over the Bentson guidewire until it reached a point of obstruction in the proximal left ureter. Direct visualization showed the presence of the stone with the wire essentially emanating through part of the stone. I thus utilized a 270 nm laser fiber and power settings of 0.8 J and 8 Hz that was increased to 15 Hz to quickly fragment the stone into dust smaller than 1 mm fragments. I then went beyond the stone into the upper pole of the kidney and surveyed the calyces with minimal pressure because there was significant cloudiness of the urine in the kidney. I aspirated some of this cloudy urine and sent it for culture as left renal aspirate urine culture. Because of concern for potential infection within the kidney that might be inadequately treated by the antimicrobial, I did not attempt to clarify the collecting system any further and did not use any significant pressurized irrigation before leaving the collecting system and backing the scope down into the pelvis, proximal down into the mid and distal ureter. I further fragmented any stones larger than half of millimeter in diameter until they were the size of the laser fiber/270 nm. Once all stones were adequately fragmented, I surveyed down through the mid and distal ureter and out. I then backloaded the cystoscope over the indwelling sensor safety wire and passed a 6 Arabic by 26 cm double-J ureteral stent into the collecting system with a coil observed fluoroscopically and 1 cystoscopically formed within her bladder. I then decompressed her bladder of fluid and urine and collected some stone material in the process. This was sent for chemical analysis. The patient was then taken out of the lithotomy position, awakened from general anesthesia, transferred to a stretcher, and then transferred to the recovery room in good condition. Complications: None Discharge disposition: She should be monitored for the next several hours to ensure absence of signs of sepsis given the cloudiness of the urine observed within her renal pelvis and calyces. If no deterioration, she certainly was eligible for discharge within the next 8 hours. She should keep the left ureteral stent for about 2 weeks, given the edema observed in the proximal ureter where the stone had impacted, and we can plan cystoscopy and left ureteral stent extraction in my office in around 2 to 3 weeks.
--- NOTE | 2022-12-30 16:26 | PN ---
Subjective: Patient is lying in bed. No new acute event. Chart reviewed. Objective: Vital Signs: Temperature 97, otherwise unremarkable. Lungs: Basal crackles. Heart: S1, S2. Regular. Abdomen: Soft, nontender. Bowel sounds present. Extremities: No edema. Laboratory Data: Shows WBC 9, hemoglobin 10, platelets are 269. BUN 10, creatinine 0.8. Urine cult ures: Esther albicans present, more than 100,000. Blood cultures negative to date. Currently, on Rocephin and Diflucan. Assessment And Plan: Left-sided pyelonephritis with urine culture growing Esther, currently on Roce phin and diflucan. Continue 2 weeks. Renal calculus. Patient is being treated today by urology linn morales for possible lithotripsy, diabetes mellitus, hypertension, anxiety disorder. We will follow steven main closely. NF/MODL Voice ID: [id number] Report ID: [id number]
[2022-12-30] MEDS: HYDRALAZINE HCL 20 MG/ML VIAL IV PRN (17:52)
--- NOTE | 2022-12-30 18:36 | RAD REPORT ---
EXAM DESCRIPTION: RAD - Urethrocystogrphy Retrograde - 12/30/2022 2:11 pm CLINICAL HISTORY: LEFT STENT PLCMNT COMPARISON: None available. FINDINGS: Seven Images were sent to PACS, documenting hardware positions during an image guided s le ft ureteral stent placement procedure. No radiologist was available for the procedure, nor will any i mage interpretation he provided. Please refer to the procedural report for additional details. Fluoroscopy time: 0.8 Minutes. IMPRESSION: Documentation of fluoroscopy utilization as above.
[2022-12-30] MEDS: oxyBUTYnin chloride 5 MG TAB PO SCH (21:11)
[2022-12-31 03:37] LABS: Absolute Lymphocytes (CBC) 0.9 K/uL (0.7-4.9); Hematocrit 34.2 % (36.0-45.0); Lymphocytes % 5.5 % (15.3-44.8); MCV 85.2 fL (80-100); MPV 7.8 fL (7.6-11.3); Platelets 334 thou/uL (152-406); RBC Red Blood Cell Count 4.01 M/uL (3.86-4.86)
[2022-12-31 03:53] LABS: Magnesium 2.1 mg/dL (1.6-2.4); Potassium 4.1 mEq/L (3.5-5.1)
[2022-12-31] MEDS: HYDROCODONE/APAP 5/325 MG TAB PO PRN (04:20)
[2022-12-31] MEDS: INSULIN REGULAR (HUMAN) 100 UNIT/ML SQ SCH ×4 (07:30→21:00)
--- NOTE | 2022-12-31 07:53 | P.PN ---
Date of Service: 12/31/22 Subjective: Feeling much better today appears more comfortable post operatively; seen sitting in chair and out of bed Abdominal / flank pain improved; not needing as frequent pain medication no acute events overnight afebrile ROS: 10 point ROS as noted above, otherwise negative Physical Exam: GEN: Alert, oriented, NAD HEENT: Normal conjunctiva, sclera anicteric CV: Regular rate and rhythm, no edema Pulm: Nonlabored respirations on room air, clear bilaterally ABD: Soft, minimal tenderness, nondistended Neuro: Normal speech, normal affect vitals reviewed Problem List: acute pyelonephritis, left Left proximal ureterolithiasis s/p Cystoscopy, Left retrograde pyelography, Left ureteroscopy with laser lithotripsy, Left ureteral stent exchange (12/30) NIDDM2 Hypertension Class II obesity Nicotine dependence acute pyelonephritis, left Left proximal ureterolithiasis s/p Cystoscopy, Left retrograde pyelography, Left ureteroscopy with laser lithotripsy, Left ureteral stent exchange (12/30) CT abd (12/26): Left double-J stent is in place. mild left hydronephrosis. 4 mm fragmented stone is likely present along the course of the stent proximally Left stent placed ~few weeks ago by patient's urologist admitting hospitalist spoke to urologist prior to admission, recommended briceño / antibiotics, no need for transfer no history of urinary retention per patient, but reports frequent urination, uncertain if overactive bladder vs incomplete emptying voiding trial, possibly tomorrow Dr. Goddard consulted for further recommendations on pain control/management while patient waits for f/u with her urologist for definitive treatment s/p Cystoscopy, Left retrograde pyelography, Left ureteroscopy with laser lithotripsy, Left ureteral stent exchange (12/30) with Dr. Goddard tentative plan for outpatient cystoscopy and left ureteral stent extraction with Dr. Goddard in ~2-3 weeks PRN pain medication Urine cx (12/26): Presumptive Esther Albicans Blood cx (12/26): NGTD repeat urine cx (12/30): pending ID consulted Continue rocephin (12/26-01/09) x14 days consider swap to PO cipro per ID continue Diflucan (12/29-01/12) x14 days afebrile, leukocytosis slightly worse - likely reactive from surgery NIDDM2. sliding scale insulin. Hypertension. Continue home medications and hydralazine as needed. Class II obesity. Likely related to excess calories intake. Patient counseled on weight reduction, diet, and excise therapy. Nicotine dependence. Patient counseled on tobacco cessation. Refuses nicotine patch. VTE: Ambulatory Code: Full Dispo: Home, ~1-2 days Pending further improvement, afebrile > 24 hours, culture results
[2022-12-31] MEDS: CEFTRIAXONE 1,000 MG in NA CHLORIDE 0.9% 50 ML IVPB SCH (09:23)
[2022-12-31] MEDS: FLUCONAZOLE 100 MG TAB PO SCH (09:24)
[2022-12-31] MEDS: ENOXAPARIN 40 MG/0.4 ML SQ SCH (09:24)
[2022-12-31] MEDS: ASPIRIN 81 MG CHEWABLE TABLET PO SCH (09:24)
[2022-12-31] MEDS: HYDRALAZINE HCL 20 MG/ML VIAL IV PRN (17:26)
[2022-12-31] MEDS: oxyBUTYnin chloride 5 MG TAB PO SCH (21:34)
[2022-12-31 23:03] VITALS: O2SAT 94
[2023-01-01] MEDS: HYDROCODONE/APAP 5/325 MG TAB PO PRN (04:08)
[2023-01-01] MEDS ORDERED: METOPROLOL TARTRATE 5 MG/5 ML INJ IV STA ×2 (04:47→05:17)
[2023-01-01] MEDS ORDERED: METOPROLOL TARTRATE 5 MG/5 ML INJ IV ONE (05:04)
[2023-01-01 05:11] LABS: Absolute Lymphocytes (CBC) 2.8 K/uL (0.7-4.9); Hematocrit 34.3 % (36.0-45.0); Lymphocytes % 22.9 % (15.3-44.8); MCV 84.9 fL (80-100); MPV 7.7 fL (7.6-11.3); Platelets 349 thou/uL (152-406); RBC Red Blood Cell Count 4.04 M/uL (3.86-4.86)
[2023-01-01 05:23] LABS: Potassium 3.5 mEq/L (3.5-5.1)
[2023-01-01 05:34] LABS: Thyroid Stimulating Hormone 3.41 uIU/mL (0.358-3.740)
[2023-01-01] MEDS ORDERED: METOPROLOL TAR 25 MG TAB PO SCH (06:10)
--- NOTE | 2023-01-01 06:50 | P.PN ---
Date of Service: 01/01/23 Subjective: converted into new onset a-fib with RVR (140s) overnight no chest pain; doesn't feel palpitations HR currently in 110s left flank pain improved, voiding without issues afebrile ROS: 10 point ROS as noted above, otherwise negative Physical Exam: GEN: Alert, oriented, NAD HEENT: Normal conjunctiva, sclera anicteric CV: Irregularly Irregular rate and rhythm, no edema Pulm: Nonlabored respirations on room air, clear bilaterally ABD: Soft, minimal tenderness, nondistended Neuro: Normal speech, normal affect vitals reviewed Problem List: acute pyelonephritis, left Left proximal ureterolithiasis s/p Cystoscopy, Left retrograde pyelography, Left ureteroscopy with laser lithotripsy, Left ureteral stent exchange (12/30) Atrial Fibrillation, new onset NIDDM2 Hypertension Class II obesity Nicotine dependence acute pyelonephritis, left Left proximal ureterolithiasis s/p Cystoscopy, Left retrograde pyelography, Left ureteroscopy with laser lithotripsy, Left ureteral stent exchange (12/30) CT abd (12/26): Left double-J stent is in place. mild left hydronephrosis. 4 mm fragmented stone is likely present along the course of the stent proximally Left stent placed ~few weeks ago by patient's urologist admitting hospitalist spoke to urologist prior to admission, recommended briceño / antibiotics, no need for transfer no history of urinary retention per patient, but reports frequent urination, uncertain if overactive bladder vs incomplete emptying Dr. Goddard consulted for further recommendations on pain control/management while patient waits for f/u with her urologist for definitive treatment s/p Cystoscopy, Left retrograde pyelography, Left ureteroscopy with laser lithotripsy, Left ureteral stent exchange (12/30) with Dr. Goddard tentative plan for outpatient cystoscopy and left ureteral stent extraction with Dr. Goddard in ~2-3 weeks PRN pain medication Urine Cultures (12/26 & 12/30): Both growing Presumptive Esther Albicans Blood Culture (12/26): NGTD ID consulted Continue rocephin (12/26-01/09) x14 days consider swap to PO cipro per ID continue Diflucan (12/29-01/12) x14 days afebrile, leukocytosis improving Atrial Fibrillation with RVR, new onset converted into new onset a-fib with RVR overnight given IV metoprolol 5 mg x2 overnight Start metoprolol PO 25 mg BID trend troponins; monitor on tele Cardiology consulted check EKG Echo ordered NIDDM2. sliding scale insulin. Hypertension. Continue home medications and hydralazine as needed. Class II obesity. Likely related to excess calories intake. Patient counseled on weight reduction, diet, and excise therapy. Nicotine dependence. Patient counseled on tobacco cessation. Refuses nicotine patch. VTE: Ambulatory Code: Full Dispo: Home, ~1-2 days Pending improvement of rate/rhythm
[2023-01-01] MEDS: INSULIN REGULAR (HUMAN) 100 UNIT/ML SQ SCH ×2 (07:30→11:30)
[2023-01-01] MEDS ORDERED: POTASSIUM CL SA 10 MEQ TAB PO ONE (09:00)
[2023-01-01] MEDS: ASPIRIN 81 MG CHEWABLE TABLET PO SCH (09:49)
[2023-01-01] MEDS: FLUCONAZOLE 100 MG TAB PO SCH (09:49)
[2023-01-01] MEDS: CEFTRIAXONE 1,000 MG in NA CHLORIDE 0.9% 50 ML IVPB SCH (09:50)
--- NOTE | 2023-01-01 14:39 | CON ---
Date of Consultation: 01/01/2023 Reason For Consultation: Atrial fibrillation. History Of Present Illness: This is a 67-year-old female, who was admitted with kidney stone and has been treated as such and apparently she had an episode of atrial fibrillation with rapid ventricular response that responded to treatment with metoprolol and she is in sinus now. Doing well. No chest pain. No shortness of breath. Past Medical History: Diabetes, hypertension, and smoker. Medications: Refer to reconciliation sheet for detailed list. Allergies: LATEX. Family History: No premature coronary artery disease or cancer. Social History: She is an active smoker. Does not drink, use any drugs. Review of Systems: All systems reviewed and they were negative except what mentioned in HPI. Physical Examination: Vital Signs: Reviewed. Head and Neck: Pupils are equal, reactive to light. Intact eye movements. No JVD. No cervical lym phadenopathy. Neck is supple. Thyroid is not enlarged. Lungs: Clear to auscultation bilaterally. No rhonchi, wheezing, or crackles. No accessory muscle u se. Heart: Regular rate and rhythm. No extra sounds. Abdomen: Soft, nontender. Bowel sounds positive. No organomegaly. No masses or hernia. No rigidi ty or rebound. Extremities: No edema, clubbing, or cyanosis. Intact pulses. Skin: No rash or nodules. Neurologic: Alert, awake, oriented x3. No acute focal deficits appreciated. Investigations: BUN 17, creatinine 0.86. Cardiac enzymes are negative and hemoglobin is 11.5. Assessment And Recommendations: 1.Atrial fibrillation with rapid ventricular response, resolved. Continue metoprolol. Recommend al so Eliquis 5 mg twice a day and outpatient followup. 2.Hypertension. Blood pressure is acceptable. Continue home medications. From Cardiology standpoi nt, the patient can be released and follow up with me as an outpatient. SR/TONIOL Voice ID: [id number] Report ID: [id number]
--- NOTE | 2023-01-01 15:01 | P.DS ---
Admission Date: 12/26/22 Discharge Date: 01/01/23 Disposition: ROUTINE DISCHARGE Discharge Condition: GOOD Reason for Admission: Left flank pain Consultations: Cardiology - Dr. Domínguez Infectious Disease - Dr. Guzmán Urology - Dr. Goddard Brief History of Present Illness: 67yo F, PMH: DM 2, kidney stones, hypertension Patient presents with complaint of left flank pain onset yesterday. Patient rated pain as 10/10 and described pain as sharp in quality. Patient indicated that pain radiates to the left lower quadrant as well as her back. Patient reported associated signs and symptoms of dysuria, urinary frequency, dizziness, diaphoresis and nausea. Patient denies any other signs and symptoms. Symptoms are aggravated or relieved by nothing. Patient decided to present to the hospital due to worsening symptoms. Of note, patient recently had a Left double-J stent placed by her Urologist 1 month ago. Hospital Course: Problem List: acute pyelonephritis, left Left proximal ureterolithiasis s/p Cystoscopy, Left retrograde pyelography, Left ureteroscopy with laser lithotripsy, Left ureteral stent exchange (12/30) Atrial Fibrillation, new onset NIDDM2 Hypertension Class II obesity Nicotine dependence Patient presented with left-sided abdominal/flank pain. She was found to have acute left pyelonephritis seen on CT complicated by a left proximal ureterolithiasis and displaced ureteral stent. Urology and infectious disease were consulted. Patient underwent successful Cystoscopy, Left retrograde pyelography, Left ureteroscopy with laser lithotripsy, Left ureteral stent exchange on 12/[address] Goddard. Urine culture was noted to be growing Presumptive jose albicans on admission and on surgical renal aspirate. Blood cultures without growth. Patient was given Rocephin and diflucan and had improvement of her symptoms. Patient is to complete 10 more days of cefpodoxime / diflucan for a total of ~14 days of total antibiotic therapy. Dr. Goddard recommending for outpatient cystoscopy and left ureteral stent extraction in ~2-3 weeks. Patient was feeling better, afebrile > 48 hrs, flank pain improved, and deemed stable for discharge home. During her hospitalization, On evening of 12/31, patient was noted to be in new onset a-fib with RVR. Cardiology was consulted. She was given metoprolol and had improvement of her heart rate and eventually converted to sinus rhythm in the morning of 01/01. She reported feeling much better and requesting to go home. Discussed return precautions. She remained in sinus rhythm > 6 hours and was discharged home with new prescriptions. Dr. Domínguez recommended close follow up in ~1 week. Medications: New: Diflucan cefpodoxime Metoprolol Eliquis - anticoagulation to prevent blood clots due to afib. Follow up: PCP 3-5 days Urology 2-3 weeks Cardiology in 1 week Physical Exam: GEN: Alert, oriented, NAD HEENT: Normal conjunctiva, sclera anicteric CV: Irregularly Irregular rate and rhythm, no edema Pulm: Nonlabored respirations on room air, clear bilaterally ABD: Soft, minimal tenderness, nondistended Neuro: Normal speech, normal affect Vital Signs/Physical Exam: Temp Pulse Resp BP Pulse Ox 97.2 F 67 16 141/68 H 96 01/01/23 12:00 01/01/23 12:00 01/01/23 12:00 01/01/23 12:00 01/01/23 12:00 Laboratory Data at Discharge: WBC 12.40 thou/uL (4.3-10.9) H 01/01/23 04:49 Hgb 11.5 g/dL (12.0-15.0) L 01/01/23 04:49 Hct 34.3 % (36.0-45.0) L 01/01/23 04:49 Plt Count 349 thou/uL (152-406) 01/01/23 04:49 Sodium 140 mEq/L (136-145) 01/01/23 04:49 Potassium 3.5 mEq/L (3.5-5.1) D 01/01/23 04:49 BUN 17 mg/dL (7-18) 01/01/23 04:49 Creatinine 0.85 mg/dL (0.55-1.02) 01/01/23 04:49 Glucose 101 mg/dL (74-106) 01/01/23 04:49 Phosphorus 4.0 mg/dL (2.5-4.9) 12/30/22 02:29 Magnesium 2.1 mg/dL (1.6-2.4) 12/31/22 03:02 Total Bilirubin 0.5 mg/dL (0.2-1.0) 12/26/22 09:30 AST 15 U/L (15-37) 12/26/22 09:30 ALT 20 U/L (13-56) 12/26/22 09:30 Alkaline Phosphatase 146 U/L (45-117) H 12/26/22 09:30 Triglycerides 89 mg/dL (<150) 12/27/22 01:55 Cholesterol 106 mg/dL (<200) 12/27/22 01:55 HDL Cholesterol 39 mg/dL (40-60) L 12/27/22 01:55 Cholesterol/HDL Ratio 2.72 12/27/22 01:55 Lipase 21 U/L (13-75) 12/26/22 09:30 Home Medications: Apixaban [Eliquis] 5 mg PO BID 30 Days #60 tab 01/01/23 Cefpodoxime Proxetil [Vantin] 200 mg PO BID 10 Days #20 tab 01/01/23 Fluconazole [Diflucan] 200 mg PO BID 10 Days #20 tab 01/01/23 Metoprolol Tartrate 25 mg PO BID 30 Days #60 tab 01/01/23 New Medications: Fluconazole [Diflucan] 200 mg PO BID 10 Days #20 tab Apixaban [Eliquis] 5 mg PO BID 30 Days #60 tab Metoprolol Tartrate 25 mg PO BID 30 Days #60 tab Cefpodoxime Proxetil [Vantin] 200 mg PO BID 10 Days #20 tab Physician Discharge Instructions: Patient presented with left-sided abdominal/flank pain. She was found to have acute left pyelonephritis seen on CT complicated by a left proximal ureterolithiasis and displaced ureteral stent. Urology and infectious disease were consulted. Patient underwent successful Cystoscopy, Left retrograde pyelography, Left ureteroscopy with laser lithotripsy, Left ureteral stent exchange on 12/[address] Goddard. Urine culture was noted to be growing Presumptive jose albicans on admission and on surgical renal aspirate. Blood cultures without growth. Patient was given Rocephin and diflucan and had improvement of her symptoms. Patient is to complete 10 more days of cefpodoxime / diflucan for a total of ~14 days of total antibiotic therapy. Dr. Goddard recommending for outpatient cystoscopy and left ureteral stent extraction in ~2-3 weeks. Patient was feeling better, afebrile > 48 hrs, flank pain improved, and deemed stable for discharge home. During her hospitalization, On evening of 12/31, patient was noted to be in new onset a-fib with RVR. Cardiology was consulted. She was given metoprolol and had improvement of her heart rate and eventually converted to sinus rhythm in the morning of 01/01. She reported feeling much better and requesting to go home. Discussed return precautions. She remained in sinus rhythm > 6 hours and was discharged home with new prescriptions. Dr. Domínguez recommended close follow up in ~1 week. Medications: New: Diflucan cefpodoxime Metoprolol Eliquis - anticoagulation to prevent blood clots due to afib. Follow up: PCP 3-5 days Urology 2-3 weeks Cardiology in 1 week Followup: Dave Shell DO [Primary Care Provider] - Time spent managing pt's care (in minutes): 45
[2023-01-01 17:16] VITALS: BP 183/85; TEMP 97.3
--- NOTE | 2023-01-02 16:50 | EKG ---
Test Date: 2023-01-01 Test Time: 14:26:07 Group Product Manager: ARPIT MEASUREMENT RESULTS: Intervals: Rate: 69 MI: 138 QRSD: 74 QT: 408 QTc: 437 [place]: P: 64 MI: 138 QRS: 28 T: 74 INTERPRETIVE STATEMENTS: Normal sinus rhythm Low voltage QRS Borderline ECG Compared to ECG 04/17/2022 14:26:13 Low QRS voltage now present Ventricular premature complex(es) no longer present ST (T wave) deviation no longer present T-wave abnormality no longer present Electronically Signed On 01-02-23 16:47:29 CDT by Vinay Domínguez
--- NOTE | 2023-01-02 16:52 | EKG ---
Test Date: 2023-01-01 Test Time: 04:28:15 Packaging Sales Consultant: ALDO MEASUREMENT RESULTS: Intervals: Rate: 145 CT: QRSD: 70 QT: 294 QTc: 456 [place]: P: CT: QRS: 176 T: -54 INTERPRETIVE STATEMENTS: Suspect arm lead reversal, interpretation assumes no reversal Atrial fibrillation with rapid ventricular response with premature ventricular or aberrantly conducted complexes Lateral infarct, age undetermined Abnormal ECG Compared to ECG 04/17/2022 14:26:13 Myocardial infarct finding now present Sinus rhythm no longer present ST (T wave) deviation no longer present T-wave abnormality no longer present Electronically Signed On 01-02-23 16:48:52 CDT by Vinay Domínguez
== END 2023-01-01 17:15 | disposition home or self-care (01) | DRG 660 ==
LOC: ER 09:13 → ERHOLD 14:40 → 2ND 20:48
PROVIDERS: ADMIT Internal Medicine; ATTEND Hospitalist
PROC: 0TC78ZZ Extirpation of Matter from Left Ureter, Via Natural or Artificial Opening Endoscopic (ICD-10-PCS; 2022-12-30)
PROC: 0T778DZ Dilation of Left Ureter with Intraluminal Device, Via Natural or Artificial Opening Endoscopic (ICD-10-PCS; principal; 2022-12-30 13:00)
PROC: 0TP98DZ Removal of Intraluminal Device from Ureter, Via Natural or Artificial Opening Endoscopic (ICD-10-PCS; 2022-12-30 13:00)
DX: N13.6 Pyonephrosis (principal); B37.49 Other urogenital candidiasis; I10 Essential (primary) hypertension; E11.9 Type 2 diabetes mellitus without complications; F41.9 Anxiety disorder, unspecified; I48.91 Unspecified atrial fibrillation; D72.829 Elevated white blood cell count, unspecified; F17.210 Nicotine dependence, cigarettes, uncomplicated; E66.9 Obesity, unspecified; Z71.6 Tobacco abuse counseling; Z68.39 Body mass index [BMI] 39.0-39.9, adult; Z79.01 Long term (current) use of anticoagulants; Z90.49 Acquired absence of other specified parts of digestive tract; Z90.711 Acquired absence of uterus with remaining cervical stump; Z91.040 Latex allergy status; Z85.828 Personal history of other malignant neoplasm of skin; Z79.899 Other long term (current) drug therapy
CPT/HCPCS: 36415; 51610; 74176; 74450; 76377; 80048; 80053; 80061; 80069; 81001; 82360; 82947; 83036; 83605; 83690; 83735; 84100; 84439; 84443; 84484; 85025; 87040; 87086; 87088; 88300; 93005; 99285; J0360; J0696; J0744; J1100; J1650; J2001; J2405; J2704; J3010; J7030